=== PATIENT | female | born 1950 | race Caucasian/White ===

== ENCOUNTER → 2019-11-16 | Outpatient (CLI) | payer MEDICARE, OTHER, SELFPAY | PROVIDERS: Family Provider Family Medicine; PCP Family Medicine; Visit Provider Family Medicine | DX: Z12.31 Encounter for screening mammogram for malignant neoplasm of breast (principal) | CPT/HCPCS: 77067 ==

== ENCOUNTER → 2020-01-25 11:16 | Outpatient (BNVA) | payer MEDICARE, OTHER, SELFPAY | PROVIDERS: Family Provider Family Medicine; PCP Family Medicine; Visit Provider Internal Medicine Cardiovascular Disease | DX: R06.02 Shortness of breath (principal); I50.32 Chronic diastolic (congestive) heart failure; I50.33 Acute on chronic diastolic (congestive) heart failure; I35.0 Nonrheumatic aortic (valve) stenosis | CPT/HCPCS: 80048; 83880 ==

== ENCOUNTER 2020-03-06 13:48 | Outpatient (CLI) | payer MEDICARE, OTHER, SELFPAY ==
--- NOTE | 2020-03-06 13:55 | USCV_ITS ---
Anastacio Any Age: 69 Gender: F : 1950 Exam Date: 03/06/2020 14:18 Ordering Phys: Gadiel Mcneil MD ([email or web address]) Technologist: Elissa Collins Exam Location: [facility] [place] Indication: AV STENOSIS BP: / HR: 65 Rhythm: Sinus Technical Quality: Adequate MEASUREMENTS (Male / Female) Normal Values 2D ECHO LV Diastolic Diameter PLAX 3.5 cm 4.2 - 5.9 / 3.9 - 5.3 cm LV Systolic Diameter PLAX 1.7 cm IVS Diastolic Thickness 1.3 cm 0.6 - 1.0 / 0.6 - 0.9 cm IVS Systolic Thickness 1.9 cm LVPW Diastolic Thickness 1.2 cm 0.6 - 1.0 / 0.6 - 0.9 cm LVPW Systolic Thickness 1.1 cm LVOT Diameter 2.1 cm LV Ejection Fraction 2D Teich 83.3 % LV Ejection Fraction MOD 2C 87.1 % LV Ejection Fraction 2C AL 88.0 % LA Diameter 3.2 cm LA Width 3.1 cm LA Height 5.0 cm RA Width 2.7 cm RA Height 3.9 cm M-MODE LV Diastolic Diameter MM 4.8 cm 4.2 - 5.9 / 3.9 - 5.3 cm LV Systolic Diameter MM 3.3 cm LV Ejection Fraction MM Teich 59.7 % IVS Diastolic Thickness MM 0.8 cm 0.6 - 1.0 / 0.6 - 0.9 cm IVS Systolic Thickness MM 1.2 cm LVPW Diastolic Thickness MM 0.6 cm 0.6 - 1.0 / 0.6 - 0.9 cm LVPW Systolic Thickness MM 1.3 cm Aortic Annulus Diameter 2.8 cm LA Ao Ratio MM 1.2 DOPPLER AV Peak Velocity 201.0 cm/s LVOT Peak Velocity 183.0 cm/s AV Area Cont Eq vti 3.4 cm squared AV Area Cont Eq pk 3.1 cm squared MV E' Velocity 10.0 cm/s TR Peak Velocity 118.0 cm/s TR Peak Gradient 5.5 mmHg Right Atrial Pressure 3.0 mmHg Pulmonary Artery Systolic Pressu 8.6 mmHg PV Peak Velocity 123.0 cm/s RV Acceleration Time 0.1 s FINDINGS Left Ventricle Normal left ventricular size and systolic function, EF 86 %. Grade I/IV diastolic dysfunction (abnormal relaxation filling pattern), normal to mildly elevated filling pressures.mild left ventricular hypertrophy. Right Ventricle Normal right ventricular size and systolic function. Right Atrium The right atrium is normal in size. Left Atrium The left atrium is normal in size. Mitral Valve No gross abnormalities noted Aortic Valve Thickened aortic valve. Tricuspid Valve Mild tricuspid valve regurgitation. Pulmonic Valve Pulmonic valve not well visualized. Pericardium Normal pericardium without effusion. Aorta Normal aortic arch. CONCLUSIONS Normal left ventricular size and systolic function, EF 86 %. Grade I/IV diastolic dysfunction (abnormal relaxation filling pattern), normal to mildly elevated filling pressures.mild left ventricular hypertrophy. Features of aortic valve sclerosis Mild tricuspid valve regurgitation. There is no pericardial effusion. There are no intracardiac masses. There are no prior echocardiogram studies to compare. Dr Gadiel Mcneil MD FACC (Electronically Signed) Final Date: 06 March 2020 15:46 S
== END 2020-03-06 13:49 | disposition home or self-care (01) ==
LOC: RAD 13:51
PROVIDERS: Family Provider Family Medicine; PCP Family Medicine; Visit Provider Internal Medicine Cardiovascular Disease
DX: I35.0 Nonrheumatic aortic (valve) stenosis (principal); I07.1 Rheumatic tricuspid insufficiency
CPT/HCPCS: 93306

== ENCOUNTER → 2020-05-25 11:05 | Outpatient (BNVA) | payer MEDICARE, OTHER, SELFPAY | PROVIDERS: Family Provider Family Medicine; PCP Family Medicine; Visit Provider Internal Medicine Cardiovascular Disease | DX: R06.02 Shortness of breath (principal); I50.32 Chronic diastolic (congestive) heart failure; I35.0 Nonrheumatic aortic (valve) stenosis; I42.1 Obstructive hypertrophic cardiomyopathy; M79.89 Other specified soft tissue disorders; E78.2 Mixed hyperlipidemia; I13.0 Hypertensive heart and chronic kidney disease with heart failure and stage 1 through stage 4 chronic kidney disease, or unspecified chronic kidney disease; N18.2 Chronic kidney disease, stage 2 (mild); I50.40 Unspecified combined systolic (congestive) and diastolic (congestive) heart failure | CPT/HCPCS: 80048; 83880 ==

== ENCOUNTER → 2020-09-20 15:40 | Outpatient (BNVA) | payer MEDICARE, OTHER, SELFPAY | PROVIDERS: Family Provider Family Medicine; PCP Family Medicine; Visit Provider Internal Medicine Cardiovascular Disease | DX: R06.02 Shortness of breath (principal); E78.2 Mixed hyperlipidemia; I50.33 Acute on chronic diastolic (congestive) heart failure; I42.1 Obstructive hypertrophic cardiomyopathy; M79.89 Other specified soft tissue disorders | CPT/HCPCS: 80048; 83880 ==

== ENCOUNTER 2020-09-26 07:27 | Outpatient (CLI) | payer MEDICARE, OTHER, SELFPAY ==
--- NOTE | 2020-09-26 08:00 | USCV_ITS ---
Any Chaves Age: 69 Gender: F : 1950 Exam Date: 09/26/2020 07:41 Ordering Phys: Gadiel Mcneil MD ([email or web address]) Technologist: Belkys Parekh Exam Location: [facility] [place] Indication: Bilateral leg swelling HISTORY: Lower extremity swelling. PROCEDURES: Venous duplex imaging was performed in bilateral lower extremities. The following venous structures were evaluated: common femoral vein, profunda vein, proximal portion of the greater saphenous vein, superficial femoral vein, and the popliteal vein. In addition, the posterior tibial and peroneal trunk were evaluated. FINDINGS: Normal 2-D Doppler and augmentation and compressibility throughout the lower extremity venous structures. Additional imaging through the proximal calf veins also reveals no thrombus. Limited evaluation of the greater saphenous vein is patent with no thrombus.. CONCLUSIONS No evidence of right lower extremity DVT. No evidence of left lower extremity DVT. Kings Frazier MD (Electronically Signed) Final Date: 26 September 2020 11:49 S
== END 2020-09-26 07:28 | disposition home or self-care (01) ==
LOC: RAD 07:31
PROVIDERS: PCP Family Medicine; Visit Provider Internal Medicine Cardiovascular Disease
DX: M79.89 Other specified soft tissue disorders (principal)
CPT/HCPCS: 93970

== ENCOUNTER 2020-10-09 12:36 | Outpatient (CLI) | payer MEDICARE, OTHER, SELFPAY ==
--- NOTE | 2020-10-09 12:00 | CT_ITS ---
WS: [id number] CT ABDOMEN PELVIS TECHNIQUE: Contrast-enhanced CT of the abdomen and pelvis with coronal and sagittal reformatted image s. CLINICAL INFORMATION: EDEMA COMPARISON: None. DLP: 1097.[address] scans at [facility] use at least one of these dose optimization techniques: automat ed exposure control; mA and/or kV adjustment per patient size (includes targeted exams where dose is matched to clinical indication); or iterative reconstruction. FINDINGS: Mild diffuse fatty infiltration of the liver. Normal portal vein and splenic vein. Cholelithiasis. Mi ld intrahepatic biliary ductal dilatation. Adrenal glands are normal. No hydronephrosis. Splenic gran ulomas. Normal caliber abdominal aorta. Fat-containing left inguinal hernia. Subsegmental atelectasis in the right middle lobe, lingula, and right lower lobe. A few tiny low-attenuation lesions in the liver likely hepatic cysts. No evidence of small or large b owel obstruction. No free fluid in the abdomen or pelvis. CT/CT abdomen pelvis w con* [id number] IMPRESSION: 1. Cholelithiasis. No gallbladder wall thickening. This can be followed up wit h ultrasound. 2. Normal bilateral renal parenchymal enhancement. No hydronephrosis. 3. Normal caliber abdominal aorta. Aortic calcification. 4. Fat-containing left inguinal hernia. 5. Sigmoid diverticulosis. No evidence of acute diverticulitis. 6. No evidence of small or large bowel obstruction. 7. Mild diffuse fatty infiltration of the liver with a few tiny hepatic cysts.
[2020-10-09] MEDS: iohexol 300 mg/mL 50 mL Btl PO (13:18)
[2020-10-09] MEDS: iodixanol 320 mg/mL 100mL Btl IV (13:43)
== END 2020-10-09 12:37 | disposition home or self-care (01) ==
LOC: RADWPI 12:42
PROVIDERS: PCP Family Medicine; Visit Provider Family Medicine
DX: R60.9 Edema, unspecified (principal); K76.0 Fatty (change of) liver, not elsewhere classified; K76.89 Other specified diseases of liver; K57.30 Diverticulosis of large intestine without perforation or abscess without bleeding; K40.90 Unilateral inguinal hernia, without obstruction or gangrene, not specified as recurrent; K80.20 Calculus of gallbladder without cholecystitis without obstruction
CPT/HCPCS: 74177; Q9967

== ENCOUNTER 2020-11-08 15:31 | Inpatient (IN) | payer MEDICARE, OTHER, SELFPAY ==
[2020-11-08] VITALS (20 sets, daily range): BP systolic 110–128; BP diastolic 53–78; PULSE 68–103; RESP 16–38; TEMP 36.6–37.1; O2SAT 94–99; BMI 30.5
--- NOTE | 2020-11-08 15:53 | XRR_ITS ---
PROCEDURE INFORMATION: Exam: XR Chest, 1 View Exam date and time: 11/08/2020 6:02 PM Age: 69 years old Clinical indication: Shortness of breath; Additional info: Short of breath TECHNIQUE: Imaging protocol: XR of the chest Views: 1 view. COMPARISON: CR Chest 2 views* [id number] 10/01/2019 8:19 PM FINDINGS: Lungs: There is pulmonary infiltration in the lateral aspect of the left base which is consistent with a pneumonia. Bilateral interstitial chronic fibrosis is present. Focal fibrosis is present in the right apex. Pleural space: Unremarkable. No pleural effusion. No pneumothorax. Heart/Mediastinum: The heart is not enlarged. There is calcification of the aorta. Bones/joints: Unremarkable. XR/XR chest 1V portable [id number] IMPRESSION: Left lower lobe pneumonia.
--- NOTE | 2020-11-08 17:59 | ED_ITS ---
HPI - SOB/Dyspnea General: Chief Complaint: Shortness of Breath/Dyspnea Stated Complaint: SOB low oxygen Time Seen by Provider: 11/08/20 17:28 History of Present Illness: HPI Narrative: The patient is a 69-year-old female with past medical history COPD and diagnosed with Covid 2 weeks ago comes to the ER complaining of continued cough that is keeping her up at night. She had been given 2 rounds of steroids which did help her slightly though her symptoms co ntinue to linger. She did have an elevated temperature to 99 degrees a couple days ago but has not been febrile for some time. Her cough is at times productive and it keeps her up all night. She has tried Robitussin DM with no relief of her cough. She has some shortness of breath with exertion but at rest is not short of breath Pertinent past history: COPD Onset (ago): day(s) (14) Associated symptoms: Deny abdominal pain, chest pain, dizziness, extremity pain, orthopnea, palpitations or polyuria Review of Systems General: Reports: 10 or more systems reviewed and unremarkable except in HPI and below Const: Denies: fatigue Eyes: Denies: change in vision, blurry vision or eye redness ENMT: Denies: throat pain, swelling of lips/tongue, ear or mastoid pain or nasal congestion Card: Denies: chest pain, palpitations, irregular heart rhythm, edema, dyspnea on exertion or orthopnea Resp: Reports: dyspnea, productive cough and non-productive cough GI: Denies: abdominal pain, diarrhea or GI cramping : Denies: flank pain, difficulty voiding, urinary frequency or urinary urgency Musc: Denies: neck pain, back pain, extremity pain, joint pain, joint redness, limited range of motion or muscle weakness Skin/Breast: Denies: rash, pruritus, erythema, skin pain or skin tenderness Neuro: Denies: headache(s), numbness in extremities, weakness in extremities, sensory changes, difficulty walking, dizziness, confusion or Slurred speech present Psych: Denies: anxiety or depression Endo: Denies: polyuria All/Imm: Denies: urticaria, throat swelling or tongue swelling PFSH ED PFSH: Medical History Cardiomyopathy Chronic diastolic heart failure Chronic kidney disease COPD (chronic obstructive pulmonary disease) Hyperlipidemia Hypertension Hypertrophic obstructive cardiomyopathy Leg swelling Surgical History History of tonsillectomy Family History Other Cancer Diabetes Hypertension Social History Smoking and tobacco status: former smoker Alcohol intake: current Alcohol intake frequency: holidays/special occasions only Substance/Drug Use: never Household members: family Housing: House Physical Exam Const: COMMON NORMALS: no acute distress, average body habitus, patient oriented x3, no limitations, healthy appearing, alert and well nourished GENERAL APPEARANCE: cooperative, comfortable, well kempt and well developed ORIENTATION/CONSCIOUSNESS: Yes awake, Yes oriented to person, Yes oriented to place and Yes oriented to time HENMT: COMMON NORMALS: normocephalic, external ears normal and Normal external nose present HEAD & SCALP: normal to inspection and normocephalic NOSE: Normal external nose present EXTERNAL EAR: Yes external ears normal MOUTH: Normal oral and palatal mucosa present THROAT: posterior oropharynx normal Eye: COMMON NORMALS: Equal, round and reactive pupils present and EOMs intact bilaterally GENERAL EYE: appearance normal, both eyes and all related structures PUPIL: Yes Equal, round and reactive pupils present Neck/C-Spine: COMMON NORMALS: full ROM, no lymphadenopathy, no meningeal signs and no JVD GENERAL: Yes normal visual inspection Lymph: LYMPHATIC: no lymphadenopathy noted Chest: COMMONS NORMALS: normal inspection of the chest and normal palpation of entire chest wall Resp: EFFORT & INSPECTION: Yes able to speak in complete sentences, Yes tachyp neic and Yes labored OTHER: Reduced breath sounds with bilateral crackles at the bases. Cardio: COMMON NORMALS: no JVD, regular rate, regular rhythm, S1 normal heart sound present, S2 normal heart sound present and Peripheral pulses 2+ throughout RATE: regular rate RHYTHM: regular rhythm HEART SOUNDS: S1 normal heart sound present and S2 normal heart sound present PERIPHERAL PULSES: Peripheral pulses 2+ throughout GI: COMMON NORMALS: Normal to inspection, nondistended, normoactive bowel sounds present, Soft to palpation, non-tender and no masses INSPECTION: Yes normal to inspection PALPATION: Yes Soft to palpation : COMMON NORMALS: Yes no CVA tenderness BLADDER/KIDNEY EXAM: Yes no CVA tenderness Back/Pelvis: COMMON NORMALS: no CVA tenderness, thoracic and lumbar spine normal to inspection, no thoracic nor lumbar tenderness and thoraco-lumbar ROM normal Extremity: COMMON NORMALS: normal to inspection, full ROM, capillary refill normal and no joint enlargement NARRATIVE EXTREMITY EXAM: 2+ pitting edema to mid calves bilaterally GENERAL: Yes normal exam except as noted Neuro: COMMON NORMALS: patient oriented x3, CN's II-XII intact bilaterally, moves all extremities, no focal motor deficits, no sensory deficits noted and gait normal SENSORIUM/ORIENTATION: Yes alert, Yes oriented to person, Yes oriented to place and Yes oriented to time MENINGEAL SIGNS: Yes no meningeal signs Psych: COMMON NORMALS: mental status grossly normal, Normal thought process present, cooperative, normal affect and speech normal APPEARANCE: Yes well kempt ATTITUDE: Yes calm SPEECH: Yes normal speech THOUGHT PROCESS: Normal thought process present Skin: COMMON NORMALS: no rashes or lesions noted GENERAL SKIN EXAM: no rashes or lesions noted Course ED course: The patient came to the ER complaining of shortness of breath related to her Covid diagnosis for the past 2 weeks and persistent cough. She also has 2+ pitting edema in her lower extremities and is requiring oxygen. She says she stopped taking her Lasix some many days ago which is 60 mg she is supposed to take twice a day. Her symptoms have been worsening since. Discussed with who accepts for observation to cardiac stepdown unit. Vital Signs: Vital signs: Vital Signs Temperature 98.8 F 11/08/20 22:00 Pulse Rate 96 11/08/20 22:00 Respiratory Rate 18 11/08/20 22:00 Blood Pressure 117/69 11/08/20 22:00 Pulse Oximetry 97 11/08/20 22:00 MDM - SOB/Dyspnea Lab Data: Labs: Lab Results 11/08/20 11/08/20 11/08/20 Range/Units 17:50 17:50 17:50 WBC 14.7 H (4.0-10.0) 10^3/ uL RBC 3.38 L (4.1-5.3) 10^6/u L Hgb 10.4 L (11.5-15.3) g/dL Hct 34.1 L (37.0-47.0) % MCV 100.9 H (81-99) fL MCH 30.8 (28.0-34.0) pg MCHC 30.5 (30.0-36.0) g/dL RDW 13.6 (12.1-15.1) % Plt Count 290 (130-400) 10^3/c mm MPV 10.2 (7.4-10.4) fL Neut % (Auto) 67.2 % Lymph % (Auto) 21.2 % [place] % (Auto) 7.9 % Eos % (Auto) 2.6 % Baso % (Auto) 0.7 % Neut # (Auto) 9.89 H (1.8-7.7) 10^3/u L Lymph # (Auto) 3.1 (0.8-4.8) 10^3/u L [place] # (Auto) 1.2 H (0.2-0.9) 10^3/u L Eos # (Auto) 0.4 (0.0-0.8) 10^3/u L Baso # (Auto) 0.1 (0.0-0.1) 10^3/u L Nucleated RBC % (a uto) 0 % Nucleated RBCs # 0.0 /100WBC D-Dimer 0.67 H (0-0.59) ug/mIFE U Sodium 142 (136-145) mmol/L Potassium 5.0 (3.5-5.1) mmol/L Chloride 104 (98-107) mmol/L Carbon Dioxide 29 (22-29) mmol/L Anion Gap 14.0 (5-19) BUN 34 H (8-23) mg/dL Creatinine 1.5 H (0.5-0.9) mg/dL GFR Calculation 34.3 L (90-130) mL/min Glucose 103 (65-115) mg/dL Calculated Osmolal ity 302 H (285-295) mOsm/k g Calcium 9.3 (8.5-10.5) mg/dL Total Bilirubin 0.2 (0.15-1.2) mg/dL AST 19 (0-32) U/L ALT 27 (0-33) U/L Alkaline Phosphata se 82 (35-105) IU/L NT-Pro-B Natriuret Pep 2851 H (0-125) pg/mL Total Protein 6.8 (6.6-8.7) g/dL Albumin 3.6 (3.5-5.2) g/dL Globulin 3.2 (1.3-4.6) g/dL Discharge Plan Discharge Admit Provider: Luiz Vivas Coding Level of Care Code ED Human Factors Advisor Lead for Chg Fwd Exam Comprehensive
[2020-11-08 18:00] LABS: Basophils # 0.1 10^3/uL (0.0-0.1); Basophils % 0.7 %; Eosinophils # 0.4 10^3/uL (0.0-0.8); Eosinophils % 2.6 %; Hematocrit 34.1 % (37.0-47.0); Hemoglobin 10.4 g/dL (11.5-15.3); Lymphocytes # 3.1 10^3/uL (0.8-4.8); Lymphocytes % 21.2 %; Mean Corpuscular HGB Conc 30.5 g/dL (30.0-36.0); Mean Corpuscular Hemoglobin 30.8 pg (28.0-34.0); Mean Corpuscular Volume 100.9 fL (81-99); Mean Platelet Volume 10.2 fL (7.4-10.4); Monocytes # 1.2 10^3/uL (0.2-0.9); Monocytes % 7.9 %; Neutrophils # 9.89 10^3/uL (1.8-7.7); Neutrophils % 67.2 %; Nucleated Red Blood Cells % 0 %; Platelet Count 290 10^3/cmm (130-400); Red Blood Count 3.38 10^6/uL (4.1-5.3); Red Cell Distribution Width 13.6 % (12.1-15.1); White Blood Count 14.7 10^3/uL (4.0-10.0)
[2020-11-08 18:26] LABS: Alanine Aminotransferase 27 U/L (0-33); Albumin Level 3.6 g/dL (3.5-5.2); Alkaline Phosphatase 82 IU/L (35-105); Aspartate Amino Transferase 19 U/L (0-32); Blood Urea Nitrogen 34 mg/dL (8-23); Calcium 9.3 mg/dL (8.5-10.5); Carbon Dioxide 29 mmol/L (22-29); Chloride 104 mmol/L (98-107); Globulin 3.2 g/dL (1.3-4.6); Glomerular Filtration Rate 34.3 mL/min (90-130); Glucose 103 mg/dL (65-115); NT Pro B Type Natriuretic Pept 2851 pg/mL (0-125); Osmolality Calculated 302 mOsm/kg (285-295); Sodium 142 mmol/L (136-145); Total Bilirubin 0.2 mg/dL (0.15-1.2); Total Protein 6.8 g/dL (6.6-8.7)
[2020-11-08 18:48] LABS: D Dimer 0.67 ug/mIFEU (0-0.59)
--- NOTE | 2020-11-08 18:54 | PC.NURSE ---
Report from ANGEL LUIS Rodriguez
--- NOTE | 2020-11-08 20:14 | PC.NURSE ---
Provider at bedside
--- NOTE | 2020-11-08 20:35 | P.HP_ITS ---
Providers/Chief Complaint Primary Care Provider: Carlos Manuel Swift MD Chief Complaint: SOB low OXY History of Present Illness Any Chaves is a 69 year old female who has history of hypertrophic cardiomyopathy with high left ventricular outflow tract gradient, grade 1 diastolic dysfunction, preserved ejection fraction, was diagnosed with COVID-19 2 weeks ago presented today with chief complaint of shortness of breath. Patient has been noticing swelling of bilateral extremities for last few months she has seen Dr. Mcneil as well for similar complaints recently increased her Lasix dose to 60 mg. Patient presented to the hospital with worsening shortness of breath, she is denying fever, nausea, vomiting, chest pain, endorsing orthopnea, PND worsening leg swelling. She did not take 60 mg of Lasix twice a day however recommended by Dr. Mcneil in anticipation of worsening of her cardiac condition. She has been taking 20 mg of Lasix twice a day. She is denying syncopal events, palpitations, confusion. Diagnostic work-up in the ER revealed sepsis most likely source left lower lobe pneumonia, high D-dimer I will give her first dose of therapeutic Lovenox considering high creatinine not a candidate of CTA chest, I will start her on ceftriaxone and azithromycin will give first dose of Levaquin in the ER She has been given 40 mg IV Lasix for CHF exacerbation BNP 2800 currently requiring 2 L nasal cannula . Review of Systems Const: Reports: body aches and fatigue; Denies: fever(s) Eyes: Denies: change in vision ENMT: Denies: throat pain Card: Reports: edema, swelling of feet/ankles and dyspnea on exertion; Denies: chest pain, palpitations or pre-syncope Resp: Reports: dyspnea and non-productive cough GI: Denies: abdominal pain : Denies: flank pain Musc: Reports: muscle cramps Skin/Breast: Denies: rash Neuro: Denies: headache(s) Psych: Reports: anxiety Endo: Denies: polyuria Francisco/Lymph: Denies: easy bruising All/Imm: Denies: urticaria Medications/Allergies Home Medications Medication Instructions Recorded Confirmed Last Taken Type cholecalciferol (vitamin D3) 1,250 1,000 mcg PO DAILY@0800 cap 01/25/20 11/08/20 11/08/20 History mcg (50,000 unit) capsule fluticasone 500 mcg-salmeterol 50 1 inh INHALATION BID@0800,1800 01/25/20 11/08/20 11/08/20 History mcg/dose blistr powdr for inhalation loratadine 10 mg tablet 10 mg PO DAILY@0800 01/25/20 11/08/20 11/08/20 History omega-3 fatty acids 1,000 mg 1,000 mg PO DAILY@0800 01/25/20 11/08/20 11/08/20 History capsule omeprazole 40 mg capsule,delayed 40 mg PO DAILY@0800 01/25/20 11/08/20 11/08/20 History release prenat.vits,el,yah-bilz-cgtmd 1 tab PO DAILY@0800 01/25/20 11/08/20 11/08/20 History Lasix 60 mg PO BID@0800,1800 PRN 11/08/20 11/08/20 11/08/20 History SEE PHARMACY COMMENT Vitamin C 1 tab PO DAILY@0800 11/08/20 11/08/20 11/08/20 History albuterol sulfate [Ventolin HFA] 2 puff INHALATION Q6H PRN 11/08/20 11/08/20 11/08/20 History amlodipine 2.5 mg PO DAILY@0800 11/08/20 11/08/20 11/08/20 History aspirin [Aspir-81] 81 mg PO DAILY@0800 11/08/20 11/08/20 11/08/20 History dexamethasone See Rx Instructions .ROUTE .COMPLEX 11/08/20 11/08/20 11/08/20 History lisinopril 40 mg PO DAILY@0800 11/08/20 11/08/20 11/08/20 History metoprolol tartrate 75 mg PO BID@0800,1800 11/08/20 11/08/20 11/08/20 History potassium chloride 20 meq PO BID@0800,1800 11/08/20 11/08/20 11/08/20 History zinc 1 tab PO DAILY@0800 11/08/20 11/08/20 11/08/20 History Allergies Allergy/AdvReac Type Severity Reaction Status Date / Time propoxyphene [From Darvon-N] Allergy Unknown unknown Verified 01/25/20 10:17 PFSH Acute PFSH: Medical History (Updated 11/09/20 @ 00:01 by Luiz Vivas MD) Cardiomyopathy Chronic diastolic heart failure Chronic kidney disease COPD (chronic obstructive pulmonary disease) Hyperlipidemia Hypertension Hypertrophic obstructive cardiomyopathy Leg swelling Surgical History History of tonsillectomy Family History Other Cancer Diabetes Hypertension Social History Smoking and tobacco status: former smoker Alcohol intake: current Alcohol intake frequency: holidays/special occasions o nly Substance/Drug Use: never Household members: family Housing: House Vitals/I&O/Wt Last Vital Signs Temp 97.8 F 11/08/20 18:56 Pulse 98 11/08/20 20:12 Resp 21 H 11/08/20 20:12 BP 122/72 11/08/20 20:12 Pulse Ox 95 11/08/20 20:12 Weight last 48 hrs Weight 88.451 kg Physical Exam Narrative: EXAM NARRATIVE: Very pleasant elderly female who appears younger than stated age No acute respite distress or chest pain Currently saturating well on 2 L nasal cannula S1, S2 sinus rhythm, strong apical pulses, and of heart failure Bilateral lower extremity edema 3+, pedal edema positive Awake alert oriented x3 GCS 15 No neurological deficit Abdomen soft, obese obesity, nontender bowel sound present Bilateral breath sounds with slightly diminished breath sounds however no crackles noted Appropriate mood and affect No active signs of cellulitis of lower extremities Data : 11/08/20 17:50 11/08/20 17:50 A&P Assessment and plan (1) Community acquired pneumonia: Status: Acute (2) Acute exacerbation of CHF (congestive heart failure): Status: Acute (3) Hypertrophic obstructive cardiomyopathy: Status: Acute (4) Leg swelling: Status: Acute (5) Chronic kidney disease: Status: Acute Qualifiers: Chronic kidney disease stage: stage 2 (mild) Qualified Code(s): N18.2 - Chronic kidney disease, stage 2 (mild) (6) Sepsis: Status: Acute (7) Acute respiratory failure with hypoxia: Status: Acute Additional A&P Information Acute hypoxic respiratory failure with sepsis secondary to community-acquired pneumonia Left lower lobe pneumonia evident on chest x-ray, will request procalcitonin level Currently requiring 2 L nasal cannula I would start her on ceftriaxone and azithromycin, will request urine antigens Patient contracted Covid 19 about 2 weeks ago for which she took Decadron and stayed at home No fever, vomiting or active myalgias Acute CHF exacerbation History of hocum, preserved ejection fraction Not a candidate of fluid resuscitation due to sepsis, I would keep her on Bumex 1 mg for now I am being careful with diuresis because of her hypertrophic cardiomyopathy history to prevent reduction in preload At the time of my evaluation loud S1 but I did not appreciate a loud intensity murmur Kindly request cardiology consult in the morning to help us in appropriate diuresis, I do believe hypertrophic cardiomyopathy worsening is the cause of this heart failure Patient is stating that no one has ever talked about AICD placement regarding her cardiomyopathy, she is denying chest pain, palpitations, for now I would discontinue lisinopril and continue beta-oral Acute on chronic kidney disease This seems cardiorenal in nature as previously when she had heart failure her creatinine marian up around 1.5 I will hold her lisinopril Full code Cardiac diet DVT prophylaxis Heparin Attestations Medical Necessity Statement*: Anticipating stay in the hospital course more than 2 midnights currently need diuresis and management of sepsis secondary to community-acquired pneumonia, procalcitonin level is pending, high risk patient secondary to cardiomyopathy Time Spent in Patient Care: (>than 50% of time spent in counselling and/or direct pt care on unit) . 50mins Coding Level of Care Code Acute Psychiatry Teacher for Chg Fwd Diagnoses Community acquired pneumonia J18.9 Acute exacerbation of CHF (congestive heart failure) I50.9 Hypertrophic obstructive cardiomyopathy I42.1 Leg swelling M79.89 Chronic kidney disease N18.2 Chronic kidney disease stage: stage 2 (mild) Sepsis A41.9 Acute respiratory failure with hypoxia J96.01
[2020-11-08] MEDS: FUROsemide 10 mg/mL SDV 4mL 40 MG IVP (20:58)
[2020-11-08] MEDS: levoFLOXacin 750 mg Tablet PO (20:58)
--- NOTE | 2020-11-08 21:40 | PC.NURSE ---
Report to ANGEL LUIS Garrett
[2020-11-08] MEDS: enoxaparin 100 mg/mL Syringe 90 MG SUBCUT (22:29)
[2020-11-08] MEDS: cefTRIAXone 1,000 MG in sodium chloride 0.9% (plus) 50 ML 100 MG IV (22:30)
[2020-11-08 22:49] LABS: Thyroid Stimulating Hormone 2.89 uIU/mL (0.27-4.20)
[2020-11-09] VITALS (21 sets, daily range): BP systolic 97–118; BP diastolic 62–73; PULSE 75–107; RESP 18–35; TEMP 36.4–36.9; O2SAT 92–99
[2020-11-09 00:23] LABS: Procalcitonin 0.09 ng/mL (0-0.5)
--- NOTE | 2020-11-09 02:05 | PC.NURSE ---
Heparin held due to the patient having received lovenox 90mg 2 hours prior to this order being placed
[2020-11-09 04:48] LABS: Basophils # 0.1 10^3/uL (0.0-0.1); Basophils % 0.6 %; Eosinophils # 0.3 10^3/uL (0.0-0.8); Eosinophils % 2.5 %; Hematocrit 31.1 % (37.0-47.0); Hemoglobin 9.6 g/dL (11.5-15.3); Lymphocytes # 2.9 10^3/uL (0.8-4.8); Lymphocytes % 22.9 %; Mean Corpuscular HGB Conc 30.9 g/dL (30.0-36.0); Mean Corpuscular Hemoglobin 31.3 pg (28.0-34.0); Mean Corpuscular Volume 101.3 fL (81-99); Mean Platelet Volume 10.1 fL (7.4-10.4); Monocytes # 1.2 10^3/uL (0.2-0.9); Monocytes % 9.4 %; Neutrophils # 8.01 10^3/uL (1.8-7.7); Neutrophils % 64.1 %; Nucleated Red Blood Cells % 0 %; Platelet Count 270 10^3/cmm (130-400); Red Blood Count 3.07 10^6/uL (4.1-5.3); Red Cell Distribution Width 13.5 % (12.1-15.1); White Blood Count 12.5 10^3/uL (4.0-10.0)
[2020-11-09 05:07] LABS: Anion Gap 13.7 (5-19); Blood Urea Nitrogen 35 mg/dL (8-23); C Reactive Protein 44.5 mg/L (0.0-4.9); Calcium 9.3 mg/dL (8.5-10.5); Carbon Dioxide 30 mmol/L (22-29); Chloride 104 mmol/L (98-107); Glomerular Filtration Rate 34.3 mL/min (90-130); Glucose 99 mg/dL (65-115); Osmolality Calculated 304 mOsm/kg (285-295); Potassium 4.7 mmol/L (3.5-5.1); Sodium 143 mmol/L (136-145)
[2020-11-09 05:08] LABS: Lactate Dehydrogenase 188 U/L (135-214)
[2020-11-09 05:38] LABS: Ferritin 593 ng/mL (15-150)
[2020-11-09] MEDS: aspirin 81 mg EC Tablet PO (08:58)
[2020-11-09] MEDS: pantoprazole DR 40 mg Tablet PO (08:58)
[2020-11-09] MEDS: bumetanide 1 mg Tablet PO (08:58)
[2020-11-09] MEDS: azithromycin 250 mg Tablet 500 MG PO (08:59)
--- NOTE | 2020-11-09 09:00 | PC.NURSE ---
Pt refused to take the dose of her Metoprolol Pt stated she can't tolerate taking the higher dose of Metoprolol and her metoprolol has been decrease from 100 mg to 50 mg by his PCP. She stated, I just feel funny, lightheaded, dizzy. BP taken- 108/69. Informed Dr. Ventura with the pt's concern via phone. Received RBTO to give metoprolol 50 mg twice a day.
[2020-11-09] MEDS: albuterol 8 gm MDI 2 PUFF INHALATION ×3 (09:37→21:04)
[2020-11-09] MEDS: metoprolol tartrate 50 mg Tablet PO ×2 (11:41→18:44)
[2020-11-09] MEDS: heparin 5,000 unit/mL INJ 1 mL 5000 UNIT SUBCUT ×2 (12:35→20:59)
--- NOTE | 2020-11-09 13:30 | ECG_ITS ---
[facility] Test Date: 2020-11-09 Pat Name: Any Chaves Department: Room: 104 Gender: Female [employer]: : 1950 Requested By: John Rodriguez Order Number: [id number] Terese MD: Penny Pal M.D. Measurements Intervals [place] Rate: 77 P: 11 DC: 114 QRS: 65 QRSD: 74 T: 64 QT: 369 QTc: 418 Interpretive Statements SINUS RHYTHM WITH SHORT DC INTERVAL Compared to ECG 10/01/2019 20:12:30 Short DC interval now present Electronically Signed On 11-12-2020 10:07:01 COMPUTER EQUIPMENT REPAIRER by Penny Pal M.D. [email or web address]
--- NOTE | 2020-11-09 20:10 | PM.PN ---
Subjective Subjective: Interval history: She states she is feeling better. Was having headache earlier but now it is better. No nausea vomiting diarrhea. No muscle aches or chills. No chest pain. Vitals/I&O/Wt Last Vital Signs Temp 97.6 F 11/09/20 12:00 Pulse 91 11/09/20 19:34 Resp 25 H 11/09/20 19:34 BP 97/72 11/09/20 19:34 Pulse Ox 96 11/09/20 19:34 11/09/20 11/09/20 11/09/20 06:59 14:59 22:59 Intake Total 550 / 550 478 / 478 400 / 878 Output Total 0 / 300 350 / 350 Balance 550 / 250 478 / 478 50 / 528 Weight last 48 hrs Weight 88.451 kg Physical Exam Const: COMMON NORMALS: no acute distress and patient oriented x3 HENMT: COMMON NORMALS: oropharynx normal Neck/C-Spine: COMMON NORMALS: no JVD Resp: COMMON NORMALS: normal respiratory effort AUSCULTATION: diminished lung sounds on the left Cardio: COMMON NORMALS: no JVD, regular rhythm, S1 normal heart sound present, S2 normal heart sound present and No murmurs present (Cardio) RHYTHM: regular rhythm HEART SOUNDS: S1 normal heart sound present and S2 normal heart sound present GI: COMMON NORMALS: Normal to inspection, nondistended, normoactive bowel sounds present, Soft to palpation and non-tender PALPATION: Yes Soft to palpation Extremity: COMMON NORMALS: no pedal edema GENERAL: Yes edema (2+) Neuro: COMMON NORMALS: patient oriented x3 and moves all extremities Skin: COMMON NORMALS: no rashes or lesions noted GENERAL SKIN EXAM: no rashes or lesions noted Data : 11/09/20 04:11 11/09/20 04:11 Micro: Microbiology 11/09/20 07:00 Legionella Urinary Antigen - Final Urine,Voided Bacterial Antigens - Final 11/08/20 22:16 Blood Culture - Preliminary Blood SPECIMEN COLLECTED 11/08/20 22:13 Blood Culture - Preliminary Blood SPECIMEN COLLECTED A&P Assessment and plan (1) Community acquired pneumonia: Subjectively she is feeling better. She is currently doing well on 2 L nasal cannula oxygen. Reports at baseline she is on 4 L. Leukocytosis is improving. Subjectively she is feeling better. Continue treatment currently with Rocephin and azithromycin. If continues to do well perhaps may be able to return home soon. Status: Acute (2) Acute exacerbation of CHF (congestive heart failure): She reports some dyspnea on exertion. Mild orthopnea. Appears to have chronic lower extremity edema per review of cardiology note from prior visit. Continue Bumex currently. Monitor blood pressures. HOCM. Avoid hypovolemia. Follow-up with cardiology in office.Mild concentric LVH noted on echo with moderate hypertrophy of the septum. Grade 1 diastolic dysfunction. Dynamic LVOT obstruction cannot be excluded. Consider KELSEY as outpatient. No significant changes from prior echo. Continue metoprolol. Status: Acute (3) Hypertrophic obstructive cardiomyopathy: As above. Status: Acute (4) Leg swelling: Appears to be chronic. Careful diuresis. Status: Acute (5) Chronic kidney disease: Appears to be at her recent creatinine baseline. Lisinopril was held on presentation, continue to hold for now while diuresing. Recheck renal function. Status: Acute Qualifiers: Chronic kidney disease stage: stage 2 (mild) Qualified Code(s): N18.2 - Chronic kidney disease, stage 2 (mild) (6) Sepsis: Improving. Continue treatment of pneumonia. Status: Acute (7) Acute respiratory failure with hypoxia: Doing better. COVID-19 2 weeks ago. Status: Acute Additional A&P Information Abnormal D-dimer: Normal for age. Follow-up. Full code Cardiac diet DVT prophylaxis Heparin Attestations Medical Necessity Statement*: Continue admission for assessment and management of community-acquired pneumonia, CHF in the setting of hypertrophic cardiomyopathy, chronic kidney disease and a number of other comorbidities. Coding Level of Care Code Acute Tie Inspector for [facility] Jennifer Diagnoses Community acquired pneumonia J18.9 Acute exacerbation of CHF (congestive heart failure) I50.9 Hypertrophic obstructive cardiomyopathy I42.1 Leg swelling M79.89 Chronic kidney disease N18.2 Chronic kidney disease stage: stage 2 (mild) Sepsis A41.9 Acute respiratory failure with hypoxia J96.01
[2020-11-09] MEDS: cefTRIAXone 1,000 MG in sodium chloride 0.9% (plus) 50 ML 100 MG IV (20:59)
--- NOTE | 2020-11-09 21:56 | USCV_ITS ---
Any Chaves Age: 69 Gender: F : 1950 Exam Date: 11/09/2020 07:09 Ordering Phys: Luiz Vivas MD Technologist: Veronica Britton Exam Location: [facility] – [place] Indication: CHF BP: 112 / 77 HR: 95 Rhythm: Sinus Technical Quality: Very technically difficult study MEASUREMENTS (Male / Female) Normal Values 2D ECHO LV Diastolic Diameter PLAX 3.1 cm 4.2 - 5.9 / 3.9 - 5.3 cm LV Systolic Diameter PLAX 2.3 cm LV Chamber Size 3.1 cm IVS Diastolic Thickness 1.1 cm 0.6 - 1.0 / 0.6 - 0.9 cm IVS Systolic Thickness 1.8 cm LVPW Diastolic Thickness 1.9 cm 0.6 - 1.0 / 0.6 - 0.9 cm LVPW Systolic Thickness 1.9 cm RV Chamber Size 2.3 cm LVOT Diameter 2.0 cm LV Ejection Fraction 2D Teich 52.7 % LA Width 3.0 cm LA Height 4.1 cm RA Width 2.4 cm RA Height 3.2 cm DOPPLER AV Peak Velocity 638.0 cm/s LVOT Peak Velocity 148.3 cm/s AV Area Cont Eq vti 0.7 cm squared AV Area Cont Eq pk 0.8 cm squared MV Area PHT 7.9 cm squared Mitral E to A Ratio 0.5 MV E' Velocity 41.5 cm/s Mitral E to MV E' Ratio 9.2 Mitral E to LV E' Lateral Ratio 9.6 Mitral E to LV E' Septal Ratio 8.8 TR Peak Velocity 394.0 cm/s TR Peak Gradient 62.1 mmHg PV Peak Velocity 121.0 cm/s RV Acceleration Time 0.1 s RV Ejection Time 0.3 s RV AcT/ET 0.4 FINDINGS Left Ventricle Normal left ventricular size and systolic function with no regional wall motion abnormalities. LVEF is > 65%. Mild concentric left ventricular hypertrophy is noted with moderate hypertrophy of septum. Grade 1 diastolic dysfunction is present. Right Ventricle Not well-visualized. Right Atrium Not well-visualized. Left Atrium Not well-visualized. Mitral Valve Not well-visualized. No significant mitral regurgitation or stenosis is noted. Aortic Valve Not well-visualized. There are elevated Doppler velocities across the aortic valve however this is a limited quality echocardiogram with incomplete jet to assess accurate peak velocity. Dynamic LVOT obstruction cannot be ruled out. Tricuspid Valve Not well-visualized. No significant tricuspid regurgitation is noted. Insufficient TR jet to calculate RVSP. Pulmonic Valve Not well-visualized Pericardium Grossly normal Aorta Not well-visualized CONCLUSIONS This is a poor quality echocardiogram with limited visualization of cardiac structures. Grossly LV systolic function is normal with EF of more than 65%. Mild concentric left ventricular hypertrophy is noted with moderate hypertrophy of septum. Grade 1 diastolic dysfunction is present. Aortic valve is not well-visualized. There are elevated Doppler velocities across aortic valve however this is a limited quality echo with incomplete jet to assess accurate peak velocity. Dynamic LVOT obstruction cannot be ruled out Compared to prior echocardiogram from 03/06/2020, no significant changes are noted. For complete visualization and assessment of aortic valve and LVOT obstruction, can consider transesophageal echocardiogram as outpatient. Mark Lawton MD (Electronically Signed) Final Date: 09 November 2020 16:57 S
--- NOTE | 2020-11-09 21:56 | USCV_ITS ---
Any Chaves Age: 69 Gender: F : 1950 Exam Date: 11/09/2020 07:24 Ordering Phys: Luiz Vivas MD Technologist: Veronica Britton [place] [facility] [place]: DVT HISTORY: DVT. PROCEDURES: Venous duplex imaging was performed in bilateral lower extremities. The following venous structures were evaluated: common femoral vein, profunda vein, proximal portion of the greater saphenous vein, superficial femoral vein, and the popliteal vein. In addition, the posterior tibial and peroneal trunk were evaluated. Serial compression, augmentation maneuvers, and spectral Doppler flow evaluation were performed. FINDINGS: Normal 2-D Doppler and augmentation and compressibility throughout the lower extremity venous structures. Additional imaging through the proximal calf veins also reveals no thrombus. Limited evaluation of the greater saphenous vein is patent with no thrombus. CONCLUSIONS No DVT bilateral lower extremities. Dr. Marline Bryant DO (Electronically Signed) Final Date: 09 November 2020 08:39 S
[2020-11-10] VITALS (16 sets, daily range): BP systolic 103–131; BP diastolic 53–85; PULSE 78–97; RESP 18–29; TEMP 36.9; O2SAT 94–97
[2020-11-10] MEDS: heparin 5,000 unit/mL INJ 1 mL 5000 UNIT SUBCUT ×3 (03:35→20:20)
--- NOTE | 2020-11-10 06:04 | PC.NURSE ---
Patient has no complaints at this time. Will monitor.
[2020-11-10 06:12] LABS: Basophils # 0.1 10^3/uL (0.0-0.1); Basophils % 0.6 %; Eosinophils # 0.3 10^3/uL (0.0-0.8); Eosinophils % 3.2 %; Hematocrit 30.6 % (37.0-47.0); Hemoglobin 9.4 g/dL (11.5-15.3); Lymphocytes # 2.4 10^3/uL (0.8-4.8); Lymphocytes % 22.1 %; Mean Corpuscular HGB Conc 30.7 g/dL (30.0-36.0); Mean Platelet Volume 10.4 fL (7.4-10.4); Monocytes % 9.3 %; Neutrophils # 6.96 10^3/uL (1.8-7.7); Neutrophils % 64.5 %; Nucleated Red Blood Cells % 0 %; Platelet Count 286 10^3/cmm (130-400); Red Blood Count 3.03 10^6/uL (4.1-5.3); Red Cell Distribution Width 13.5 % (12.1-15.1); White Blood Count 10.8 10^3/uL (4.0-10.0)
[2020-11-10 06:34] LABS: D Dimer 0.44 ug/mIFEU (0-0.59)
[2020-11-10 06:43] LABS: Alanine Aminotransferase 21 U/L (0-33); Albumin Level 3.3 g/dL (3.5-5.2); Alkaline Phosphatase 72 IU/L (35-105); Anion Gap 12.2 (5-19); Aspartate Amino Transferase 18 U/L (0-32); Blood Urea Nitrogen 28 mg/dL (8-23); Calcium 9.2 mg/dL (8.5-10.5); Carbon Dioxide 30 mmol/L (22-29); Chloride 105 mmol/L (98-107); Globulin 2.9 g/dL (1.3-4.6); Glomerular Filtration Rate 40.5 mL/min (90-130); Glucose 122 mg/dL (65-115); Osmolality Calculated 303 mOsm/kg (285-295); Potassium 4.2 mmol/L (3.5-5.1); Sodium 143 mmol/L (136-145); Total Bilirubin 0.3 mg/dL (0.15-1.2); Total Protein 6.2 g/dL (6.6-8.7)
[2020-11-10] MEDS: aspirin 81 mg EC Tablet PO (08:53)
[2020-11-10] MEDS: bumetanide 1 mg Tablet PO (08:53)
[2020-11-10] MEDS: azithromycin 250 mg Tablet 500 MG PO (08:53)
[2020-11-10] MEDS: metoprolol tartrate 50 mg Tablet PO ×2 (08:54→18:30)
[2020-11-10] MEDS: pantoprazole DR 40 mg Tablet PO (08:54)
[2020-11-10] MEDS: acetaminophen 325 mg Tablet 650 MG PO (13:09)
[2020-11-10] MEDS: guaiFENesin 600 mg Tablet 1200 MG PO (14:59)
[2020-11-10] MEDS: albuterol 8 gm MDI 2 PUFF INHALATION ×2 (15:40→21:48)
--- NOTE | 2020-11-10 19:37 | P.PN_ITS ---
Subjective Subjective: Interval history: She gets quite dyspneic with exertion. Today wheezing is worse. Still coughing. Productive cough. Vitals/I&O/Wt Last Vital Signs Temp 98.5 F 11/10/20 12:00 Pulse 84 11/10/20 16:00 Resp 27 H 11/10/20 16:00 BP 103/53 11/10/20 16:00 Pulse Ox 96 11/10/20 16:00 11/10/20 11/10/20 11/10/20 06:59 14:59 22:59 Intake Total 300 / 1328 360 / 360 Output Total 1200 / 1200 Balance 300 / 978 -1200 / -1200 360 / -840 Physical Exam Const: COMMON NORMALS: no acute distress and patient oriented x3 HENMT: COMMON NORMALS: oropharynx normal Neck/C-Spine: COMMON NORMALS: no JVD Resp: COMMON NORMALS: normal respiratory effort AUSCULTATION: wheezes (Bilateral) and diminished lung sounds on the left Cardio: COMMON NORMALS: no JVD, regular rhythm, S1 normal heart sound present, S2 normal heart sound present and No murmurs present (Cardio) RHYTHM: regular rhythm HEART SOUNDS: S1 normal heart sound present and S2 normal heart sound present GI: COMMON NORMALS: Normal to inspection, nondistended, normoactive bowel sounds present, Soft to palpation and non-tender PALPATION: Yes Soft to palpation Extremity: COMMON NORMALS: no pedal edema GENERAL: Yes edema (2+) Neuro: COMMON NORMALS: patient oriented x3 and moves all extremities Skin: COMMON NORMALS: no rashes or lesions noted GENERAL SKIN EXAM: no rashes or lesions noted Data : 11/10/20 05:15 11/10/20 05:15 Micro: Microbiology 11/08/20 22:16 Blood Culture - Preliminary Blood NEGATIVE TO DATE 11/08/20 22:13 Blood Culture - Preliminary Blood NEGATIVE TO DATE A&P Assessment and plan (1) Community acquired pneumonia: She is quite limited respiratory reserve, gets dyspneic very easily with exertion. Appears to also have significant bronchial component to her respiratory illness with quite a bit of wheezing today. Continues to have productive cough. We will go ahead and resume her Advair, and also resume Decadron which she had finished about a week ago. Continue Rocephin, azithromycin for community-acquired pneumonia. Following recent COVID-19 illness. She does not yet feel like she will do well at home. At home lives with her . Status: Acute (2) Acute exacerbation of CHF (congestive heart failure): Continue Bumex. Monitor YAIR. She is in negative balance about 750 mL. Blood pressure is soft. Will not increase diuretic currently avoid hypovolemia in the setting of possible dynamic LVOT obstruction with HOCM. Follow-up with cardiology in office. Mild concentric LVH noted on echo with moderate hypertrophy of the septum. Grade 1 diastolic dysfunction. Dynamic LVOT obstruction cannot be excluded. Consider KELSEY as outpatient. No significant changes from prior echo. Continue metoprolol. Status: Acute (3) Hypertrophic obstructive cardiomyopathy: As above. Status: Acute (4) Leg swelling: Appears to be chronic. Status: Acute (5) Chronic kidney disease: Appears to be at her recent creatinine baseline. Lisinopril was held on presentation, continue to hold for now while diuresing. Recheck renal function. Status: Acute Qualifiers: Chronic kidney disease stage: stage 2 (mild) Qualified Code(s): N18.2 - Chronic kidney disease, stage 2 (mild) (6) Sepsis: Improving. Continue treatment of pneumonia. Status: Acute (7) Acute respiratory failure with hypoxia: As above. Status: Acute Additional A&P Information Abnormal D-dimer: Normal for age. Follow-up normal. Full code Cardiac diet DVT prophylaxis Heparin Attestations Medical Necessity Statement*: Continue admission for management of bacterial pneumonia superimposed after recent viral COVID-19 pneumonia, with significant bronchial component, limited respiratory reserve, CHF exacerbation, with underlying HOCM with possible dynamic LVOT obstruction. Coding Level of Care Code Acute Report Analyst for [facility] Diagnoses Community acquired pneumonia J18.9 Acute exacerbation of CHF (congestive heart failure) I50.9 Hypertrophic obstructive cardiomyopathy I42.1 Leg swelling M79.89 Chronic kidney disease N18.2 Chronic kidney disease stage: stage 2 (mild) Sepsis A41.9 Acute respiratory failure with hypoxia J96.01
[2020-11-10] MEDS: dexamethasone 4 mg Tablet 6 MG PO (20:20)
[2020-11-10] MEDS: cefTRIAXone 1,000 MG in sodium chloride 0.9% (plus) 50 ML 100 MG IV (22:22)
[2020-11-11] VITALS (8 sets, daily range): BP systolic 112–139; BP diastolic 66–86; PULSE 79–93; RESP 16–23; TEMP 36.8–37.1; O2SAT 88–96
--- NOTE | 2020-11-11 00:56 | PC.NURSE ---
PT IS RESTING IN BED. PT DENIES PAIN. PT GOT UP TO BSC AD RONY. WILL CONTINUE TO MONITOR.
[2020-11-11 04:27] LABS: Basophils # 0.1 10^3/uL (0.0-0.1); Basophils % 0.5 %; Eosinophils % 0.1 %; Hematocrit 29.6 % (37.0-47.0); Hemoglobin 9.1 g/dL (11.5-15.3); Lymphocytes # 1.1 10^3/uL (0.8-4.8); Lymphocytes % 9.4 %; Mean Corpuscular HGB Conc 30.7 g/dL (30.0-36.0); Mean Corpuscular Hemoglobin 30.6 pg (28.0-34.0); Mean Corpuscular Volume 99.7 fL (81-99); Mean Platelet Volume 10.2 fL (7.4-10.4); Monocytes # 0.2 10^3/uL (0.2-0.9); Monocytes % 1.3 %; Neutrophils # 10.41 10^3/uL (1.8-7.7); Neutrophils % 88.4 %; Nucleated Red Blood Cells % 0 %; Platelet Count 297 10^3/cmm (130-400); Red Blood Count 2.97 10^6/uL (4.1-5.3); Red Cell Distribution Width 13.3 % (12.1-15.1); White Blood Count 11.8 10^3/uL (4.0-10.0)
[2020-11-11 04:53] LABS: Alanine Aminotransferase 30 U/L (0-33); Albumin Level 3.3 g/dL (3.5-5.2); Alkaline Phosphatase 78 IU/L (35-105); Anion Gap 15.6 (5-19); Aspartate Amino Transferase 26 U/L (0-32); Blood Urea Nitrogen 27 mg/dL (8-23); Calcium 8.9 mg/dL (8.5-10.5); Carbon Dioxide 28 mmol/L (22-29); Chloride 104 mmol/L (98-107); Globulin 2.9 g/dL (1.3-4.6); Glomerular Filtration Rate 44.4 mL/min (90-130); Glucose 174 mg/dL (65-115); Osmolality Calculated 305 mOsm/kg (285-295); Potassium 4.6 mmol/L (3.5-5.1); Sodium 143 mmol/L (136-145); Total Bilirubin 0.2 mg/dL (0.15-1.2); Total Protein 6.2 g/dL (6.6-8.7)
[2020-11-11] MEDS: heparin 5,000 unit/mL INJ 1 mL 5000 UNIT SUBCUT (04:57)
[2020-11-11] MEDS: albuterol 8 gm MDI 2 PUFF INHALATION (08:25)
[2020-11-11] MEDS: aspirin 81 mg EC Tablet PO (08:52)
[2020-11-11] MEDS: bumetanide 1 mg Tablet PO (08:52)
[2020-11-11] MEDS: pantoprazole DR 40 mg Tablet PO (08:53)
[2020-11-11] MEDS: dexamethasone 4 mg Tablet 6 MG PO (08:53)
[2020-11-11] MEDS: azithromycin 250 mg Tablet 500 MG PO (08:53)
[2020-11-11] MEDS: guaiFENesin 600 mg Tablet 1200 MG PO (08:53)
[2020-11-11] MEDS: metoprolol tartrate 50 mg Tablet PO (08:59)
--- NOTE | 2020-11-11 09:40 | DCPLANNER ---
IMM completed with pt on 11/11/2020 @ 2182. Copy of rights given to pt.
--- NOTE | 2020-11-11 11:13 | P.DS_ITS ---
Discharge Providers Date of Admission: 11/08/20 20:29 Date of Discharge: November 11, 2020 Attending Provider at Admission: Luiz Vivas MD Attending Provider at Discharge: John Rodriguez Primary Care Provider: Carlos Manuel Swift MD Diagnoses at Discharge Discharge Diagnosis (1) Community acquired pneumonia: Status: Acute (2) Acute exacerbation of CHF (congestive heart failure): Status: Acute (3) Hypertrophic obstructive cardiomyopathy: Status: Acute (4) Leg swelling: Status: Acute (5) Chronic kidney disease: Status: Acute Qualifiers: Chronic kidney disease stage: stage 2 (mild) Qualified Code(s): N18.2 - Chronic kidney disease, stage 2 (mild) (6) Sepsis: Status: Acute (7) Acute respiratory failure with hypoxia: Status: Acute (8) Macrocytic anemia: Status: Acute Reason for Visit Reason for Visit: SOB low OXY Hospital Course Hospital Course Pleasant 69-year-old lady with history of HOCM, chronic diastolic heart failure, chronic kidney disease, COPD, HLD, HTN, recent COVID-19 pneumonia, leg swelling was admitted due to shortness of breath, hypoxia, was admitted for acute hypoxic respiratory failure with sepsis due to community-acquired pneumonia, with possible superimposed bacterial pneumonia in left lower lobe after recent COVID- 19 infection. She had recently completed Decadron course. Presentation was started on ceftriaxone and azithromycin. Also noted acute exacerbation of CHF on presentation, diuretic was transitioned to Bumex while in the hospital. Was cautiously diuresed due to HOCM to avoid hypovolemia, cardiogenic shock. On presentation also with noted some recent rise in creatinine. Her lisinopril was held while in the hospital. Potassium borderline high, was maintained on low potassium diet. Potassium supplements were discontinued. Her oxygenation has improved. Symptomatically she was gradually improving. She had quite a bit of wheezing on 11/10, with limited respiratory reserve with exertion. Was restarted on Decadron, and will complete a short taper. At home will complete antibiotic course with Levaquin. Today she is feeling much better. She can tell a significant difference from yesterday with improvement in her breathing. Wheezing is improved. She feels ready to return home. For now given her lower extremity has improved somewhat during his hospitalization, will continue with 60 mg Lasix but only once daily, the dose for which she expressed preference. Please follow-up on her volume status. Avoid hypovolemia with HOCM. She is asked to follow-up with cardiology in office for HOCM with concern for possible dynamic LVOT obstruction episodes. Outpatient KELSEY may be considered after she recovers from current episode of pneumonia to further evaluate this and consider whether referral for additional treatment may be warranted. She is continued on metoprolol. She has declined to take at 75 mg twice a day. Renal function, Please follow-up also her potassium levels. Creatinine as high as 1.5 in the hospital, today down to 1.2. Lisinopril dose for now is decreased. Mild elevation of D-dimer was noted in the hospital, but normal for her age at 0.67, subsequently normalized. Please follow-up with regards to incidentally noted macrocytic anemia. Physical Exam Const: COMMON NORMALS: no acute distress and patient oriented x3 HENMT: COMMON NORMALS: oropharynx normal Neck/C-Spine: COMMON NORMALS: no JVD Resp: COMMON NORMALS: normal respiratory effort AUSCULTATION: wheezes (wheezing with improvement) and diminished lung sounds (improving air entry) Cardio: COMMON NORMALS: no JVD, regular rhythm, S1 normal heart sound present, S2 normal heart sound present and No murmurs present (Cardio) RHYTHM: regular rhythm HEART SOUNDS: S1 normal heart sound present and S2 normal heart sound present GI: COMMON NORMALS: Normal to inspection, nondistended, normoactive bowel sounds present, Soft to palpation and non-tender PALPATION: Yes Soft to palpation Extremity: COMMON NORMALS: no joint enlargement and no pedal edema Neuro: COMMON NORMALS: patient oriented x3 and moves all extremities Skin: COMMON NORMALS: no rashes or lesions noted GENERAL SKIN EXAM: no rash es or lesions noted Discharge Data Data Completed and Pending: Completed Studies During Hospitalization Category Date Time Status XR chest 1V josé luis ble [id number] Urgent Exams 11/08/20 15:53 Completed CV echo complete* [id number] Routine Ultrasound 11/09/20 21:56 [place] [id number] Routin e Ultrasound 11/09/20 21:56 Completed Pending at discharge Category Date Time Status Blood Culture Sta t Lab 11/08/20 22:16 Results Complete Blood Co unt w/Auto AM LABS Lab 11/12/20 04:00 Ordered Comprehensive Met abolic Panel AM LA BS Lab 11/12/20 04:00 Ordered Sputum Culture an d Gram Stain [place] ne Lab 11/10/20 19:48 Uncollected Labs from last 24 hours 11/11/20 11/11/20 03:45 03:45 WBC 11.8 H RBC 2.97 L Hgb 9.1 L Hct 29.6 L MCV 99.7 H MCH 30.6 MCHC 30.7 RDW 13.3 Plt Count 297 MPV 10.2 Neut % (Auto) 88.4 Lymph % (Auto) 9.4 Pickett % (Auto) 1.3 Eos % (Auto) 0.1 Baso % (Auto) 0.5 Neut # (Auto) 10.41 H Lymph # (Auto) 1.1 Pickett # (Auto) 0.2 Eos # (Auto) 0.0 Baso # (Auto) 0.1 Nucleated RBC % (a uto) 0 Nucleated RBCs # 0.0 Sodium 143 Potassium 4.6 Chloride 104 Carbon Dioxide 28 Anion Gap 15.6 BUN 27 H Creatinine 1.2 H GFR Calculation 44.4 L Glucose 174 H Calculated Osmolal ity 305 H Calcium 8.9 Total Bilirubin 0.2 AST 26 ALT 30 Alkaline Phosphata se 78 Total Protein 6.2 L Albumin 3.3 L Globulin 2.9 Vitals: Last Vital Signs Temp 98.7 F 11/11/20 07:18 Pulse 93 11/11/20 08:26 Resp 20 H 11/11/20 08:26 BP 127/84 11/11/20 07:18 Pulse Ox 95 11/11/20 08:26 Discharge Plan Discharge Patient Disposition: Home Condition: Stable Prescriptions: New guaifenesin [Mucinex] 600 mg Tablet Extended Release 12hr 1,200 mg PO BID Qty: 28 RF: 0 levofloxacin 750 mg tablet 750 mg PO Q24H 4 Days Qty: 4 RF: 0 Continued omeprazole 40 mg capsule,delayed release(DR/EC) 40 mg PO DAILY@0800 RF: 0 loratadine [Claritin] 10 mg tablet 10 mg PO DAILY@0800 RF: 0 cholecalciferol (vitamin D3) 1,250 mcg (50,000 unit) capsule 1,000 mcg PO DAILY@0800 RF: 0 omega-3 fatty acids [Fish Oil Concentrate] 1,000 mg capsule 1,000 mg PO DAILY@0800 RF: 0 prenat.vits,el,vhf-wcnl-tfmjc Tablet 1 tab PO DAILY@0800 RF: 0 fluticasone propion-salmeterol [Advair Diskus] 500-50 mcg/dose blister with device 1 inh INHALATION BID@0800,1800 RF: 0 Aspir-81 81 mg Tablet,Delayed Release (Dr/Ec) 81 mg PO DAILY@0800 RF: 0 Ventolin HFA 90 mcg/actuation Hfa Aerosol Inhaler 2 puff INHALATION Q6H PRN (Reason: Wheezing) RF: 0 Vitamin C 1 tab PO DAILY@0800 RF: 0 zinc 1 tab PO DAILY@0800 RF: 0 metoprolol tartrate 50 mg tablet 50 mg PO BID@0800,1800 RF: 0 Changed dexamethasone 4 mg tablet See Rx Instructions .ROUTE .COMPLEX Qty: 5 RF: 0 Lasix 20 mg tablet 60 mg PO DAILY PRN (Reason: edema) Qty: 0 RF: 0 lisinopril 40 mg tablet 20 mg PO DAILY@0800 Qty: 0 RF: 0 Discontinued amlodipine 2.5 mg tablet 2.5 mg PO DAILY@0800 RF: 0 potassium chloride 10 mEq capsule, extended release 20 meq PO BID@0800,1800 RF: 0 Discharge Orders: Discharge Order (Routine); Ordered 11/11/20 Ordered By: John Rodriguez Referrals: Gadiel Mcneil MD [Physician] - 2 weeks (HOC) Carlos Manuel Swift MD [Primary Care Provider] - 4-7 days Discharge Diet: Cardiac Discharge Activity: Increase activity as tolerated and Oxygen as instructed Patient Instructions: Hypertrophic Cardiomyopathy (GEN), Chronic Kidney Disease (GEN), Using Oxygen at Home (GEN), Community-acquired Pneumonia (GEN) Activity Restrictions/Additional Instructions: Continue oxygen at home. Monitor saturation. Target saturation around 92%. If saturation following below 88%, despite increasing oxygen level, please seek medical attention. Similarly seek medical attention if you experience chest pain or pressure, if you experience persistent low blood pressures, fainting, or other concerning symptoms. Monitor blood pressure 3 times daily, write down values. If your blood pressure is low, less than 110 systolic (top number), please do not take lisinopril, please reduce the metoprolol dose in half. Also hold your diuretic at that time. If blood pressures persistently low, or very low (less than 90 systolic or 40 diastolic), please seek medical attention. Please follow-up with your accounting specialist with regards to hypertrophic cardiomyopathy. Please contact cardiology office with any questions regarding your diuretic, metoprolol, etc. Please follow-up with your primary care doctor also regarding chronic kidney disease. For now your lisinopril dose is decreased due to some recent rise in creatinine. Please avoid any NSAIDs like ibuprofen, Aleve, etc. for now hold off on any additional potassium supplementation. Have your primary care doctor and accounting specialist follow-up on your potassium levels, renal function. Discharge Attestations Time Spent in Discharge Care*: greater than 30 min Quality Metrics Clinical Quality Measures During this hospital stay, did patient experience: None Coding Level of Care Code Acute Operations Trainer for [facility] Diagnoses Community acquired pneumonia J18.9 Acute exacerbation of CHF (congestive heart failure) I50.9 Hypertrophic obstructive cardiomyopathy I42.1 Leg swelling M79.89 Chronic kidney disease N18.2 Chronic kidney disease stage: stage 2 (mild) Sepsis A41.9 Acute respiratory failure with hypoxia J96.01 Macrocytic anemia D53.9
--- NOTE | 2020-11-11 15:02 | PC.NURSE ---
Pt has a home o2 at home that is in demand. Pt stated that she usually goes up to 3- 4 L. RT is aware of the pt's oxygen use at home.
--- NOTE | 2020-11-11 16:00 | PC.NURSE ---
Discharge to home Instructed pt on her discharge appointments, new meds dosing, timing and duration, dose changes to other meds and stopped meds. Pt verbalizes understanding. Educated on chf stoplight and pneumonia stoplight education notes. Pt does not have any questions at this time.
--- NOTE | 2020-11-13 16:55 | PC.RESP ---
Pulmonary Rehab information sent to patient.
== END 2020-11-11 15:07 | disposition home or self-care (01) | DRG 871 ==
LOC: ER 17:28 → CSU 21:15
PROVIDERS: Nurse Practitioner Family; Admitting Provider Internal Medicine; Emergency Provider Family Medicine; PCP Family Medicine; Visit Provider Internal Medicine
DX: A41.9 Sepsis, unspecified organism (principal); J15.9 Unspecified bacterial pneumonia; I50.33 Acute on chronic diastolic (congestive) heart failure; J96.01 Acute respiratory failure with hypoxia; I13.0 Hypertensive heart and chronic kidney disease with heart failure and stage 1 through stage 4 chronic kidney disease, or unspecified chronic kidney disease; I42.1 Obstructive hypertrophic cardiomyopathy; J44.0 Chronic obstructive pulmonary disease with (acute) lower respiratory infection; N17.9 Acute kidney failure, unspecified; N18.2 Chronic kidney disease, stage 2 (mild); Z86.19 Personal history of other infectious and parasitic diseases; E78.5 Hyperlipidemia, unspecified; Z87.891 Personal history of nicotine dependence; D53.9 Nutritional anemia, unspecified; Z79.82 Long term (current) use of aspirin; Z79.51 Long term (current) use of inhaled steroids
CPT/HCPCS: 12345; 36415; 71045; 80048; 80053; 82728; 83615; 83880; 84145; 84443; 85025; 85378; 86140; 86403; 87040; 87449; 93005; 93306; 93970; 94640; 96372; 99283; J0696; J1644; J1650; J1940; J3535; J8540; Q0144

== ENCOUNTER → 2020-11-28 15:14 | Outpatient (BNVA) | payer MEDICARE, OTHER, SELFPAY | PROVIDERS: PCP Family Medicine; Visit Provider Internal Medicine Cardiovascular Disease | DX: I50.33 Acute on chronic diastolic (congestive) heart failure (principal); R06.02 Shortness of breath; I42.1 Obstructive hypertrophic cardiomyopathy; M79.89 Other specified soft tissue disorders; I11.0 Hypertensive heart disease with heart failure | CPT/HCPCS: 80048; 83880 ==

== ENCOUNTER → 2020-12-14 10:23 | Outpatient (BNVA) | payer MEDICARE, OTHER, SELFPAY | PROVIDERS: PCP Family Medicine; Visit Provider Internal Medicine Cardiovascular Disease | DX: I42.1 Obstructive hypertrophic cardiomyopathy (principal); I50.32 Chronic diastolic (congestive) heart failure; M79.89 Other specified soft tissue disorders | CPT/HCPCS: 80048; 83880 ==

== ENCOUNTER → 2021-01-08 10:31 | Outpatient (BNVA) | payer MEDICARE, OTHER, SELFPAY | PROVIDERS: PCP Family Medicine; Visit Provider Internal Medicine Cardiovascular Disease | DX: I42.1 Obstructive hypertrophic cardiomyopathy; I50.32 Chronic diastolic (congestive) heart failure; M79.89 Other specified soft tissue disorders; I11.0 Hypertensive heart disease with heart failure | CPT/HCPCS: 80048; 83880 ==

== ENCOUNTER → 2021-02-01 14:49 | Outpatient (BNVA) | payer MEDICARE, OTHER, SELFPAY | PROVIDERS: PCP Family Medicine; Visit Provider Internal Medicine Cardiovascular Disease | DX: I11.0 Hypertensive heart disease with heart failure (principal); I50.33 Acute on chronic diastolic (congestive) heart failure; R06.02 Shortness of breath; I42.1 Obstructive hypertrophic cardiomyopathy; M79.89 Other specified soft tissue disorders; Z79.01 Long term (current) use of anticoagulants; E78.2 Mixed hyperlipidemia; Z01.89 Encounter for other specified special examinations | CPT/HCPCS: 80048; 83880; 85025 ==

== ENCOUNTER → 2021-02-20 10:06 | Outpatient (BNVA) | payer MEDICARE, OTHER, SELFPAY | PROVIDERS: PCP Family Medicine; Visit Provider Internal Medicine Cardiovascular Disease | DX: I50.32 Chronic diastolic (congestive) heart failure (principal); M79.89 Other specified soft tissue disorders; R60.9 Edema, unspecified | CPT/HCPCS: 80048; 83880 ==

== ENCOUNTER → 2021-03-29 09:06 | Outpatient (BNVA) | payer MEDICARE, OTHER, SELFPAY | PROVIDERS: PCP Family Medicine; Visit Provider Internal Medicine Cardiovascular Disease | DX: R60.9 Edema, unspecified (principal); I42.1 Obstructive hypertrophic cardiomyopathy; E78.2 Mixed hyperlipidemia; I50.32 Chronic diastolic (congestive) heart failure; M79.89 Other specified soft tissue disorders | CPT/HCPCS: 80048; 83880 ==

== ENCOUNTER → 2021-05-08 14:48 | Outpatient (BNVA) | payer MEDICARE, OTHER, SELFPAY | PROVIDERS: PCP Family Medicine; Visit Provider Internal Medicine Cardiovascular Disease | DX: I11.0 Hypertensive heart disease with heart failure (principal); I50.33 Acute on chronic diastolic (congestive) heart failure; R06.02 Shortness of breath; I42.1 Obstructive hypertrophic cardiomyopathy; M79.89 Other specified soft tissue disorders; Z01.89 Encounter for other specified special examinations; Z79.01 Long term (current) use of anticoagulants; E78.2 Mixed hyperlipidemia | CPT/HCPCS: 80048; 83880 ==

== ENCOUNTER 2021-06-21 09:42 | Outpatient (CLI) | payer MEDICARE, OTHER, SELFPAY ==
--- NOTE | 2021-06-21 09:50 | ECG_ITS ---
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 The perfusion scan will be documented separately. DATA: Baseline heart rate was 87 beats per minute. Baseline blood pressure was 137/83 millimeters of mercury. Target heart rate was 149. Maximum heart rate achieved was 140. which was 93 % of the predicted target heart rate. Maximum blood pressure was 141/67 millimeters of mercury. The reason for ending the test was completion of the protocol. The patient did not experience any symptoms. ELECTROCARDIOGRAM: BASELINE: Sinus rhythm. Normal axis. Early repolarization abnormality otherwise, no ST-T changes suggestive of ischemia noted. No arrhythmia noted. Artifact noted EXERCISE: After Lexiscan injection, no ST-T changes suggestive of ischemic noted. No arrhythmia noted. Artifact noted CONCLUSION: Please note due to baseline abnormality of the EKG specificity and sensitivity of the EKG portion of LexiScan MIBI stress test will be low 1. EKG not suggestive of ischemia 2. Lexiscan injection unremarkable. 3. Perfusion scan will be documented separately. Electronically Signed On 06-21-2021 20:55:42 CDT by ANIRUDH BECKWITH [id number]
--- NOTE | 2021-06-21 09:51 | NMCV_ITS ---
NM elliot perf SPECT r/s* [id number] Any Chaves Age: 70 Gender: F : 1950 Exam Date: 06/21/2021 09:51 Ordering Phys: Gadiel Mcneil MD ([email or web address]) Technologist: DANAE Clark Exam Location: [facility] Indications: SHORTNESS OF BREATH STRESS TEST Please see separate stress test report in [facility] for full findings IMAGE PROTOCOL Rest/Stress 1 Lexiscan Day Radiopharmaceutical Dose (mCi) Administration Site Administered by Rest: Tc-99m 10.7 IV DANAE Encarnacion Sestamibi Stress:Tc-99m 32.4 IV DANAE Encarnacion Sestamibi Rest: 21-Jun-2021 60 Discovery 630 Stress: 21-Jun-2021 30 Discovery 630 0.4mg Lexiscan. Supine position only as patient was unable to lay prone. SPECT RESULTS Technical Quality: Excellent Raw Data Analysis: Normal Image Corrections: No attenuation or motion correction applied Summed Stress Score: 0 Summed Rest Score: 0 Summed Difference Score: 0 PERFUSION FINDINGS Fairly uniform myocardial tracer uptake with no significant perfusion abnormalities FUNCTIONAL RESULTS (calculated via Gated SPECT) Stress Image LV EF (%): 86 Stress EDV (mL):57 TID: 0.89 Stress ESV (mL):8 FUNCTIONAL FINDINGS: Segmental wall motion analysis revealing no gross wall motion normalities. IMPRESSIONS 1. Unremarkable myocardial perfusion imaging. 2. LV wall motion analysis revealing no gross wall motion normalities. 3. Estimated LV ejection fraction of 86%. 4. Normal LV volume. No significant coronary ischemia, based on the above findings Dr Gadiel Mcneil MD FACC (Electronically Signed) Final Date: 24 June 2021 18:56 S
[2021-06-21 10:15] VITALS: BMI 32.5
[2021-06-21] MEDS: regadenoson 0.4 Mg/5 ml Syringe IVP (11:43)
[2021-06-21 11:59] VITALS: BP 120/60; PULSE 82
--- NOTE | 2021-06-21 12:45 | USCV_ITS ---
Any Chaves Age: 70 Gender: F : 1950 Exam Date: 06/21/2021 10:35 Ordering Phys: Gadiel Mcneil MD ([email or web address]) Technologist: [place] [facility] [place]: htn Aortic Velocity @ SMA (cm/s) 89.2 RIGHT KIDNEY LEFT KIDNEY Velocity (cm/s) Velocity (cm/s) Sys/Smith Sys/Smith Resistive Index Resistive Index 91.8 / 21.0 0.77 Proximal Renal Artery 72.6 / 17.7 0.76 94.8 / 21.9 0.77 Mid Renal Artery 73.0 / 17.7 0.76 86.8 / 26.9 0.69 Distal Renal Artery 95.1 / 30.2 0.68 90.8 / 26.9 0.70 Hilar 78.2 / 22.1 0.72 93.8 / 23.9 0.74 Upper Pole 70.8 / 18.4 0.74 108.7 / 24.9 0.77 Mid Pole 77.4 / 17.7 0.77 88.8 / 25.9 0.71 Lower Pole 73.8 / 18.4 0.75 1.10 Renal Aortic Ratio 1.07 Accleration Index (cm/sec2) 1405.0 Hilar 1002.0 0 0 1495.0 Upper Pole 1818.0 0 0 3627.0 Mid Pole 1700.0 0 0 1336.0 Lower Pole 921.00 0 99.9 Kidney Length (mm) 106.9 FINDINGS No comparison. No evidence of abdominal aortic aneurysm. There is no evidence of hemodynamically significant right renal artery stenosis. There is no evidence of hemodynamically significant left renal artery stenosis. CONCLUSIONS There is no sonographic evidence of hemodynamically significant renal artery stenosis bilaterally. Dr. Marline Bryant DO (Electronically Signed) Final Date: 22 June 2021 08:08 S
== END 2021-06-21 09:43 | disposition home or self-care (01) ==
PROVIDERS: PCP Family Medicine; Visit Provider Internal Medicine Cardiovascular Disease
DX: R07.9 Chest pain, unspecified (principal); R06.02 Shortness of breath; I10 Essential (primary) hypertension
CPT/HCPCS: 78452; 93017; 93975; A9500; J2785

== ENCOUNTER → 2021-09-11 14:55 | Outpatient (BNVA) | payer MEDICARE, SELFPAY | PROVIDERS: PCP Family Medicine; Visit Provider Internal Medicine Cardiovascular Disease | DX: I11.0 Hypertensive heart disease with heart failure (principal); I50.33 Acute on chronic diastolic (congestive) heart failure; R06.02 Shortness of breath; I42.1 Obstructive hypertrophic cardiomyopathy; M79.89 Other specified soft tissue disorders; Z01.89 Encounter for other specified special examinations; Z79.01 Long term (current) use of anticoagulants; E78.2 Mixed hyperlipidemia | CPT/HCPCS: 80048; 83880 ==

== ENCOUNTER → 2022-05-01 13:49 | Outpatient (BNVA) | payer MEDICARE, SELFPAY | PROVIDERS: PCP Family Medicine; Visit Provider Internal Medicine Cardiovascular Disease | DX: I11.0 Hypertensive heart disease with heart failure (principal); I50.32 Chronic diastolic (congestive) heart failure; I42.1 Obstructive hypertrophic cardiomyopathy; E78.2 Mixed hyperlipidemia; M79.89 Other specified soft tissue disorders | CPT/HCPCS: 80048; 83880; 99214 ==

== ENCOUNTER 2022-05-08 10:45 | Outpatient (CLI) | payer MEDICARE, SELFPAY ==
[2022-05-08 11:25] LABS: Basophils # 0.1 10^3/uL (0.0-0.1); Basophils % 1.3 %; Eosinophils # 0.4 10^3/uL (0.0-0.8); Eosinophils % 3.7 %; Hematocrit 37.6 % (37.0-47.0); Hemoglobin 12.5 g/dL (11.5-15.3); Lymphocytes # 3.2 10^3/uL (0.8-4.8); Lymphocytes % 30.9 %; Mean Corpuscular HGB Conc 33.2 g/dL (30.0-36.0); Mean Corpuscular Hemoglobin 30.6 pg (28.0-34.0); Mean Corpuscular Volume 91.9 fl (81-99); Mean Platelet Volume 9.7 fL (7.4-10.4); Monocytes # 0.9 10^3/uL (0.2-0.9); Monocytes % 8.8 %; Neutrophils # 5.63 10^3/uL (1.8-7.7); Neutrophils % 55.1 %; Nucleated Red Blood Cells % 0 %; Platelet Count 345 10^3/cmm (130-400); Red Blood Count 4.09 10^6/uL (4.1-5.3); Red Cell Distribution Width 14.1 % (12.1-15.1); White Blood Count 10.2 10^3/uL (4.0-10.0)
[2022-05-08 12:07] LABS: Anion Gap 13.1 (5-19); Blood Urea Nitrogen 32 mg/dL (8-23); Calcium 10.1 mg/dL (8.5-10.5); Carbon Dioxide 39 mmol/L (22-29); Chloride 84 mmol/L (98-107); Glucose 121 mg/dL (65-115); NT Pro B Type Natriuretic Pept 1381 pg/mL (0-125); Osmolality Calculated 284 mOsm/kg (285-295); Potassium 3.1 mmol/L (3.5-5.1); Sodium 133 mmol/L (136-145)
[2022-05-08 12:43] LABS: Calcium 10.5 mg/dL (8.5-10.5)
[2022-05-08 12:50] LABS: Parathyroid Hormone 54.5 pg/mL (15-65)
[2022-05-08 15:20] LABS: Creatinine Urine, Random 36 mg/dL (28-217); Microalbum Creatinine Ratio Ur 28 mg/dL (0-20); Microalbumin Random Urine 1 ug/dL (0-20)
== END 2022-05-08 10:46 | disposition home or self-care (01) ==
LOC: LAB 10:50
PROVIDERS: PCP Family Medicine; Visit Provider Internal Medicine Cardiovascular Disease
DX: N18.32 Chronic kidney disease, stage 3b (principal); I10 Essential (primary) hypertension
CPT/HCPCS: 80048; 82044; 82310; 83880; 83970; 85025

== ENCOUNTER 2022-05-15 13:35 | Outpatient (CLI) | payer MEDICARE, SELFPAY ==
[2022-05-15 14:27] LABS: Anion Gap 15.1 (5-19); Blood Urea Nitrogen 36 mg/dL (8-23); Calcium 9.9 mg/dL (8.5-10.5); Carbon Dioxide 39 mmol/L (22-29); Chloride 87 mmol/L (98-107); Glucose 160 mg/dL (65-115); NT Pro B Type Natriuretic Pept 1317 pg/mL (0-125); Osmolality Calculated 298 mOsm/kg (285-295); Potassium 3.1 mmol/L (3.5-5.1); Sodium 138 mmol/L (136-145)
== END 2022-05-15 13:36 | disposition home or self-care (01) ==
LOC: LAB 13:40
PROVIDERS: PCP Family Medicine; Visit Provider Internal Medicine Cardiovascular Disease
DX: I50.32 Chronic diastolic (congestive) heart failure (principal); M79.89 Other specified soft tissue disorders; R60.9 Edema, unspecified; E78.2 Mixed hyperlipidemia; I42.1 Obstructive hypertrophic cardiomyopathy
CPT/HCPCS: 36415; 80048; 83880

== ENCOUNTER 2022-06-03 11:36 | Outpatient (CLI) | payer MEDICARE, SELFPAY ==
[2022-06-03 12:41] LABS: Anion Gap 15.6 (5-19); Blood Urea Nitrogen 40 mg/dL (8-23); Calcium 10.4 mg/dL (8.5-10.5); Carbon Dioxide 38 mmol/L (22-29); Chloride 90 mmol/L (98-107); Glucose 124 mg/dL (65-115); NT Pro B Type Natriuretic Pept 1525 pg/mL (0-125); Osmolality Calculated 301 mOsm/kg (285-295); Potassium 3.6 mmol/L (3.5-5.1); Sodium 140 mmol/L (136-145)
== END 2022-06-03 11:37 | disposition home or self-care (01) ==
LOC: LAB 11:43
PROVIDERS: PCP Family Medicine; Visit Provider Internal Medicine Cardiovascular Disease
DX: R60.9 Edema, unspecified (principal); I42.1 Obstructive hypertrophic cardiomyopathy; I50.32 Chronic diastolic (congestive) heart failure; M79.89 Other specified soft tissue disorders; I10 Essential (primary) hypertension
CPT/HCPCS: 36415; 80048; 83880

== ENCOUNTER 2022-08-04 12:44 | Emergency (ER) | payer MEDICARE, SELFPAY ==
[2022-08-04 12:50] VITALS: BP 138/73; PULSE 87; RESP 16; TEMP 37.1; O2SAT 95; BMI 31.3
--- NOTE | 2022-08-04 13:04 | XRR_ITS ---
PROCEDURE INFORMATION: Exam: XR Cervical Spine Exam date and time: 08/04/2022 1:26 PM Age: 71 years old Clinical indication: Neck pain TECHNIQUE: Imaging protocol: Radiologic exam of the cervical spine. Views: 2 or 3 views. COMPARISON: CR XR chest 1V portable [id number] 11/08/2020 6:07 PM FINDINGS: Bones/joints: Diffuse osteopenia. Listhesis C4 2 mm anterior to C5. Open-mouth view is not diagnostic secondary to osteopenia and positioning. The lateral view only demonstrates up to C5/6. No fracture with severe facet joint hypertrophic changes. Soft tissues: Unremarkable. XR/XR cervical spine 3V* [id number] IMPRESSION: Limited study. Consider MRI for better evaluation nontraumatic neck pain. Especially in a patient with poorly diagnostic plain films.
--- NOTE | 2022-08-04 13:17 | ED_ITS ---
HPI - Neck Pain/Injury General: Chief Complaint: Neck Pain/Injury Stated Complaint: Pain in back of head down into hips Time Seen by Provider: 08/04/22 12:54 History of Present Illness: 71-year-old female presents with left-sided cervical pain. She reports is been going on for couple days. Gets worse with any movement. She denies any injury. She also complains that her whole body feels like it is just kind of stiff. She denies any fever, chills, nausea or other systemic complaints. Associated symptoms: Denies headache(s) or nausea Review of Systems Const: Reports: body aches; Denies: fever(s) or chills Eyes: Denies: change in vision or blurry vision ENMT: Denies: throat pain or ear or mastoid pain Card: Denies: chest pain or palpitations Resp: Denies: dyspnea or productive cough GI: Denies: abdominal pain, nausea or vomiting : Denies: flank pain or difficulty voiding Musc: Reports: neck pain, joint stiffness and other (Please see HPI) Neuro: Denies: headache(s), numbness in extremities or weakness in extremities Psych: Denies: anxiety or depression PFSH ED PFSH: Medical History (Updated 08/04/22 @ 14:20 by Nino Dumont DO) Cardiomyopathy Chronic diastolic heart failure Chronic kidney disease COPD (chronic obstructive pulmonary disease) Hyperlipidemia Hypertension Hypertrophic obstructive cardiomyopathy Leg swelling Surgical History History of tonsillectomy Family History Mother CAD (coronary artery disease) Cancer Diabetes Father Chronic kidney disease (CKD) Other Hypertension Denies family history of Clotting disorder Dementia Suicide Anesthesia complication Bleeding disorder Lung disease Stroke Social History Smoking and tobacco status: former smoker Alcohol intake: current Alcohol intake frequency: holidays/special occasions only Household members: family Housing: House Physical Exam Const: COMMON NORMALS: no acute distress, patient oriented x3 and no limitations HENMT: COMMON NORMALS: normocephalic and atraumatic HEAD & SCALP: normocephalic and atraumatic Neck/C-Spine: COMMON NORMALS: full ROM CERVICAL SPINE: No Cervical spine tenderness, No step off deformity, Yes Paracervical muscle tenderness and Yes Trapezius muscle tenderness Resp: EFFORT & INSPECTION: Yes able to speak in complete sentences and No respiratory distress Cardio: COMMON NORMALS: regular rate and regular rhythm RATE: regular rate RHYTHM: regular rhythm Extremity: COMMON NORMALS: normal to inspection and capillary refill normal Neuro: COMMON NORMALS: patient oriented x3, no focal motor deficits and no sensory deficits noted Psych: COMMON NORMALS: mental status grossly normal, cooperative and speech normal SPEECH: Yes normal speech Course Vital Signs: Vital signs: Vital Signs Temperature 98.8 F 08/04/22 12:50 Pulse Rate 87 08/04/22 12:50 Respiratory Rate 16 08/04/22 12:50 Blood Pressure 138/73 08/04/22 12:50 Pulse Oximetry 95 08/04/22 12:50 Oxygen Delivery Me thod 08/04/22 12:50 Oxygen Flow Rate 3 08/04/22 12:50 MDM - Neck Pain/Injury Medical Decision Making Patient with no acute findings on x-ray. I will provide her with prednisone x3 days to help with just generalized stiffness and inflammation feeling. Recommended she use 4% topical lidocaine and Voltaren cream for her trapezius/cervical strain. Recommend she follow-up with her primary care provider towards the end of week Discharge Plan Discharge Patient Disposition: Home Clinical Impression: Strain of neck muscle, Strain of cervical portion of left trapezius muscle Condition: Stable Prescriptions: New prednisone 20 mg tablet 40 mg PO DAILY 3 Days Qty: 6 0RF No Action bumetanide 2 mg tablet 2 mg PO BID Rx Instructions: 2 tabs qam and 1 tab qpm omeprazole 40 mg capsule,delayed release(DR/EC) 40 mg PO DAILY@0800 loratadine [Claritin] 10 mg tablet 10 mg PO DAILY@0800 cholecalciferol (vitamin D3) 1,250 mcg (50,000 unit) capsule 1,000 mcg PO DAILY@0800 omega-3 fatty acids [Fish Oil Concentrate] 1,000 mg capsule 1,000 mg PO DAILY@0800 prenat.vits,el,glc-jegy-wotuo Tablet 1 tab PO DAILY@0800 fluticasone propion-salmeterol [Advair Diskus] 500-50 mcg/dose blister with device 1 inh INHALATION BID@0800,1800 coenzyme Q10 [Co Q-10] 200 mg capsule 200 mg PO DAILY nifedipine 30 mg tablet extended release 30 mg PO DAILY Qty: 90 3RF Rx Instructions: unable to tolerate 60mg dose metolazone 5 mg tablet 5 mg PO .4x/wk Qty: 90 1RF Rx Instructions: Take 1 tab by mouth 4 times/wk spironolactone 25 mg tablet 25 mg PO DAILY Qty: 90 3RF potassium chloride 10 mEq tablet extended release 30 meq PO BID Qty: 180 3RF Rx Instructions: Dose Increased metoprolol tartrate 75 mg tablet 75 mg PO BID Qty: 180 3RF aspirin 81 mg Tablet,Delayed Release (Dr/Ec) 81 mg PO DAILY@0800 Ventolin HFA 90 mcg/actuation Hfa Aerosol Inhaler 2 puff INHALATION Q6H PRN (Reason: Wheezing) Vitamin C 1 tab PO DAILY@0800 zinc 1 tab PO DAILY@0800 Discharge Orders: Discharge ED (Routine); Ordered 08/04/22 Ordered By: Nino Dumont Referrals: Carlos Manuel Swift MD [Primary Care Provider] - Discharge Diet: Usual diet Discharge Activity: Increase activity as tolerated Patient Instructions: Opioid Safety, Pain Management, Cervical Strain Activity Restrictions/Additional Instructions: 4% topical lidocaine with menthol cream or gel. Use as directed on package as needed for pain Voltaren/diclofenac cream, use as directed on package Follow-up with your primary care provider near the end of the week Coding Level of Care Code ED License Distributor for Florencia Fwd Exam Comprehensive
== END 2022-08-04 14:54 | disposition home or self-care (01) ==
PROVIDERS: Emergency Provider Student in an Organized Health Care Education/Training Program; PCP Family Medicine
DX: S16.1XXA Strain of muscle, fascia and tendon at neck level, initial encounter (principal); X58.XXXA Exposure to other specified factors, initial encounter; Z79.82 Long term (current) use of aspirin; I11.0 Hypertensive heart disease with heart failure; I50.9 Heart failure, unspecified; E78.5 Hyperlipidemia, unspecified; Z87.891 Personal history of nicotine dependence
CPT/HCPCS: 72040; 99283

== ENCOUNTER → 2022-10-28 15:37 | Outpatient (BNVA) | payer MEDICARE, SELFPAY | PROVIDERS: PCP Family Medicine; Visit Provider Internal Medicine Cardiovascular Disease | DX: I42.1 Obstructive hypertrophic cardiomyopathy (principal); M79.89 Other specified soft tissue disorders; E78.2 Mixed hyperlipidemia; I49.9 Cardiac arrhythmia, unspecified; I49.1 Atrial premature depolarization; R94.31 Abnormal electrocardiogram [ECG] [EKG]; I13.0 Hypertensive heart and chronic kidney disease with heart failure and stage 1 through stage 4 chronic kidney disease, or unspecified chronic kidney disease; N18.9 Chronic kidney disease, unspecified; I50.32 Chronic diastolic (congestive) heart failure; Z87.891 Personal history of nicotine dependence | CPT/HCPCS: 93005; 99214 ==

== ENCOUNTER 2023-01-15 07:48 | Outpatient (CLI) | payer MEDICARE, SELFPAY ==
--- NOTE | 2023-01-15 08:01 | XR_ITS ---
WS: [id number] XR lumbar spine f/e only [id number] REASON FOR EXAM: VERTEBROGENIC LOW BACK PAIN FINDINGS: Normal lumbar lordosis. Mild concave compression deformities L1-L5. Moderate narrowing of the L4-L5 disc space. Significant narrowing of the L5-S1 disc space. There is 5 to 6 mm of anterolisthesis of L4 in relation to L5. This listhesis is slightly accentuated in flexion and slightly attenuated with extension. Moderate degenerative changes in the facet joints L3-S1. XR/XR lumbar spine f/e only [id number] IMPRESSION: Degenerative spondylosis the lumbar spine as above.
--- NOTE | 2023-01-15 08:01 | MR_ITS ---
WS: [id number] MRI LUMBAR SPINE NONCONTRAST TECHNIQUE: Sagittal T1, T2 and STIR imaging. Axial T1 and T2 imaging. CLINICAL INFORMATION: VERTEBROGENIC LOW BACK PAIN COMPARISON: None. FINDINGS: Mild lumbar curve. No acute compression. Grade 1 anterolisthesis L4 on L5. L1-L2: Mild annular bulging. Mild facet arthropathy. Mild LEFT foraminal narrowing. Spinal canal and RIGHT foramen are patent. L2-L3: Mild annular bulging with mild central canal stenosis. Impingement on the traversing RIGHT L3 nerve root. Mild LEFT foraminal narrowing. Moderate facet arthropathy. L3-L4: Disc osteophyte complex with endplate ridging. Moderate central canal stenosis. Mild LEFT fora eleazar narrowing. Moderate facet arthropathy with ligamentum flavum hypertrophy. L4-L5: Grade 1 anterolisthesis L4 on L5. Moderate central canal stenosis with impingement on the [place] ersing L5 nerve roots bilaterally. Moderate facet arthropathy. Foramen are patent. L5-S1: Mild annular bulging with osteophytic ridging. Slight impingement traversing S1 nerve roots bi laterally. Foramen are patent. Moderate facet arthropathy. Adrenal glands are normal. MR/MR lumbar spine wo con* [id number] IMPRESSION: 1. Mild lumbar curve. No acute compression. Slight anterolisthesis L4 on L5. 2. Moderate central canal stenosis L3-L4 and L4-L5 worse L4-L5 with impingemen t on the traversing L5 nerve roots bilaterally. 3. Mild central canal stenosis L2-L3 with impingement RIGHT subarticular reces s and traversing RIGHT L3 nerve root. 4. Mild LEFT L3-L4 foraminal narrowing. 5. Moderate facet arthropathy L3-L5.
== END 2023-01-15 07:49 | disposition home or self-care (01) ==
LOC: RAD 07:49
PROVIDERS: PCP Family Medicine; Visit Provider Physician Assistant
DX: M48.062 Spinal stenosis, lumbar region with neurogenic claudication (principal); M47.26 Other spondylosis with radiculopathy, lumbar region
CPT/HCPCS: 72120; 72148

== ENCOUNTER 2023-03-18 08:04 | Outpatient (CLI) | payer MEDICARE, SELFPAY ==
--- NOTE | 2023-03-18 08:16 | NM_ITS ---
WS: [id number] EXAMINATION: NM parathyroid [id number] ORDER DATE: 03/18/2023 8:16 AM COMPARISON: None HISTORY: HYPERPARATHYROIDISM TECHNIQUE: Parathyroid scintigraphy with 19.8 mCi of technetium 99m sestamibi administered. AP and o blique views obtained with and without chin and suprasternal notch markers. Initial and 2 hour delayed imagi ng acquired. FINDINGS: Normal salivary gland uptake on the initial images. Normal homogeneous thyroid uptake on the initial imaging. Normal bilateral thyroid washout. No suspicious areas of retained activity to indicate parat hyroid adenoma on the delayed images. NM/NM parathyroid [id number] IMPRESSION: No evidence of parathyroid adenoma.
== END 2023-03-18 08:05 | disposition home or self-care (01) ==
LOC: RAD 08:05
PROVIDERS: PCP Family Medicine; Visit Provider Nurse Practitioner Family
DX: E21.3 Hyperparathyroidism, unspecified (principal); N18.32 Chronic kidney disease, stage 3b
CPT/HCPCS: 78070; A9500

== ENCOUNTER → 2023-05-05 14:35 | Outpatient (BNVA) | payer MEDICARE, SELFPAY | PROVIDERS: PCP Family Medicine; Visit Provider Specialist | DX: I42.1 Obstructive hypertrophic cardiomyopathy (principal); I13.0 Hypertensive heart and chronic kidney disease with heart failure and stage 1 through stage 4 chronic kidney disease, or unspecified chronic kidney disease; N18.9 Chronic kidney disease, unspecified; I50.32 Chronic diastolic (congestive) heart failure; Z87.891 Personal history of nicotine dependence | CPT/HCPCS: 99214 ==

== ENCOUNTER → 2023-08-26 10:40 | Outpatient (BNVA) | payer MEDICARE, OTHER, SELFPAY | PROVIDERS: PCP Family Medicine; Visit Provider Internal Medicine Rheumatology | DX: Z79.899 Other long term (current) drug therapy (principal); Z11.59 Encounter for screening for other viral diseases; Z11.1 Encounter for screening for respiratory tuberculosis; M06.041 Rheumatoid arthritis without rheumatoid factor, right hand; M06.042 Rheumatoid arthritis without rheumatoid factor, left hand; Z71.85 Encounter for immunization safety counseling; N18.30 Chronic kidney disease, stage 3 unspecified; I50.32 Chronic diastolic (congestive) heart failure | CPT/HCPCS: 36415; 80076; 82565; 85025; 86480; 86704; 86803; 87340; 99205 ==

== ENCOUNTER 2023-09-17 10:57 | Inpatient (IN) | payer MEDICARE, OTHER, SELFPAY ==
[2023-09-17] VITALS (59 sets, daily range): BP systolic 81–132; BP diastolic 56–82; PULSE 82–100; RESP 15–39; TEMP 36.8–37.1; O2SAT 83–99; BMI 29.0
--- NOTE | 2023-09-17 11:10 | ED_ITS ---
Documented by User: MITCHELL Griffin 09/17/23 13:14 HPI - Extremity Problem General: Chief complaint: Extremity Injury, Lower Stated complaint: left foot pain Time Seen by Provider: 09/17/23 10:59 Source: patient and family () Mode of arrival: wheelchair Limitations: no limitations History of Present Illness: Patient is a 72-year-old female who presents to ED today along with her for evaluation of left foot pain. Patient and states she chronically has swelling to her bilateral lower extremities secondary to CHF. She also has a history of rheumatoid arthritis and experiences joint pains related to this. Has been states she chronically has trouble walking and uses a walker and he has to strategically place chairs throughout the house so patient can hold onto things as her legs often will become weak while walking. states over the past 2 to 3 days she has not been able to walk secondary to pain in the left foot and ankle. Patient reports receiving a COVID-vaccine approximately 2 weeks ago and is concerned for a blood clot. Patient takes prednisone and methotrexate for her rheumatoid arthritis. She reportedly has a history of CKD and elevated uric acid levels. She denies ever having a gout flare. Of note states patient's blood pressure was low this morning. She overall has not been feeling ill. She has a history of COPD and is chronically on 3 L of oxygen. PMH signifiant for CHF, hypertrophic obstructive cardiomyopathy, hyperlipidemia, hypertension, CKD, COPD requiring 3L O2 continously, rheumatoid arthritis. MD Complaint: extremity pain Onset (ago): day(s) Pain Consistency: constant (when walking/ambulating) Location: left and lower extremity Radiation: none Relieving factors: immobilization Exacerbating factors: weight bearing and walking Associated symptoms: Reports no associated symptoms; Deny chest pain, fever(s) or rash Review of Systems Const: Denies: fever(s), chills, body aches, fatigue or malaise Card: Reports: edema (chronic) and swelling of feet/ankles (chronic); Denies: chest pain, palpitations, irregular heart rhythm, lightheadedness, syncope or pre-syncope Resp: Reports: dyspnea (chronic-on 3L O2); Denies: wheezing, stridor, pain on inspiration, hemoptysis or chest congestion GI: Denies: abdominal pain, nausea, vomiting or diarrhea : Denies: flank pain, dysuria or hematuria Musc: Reports: extremity pain (L foot); Denies: neck pain, back pain, limited range of motion or muscle cramps Skin/Breast: Denies: rash Neuro: Reports: difficulty walking (chronically ); Denies: headache(s), numbness in extremities or sensory changes [facility] ED PFSH: Medical History Cardiomyopathy Chronic diastolic heart failure Chronic kidney disease CKD (chronic kidney disease) stage 3, GFR 30-59 ml/min COPD (chronic obstructive pulmonary disease) High risk medication use Hyperlipidemia Hypertension Hypertrophic obstructive cardiomyopathy Immunization counseling Leg swelling Seronegative rheumatoid arthritis of both hands Surgical History History of tonsillectomy Family History Mother CAD (coronary artery disease) Cancer Diabetes Father Chronic kidney disease (CKD) Other Hypertension Denies family history of Clotting disorder Dementia Suicide Anesthesia complication Bleeding disorder Lung disease Stroke Social History Smoking and tobacco/nicotine status: former use of tobacco/nicotine Alcohol intake: current Alcohol intake frequency: holidays/special occasions only Substance/Drug Use: never Household members: family Housing: House Physical Exam Const: COMMON NORMALS: no acute distress, patient oriented x3, no limitations, alert and well nourished GENERAL APPEARANCE: cooperative ORIENTATION/CONSCIOUSNESS: Yes awake, Yes oriented to person, Yes oriented to place and Yes oriented to time HENMT: COMMON NORMALS: normocephalic and atraumatic HEAD & SCALP: normal to inspection, normocephalic and atraumatic Neck/C-Spine: COMMON NORMALS: no JVD and No carotid bruits Chest: COMMONS NORMALS: normal inspection of the chest Resp: COMMON NORMALS: normal respiratory effort and clear to auscultation bilaterally AUSCULTATION: clear to auscultation bilaterally OTHER: satting normally on her 3L Cardio: COMMON NORMALS: no JVD, regular rate and regular rhythm RATE: regular rate RHYTHM: regular rhythm Extremity: COMMON NORMALS: full ROM, capillary refill normal and no calf tenderness GENERAL: Yes normal exam except as noted, Yes edema (pt/ states this is normal) and Yes weight-bearing difficulty (due to L ankle/foot pain) OTHER: bilateral pitting edema that patient/ states is normal for patient; she has no calf pain/negative Paulette's; she can lift both legs against resistance; DP/PT pulses felt bilaterally with normal cap refill and sensation; she does appear to have some very milld erythema affecting her medial left ankle with some overlying warmth; she can flex/extend ankle without much pain and states she has no pain while at rest-only when attempting to stand/ambulate; there is no bony deformity; she does complain of diffuse tenderness with palpation of L foot/ankle although she complains equally when I palpate the R foot/ankle as well Neuro: COMMON NORMALS: patient oriented x3 SENSORIUM/ORIENTATION: Yes alert, Yes oriented to person, Yes oriented to place and Yes oriented to time Course Consultations: Consultation #1: Dr. Vivas-recommends a total of 1500ml fluids be given, 60mg methylprednisolone for possible RA flare, and recommends admission to ICU Vital Signs: Vital signs: Vital Signs Temperature 98.3 F 09/17/23 10:58 Pulse Rate 85 09/17/23 10:58 Respiratory Rate 18 09/17/23 10:58 Blood Pressure 81/56 09/17/23 10:58 Pulse Oximetry 95 09/17/23 10:58 Oxygen Delivery Me thod Nasal Cannula 09/17/23 10:58 Oxygen Flow Rate 3 09/17/23 10:58 MDM - Extremity (Nontraumatic) Medical Decision Making Patient's exam findings to her left foot/ankle are not overly impressive. Certainly no concern for septic arthritis. DDx includes gout, RA flare, cellulitis. Patient arrived hypotensive with a white count of 25,000+. She has a CRP of over 440. Lactate of 5.0. 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 Elevations to her BUN/Cr-mildly worse than baseline. CXR was added although she has no respiratory complaints. This does show a left lower lobe infiltrate. Urine is pending. Shafer is being placed as she states she cannot walk. US of the extremity obtained and negative for DVT. I spoke to Dr. Sky who is in agreement for the need for hospitalization. She has not been given full septic bolus as she has a history of CHF and already has chronic pitting edema-discussed with hospitalist and we will give a total of 1500ml at this time. She has been started on IV vanc/rocephin for antibiotic coverage. Lab Data 09/17/23 11:37 09/17/23 11:37 Radiology Impressions Ankle X-Ray 09/17/23 11:25 IMPRESSION: No acute bony abnormality. Chest X-Ray 09/17/23 11:51 IMPRESSION: Left basilar infiltrate. Laboratory Results WBC 25.67 10^3/uL (3.29-11.43) H 09/17/23 11:37 RBC 3.28 10^6/uL (3.85-5.65) L 09/17/23 11:37 Hgb 10.40 g/dL (11.27-16.99) L 09/17/23 11:37 Hct 33.2 % (36-47) L 09/17/23 11:37 MCV 101.2 fl (85-98) H 09/17/23 11:37 MCH 31.7 pg (27-33) 09/17/23 11:37 MCHC 31.3 g/dL (30-55) 09/17/23 11:37 RDW 15.0 % (12.1-15.1) 09/17/23 11:37 Plt Count 561 10^3/cmm (157-399) H 09/17/23 11:37 MPV 9.3 fL (7.4-10.4) 09/17/23 11:37 Neut % (Auto) 88.4 % 09/17/23 11:37 Lymph % (Auto) 5.8 % 09/17/23 11:37 [place] % (Auto) 4.2 % 09/17/23 11:37 Eos % (Auto) 0.1 % 09/17/23 11:37 Baso % (Auto) 0.6 % 09/17/23 11:37 Neut # (Auto) 22.67 10^3/uL (1.8-7.7) H 09/17/23 11:37 Lymph # (Auto) 1.5 10^3/uL (0.8-4.8) 09/17/23 11:37 [place] # (Auto) 1.1 10^3/uL (0.2-0.9) H 09/17/23 11:37 Eos # (Auto) 0.0 10^3/uL (0.0-0.8) 09/17/23 11:37 Baso # (Auto) 0.2 10^3/uL (0.0-0.1) H 09/17/23 11:37 Nucleated RBC % (auto) 0 % 09/17/23 11:37 Nucleated RBCs # 0.0 /100WBC 09/17/23 11:37 ESR 72 mm/hr (0-15) H 09/17/23 11:37 Sodium 136 mmol/L (136-145) 09/17/23 11:37 Potassium 3.5 mmol/L (3.5-5.1) 09/17/23 11:37 Chloride 84 mmol/L (98-107) L 09/17/23 11:37 Carbon Dioxide 32 mmol/L (22-29) H 09/17/23 11:37 Anion Gap 23.5 (5-19) H 09/17/23 11:37 BUN 34 mg/dL (8-23) H 09/17/23 11:37 Creatinine 1.9 mg/dL (0.5-0.9) H 09/17/23 11:37 GFR Calculation Not Reportable 09/17/23 11:37 Glucose 290 mg/dL (65-115) H 09/17/23 11:37 Calculated Osmolality 300 mOsm/kg (285-295) H 09/17/23 11:37 Lactic Acid 5.0 mmol/L (0.5-2.2) H* 09/17/23 11:37 Calcium 10.4 mg/dL (8.5-10.5) 09/17/23 11:37 Total Bilirubin 0.5 mg/dL (0.15-1.2) 09/17/23 11:37 AST 18 U/L (0-32) 09/17/23 11:37 ALT 12 U/L (0-33) 09/17/23 11:37 Alkaline Phosphatase 89 U/L (35-105) 09/17/23 11:37 C-Reactive Protein 444.6 mg/L (0.0-4.9) H 09/17/23 11:37 NT-Pro-B Natriuret Pep 31084 pg/mL (0-125) H 09/17/23 11:37 Total Protein 7.4 g/dL (6.6-8.7) 09/17/23 11:37 Albumin 3.8 g/dL (3.5-5.2) 09/17/23 11:37 Globulin 3.6 g/dL (1.3-4.6) 09/17/23 11:37 Discharge Plan Discharge Patient Disposition: Admitted As Inpatient Admit Provider: Luiz Vivas Clinical Impression: Rheumatoid arthritis flare, Left lower lobe pneumonia, Acute kidney injury Condition: Stable Coding Level of Care Code ED Equipment Hire Manager for Chg Fwd Documented by User: Juan Sky MD 09/17/23 13:07 HPI - Extremity Problem General: Chief complaint: Extremity Injury, Lower Stated complaint: left foot pain Time Seen by Provider: 09/17/23 10:59 PFSH ED PFSH: Medical History Cardiomyopathy Chronic diastolic heart failure Chronic kidney disease CKD (chronic kidney disease) stage 3, GFR 30-59 ml/min COPD (chronic obstructive pulmonary disease) High risk medication use Hyperlipidemia Hypertension Hypertrophic obstructive cardiomyopathy Immunization counseling Leg swelling Seronegative rheumatoid arthritis of both hands Surgical History History of tonsillectomy Family History Mother CAD (coronary artery disease) Cancer Diabetes Father Chronic kidney disease (CKD) Other Hypertension Denies family history of Clotting disorder Dementia Suicide Anesthesia complication Bleeding disorder Lung disease Stroke Social History Smoking and tobacco/nicotine status: former use of tobacco/nicotine Alcohol intake: current Alcohol intake frequency: holidays/special occasions only Substance/Drug Use: never Household members: family Housing: House Course ED course: Discussed physical exam and plan of care with the midlevel provider I do agree with the need for admission she has contacted the hospitalist physician for admission of the patient. I did see the patient and discussed the plan of care with the patient in room 12 and her family at the patient's request. Vital Signs: Vital signs: Vital Signs Temperature 98.3 F 09/17/23 10:58 Pulse Rate 85 09/17/23 10:58 Respiratory Rate 18 09/17/23 10:58 Blood Pressure 81/56 09/17/23 10:58 Pulse Oximetry 95 09/17/23 10:58 Oxygen Delivery Me thod Nasal Cannula 09/17/23 10:58 Oxygen Flow Rate 3 09/17/23 10:58 MDM - Extremity (Nontraumatic) Lab Data 09/17/23 11:37 09/17/23 11:37 Radiology Impressions Ankle X-Ray 09/17/23 11:25 IMPRESSION: No acute bony abnormality. Chest X-Ray 09/17/23 11:51 IMPRESSION: Left basilar infiltrate. Laboratory Results WBC 25.67 10^3/uL (3.29-11.43) H 09/17/23 11:37 RBC 3.28 10^6/uL (3.85-5.65) L 09/17/23 11:37 Hgb 10.40 g/dL (11.27-16.99) L 09/17/23 11:37 Hct 33.2 % (36-47) L 09/17/23 11:37 MCV 101.2 fl (85-98) H 09/17/23 11:37 MCH 31.7 pg (27-33) 09/17/23 11:37 MCHC 31.3 g/dL (30-55) 09/17/23 11:37 RDW 15.0 % (12.1-15.1) 09/17/23 11:37 Plt Count 561 10^3/cmm (157-399) H 09/17/23 11:37 MPV 9.3 fL (7.4-10.4) 09/17/23 11:37 Neut % (Auto) 88.4 % 09/17/23 11:37 Lymph % (Auto) 5.8 % 09/17/23 11:37 [place] % (Auto) 4.2 % 09/17/23 11:37 Eos % (Auto) 0.1 % 09/17/23 11:37 Baso % (Auto) 0.6 % 09/17/23 11:37 Neut # (Auto) 22.67 10^3/uL (1.8-7.7) H 09/17/23 11:37 Lymph # (Auto) 1.5 10^3/uL (0.8-4.8) 09/17/23 11:37 [place] # (Auto) 1.1 10^3/uL (0.2-0.9) H 09/17/23 11:37 Eos # (Auto) 0.0 10^3/uL (0.0-0.8) 09/17/23 11:37 Baso # (Auto) 0.2 10^3/uL (0.0-0.1) H 09/17/23 11:37 Nucleated RBC % (auto) 0 % 09/17/23 11:37 Nucleated RBCs # 0.0 /100WBC 09/17/23 11:37 ESR 72 mm/hr (0-15) H 09/17/23 11:37 Sodium 136 mmol/L (136-145) 09/17/23 11:37 Potassium 3.5 mmol/L (3.5-5.1) 09/17/23 11:37 Chloride 84 mmol/L (98-107) L 09/17/23 11:37 Carbon Dioxide 32 mmol/L (22-29) H 09/17/23 11:37 Anion Gap 23.5 (5-19) H 09/17/23 11:37 BUN 34 mg/dL (8-23) H 09/17/23 11:37 Creatinine 1.9 mg/dL (0.5-0.9) H 09/17/23 11:37 GFR Calculation Not Reportable 09/17/23 11:37 Glucose 290 mg/dL (65-115) H 09/17/23 11:37 Calculated Osmolality 300 mOsm/kg (285-295) H 09/17/23 11:37 Lactic Acid 5.0 mmol/L (0.5-2.2) H* 09/17/23 11:37 Calcium 10.4 mg/dL (8.5-10.5) 09/17/23 11:37 Total Bilirubin 0.5 mg/dL (0.15-1.2) 09/17/23 11:37 AST 18 U/L (0-32) 09/17/23 11:37 ALT 12 U/L (0-33) 09/17/23 11:37 Alkaline Phosphatase 89 U/L (35-105) 09/17/23 11:37 C-Reactive Protein 444.6 mg/L (0.0-4.9) H 09/17/23 11:37 NT-Pro-B Natriuret Pep 51263 pg/mL (0-125) H 09/17/23 11:37 Total Protein 7.4 g/dL (6.6-8.7) 09/17/23 11:37 Albumin 3.8 g/dL (3.5-5.2) 09/17/23 11:37 Globulin 3.6 g/dL (1.3-4.6) 09/17/23 11:37 All radiology interpretation(s) finalized by discharge Discharge Plan Discharge Patient Disposition: Admitted As Inpatient Admit Provider: Luiz Vivas Clinical Impression: Rheumatoid arthritis flare, Left lower lobe pneumonia, Acute kidney injury Condition: Stable Coding Level of Care Code ED Equipment Hire Manager for Florencia Rice
--- NOTE | 2023-09-17 11:25 | XRR_ITS ---
PROCEDURE INFORMATION: Exam: XR Left Ankle Exam date and time: 09/17/2023 11:39 AM Age: 72 years old Clinical indication: Pain; Ankle; Left; Additional info: Pain no trauma TECHNIQUE: Imaging protocol: Radiologic exam of the left ankle. Views: 3 or more views. COMPARISON: No relevant prior studies available. FINDINGS: Bones/joints: Normal. Soft tissues: Soft tissue swelling. XR/XR ankle LT min 3V* [id number] IMPRESSION: No acute bony abnormality.
--- NOTE | 2023-09-17 11:25 | USCV_ITS ---
Any Chaves Age: 72 Gender: F : 1950 Exam Date: 09/17/2023 12:01 Ordering Phys: Missy Bustamante Technologist: Raimundo Cosby Exam Location: [facility] – [place]_ Indication: lt leg pain and swelling PROCEDURES: Venous duplex imaging was performed in only the left lower extremity. The following venous structures were evaluated: common femoral vein, profunda vein, proximal portion of the greater saphenous vein, superficial femoral vein, and the popliteal vein. In addition, the posterior tibial and peroneal trunk were evaluated. FINDINGS: Normal 2-D Doppler and augmentation and compressibility throughout the lower extremity venous structures. Additional imaging through the proximal calf veins also reveals no thrombus. Limited evaluation of the greater saphenous vein is patent with no thrombus. CONCLUSIONS No evidence of left lower extremity DVT. Kings Frazier MD (Electronically Signed) Final Date: 17 September 2023 12:38 S
[2023-09-17 11:48] LABS: Basophils # 0.2 10^3/uL (0.0-0.1); Basophils % 0.6 %; Eosinophils % 0.1 %; Hematocrit 33.2 % (36-47); Lymphocytes # 1.5 10^3/uL (0.8-4.8); Lymphocytes % 5.8 %; Mean Corpuscular HGB Conc 31.3 g/dL (30-55); Mean Corpuscular Hemoglobin 31.7 pg (27-33); Mean Corpuscular Volume 101.2 fl (85-98); Mean Platelet Volume 9.3 fL (7.4-10.4); Monocytes # 1.1 10^3/uL (0.2-0.9); Monocytes % 4.2 %; Neutrophils # 22.67 10^3/uL (1.8-7.7); Neutrophils % 88.4 %; Nucleated Red Blood Cells % 0 %; Platelet Count 561 10^3/cmm (157-399); Red Blood Count 3.28 10^6/uL (3.85-5.65); White Blood Count 25.67 10^3/uL (3.29-11.43)
--- NOTE | 2023-09-17 11:51 | XRR_ITS ---
PROCEDURE INFORMATION: Exam: XR Chest Exam date and time: 09/17/2023 11:55 AM Age: 72 years old Clinical indication: Other: Low blood pressure; Additional info: Low BP; Leukocytosis TECHNIQUE: Imaging protocol: Radiologic exam of the chest. Views: 1 view. COMPARISON: CR XR chest 1V portable [id number] 11/08/2020 6:07 PM FINDINGS: Lungs: See Diaphragm finding. Pleural spaces: Unremarkable. No pleural effusion. No pneumothorax. Heart/Mediastinum: Unremarkable. No cardiomegaly. Diaphragm: Elevation left hemidiaphragm as previously. Small area of infiltrate in the left base. Bones/joints: Unremarkable. XR/XR chest 1V portable [id number] IMPRESSION: Left basilar infiltrate.
[2023-09-17 12:10] LABS: Alanine Aminotransferase 12 U/L (0-33); Albumin Level 3.8 g/dL (3.5-5.2); Alkaline Phosphatase 89 U/L (35-105); Anion Gap 23.5 (5-19); Aspartate Amino Transferase 18 U/L (0-32); Blood Urea Nitrogen 34 mg/dL (8-23); Calcium 10.4 mg/dL (8.5-10.5); Carbon Dioxide 32 mmol/L (22-29); Chloride 84 mmol/L (98-107); Globulin 3.6 g/dL (1.3-4.6); Glucose 290 mg/dL (65-115); Osmolality Calculated 300 mOsm/kg (285-295); Potassium 3.5 mmol/L (3.5-5.1); Sodium 136 mmol/L (136-145); Total Bilirubin 0.5 mg/dL (0.15-1.2); Total Protein 7.4 g/dL (6.6-8.7)
[2023-09-17 12:23] LABS: C Reactive Protein 444.6 mg/L (0.0-4.9)
[2023-09-17 12:31] LABS: Erythrocyte Sedimentation Rate 72 mm/hr (0-15)
[2023-09-17 12:46] LABS: NT Pro B Type Natriuretic Pept 13836 pg/mL (0-125)
--- NOTE | 2023-09-17 13:03 | PM.HP ---
Providers/Chief Complaint Primary Care Provider: Carlos Manuel Swift MD Chief Complaint: left foot pain History of Present Illness Any Chaves is a 72 year old female history of pulmonary arthritis, chronic steroid use, follows up with Dr. Reyes, presented today with worsening of bilateral ankle pain, fever 100.3, patient uses 2 L of oxygen at baseline. Patient is stating that she has not been able to put weight on her feet because of worsening pain, she has noted some redness on left ankle as well. In the ER she was diagnosed with sepsis related to pneumonia and cellulitis, she was given judicious septic bolus because of her high BNP and clinical signs of fluid overload. She was hypotensive responded very well to IV fluids. She was given high-dose IV steroids. Patient is stating that every time she tries to taper her steroids she feels worse she is stating that with prednisone 10 mg she thinks she would do better No recent chest pain, diarrhea however endorsing nausea Review of Systems Eyes: Denies: change in vision ENMT: Denies: throat pain Card: Denies: chest pain Resp: Reports: dyspnea GI: Denies: abdominal pain : Denies: flank pain Musc: Reports: extremity pain and joint swelling Skin/Breast: Reports: rash Medications/Allergies Home Medications Medication Instructions Recorded Confirmed Last Taken Type cholecalciferol (vitamin D3) 1,250 1,000 mcg PO DAILY@0800 01/25/20 09/17/23 09/17/23 History mcg (50,000 unit) capsule fluticasone 500 mcg-salmeterol 50 1 inh inhalation BID@0800,1800 01/25/20 09/17/23 09/17/23 History mcg/dose blistr powdr for inhalation (Advair Diskus) omeprazole 40 mg capsule,delayed 40 mg PO DAILY@0800 01/25/20 09/17/23 09/17/23 History release albuterol sulfate 90 mcg/actuation 2 puff inhalation Q6H PRN Wheezing 11/08/20 09/17/23 11/08/20 History aerosol inhaler (Ventolin HFA) coenzyme Q10 200 mg capsule (Co 200 mg PO DAILY 05/08/21 09/17/23 09/17/23 History Q-10) bumetanide 2 mg tablet See Rx Instructions .Route .COMPLEX 10/09/17/23 09/17/23 History nifedipine 30 mg tablet,extended 30 mg PO DAILY #90 tabs 11/07/21 09/17/23 09/17/23 Rx release metolazone 5 mg tablet See Rx Instructions .Route 03/28/23 09/17/23 Unknown Rx .COMPLEX #90 tabs spironolactone 25 mg tablet 25 mg PO DAILY #90 tabs 06/06/23 09/17/23 09/17/23 Rx leflunomide 10 mg tablet 10 mg PO DAILY #30 tabs 08/26/23 09/17/23 09/17/23 Rx prednisone 2.5 mg tablet 5 mg PO DAILY 08/26/23 09/17/23 09/17/23 History tramadol 50 mg tablet 50 mg PO Q8H PRN Pain 08/26/23 09/17/23 Unknown History chlorzoxazone 500 mg tablet 50 mg PO TID PRN Muscle Spasm 09/17/23 09/17/23 Unknown History diphenhydramine HCl 25 mg capsule 25 mg PO BEDTIME PRN Allergic 09/17/23 09/17/23 09/16/23 History (Benadryl) Symptoms folic acid 1 mg tablet 1 mg PO DAILY 09/17/23 09/17/23 09/17/23 History hydrocortisone 2.5 % topical cream 1 applic topical DAILY PRN Rash 09/17/23 09/17/23 Unknown History metoprolol tartrate 75 mg tablet 75 mg PO BID 09/17/23 09/17/23 09/17/23 History omega-3s 300 lu-hie-rgc-other 1 cap PO QAM 09/17/23 09/17/23 09/17/23 History mdooh5k-mqyn oil 1,000 mg capsule ([place]-3 Fish Oil) potassium chloride 10 mEq 40 meq PO DAILY 09/17/23 09/17/23 09/17/23 History tablet,extended release vit no.95-ferrous 1 tab PO DAILY 09/17/23 09/17/23 09/17/23 History fumarate 28 mg-folic acid 800 mcg tablet () Allergies Allergy/AdvReac Type Severity Reaction Status Date / Time propoxyphene [From Darvon-N] Allergy Unknown unknown Verified 09/17/23 11:10 PFSH Acute PFSH: Medical History Cardiomyopathy Chronic diastolic heart failure Chronic kidney disease CKD (chronic kidney disease) stage 3, GFR 30-59 ml/min COPD (chronic obstructive pulmonary disease) High risk medication use Hyperlipidemia Hypertension Hypertrophic obstructive cardiomyopathy Immunization counseling Leg swelling Seronegative rheumatoid arthritis of both hands Surgical History History of tonsillectomy Family History Mother CAD (coronary artery disease) Cancer Diabetes Father Chronic kidney disease (CKD) Other Hypertension Denies family history of Clotting disorder Dementia Suicide Anesthesia complication Bleeding disorder Lung disease Stroke Social History Smoking and tobacco/nicotine status: former use of tobacco/nicotine Alcohol intake: current Alcohol intake frequency: holidays/special occasions only Substance/Drug Use: never Household members: family Housing: House Vitals/I&O/Wt Last Vital Signs Temp 98.3 F 09/17/23 10:58 Pulse 85 09/17/23 10:58 Resp 18 09/17/23 10:58 BP 81/56 09/17/23 10:58 Pulse Ox 95 09/17/23 10:58 O2 Del Method Nasal Cannula 09/17/23 10:58 O2 Flow Rate 3 09/17/23 10:58 Weight last 48 hrs Weight 83.915 kg Physical Exam Narrative: Left ankle cellulitis Tender to touch GCS 15 Nonfocal neuro exam Currently 1 L Tachycardia Clinically mild signs of fluid overload present Lower extremity edema Family at the bedside A.m., HUMAIRA S1, S2 Abdomen distended Morbid obesity Data 09/17/23 11:37 09/17/23 11:37 Micro: Microbiology 09/17/23 12:35 Blood Culture - Preliminary Blood SPECIMEN COLLECTED 09/17/23 12:30 Blood Culture - Preliminary Blood SPECIMEN COLLECTED A&P Assessment and plan (1) Rheumatoid arthritis flare: (2) Left lower lobe pneumonia: Qualifiers: Pneumonia type: due to unspecified organism Qualified Code(s): J18.9 - Pneumonia, unspecified organism (3) High risk medication use: (4) CKD (chronic kidney disease) stage 3, GFR 30-59 ml/min: (5) Seronegative rheumatoid arthritis of both hands: (6) Edema, peripheral: (7) Macrocytic anemia: (8) Hypertrophic obstructive cardiomyopathy: (9) Sepsis: (10) Cellulitis: (11) Community acquired pneumonia: Plan Sepsis related to pneumonia Nonpurulent cellulitis left ankle Criteria met with tachypnea tachycardia low-grade fever, leukocytosis high lactic acid Endorgan damage with worsening of creatinine Patient will be given judicious fluids because of her history of CHF, BNP is very high, low extremity edema Lactic acid improved with IV fluid hydration Antibiotics given, cultures requested Left lower lobe infiltrate currently on broad-spectrum antibiotics Chronic hypoxia uses 3 to 4 L at baseline currently on 1 L Steroid-dependent, currently on high-dose steroids Monitor for adrenal insufficiency Left ankle pain nonpurulent cellulitis Currently on antibiotics No signs of DVT Acute on chronic kidney disease likely related to low blood pressure and sepsis Hocm: Continue metoprolol repeat echo today Patient is debilitated due to her inflammatory rheumatoid arthritis Full code Uses a walker at home and a wheelchair Attestations Medical Necessity Statement*: More than 2 midnights anticipated Diagnoses Rheumatoid arthritis flare M06.9 Left lower lobe pneumonia J18.9 Pneumonia type: due to unspecified organism High risk medication use Z79.899 CKD (chronic kidney disease) stage 3, GFR 30-59 ml/min N18.30 Seronegative rheumatoid arthritis of both hands M06.041; M06.042 Edema, peripheral R60.9 Macrocytic anemia D53.9 Hypertrophic obstructive cardiomyopathy I42.1 Sepsis A41.9 Cellulitis L03.90 Community acquired pneumonia J18.9
[2023-09-17] MEDS: sodium chloride 0.9% 1,000 ML 999 ML IV (13:14)
[2023-09-17] MEDS: methylPREDNISolone sod succ 60 MG in water for injection-sterile 0.96 ML 11.52 MG IVP ×2 (13:15→19:34)
[2023-09-17] MEDS: cefTRIAXone 1,000 MG in sodium chloride 0.9% (plus) 50 ML 100 MG IV (13:16)
[2023-09-17 13:18] LABS: Add Urine Culture? No; Add Urine Microscopic? YES; Bacteria Urine TRACE /hpf; Bilirubin Urine Neg (Negative); Blood Urine Trace (Negative); Glucose Urine UA Norm (Normal); Ketones Urine Negative (Negative); Leukocyte Esterase Urine Negative (Negative); Nitrate Urine Negative (Negative); Protein Urine Trace (Negative); RBC Urine 0-4 /hpf (0-2); Squamous Epithelial Cell Urine 0-4 /hpf (0-5); Urine Appearance Clear (CLEAR); Urine Color Yellow (Yellow); Urobilinogen Urine Norm (Negative); pH Urine 6 (5-7)
[2023-09-17 13:42] LABS: Reflex Lactate Order REFLEX LACTIC ORDERD
--- NOTE | 2023-09-17 14:53 | USCV_ITS ---
Any Chaves Age: 72 Gender: F : 1950 Exam Date: 09/17/2023 15:27 Ordering Phys: Luiz Vivas MD Technologist: CT Exam [place] [facility] [place]: BP: / HR: 89 Rhythm: Sinus Technical Quality: Poor secondary to COPD MEASUREMENTS (Male / Female) Normal Values 2D ECHO LVOT Diameter 2.1 cm LV Ejection Fraction MOD 2C 71.7 % LV Ejection Fraction 2C AL 70.6 % LA Diameter 4.0 cm Aorta at Sinotubular Diameter 2.2 cm IVC Diameter 1.5 cm M-MODE Aortic Annulus Diameter 3.1 cm LA Ao Ratio MM 1.4 DOPPLER AV Peak Velocity 531.0 cm/s LVOT Peak Velocity 256.0 cm/s AV Area Cont Eq vti 2.0 cm squared AV Area Cont Eq pk 1.6 cm squared MV Area PHT 2.1 cm squared Mitral E to A Ratio 0.6 MV E' Velocity 46.5 cm/s Mitral E to MV E' Ratio 13.0 Mitral E to LV E' Lateral Ratio 13.4 Mitral E to LV E' Septal Ratio 12.7 TR Peak Velocity 155.0 cm/s TR Peak Gradient 9.6 mmHg Right Atrial Pressure 3.0 mmHg Pulmonary Artery Systolic Pressu 12.6 mmHg PV Peak Velocity 147.0 cm/s FINDINGS Left Ventricle Left ventricle is normal in size. LV systolic function is normal with EF of 55 to 60%. No regional wall motion abnormalities are seen. Grade 1 diastolic dysfunction. Right Ventricle Normal in size and function Right Atrium Normal in size Left Atrium Normal in size Mitral Valve Grossly normal. Mild mitral regurgitation. Aortic Valve Not well-visualized. Dynamic LVOT maximal velocity of 5.2 m/s. Peak gradient was on 113 mmHg with a mean gradient of 51 mmHg. Tricuspid Valve Mild tricuspid regurgitation. Insufficient TR jet to calculate RVSP. Pulmonic Valve Not well-visualized Pericardium Normal Aorta Normal in size IVC Appears to be normal CONCLUSIONS LV systolic function is normal with EF 55 to 60%. Grade 1 diastolic dysfunction. Mild mitral regurgitation. Aortic valve is not well-visualized. Dynamic LVOT maximum velocity of 5.2 mm/s. Peak gardient was 113 mmHg with a mean gradient of 51 mmHg. Compared with prior echocardiogram from 05/2021, no significant changes are seen. Mark Lawton MD (Electronically Signed) Final Date: 17 September 2023 18:11 S
[2023-09-17] MEDS: acetaminophen 500 mg Tablet PO (15:16)
[2023-09-17] MEDS: piperacillin-tazobactam 3.375 GM in sodium chloride 0.9% (plus) 50 ML IV ×2 (15:16→22:06)
[2023-09-17 15:20] LABS: Lactic Acid level (Lactate) 1.9 mmol/L (0.5-2.2)
[2023-09-17] MEDS: heparin 5,000 unit/mL INJ 1 mL 5000 UNIT SUBCUT (17:11)
--- NOTE | 2023-09-17 17:52 | PC.NURSE ---
REceived patient from ER staff at 1420. Patient is alert and oriented to person, place, time, and situation. HR: 93, SPO2: 94% on 3LNC, RR: 18, BP: 130/60.
--- NOTE | 2023-09-17 18:01 | PC.NURSE ---
Shift Summary: uneventful shift. Pt arrived shortly after 2PM. VItals have remained within normal limits since arrival. On 3LNC which is home baseline. Received antibiotics as ordered.
[2023-09-17] MEDS: diphenhydrAMINE 25 mg Capsule PO (19:30)
[2023-09-17] MEDS: metoprolol tartrate 50 mg Tablet PO (19:30)
--- NOTE | 2023-09-17 19:59 | PC.NURSE ---
Refusing SCDs: Bilateral lower legs/feet extremely sensitive to the touch w/ edema. L. leg is red and warm to the touch.
[2023-09-18] VITALS (29 sets, daily range): BP systolic 116–141; BP diastolic 59–93; PULSE 70–104; RESP 17–38; TEMP 36.8–37.3; O2SAT 91–98
[2023-09-18] MEDS: methylPREDNISolone sod succ 60 MG in water for injection-sterile 0.96 ML 11.52 MG IVP ×2 (03:43→12:20)
[2023-09-18] MEDS: heparin 5,000 unit/mL INJ 1 mL 5000 UNIT SUBCUT ×2 (03:45→15:54)
[2023-09-18 05:20] LABS: Basophils % 0.2 %; Hematocrit 29.3 % (36-47); Lymphocytes # 1.7 10^3/uL (0.8-4.8); Lymphocytes % 10.4 %; Mean Corpuscular HGB Conc 31.4 g/dL (30-55); Mean Corpuscular Hemoglobin 31.9 pg (27-33); Mean Corpuscular Volume 101.7 fl (85-98); Mean Platelet Volume 9.5 fL (7.4-10.4); Monocytes # 0.6 10^3/uL (0.2-0.9); Monocytes % 3.6 %; Neutrophils # 13.93 10^3/uL (1.8-7.7); Neutrophils % 84.9 %; Nucleated Red Blood Cells % 0 %; Platelet Count 461 10^3/cmm (157-399); Red Blood Count 2.88 10^6/uL (3.85-5.65); Red Cell Distribution Width 14.9 % (12.1-15.1)
[2023-09-18 05:38] LABS: Alanine Aminotransferase 12 U/L (0-33); Albumin Level 3.3 g/dL (3.5-5.2); Alkaline Phosphatase 76 U/L (35-105); Anion Gap 14.4 (5-19); Aspartate Amino Transferase 22 U/L (0-32); Blood Urea Nitrogen 39 mg/dL (8-23); Calcium 9.7 mg/dL (8.5-10.5); Carbon Dioxide 37 mmol/L (22-29); Chloride 92 mmol/L (98-107); Globulin 3.4 g/dL (1.3-4.6); Glucose 188 mg/dL (65-115); Magnesium 1.7 mg/dL (1.7-2.3); Osmolality Calculated 304 mOsm/kg (285-295); Phosphorus 3.6 mg/dL (2.5-4.5); Potassium 3.4 mmol/L (3.5-5.1); Sodium 140 mmol/L (136-145); Total Bilirubin 0.2 mg/dL (0.15-1.2); Total Protein 6.7 g/dL (6.6-8.7)
[2023-09-18 05:40] LABS: Creatinine Clr Calc Pharmacy 37.1894
[2023-09-18 05:57] LABS: C Reactive Protein 422.1 mg/L (0.0-4.9)
--- NOTE | 2023-09-18 06:00 | XRR_ITS ---
PROCEDURE INFORMATION: Exam: XR Chest Exam date and time: 09/18/2023 6:40 AM Age: 72 years old Clinical indication: Other: Chf; Additional info: Chf pna TECHNIQUE: Imaging protocol: Radiologic exam of the chest. Views: 1 view. COMPARISON: CR (CHEST, ) 09/17/2023 11:55 AM FINDINGS: Lungs: Mild ill-defined opacity in the left lung base. Minimal coarse reticular opacity in the right lung base. Pleural spaces: The left lateral costophrenic sulcus is blunted. No pneumothorax. Heart/Mediastinum: The cardiac silhouette is within normal limits of size given AP technique. Bones/joints: Bones are unremarkable. XR/XR chest 1V portable [id number] IMPRESSION: 1. No change since yesterday. 2. Blunted left lateral costophrenic sulcus and opacity in the left lung base suggest a combination of pleural effusion or scarring and atelectasis or consolidation in the left lower lung.
[2023-09-18] MEDS: piperacillin-tazobactam 3.375 GM in sodium chloride 0.9% (plus) 50 ML IV ×3 (06:22→22:43)
--- NOTE | 2023-09-18 06:35 | PC.NURSE ---
Requesting breathing tx: Notified Dr. Rivero @2417 of pt reporting mild shortness of breath, requesting and breathing treatment. SpO2 92% on 2L NC. New order for RT assess and treat. RT called and notified.
[2023-09-18] MEDS: ipratropium-albuterol 3 mL Neb INHALATION ×3 (09:11→19:38)
[2023-09-18] MEDS: vancomycin 1,000 MG in sodium chloride 0.9% 250 ML 250 MG IV (09:24)
[2023-09-18] MEDS: folic acid 1 mg Tablet PO (10:13)
[2023-09-18] MEDS: metoprolol tartrate 50 mg Tablet 75 MG PO ×2 (10:13→20:54)
[2023-09-18] MEDS: sennosides-docusate Tablet 1 TAB PO (10:13)
--- NOTE | 2023-09-18 10:45 | P.PN_ITS ---
Subjective Subjective: Significant movement of pain and redness Can be transferred out of ICU Blood pressure stable Restart metoprolol Plan to discharge her tomorrow after PT Vitals/I&O/Wt Last Vital Signs Temp 99.1 F 09/18/23 07:00 Pulse 103 H 09/18/23 08:00 Resp 18 09/18/23 08:00 BP 116/61 09/18/23 07:30 Pulse Ox 91 09/18/23 08:00 O2 Del Method Nasal Cannula 09/18/23 08:00 O2 Flow Rate 2 09/18/23 08:00 09/17/23 09/18/23 09/18/23 22:59 06:59 14:59 Intake Total 570.96 / 1621.92 50.96 / 1672.88 Output Total 200 / 200 800 / 1000 Balance 370.96 / 1421.92 -749.04 / 672.88 Weight last 48 hrs Weight 83.915 kg Physical Exam Narrative: Pleasant and cooperative Cellulitis of left ankle improving Tenderness improved as well GCS 15 Awake and alert Currently 1 L Pleasant no active signs of worsening of heart failure S1, S2 Urinary Catheter Management: Shafer: Cath Placed During This Visit: yes Reason for Continuing Indwelling Catheter: Accurate Measurement of Urinary Output in Critically Ill Patients Urinary Catheter Date of Insertion: 09/17/23 Urinary Catheter Time of Insertion: 12:50 Data 09/18/23 04:54 09/18/23 04:54 Micro: Microbiology 09/17/23 12:35 Blood Culture - Preliminary Blood SPECIMEN COLLECTED 09/17/23 12:30 Blood Culture - Preliminary Blood SPECIMEN COLLECTED A&P Assessment and plan (1) Cellulitis: (2) Sepsis: (3) Rheumatoid arthritis flare: (4) Left lower lobe pneumonia: Qualifiers: Pneumonia type: due to unspecified organism Qualified Code(s): J18.9 - Pneumonia, unspecified organism (5) Acute kidney injury: (6) CKD (chronic kidney disease) stage 3, GFR 30-59 ml/min: (7) High risk medication use: (8) Seronegative rheumatoid arthritis of both hands: (9) Edema, peripheral: (10) Chronic diastolic heart failure: (11) Hypertrophic obstructive cardiomyopathy: Plan Sepsis related to pneumonia Significant improvement noted with steroids No fever I am anticipating high white count with steroids Cellulitis of left ankle improving Continue antibiotics Left lower lobe infiltrate currently patient is at baseline oxygen requirement No active wheezing or crackles No signs of adrenal insufficiency Continue steroids Left ankle pain is improved Acute on chronic kidney disease creatinine stable No signs of worsening of underlying heart failure Echo reviewed After PT patient might be able to go home by tomorrow She will need a steroid taper Attestations Medical Necessity Statement*: Discharge tomorrow Transfer out of ICU to [facility] Diagnoses Cellulitis L03.90 Sepsis A41.9 Rheumatoid arthritis flare M06.9 Left lower lobe pneumonia J18.9 Pneumonia type: due to unspecified organism Acute kidney injury N17.9 CKD (chronic kidney disease) stage 3, GFR 30-59 ml/min N18.30 High risk medication use Z79.899 Seronegative rheumatoid arthritis of both hands M06.041; M06.042 Edema, peripheral R60.9 Chronic diastolic heart failure I50.32 Hypertrophic obstructive cardiomyopathy I42.1
--- NOTE | 2023-09-18 17:15 | PC.NURSE ---
Repor faxed and called to [facility]. Report given to ANGEL LUIS Pineda
--- NOTE | 2023-09-18 17:55 | PC.NURSE ---
Pt transferred to [place], room 276-1 via W/C. All belongings with patient. This nurse settled her into her new room and oriented her to room.
[2023-09-18] MEDS: predniSONE 20 mg Tablet 40 MG PO (20:53)
[2023-09-18] MEDS: potassium chloride ER 20 mEq Tablet 40 MEQ PO (20:53)
[2023-09-18] MEDS: bumetanide 1 mg Tablet 2 MG PO (20:53)
[2023-09-18] MEDS: diphenhydrAMINE 25 mg Capsule PO (20:58)
[2023-09-18] MEDS: acetaminophen 500 mg Tablet PO (20:58)
[2023-09-19] VITALS (17 sets, daily range): BP systolic 128–155; BP diastolic 75–93; PULSE 68–95; RESP 16–18; TEMP 36.7–37; O2SAT 94–99
[2023-09-19] MEDS: ipratropium-albuterol 3 mL Neb INHALATION ×3 (02:26→19:32)
[2023-09-19] MEDS: heparin 5,000 unit/mL INJ 1 mL 5000 UNIT SUBCUT ×2 (04:50→17:11)
[2023-09-19 05:13] LABS: Basophils % 0.1 %; Lymphocytes # 1.6 10^3/uL (0.8-4.8); Lymphocytes % 9.6 %; Mean Corpuscular Hemoglobin 31.4 pg (27-33); Mean Corpuscular Volume 101.4 fl (85-98); Mean Platelet Volume 9.5 fL (7.4-10.4); Monocytes # 0.7 10^3/uL (0.2-0.9); Monocytes % 4.2 %; Neutrophils # 13.85 10^3/uL (1.8-7.7); Neutrophils % 84.8 %; Nucleated Red Blood Cells % 0 %; Platelet Count 505 10^3/cmm (157-399); Red Blood Count 2.96 10^6/uL (3.85-5.65); White Blood Count 16.32 10^3/uL (3.29-11.43)
[2023-09-19 05:39] LABS: Alanine Aminotransferase 19 U/L (0-33); Albumin Level 3.4 g/dL (3.5-5.2); Alkaline Phosphatase 88 U/L (35-105); Anion Gap 16.5 (5-19); Aspartate Amino Transferase 32 U/L (0-32); Blood Urea Nitrogen 45 mg/dL (8-23); Calcium 10.1 mg/dL (8.5-10.5); Carbon Dioxide 38 mmol/L (22-29); Chloride 95 mmol/L (98-107); Globulin 3.3 g/dL (1.3-4.6); Glucose 184 mg/dL (65-115); Osmolality Calculated 318 mOsm/kg (285-295); Potassium 3.5 mmol/L (3.5-5.1); Sodium 146 mmol/L (136-145); Total Bilirubin 0.2 mg/dL (0.15-1.2); Total Protein 6.7 g/dL (6.6-8.7)
[2023-09-19] MEDS: piperacillin-tazobactam 3.375 GM in sodium chloride 0.9% (plus) 50 ML IV ×3 (06:30→23:07)
[2023-09-19] MEDS: folic acid 1 mg Tablet PO (09:40)
[2023-09-19] MEDS: predniSONE 20 mg Tablet 40 MG PO (09:41)
[2023-09-19] MEDS: sennosides-docusate Tablet 1 TAB PO (09:41)
[2023-09-19] MEDS: potassium chloride ER 10 mEq Tablet 40 MEQ PO (09:41)
[2023-09-19] MEDS: bumetanide 1 mg Tablet 2 MG PO (09:42)
[2023-09-19] MEDS: metoprolol tartrate 50 mg Tablet 75 MG PO ×2 (09:44→20:17)
[2023-09-19] MEDS: vancomycin 1,000 MG in sodium chloride 0.9% 250 ML 250 MG IV (09:45)
--- NOTE | 2023-09-19 10:10 | PM.PN ---
Subjective Subjective: Leukocytosis is anticipated Afebrile Leg swelling and redness has improved significantly Patient is still stating that she is afraid that it will get worse when she is home she would like to see 1 more day on steroids she is already on prednisone p.o. regimen Vitals/I&O/Wt Last Vital Signs Temp 98.0 F 09/19/23 07:48 Pulse 95 09/19/23 08:30 Resp 16 09/19/23 08:30 BP 155/93 09/19/23 07:48 Pulse Ox 96 09/19/23 08:30 O2 Del Method Nasal Cannula 09/19/23 08:30 O2 Flow Rate 2 09/19/23 08:30 09/18/23 09/19/23 09/19/23 22:59 06:59 14:59 Intake Total 50 / 1000.96 50 / 1050.96 360 / 360 Output Total 725 / 725 2750 / 3475 Balance -675 / 275.96 -2700 / -2424.04 360 / 360 Weight last 48 hrs Weight 83.915 kg Physical Exam Narrative: Signs of fluid load improving significantly Cellulitis signs improved left ankle GCS 15 Nonfocal neuro exam Pleasant and cooperative S1, S2 Nonfocal neuro exam Currently on 2 L nasal cannula Urinary Catheter Management: Shafer: Cath Placed During This Visit: yes Reason for Continuing Indwelling Catheter: Accurate Measurement of Urinary Output in Critically Ill Patients Urinary Catheter Date of Insertion: 09/17/23 Urinary Catheter Time of Insertion: 12:50 Data 09/19/23 04:43 09/19/23 04:43 Micro: Microbiology 09/17/23 12:35 Blood Culture - Preliminary Blood NEGATIVE TO DATE 09/17/23 12:30 Blood Culture - Preliminary Blood NEGATIVE TO DATE A&P Assessment and plan (1) Cellulitis: (2) Sepsis: (3) Rheumatoid arthritis flare: (4) Left lower lobe pneumonia: Qualifiers: Pneumonia type: due to unspecified organism Qualified Code(s): J18.9 - Pneumonia, unspecified organism (5) Acute kidney injury: (6) CKD (chronic kidney disease) stage 3, GFR 30-59 ml/min: (7) High risk medication use: (8) Seronegative rheumatoid arthritis of both hands: (9) Edema, peripheral: (10) Macrocytic anemia: Plan Sepsis: Resolved Cellulitis of left ankle: Improved significantly Hyponatremia hold diuretics today Acute on chronic kidney disease: Creatinine improved Full code Plan to discharge her tomorrow Steroid taper will be recommended at the time of discharge Tachycardia: Improved with metoprolol Leukocytosis is anticipated with high-dose steroids We will switch IV antibiotics to p.o. regimen at the time of discharge tomorrow continue IV antibiotics for today Attestations Medical Necessity Statement*: Continue medical management Diagnoses Cellulitis L03.90 Sepsis A41.9 Rheumatoid arthritis flare M06.9 Left lower lobe pneumonia J18.9 Pneumonia type: due to unspecified organism Acute kidney injury N17.9 CKD (chronic kidney disease) stage 3, GFR 30-59 ml/min N18.30 High risk medication use Z79.899 Seronegative rheumatoid arthritis of both hands M06.041; M06.042 Edema, peripheral R60.9 Macrocytic anemia D53.9
[2023-09-19] MEDS: morphine IR 15 mg Tablet PO (10:17)
[2023-09-19] MEDS: acetaminophen 500 mg Tablet PO ×2 (10:27→20:17)
[2023-09-19] MEDS: albuterol 2.5 mg/3 mL Neb INHALATION (13:03)
[2023-09-19] MEDS: diphenhydrAMINE 25 mg Capsule PO (20:17)
[2023-09-20] VITALS (7 sets, daily range): BP systolic 135–153; BP diastolic 81–82; PULSE 73–90; RESP 16–18; TEMP 36.7–36.9; O2SAT 95–99
[2023-09-20] MEDS: ipratropium-albuterol 3 mL Neb INHALATION (02:52)
[2023-09-20] MEDS: heparin 5,000 unit/mL INJ 1 mL 5000 UNIT SUBCUT (03:38)
[2023-09-20 05:30] LABS: Basophils % 0.1 %; Eosinophils # 0.1 10^3/uL (0.0-0.8); Eosinophils % 0.8 %; Hematocrit 29.9 % (36-47); Lymphocytes # 3.6 10^3/uL (0.8-4.8); Lymphocytes % 21.1 %; Mean Corpuscular HGB Conc 31.1 g/dL (30-55); Mean Corpuscular Hemoglobin 31.5 pg (27-33); Mean Corpuscular Volume 101.4 fl (85-98); Mean Platelet Volume 9.4 fL (7.4-10.4); Monocytes # 1.2 10^3/uL (0.2-0.9); Monocytes % 7.1 %; Neutrophils # 12.01 10^3/uL (1.8-7.7); Neutrophils % 69.9 %; Nucleated Red Blood Cells % 0 %; Platelet Count 526 10^3/cmm (157-399); Red Blood Count 2.95 10^6/uL (3.85-5.65); White Blood Count 17.17 10^3/uL (3.29-11.43)
[2023-09-20] MEDS: piperacillin-tazobactam 3.375 GM in sodium chloride 0.9% (plus) 50 ML IV (06:01)
[2023-09-20 06:09] LABS: Anion Gap 14.3 (5-19); Blood Urea Nitrogen 39 mg/dL (8-23); Calcium 9.6 mg/dL (8.5-10.5); Carbon Dioxide 38 mmol/L (22-29); Chloride 95 mmol/L (98-107); Glucose 95 mg/dL (65-115); Osmolality Calculated 307 mOsm/kg (285-295); Potassium 3.3 mmol/L (3.5-5.1); Sodium 144 mmol/L (136-145)
[2023-09-20] MEDS: albuterol 2.5 mg/3 mL Neb INHALATION (07:56)
[2023-09-20] MEDS: predniSONE 20 mg Tablet 40 MG PO (08:27)
[2023-09-20] MEDS: NIFEdipine ER (24 hr) 30 mg Tablet PO (08:28)
[2023-09-20] MEDS: sennosides-docusate Tablet 1 TAB PO (08:28)
[2023-09-20] MEDS: folic acid 1 mg Tablet PO (08:28)
[2023-09-20] MEDS: metoprolol tartrate 50 mg Tablet 75 MG PO (08:28)
[2023-09-20] MEDS: vancomycin 1,000 MG in sodium chloride 0.9% 250 ML 250 MG IV (08:29)
--- NOTE | 2023-09-20 11:35 | PM.DCS ---
Discharge Providers Date of Admission: 09/17/23 13:10 Date of Discharge: September 20, 2023 Attending Provider at Admission: Luiz Vivas MD Attending Provider at Discharge: Luiz Vivas MD Primary Care Provider: Carlos Manuel Swift MD Diagnoses at Discharge Discharge Diagnosis (1) Cellulitis: Status: Acute (2) Sepsis: Status: Acute (3) Rheumatoid arthritis flare: Status: Acute (4) Left lower lobe pneumonia: Status: Acute Qualifiers: Pneumonia type: due to unspecified organism Qualified Code(s): J18.9 - Pneumonia, unspecified organism (5) Acute kidney injury: Status: Acute (6) CKD (chronic kidney disease) stage 3, GFR 30-59 ml/min: Status: Acute (7) High risk medication use: Status: Acute (8) Seronegative rheumatoid arthritis of both hands: Status: Acute (9) Edema, peripheral: Status: Acute (10) Macrocytic anemia: Status: Acute Reason for Visit Reason for Visit: left foot pain Hospital Course Hospital Course 72 female who was admitted for management evaluation of rheumatoid arthritis flare and sepsis related to left ankle cellulitis and pneumonia, she was put on high-dose steroids which significantly improved her symptoms, she was given septic bolus judiciously, her white count remain high because of high-dose steroids she was given methylprednisolone 60 mg IV every 8 hours which were transitioned to prednisone 40 mg within 48 hours, she remained afebrile, cultures remain negative, no signs of DVT, she carries history of hypertrophic cardiomyopathy, echo did not show any worsening, her blood pressure was initially soft which improved with IV fluid hydration, antihypertensive regimen was held at the time of discharge which was added gradually when she remained hypertensive She was discharged home with steroid taper with close follow-up with survey analyst, she will get 7 more days of antibiotics She will resume her antihypertensive regimen Please note at baseline she uses 3 to 4 L of oxygen at nighttime currently doing well at 2 L Physical Exam Narrative: Awake and alert GCS 15 Left ankle cellulitis improving Currently doing well on 2 L Abdomen soft however distended Pleasant and cooperative Patient is back to her baseline weight with distended abdomen and wrinkled shrunken skin of her legs S1, S2 sinus rhythm Urinary Catheter Management: Shafer: Cath Placed During This Visit: yes Reason for Continuing Indwelling Catheter: Other Urinary Catheter Date of Insertion: 09/17/23 Urinary Catheter Time of Insertion: 12:50 Discharge Data Studies Completed and Pending Completed Studies During Hospitalization Category Date Time Status XR ankle LT min 3V* [id number] Stat Exams 09/17/23 11:25 Completed XR chest 1V portable [id number] Routine Exams 09/18/23 06:00 Completed XR chest 1V portable [id number] Urgent Exams 09/17/23 11:51 Completed CV. echo complete* [id number] Routine Ultrasound 09/17/23 14:53 Completed US venous duplex lower extremity LT [CV venous duplex Ultrasound 09/17/23 11:25 [place] [id number]] Stat Pending at discharge Category Date Time Status Blood Culture Stat Lab 09/17/23 12:35 Results Vancomycin Trough Timed Lab 09/21/23 08:00 Ordered Radiology Impressions Ankle X-Ray 09/17/23 11:25 IMPRESSION: No acute bony abnormality. Chest X-Ray 09/18/23 06:00 IMPRESSION: 1. No change since yesterday. 2. Blunted left lateral costophrenic sulcus and opacity in the left lung base suggest a combination of pleural effusion or scarring and atelectasis or consolidation in the left lower lung. Laboratory Results WBC 17.17 10^3/uL (3.29-11.43) H 09/20/23 04:47 RBC 2.95 10^6/uL (3.85-5.65) L 09/20/23 04:47 Hgb 9.30 g/dL (11.27-16.99) L 09/20/23 04:47 Hct 29.9 % (36-47) L 09/20/23 04:47 MCV 101.4 fl (85-98) H 09/20/23 04:47 MCH 31.5 pg (27-33) 09/20/23 04:47 MCHC 31.1 g/dL (30-55) 09/20/23 04:47 RDW 15.0 % (12.1-15.1) 09/20/23 04:47 Plt Count 526 10^3/cmm (157-399) H 09/20/23 04:47 MPV 9.4 fL (7.4-10.4) 09/20/23 04:47 Neut % (Auto) 69.9 % 09/20/23 04:47 Lymph % (Auto) 21.1 % 09/20/23 04:47 [place] % (Auto) 7.1 % 09/20/23 04:47 Eos % (Auto) 0.8 % 09/20/23 04:47 Baso % (Auto) 0.1 % 09/20/23 04:47 Neut # (Auto) 12.01 10^3/uL (1.8-7.7) H 09/20/23 04:47 Lymph # (Auto) 3.6 10^3/uL (0.8-4.8) 09/20/23 04:47 [place] # (Auto) 1.2 10^3/uL (0.2-0.9) H 09/20/23 04:47 Eos # (Auto) 0.1 10^3/uL (0.0-0.8) 09/20/23 04:47 Baso # (Auto) 0.0 10^3/uL (0.0-0.1) 09/20/23 04:47 Nucleated RBC % (auto) 0 % 09/20/23 04:47 Nucleated RBCs # 0.0 /100WBC 09/20/23 04:47 ESR 72 mm/hr (0-15) H 09/17/23 11:37 Sodium 144 mmol/L (136-145) 09/20/23 04:47 Potassium 3.3 mmol/L (3.5-5.1) L 09/20/23 04:47 Chloride 95 mmol/L (98-107) L 09/20/23 04:47 Carbon Dioxide 38 mmol/L (22-29) H 09/20/23 04:47 Anion Gap 14.3 (5-19) 09/20/23 04:47 BUN 39 mg/dL (8-23) H 09/20/23 04:47 Creatinine 1.2 mg/dL (0.5-0.9) H 09/20/23 04:47 GFR Calculation Not Reportable 09/20/23 04:47 Glucose 95 mg/dL (65-115) 09/20/23 04:47 Calculated Osmolality 307 mOsm/kg (285-295) H 09/20/23 04:47 Lactic Acid 5.0 mmol/L (0.5-2.2) H* 09/17/23 11:37 Lactic Acid (Sepsis) 1.9 mmol/L (0.5-2.2) 09/17/23 14:49 Calcium 9.6 mg/dL (8.5-10.5) 09/20/23 04:47 Phosphorus 3.6 mg/dL (2.5-4.5) 09/18/23 04:54 Magnesium 1.7 mg/dL (1.7-2.3) 09/18/23 04:54 Total Bilirubin 0.2 mg/dL (0.15-1.2) 09/19/23 04:43 AST 32 U/L (0-32) 09/19/23 04:43 ALT 19 U/L (0-33) 09/19/23 04:43 Alkaline Phosphatase 88 U/L (35-105) 09/19/23 04:43 C-Reactive Protein 422.1 mg/L (0.0-4.9) H 09/18/23 04:54 NT-Pro-B Natriuret Pep 32969 pg/mL (0-125) H 09/17/23 11:37 Total Protein 6.7 g/dL (6.6-8.7) 09/19/23 04:43 Albumin 3.4 g/dL (3.5-5.2) L 09/19/23 04:43 Globulin 3.3 g/dL (1.3-4.6) 09/19/23 04:43 Procalcitonin 0.50 ng/mL (0-0.5) 09/17/23 11:37 Urine Color Yellow (Yellow) 09/17/23 12:56 Urine Appearance Clear (CLEAR) 09/17/23 12:56 Urine pH 6 (5-7) 09/17/23 12:56 Ur Specific [place] 1.010 (1.005-1.030) 09/17/23 12:56 Urine Protein Trace (Negative) 09/17/23 12:56 Urine Glucose (UA) Norm (Normal) 09/17/23 12:56 Urine Ketones Negative (Negative) 09/17/23 12:56 Urine Blood Trace (Negative) H 09/17/23 12:56 Urine Nitrate Negative (Negative) 09/17/23 12:56 Urine Bilirubin Neg (Negative) 09/17/23 12:56 Urine Urobilinogen Norm mg/dL (Negative) 09/17/23 12:56 Ur Leukocyte Esterase Negative (Negative) 09/17/23 12:56 Urine RBC 0-4 /hpf (0-2) H 09/17/23 12:56 Urine WBC 5-10 /hpf (0-5) H 09/17/23 12:56 Ur Squamous Epith Cells 0-4 /hpf (0-5) H 09/17/23 12:56 Amorphous Sediment Not Reportable 09/17/23 12:56 Urine Bacteria Trace /hpf (NONE) 09/17/23 12:56 Vitals Last Vital Signs Temp 98.0 F 09/20/23 07:08 Pulse 90 09/20/23 07:57 Resp 16 09/20/23 07:57 BP 153/82 09/20/23 07:08 Pulse Ox 95 09/20/23 07:57 O2 Del Method Nasal Cannula 09/20/23 07:57 O2 Flow Rate 2 09/20/23 08:00 Discharge Plan Discharge Patient Disposition: Home Condition: Stable Prescriptions: New tramadol 50 mg tablet 25 mg PO Q4H PRN (Reason: pain) Qty: 10 0RF prednisone 10 mg tablet 10 mg PO DIRECTED Qty: 35 0RF Rx Instructions: 40 mg for 3 days, 30 mg for 3 days, 20 mg for 3 days time 10mg 3 days then every other day for 3 days and then once daily amoxicillin-pot clavulanate 875-125 mg tablet 1 tab PO BID Qty: 14 0RF doxycycline hyclate 100 mg tablet 100 mg PO BID 7 Days Qty: 14 0RF omeprazole 20 mg tablet,delayed release (DR/EC) 20 mg PO DAILY 84 Days Qty: 30 0RF Continued bumetanide 2 mg tablet See Rx Instructions .ROUTE .COMPLEX Rx Instructions: 2 tabs qam and 1 tab qpm omeprazole 40 mg capsule,delayed release(DR/EC) 40 mg PO DAILY@0800 cholecalciferol (vitamin D3) 1,250 mcg (50,000 unit) capsule 1,000 mcg PO DAILY@0800 fluticasone propion-salmeterol [Advair Diskus] 500-50 mcg/dose blister with device 1 inh INHALATION BID@0800,1800 coenzyme Q10 [Co Q-10] 200 mg capsule 200 mg PO DAILY tramadol 50 mg tablet 50 mg PO Q8H PRN (Reason: Pain) prednisone 2.5 mg tablet 5 mg PO DAILY leflunomide 10 mg tablet 10 mg PO DAILY Qty: 30 3RF nifedipine 30 mg tablet extended release 30 mg PO DAILY Qty: 90 3RF metolazone 5 mg tablet See Rx Instructions .ROUTE .COMPLEX Qty: 90 2RF Dose Instruction: TAKE 1 TABLET BY MOUTH FOUR TIMES WEEKLY Rx Instructions: TAKE 1 TABLET BY MOUTH FOUR TIMES WEEKLY spironolactone 25 mg tablet 25 mg PO DAILY Qty: 90 3RF albuterol sulfate [Ventolin HFA] 90 mcg/actuation Hfa Aerosol Inhaler 2 puff INHALATION Q6H PRN (Reason: Wheezing) chlorzoxazone 500 mg tablet 50 mg PO TID PRN (Reason: Muscle Spasm) Benadryl 25 mg Capsule 25 mg PO BEDTIME PRN (Reason: Allergic Symptoms) folic acid 1 mg tablet 1 mg PO DAILY hydrocortisone 2.5 % cream 1 applic TOPICAL DAILY PRN (Reason: Rash) 28 mg iron- 800 mcg Tablet 1 tab PO DAILY [place]-3 Fish Oil 300-1,000 mg Capsule 1 cap PO QAM potassium chloride 10 mEq tablet extended release 40 meq PO DAILY metoprolol tartrate 75 mg tablet 75 mg PO BID Discharge Orders: Discharge Order (Routine); Ordered 09/20/23 Ordered By: Luiz Vivas Referrals: Gabby RICHARD [Other] Fortino Villar MD [Physician] - 1-3 days Carlos Manuel Swift MD [Primary Care Provider] - (Please call Friday to make an appointment with Dr. Swift.) Patient Instructions: Opioid Safety Discharge Attestations Time Spent in Discharge Care*: greater than 30 min Quality Metrics Clinical Quality Measures [ No reported AMI, CVA or VTE this stay] Coding Level of Care Code Acute Code for Chg Fwd Diagnoses Cellulitis L03.90 Sepsis A41.9 Rheumatoid arthritis flare M06.9 Left lower lobe pneumonia J18.9 Pneumonia type: due to unspecified organism Acute kidney injury N17.9 CKD (chronic kidney disease) stage 3, GFR 30-59 ml/min N18.30 High risk medication use Z79.899 Seronegative rheumatoid arthritis of both hands M06.041; M06.042 Edema, peripheral R60.9 Macrocytic anemia D53.9
== END 2023-09-20 13:56 | disposition home health service (06) | DRG 871 ==
LOC: ER 11:31 → ICU 13:10 → MEDSURG 09-18 17:41
PROVIDERS: Admitting Provider Internal Medicine; Emergency Provider Physician Assistant; PCP Family Medicine; Visit Provider Internal Medicine
DX: A41.9 Sepsis, unspecified organism (principal); J18.9 Pneumonia, unspecified organism; I13.0 Hypertensive heart and chronic kidney disease with heart failure and stage 1 through stage 4 chronic kidney disease, or unspecified chronic kidney disease; I50.32 Chronic diastolic (congestive) heart failure; I42.1 Obstructive hypertrophic cardiomyopathy; E87.1 Hypo-osmolality and hyponatremia; N17.9 Acute kidney failure, unspecified; L03.116 Cellulitis of left lower limb; M06.042 Rheumatoid arthritis without rheumatoid factor, left hand; M06.041 Rheumatoid arthritis without rheumatoid factor, right hand; M06.9 Rheumatoid arthritis, unspecified; J44.9 Chronic obstructive pulmonary disease, unspecified; Z99.81 Dependence on supplemental oxygen; N18.30 Chronic kidney disease, stage 3 unspecified; Z87.891 Personal history of nicotine dependence; Z79.52 Long term (current) use of systemic steroids; D53.9 Nutritional anemia, unspecified; R09.02 Hypoxemia
CPT/HCPCS: 36415; 51702; 71045; 73610; 80048; 80053; 81001; 83605; 83735; 83880; 84100; 84145; 85025; 85651; 86140; 87040; 93306; 93971; 94640; 94664; 96365; 96366; 96367; 96372; 96375; 97110; 97116; 97161; 97530; 99285; J0696; J1644; J2543; J2930; J3370; J7030; J7050; J7512; J7613

== ENCOUNTER 2023-10-14 13:41 | Outpatient (CLI) | payer MEDICARE, OTHER, SELFPAY ==
[2023-10-14 14:05] LABS: Basophils # 0.1 10^3/uL (0.0-0.1); Basophils % 1.2 %; Eosinophils # 0.3 10^3/uL (0.0-0.8); Eosinophils % 3.2 %; Hematocrit 36.9 % (36-47); Lymphocytes # 2.5 10^3/uL (0.8-4.8); Lymphocytes % 27.4 %; Mean Corpuscular HGB Conc 30.6 g/dL (30-55); Mean Corpuscular Hemoglobin 31.1 pg (27-33); Mean Corpuscular Volume 101.7 fl (85-98); Mean Platelet Volume 9.3 fL (7.4-10.4); Monocytes # 0.7 10^3/uL (0.2-0.9); Monocytes % 7.9 %; Neutrophils # 5.36 10^3/uL (1.8-7.7); Neutrophils % 59.7 %; Nucleated Red Blood Cells % 0 %; Platelet Count 362 10^3/cmm (157-399); Red Blood Count 3.63 10^6/uL (3.85-5.65); Red Cell Distribution Width 15.1 % (12.1-15.1); White Blood Count 8.98 10^3/uL (3.29-11.43)
[2023-10-14 14:23] LABS: Alanine Aminotransferase 14 U/L (0-33); Albumin Level 3.8 g/dL (3.5-5.2); Alkaline Phosphatase 109 U/L (35-105); Aspartate Amino Transferase 16 U/L (0-32); C Reactive Protein 78.8 mg/L (0.0-4.9); Total Bilirubin 0.3 mg/dL (0.15-1.2); Total Protein 6.8 g/dL (6.6-8.7)
== END 2023-10-14 13:42 | disposition home or self-care (01) ==
LOC: LAB 13:42
PROVIDERS: PCP Family Medicine; Visit Provider Internal Medicine Rheumatology
DX: M19.90 Unspecified osteoarthritis, unspecified site (principal); Z79.899 Other long term (current) drug therapy
CPT/HCPCS: 36415; 80076; 82565; 85025; 86140

== ENCOUNTER 2023-11-03 09:20 | Inpatient (IN) | payer MEDICARE, OTHER, SELFPAY ==
[2023-11-03] VITALS (9 sets, daily range): BP systolic 106–139; BP diastolic 59–86; PULSE 90–167; RESP 16–27; TEMP 36.7–37.2; O2SAT 92–98; BMI 27.2; BMI 29.2
--- NOTE | 2023-11-03 09:28 | ECG_ITS ---
[facility] Test Date: 2023-11-03 Pat Name: Any Chaves Department: Room: Gender: Female Manipulative Therapy Specialist: : 1950 Requested By: Missy Bustamante Order Number: [id number] Terese MD: Gadiel Mcneil M.D. Measurements Intervals [place] Rate: 160 P: 0 PA: 0 QRS: 47 QRSD: 140 T: 62 QT: 261 QTc: 426 Interpretive Statements ATRIAL FIBRILLATION WITH RAPID VENTRICULAR RESPONSE INTRAVENTRICULAR CONDUCTION DELAY [130+ ms QRS DURATION] MODERATE VOLTAGE CRITERIA FOR LVH, CONSIDER NORMAL VARIANT [MEETS CRITERIA IN ONE OF: R(aVL), S(V1), R(V5), R(V5/V6)+S(V1)] CRITICAL TEST RESULT Compared to ECG 11/09/2020 15:36:37 Intraventricular conduction delay now present Sinus rhythm no longer present Short PA interval no longer present Electronically Signed On 11-03-2023 17:39:57 [employer] by Gadiel Mcneil M.D. [id number] f
--- NOTE | 2023-11-03 09:35 | XR_ITS ---
WS: [id number] Portable AP semiupright chest, 11/03/2023 Clinical Data: weakness Comparison: Portable chest, 09/18/2023 Findings: The bibasilar opacities have cleared slightly. There is elevation of the left diaphragm. No nodules, masses or effusions are seen. The heart is normal. The pulmonary vascularity is not increas ed. No pneumonia or pneumothorax is seen. The aortic arch and descending thoracic aorta show calcific ation and tortuosity. There are monitor leads on the chest wall. Impression: 1. Slight clearing of bibasilar opacities. 2. Atherosclerosis.
--- NOTE | 2023-11-03 09:36 | ED_ITS ---
Documented by User: MITCHELL Griffin 11/03/23 11:04 HPI - Weakness 2 General: Chief complaint: ER Hold Stated complaint: weakness Time Seen by Provider: 11/03/23 09:22 Source: patient and EMS Mode of arrival: EMS Limitations: no limitations History of Present Illness: Patient is a 72-year-old female with a history of COPD chronically on 3L O2, hypertrophic cardiomyopathy, HTN, chronic peripheral edema, diastolic heart failure, hyperlipidemia, and rheumatoid arthritis here via EMS for complaints of weakness. According to family and EMS report patient has not been out of bed in 4 days as she states she cannot walk secondary to weakness. She has not had any recent falls. Patient states she has no physical complaints upon arrival however she moans and screams at staff anytime we touch any portion of her extremities stating that they hurt. She was noted to be extremely tachycardic upon arrival with a heart rate in the 150s to 170s. She states she has no complaint of chest pain or palpitations. No history of abnormal heart arrhythmias. Patient states she is chronically short of breath due to her COPD. She has not had to increase her oxygen at home. She does report subjective fevers. No sick contacts. She denies any recent vomiting or diarrhea. MD Complaint: generalized weakness Onset (ago): day(s) Duration: constant Location: generalized Migration: none Relieving factors: none Exacerbating factors: none Associated symptoms: Reports fever(s) (subjective); Denies chest pain, chills, confusion, dysuria, headache(s), nausea, syncope or vomiting Review of Systems 2 Const: Reports: fever(s) (subjective), fatigue and malaise; Denies: chills or body aches Eyes: Denies: change in vision, blurry vision, photophobia, floaters or seeing flashes ENMT: Denies: throat pain, odynophagia, ear or mastoid pain, nasal discharge, nasal congestion or sinus pain Card: Reports: edema (chronic) and swelling of feet/ankles (chronic); Denies: chest pain, palpitations, irregular heart rhythm, lightheadedness, syncope or pre-syncope Resp: Reports: dyspnea (chronic; on 3L continuous O2); Denies: productive cough, non-productive cough, wheezing, hemoptysis or chest congestion GI: Denies: abdominal pain, nausea, vomiting or diarrhea : Denies: flank pain or dysuria Musc: Reports: other (reports diffuse joint pains; states she has RA) Skin/Breast: Denies: rash Neuro: Reports: weakness in extremities and difficulty walking; Denies: headache(s), numbness in extremities, sensory changes, lack of coordination, dizziness, confusion, behavioral changes, Slurred speech present, difficulty communicating thoughts or seizure-like activity PFSH ED 2 PFSH: Medical History (Updated 11/03/23 @ 15:18 by Bobo Schultz DO) Acute kidney injury Rheumatoid arthritis flare Cellulitis Sepsis Left lower lobe pneumonia CKD (chronic kidney disease) stage 3, GFR 30-59 ml/min Immunization counseling High risk medication use Seronegative rheumatoid arthritis of both hands Edema, peripheral Macrocytic anemia Chronic kidney disease Leg swelling Hypertrophic obstructive cardiomyopathy COPD (chronic obstructive pulmonary disease) Cardiomyopathy Chronic diastolic heart failure Hypertension Hyperlipidemia Surgical History History of tonsillectomy Family History Mother CAD (coronary artery disease) Cancer Diabetes Father Chronic kidney disease (CKD) Other Hypertension Denies family history of Clotting disorder Dementia Suicide Anesthesia complication Bleeding disorder Lung disease Stroke Social History Smoking and tobacco/nicotine status: former use of tobacco/nicotine Alcohol intake: current Alcohol intake frequency: holidays/special occasions only Substance/Drug Use: never Household members: family Housing: House Physical Exam 2 Const: COMMON NORMALS: no acute distress, average body habitus, patient oriented x3, no limitations, alert and well nourished GENERAL APPEARANCE: o ther (seems disgruntled) ORIENTATION/CONSCIOUSNESS: Yes awake, Yes oriented to person, Yes oriented to place and Yes oriented to time HENMT: COMMON NORMALS: normocephalic and atraumatic HEAD & SCALP: normal to inspection, normocephalic and atraumatic FACE & SINUS: normal facial exam Eye: GENERAL EYE: appearance normal, both eyes and all related structures and normal light reflex DIRECT OPHTHALMOSCOPY: Yes normal light reflex Neck/C-Spine: COMMON NORMALS: full ROM, no lymphadenopathy, supple and no meningeal signs Chest: COMMONS NORMALS: normal inspection of the chest Resp: COMMON NORMALS: normal respiratory effort and clear to auscultation bilaterally AUSCULTATION: clear to auscultation bilaterally OTHER: on her normal 3L O2 Cardio: RATE: tachycardic RHYTHM: abnormal rhythm irregularly irregular GI: COMMON NORMALS: Normal to inspection, nondistended, normoactive bowel sounds present, Soft to palpation, non-tender, No hepatosplenomegaly present and no masses PALPATION: Yes Soft to palpation and Yes No hepatosplenomegaly present : COMMON NORMALS: Yes no CVA tenderness BLADDER/KIDNEY EXAM: Yes no CVA tenderness Back/Pelvis: COMMON NORMALS: no CVA tenderness and thoracic and lumbar spine normal to inspection Extremity: COMMON NORMALS: normal to inspection, full ROM, capillary refill normal, no joint enlargement and no calf tenderness GENERAL: Yes edema Neuro: MIRELLA COMA SCALE: document GCS findings [place] coma scale eye opening: Spontaneous [place] coma scale verbal response: Orientated [place] coma scale motor response: Obey commands M[place] coma scale total score: 15 COMMON NORMALS: patient oriented x3, CN's II-XII intact bilaterally, moves all extremities, no focal motor deficits and no sensory deficits noted S ENSORIUM/ORIENTATION: Yes alert, Yes oriented to person, Yes oriented to place and Yes oriented to time MENINGEAL SIGNS: Yes no meningeal signs GAIT: Yes Unable to assess gait Skin: COMMON NORMALS: no rashes or lesions noted NARRATIVE SKIN EXAM: few scattered bruises GENERAL SKIN EXAM: no rashes or lesions noted Course 2 Vital Signs: Vital signs: Vital Signs Temperature 99.0 F 11/03/23 09:24 Pulse Rate 96 11/03/23 12:59 Respiratory Rate 22 H 11/03/23 12:59 Blood Pressure 133/86 11/03/23 12:59 Pulse Oximetry 97 11/03/23 12:59 Oxygen Delivery Me thod Nasal Cannula 11/03/23 12:59 Oxygen Flow Rate 3 11/03/23 12:59 MDM - Weakness Medical Decision Making Care transferred to Dr. Schultz given acuity of patient and need for admission. ES Lab Data 11/03/23 09:46 11/03/23 09:46 Radiology Impressions Chest CTA 11/03/23 10:51 IMPRESSION: 1. No pulmonary embolism or acute pulmonary pathology. 2. Marked pulmonary emphysema. 3. 4.4 cm ascending thoracic aortic aneurysm. COMMENTS: In the absence of a history or active diagnosis of lung cancer, it is recommended that this patient with emphysema be evaluated for enrollment in a low dose CT lung cancer screening program. Laboratory Results WBC 33.91 10^3/uL (3.29-11.43) H* 11/03/23 09:46 RBC 3.00 10^6/uL (3.85-5.65) L 11/03/23 09:46 Hgb 9.10 g/dL (11.27-16.99) L 11/03/23 09:46 Hct 28.1 % (36-47) L 11/03/23 09:46 MCV 93.7 fl (85-98) 11/03/23 09:46 MCH 30.3 pg (27-33) 11/03/23 09:46 MCHC 32.4 g/dL (30-55) 11/03/23 09:46 RDW 14.7 % (12.1-15.1) 11/03/23 09:46 Plt Count 598 10^3/cmm (157-399) H 11/03/23 09:46 MPV 9.3 fL (7.4-10.4) 11/03/23 09:46 Neut % (Auto) 90.6 % 11/03/23 09:46 Lymph % (Auto) 2.9 % 11/03/23 09:46 Starr % (Auto) 4.2 % 11/03/23 09:46 Eos % (Auto) 0.0 % 11/03/23 09:46 Baso % (Auto) 0.4 % 11/03/23 09:46 Neut # (Auto) 30.74 10^3/uL (1.8-7.7) H 11/03/23 09:46 Lymph # (Auto) 1.0 10^3/uL (0.8-4.8) 11/03/23 09:46 Starr # (Auto) 1.4 10^3/uL (0.2-0.9) H 11/03/23 09:46 Eos # (Auto) 0.0 10^3/uL (0.0-0.8) 11/03/23 09:46 Baso # (Auto) 0.1 10^3/uL (0.0-0.1) 11/03/23 09:46 Nucleated RBC % (auto) 0 % 11/03/23 09:46 Nucleated RBCs # 0.0 /100WBC 11/03/23 09:46 Sodium 133 mmol/L (136-145) L 11/03/23 09:46 Potassium 4.2 mmol/L (3.5-5.1) 11/03/23 09:46 Chloride 85 mmol/L (98-107) L 11/03/23 09:46 Carbon Dioxide 31 mmol/L (22-29) H 11/03/23 09:46 Anion Gap 21.2 (5-19) H 11/03/23 09:46 BUN 42 mg/dL (8-23) H 11/03/23 09:46 Creatinine 2.2 mg/dL (0.5-0.9) H 11/03/23 09:46 GFR Calculation Not Reportable 11/03/23 09:46 Glucose 206 mg/dL (65-115) H 11/03/23 09:46 Calculated Osmolality 292 mOsm/kg (285-295) 11/03/23 09:46 Lactic Acid 3.2 mmol/L (0.5-2.2) H 11/03/23 09:46 Lactic Acid (Sepsis) 1.5 mmol/L (0.5-2.2) 11/03/23 12:03 Uric Acid 14.9 mg/dL (2.4-5.7) H 11/03/23 09:46 Calcium 9.7 mg/dL (8.5-10.5) 11/03/23 09:46 Total Bilirubin 0.5 mg/dL (0.15-1.2) 11/03/23 09:46 AST 25 U/L (0-32) 11/03/23 09:46 ALT 15 U/L (0-33) 11/03/23 09:46 Alkaline Phosphatase 108 U/L (35-105) H 11/03/23 09:46 Creatine Kinase 292 U/L (26-192) H 11/03/23 09:46 CK-MB (CK-2) 3.9 ng/mL (0-5.34) 11/03/23 09:46 CK-MB (CK-2) Rel Index % (0.0-10.4) 11/03/23 09:46 Troponin T Baseline 188 ng/L (0-10) H* 11/03/23 09:46 Troponin T 120 Minute 169.9 ng/L (0-10) H 11/03/23 12:03 Delta Troponin T -18.1 ABS# (0-10) L 11/03/23 12:03 NT-Pro-B Natriuret Pep 26249 pg/mL (0-125) H 11/03/23 09:46 Total Protein 5.9 g/dL (6.6-8.7) L 11/03/23 09:46 Albumin 3.1 g/dL (3.5-5.2) L 11/03/23 09:46 Globulin 2.8 g/dL (1.3-4.6) 11/03/23 09:46 Procalcitonin 2.32 ng/mL (0-0.5) H 11/03/23 09:46 TSH 1.50 uIU/mL (0.27-4.20) 11/03/23 09:46 Urine Color Yellow (Yellow) 11/03/23 10:15 Urine Appearance Clear (CLEAR) 11/03/23 10:15 Urine pH 6 (5-7) 11/03/23 10:15 Ur Specific [place] 1.010 (1.005-1.030) 11/03/23 10:15 Urine Protein 1+ (Negative) H 11/03/23 10:15 Urine Glucose (UA) Norm (Normal) 11/03/23 10:15 Urine Ketones Negative (Negative) 11/03/23 10:15 Urine Blood Neg (Negative) 11/03/23 10:15 Urine Nitrate Negative (Negative) 11/03/23 10:15 Urine Bilirubin Neg (Negative) 11/03/23 10:15 Urine Urobilinogen Norm mg/dL (Negative) 11/03/23 10:15 Ur Leukocyte Esterase Negative (Negative) 11/03/23 10:15 Urine RBC 0-4 /hpf (0-2) H 11/03/23 10:15 Urine WBC 0-4 /hpf (0-5) H 11/03/23 10:15 Ur Squamous Epith Cells 0-4 /hpf (0-5) H 11/03/23 10:15 Amorphous Sediment Not Reportable 11/03/23 10:15 Urine Bacteria 1+ /hpf (NONE) H 11/03/23 10:15 All radiology interpretation(s) finalized by discharge Discharge Plan Discharge Patient Disposition: Admitted As Inpatient Admit Provider: Jeff Garner Clinical Impression: Atrial fibrillation with RVR, Rheumatoid arthritis flare, Leukocytosis Condition: Stable Coding Level of Care Code ED Doctor Of Veterinary Medicine for Chg Fwd Documented by User: Bobo Schultz DO 11/03/23 15:18 HPI - Weakness 2 General: Chief complaint: ER Hold Stated complaint: weakness Time Seen by Provider: 11/03/23 09:22 PFS ED 2 PFSH: Medical History (Updated 11/03/23 @ 15:18 by Bobo Schultz DO) Acute kidney injury Rheumatoid arthritis flare Cellulitis Sepsis Left lower lobe pneumonia CKD (chronic kidney disease) stage 3, GFR 30-59 ml/min Immunization counseling High risk medication use Seronegative rheumatoid arthritis of both hands Edema, peripheral Macrocytic anemia Chronic kidney disease Leg swelling Hypertrophic obstructive cardiomyopathy COPD (chronic obstructive pulmonary disease) Cardiomyopathy Chronic diastolic heart failure Hypertension Hyperlipidemia Surgical History History of tonsillectomy Family History Mother CAD (coronary artery disease) Cancer Diabetes Father Chronic kidney disease (CKD) Other Hypertension Denies family history of Clotting disorder Dementia Suicide Anesthesia complication Bleeding disorder Lung disease Stroke Social History Smoking and tobacco/nicotine status: former use of tobacco/nicotine Alcohol intake: current Alcohol intake frequency: holidays/special occasions only Substance/Drug Use: never Household members: family Housing: House Physical Exam 2 Const: GENERAL APPEARANCE: cooperative ORIENTATION/CONSCIOUSNESS: Yes awake, Yes oriented to person, Yes oriented to place and Yes oriented to time HENMT: COMMON NORMALS: normocephalic, atraumatic and hearing grossly normal bilaterally HEAD & SCALP: normocephalic and atraumatic Resp: COMMON NORMALS: normal respiratory effort, No retractions and No use of accessory muscles AUSCULTATION: diminished lung sounds Cardio: COMMON NORMALS: No murmurs present (Cardio) RATE: tachycardic R HYTHM: abnormal rhythm irregularly irregular GI: COMMON NORMALS: Soft to palpation and No hepatosplenomegaly present A USCULTATION: Yes normoactive bowel sounds PALPATION: Yes Soft to palpation, No Tenderness to palpation present (GI), No Guarding due to palpation present (GI) and Yes No hepatosplenomegaly present Extremity: OTHER: Bilateral upper and lower joint effusions in the small joints in the hands and feet and ankles. Neuro: SENSORIUM/ORIENTATION: Yes oriented to person, Yes oriented to place and Yes oriented to time Skin: COMMON NORMALS: no rashes or lesions noted GENERAL SKIN EXAM: no rashes or lesions noted Course 2 Vital Signs: Vital signs: Vital Signs Temperature 99.0 F 11/03/23 09:24 Pulse Rate 96 11/03/23 12:59 Respiratory Rate 22 H 11/03/23 12:59 Blood Pressure 133/86 11/03/23 12:59 Pulse Oximetry 97 11/03/23 12:59 Oxygen Delivery Me thod Nasal Cannula 11/03/23 12:59 Oxygen Flow Rate 3 11/03/23 12:59 MDM - Weakness Medical Decision Making Care transferred to Dr. Schultz given acuity of patient and need for admission. ES Labs and imaging reviewed patient seen and evaluated. Patient has new onset atrial fibrillation seems to have a systemic worsening rheumatoid arthritis attack. Her white count is significantly elevated she denies being on the steroids lately. Her rate is well-controlled on diltiazem. Cultures done initial antibiotic started discussed with hospitalist orders written Medical Records I reviewed the patient's medical records. Lab Data I reviewed the patient's lab results. 11/03/23 09:46 11/03/23 09:46 Radiology Impressions Chest CTA 11/03/23 10:51 IMPRESSION: 1. No pulmonary embolism or acute pulmonary pathology. 2. Marked pulmonary emphysema. 3. 4.4 cm ascending thoracic aortic aneurysm. COMMENTS: In the absence of a history or active diagnosis of lung cancer, it is recommended that this patient with emphysema be evaluated for enrollment in a low dose CT lung cancer screening program. Laboratory Results WBC 33.91 10^3/uL (3.29-11.43) H* 11/03/23 09:46 RBC 3.00 10^6/uL (3.85-5.65) L 11/03/23 09:46 Hgb 9.10 g/dL (11.27-16.99) L 11/03/23 09:46 Hct 28.1 % (36-47) L 11/03/23 09:46 MCV 93.7 fl (85-98) 11/03/23 09:46 MCH 30.3 pg (27-33) 11/03/23 09:46 MCHC 32.4 g/dL (30-55) 11/03/23 09:46 RDW 14.7 % (12.1-15.1) 11/03/23 09:46 Plt Count 598 10^3/cmm (157-399) H 11/03/23 09:46 MPV 9.3 fL (7.4-10.4) 11/03/23 09:46 Neut % (Auto) 90.6 % 11/03/23 09:46 Lymph % (Auto) 2.9 % 11/03/23 09:46 Starr % (Auto) 4.2 % 11/03/23 09:46 Eos % (Auto) 0.0 % 11/03/23 09:46 Baso % (Auto) 0.4 % 11/03/23 09:46 Neut # (Auto) 30.74 10^3/uL (1.8-7.7) H 11/03/23 09:46 Lymph # (Auto) 1.0 10^3/uL (0.8-4.8) 11/03/23 09:46 Starr # (Auto) 1.4 10^3/uL (0.2-0.9) H 11/03/23 09:46 Eos # (Auto) 0.0 10^3/uL (0.0-0.8) 11/03/23 09:46 Baso # (Auto) 0.1 10^3/uL (0.0-0.1) 11/03/23 09:46 Nucleated RBC % (auto) 0 % 11/03/23 09:46 Nucleated RBCs # 0.0 /100WBC 11/03/23 09:46 Sodium 133 mmol/L (136-145) L 11/03/23 09:46 Potassium 4.2 mmol/L (3.5-5.1) 11/03/23 09:46 Chloride 85 mmol/L (98-107) L 11/03/23 09:46 Carbon Dioxide 31 mmol/L (22-29) H 11/03/23 09:46 Anion Gap 21.2 (5-19) H 11/03/23 09:46 BUN 42 mg/dL (8-23) H 11/03/23 09:46 Creatinine 2.2 mg/dL (0.5-0.9) H 11/03/23 09:46 GFR Calculation Not Reportable 11/03/23 09:46 Glucose 206 mg/dL (65-115) H 11/03/23 09:46 Calculated Osmolality 292 mOsm/kg (285-295) 11/03/23 09:46 Lactic Acid 3.2 mmol/L (0.5-2.2) H 11/03/23 09:46 Lactic Acid (Sepsis) 1.5 mmol/L (0.5-2.2) 11/03/23 12:03 Uric Acid 14.9 mg/dL (2.4-5.7) H 11/03/23 09:46 Calcium 9.7 mg/dL (8.5-10.5) 11/03/23 09:46 Total Bilirubin 0.5 mg/dL (0.15-1.2) 11/03/23 09:46 AST 25 U/L (0-32) 11/03/23 09:46 ALT 15 U/L (0-33) 11/03/23 09:46 Alkaline Phosphatase 108 U/L (35-105) H 11/03/23 09:46 Creatine Kinase 292 U/L (26-192) H 11/03/23 09:46 CK-MB (CK-2) 3.9 ng/mL (0-5.34) 11/03/23 09:46 CK-MB (CK-2) Rel Index % (0.0-10.4) 11/03/23 09:46 Troponin T Baseline 188 ng/L (0-10) H* 11/03/23 09:46 Troponin T 120 Minute 169.9 ng/L (0-10) H 11/03/23 12:03 Delta Troponin T -18.1 ABS# (0-10) L 11/03/23 12:03 NT-Pro-B Natriuret Pep 36637 pg/mL (0-125) H 11/03/23 09:46 Total Protein 5.9 g/dL (6.6-8.7) L 11/03/23 09:46 Albumin 3.1 g/dL (3.5-5.2) L 11/03/23 09:46 Globulin 2.8 g/dL (1.3-4.6) 11/03/23 09:46 Procalcitonin 2.32 ng/mL (0-0.5) H 11/03/23 09:46 TSH 1.50 uIU/mL (0.27-4.20) 11/03/23 09:46 Urine Color Yellow (Yellow) 11/03/23 10:15 Urine Appearance Clear (CLEAR) 11/03/23 10:15 Urine pH 6 (5-7) 11/03/23 10:15 Ur Specific [place] 1.010 (1.005-1.030) 11/03/23 10:15 Urine Protein 1+ (Negative) H 11/03/23 10:15 Urine Glucose (UA) Norm (Normal) 11/03/23 10:15 Urine Ketones Negative (Negative) 11/03/23 10:15 Urine Blood Neg (Negative) 11/03/23 10:15 Urine Nitrate Negative (Negative) 11/03/23 10:15 Urine Bilirubin Neg (Negative) 11/03/23 10:15 Urine Urobilinogen Norm mg/dL (Negative) 11/03/23 10:15 Ur Leukocyte Esterase Negative (Negative) 11/03/23 10:15 Urine RBC 0-4 /hpf (0-2) H 11/03/23 10:15 Urine WBC 0-4 /hpf (0-5) H 11/03/23 10:15 Ur Squamous Epith Cells 0-4 /hpf (0-5) H 11/03/23 10:15 Amorphous Sediment Not Reportable 11/03/23 10:15 Urine Bacteria 1+ /hpf (NONE) H 11/03/23 10:15 Discharge Plan Discharge Patient Disposition: Admitted As Inpatient Admit Provider: Jeff Garner Clinical Impression: Atrial fibrillation with RVR, Rheumatoid arthritis flare, Leukocytosis Condition: Stable Coding Level of Care Code ED Doctor Of Veterinary Medicine for Chg Fwd
[2023-11-03] MEDS: dilTIAZem 5 mg/mL SDV 5 mL 10 MG IVP (09:39)
[2023-11-03] MEDS: dilTIAZem 100 MG in sodium chloride 0.9% (add-van) 100 ML IV (09:53)
[2023-11-03 09:56] LABS: Basophils # 0.1 10^3/uL (0.0-0.1); Basophils % 0.4 %; Hematocrit 28.1 % (36-47); Lymphocytes % 2.9 %; Mean Corpuscular HGB Conc 32.4 g/dL (30-55); Mean Corpuscular Hemoglobin 30.3 pg (27-33); Mean Corpuscular Volume 93.7 fl (85-98); Mean Platelet Volume 9.3 fL (7.4-10.4); Monocytes # 1.4 10^3/uL (0.2-0.9); Monocytes % 4.2 %; Neutrophils # 30.74 10^3/uL (1.8-7.7); Neutrophils % 90.6 %; Nucleated Red Blood Cells % 0 %; Platelet Count 598 10^3/cmm (157-399); Red Cell Distribution Width 14.7 % (12.1-15.1)
[2023-11-03 10:27] LABS: White Blood Count 33.91 10^3/uL (3.29-11.43)
[2023-11-03 10:43] LABS: Lactic Sepsis W/Reflex 3.2 mmol/L (0.5-2.2)
[2023-11-03 10:51] LABS: Troponin(5th) Baseline 188 ng/L (0-10)
--- NOTE | 2023-11-03 10:51 | CTR_ITS ---
PROCEDURE INFORMATION: Exam: CTA Chest With Contrast Exam date and time: 11/03/2023 12:29 PM Age: 72 years old Clinical indication: Hyperventilation; Additional info: Hypoxia, tachycardia TECHNIQUE: Imaging protocol: Computed tomographic angiography of the chest with contrast. Exam focused on the arteries. 3D rendering (Not supervised by radiologist): MIP and/or 3D reconstructed images were created by the technologist. Radiation optimization: All CT scans at this facility use at least one of these dose optimization techniques: automated exposure control; mA and/or kV adjustment per patient size (includes targeted exams where dose is matched to clinical indication); or iterative reconstruction. Contrast material: OMNI 350; Contrast volume: 90 ml; Contrast route: INTRAVENOUS (IV); REPORTING DATA: Count of CT and Cardiac NM exams in prior 12 months: This patient has received 0 known CTs and 0 known cardiac nuclear medicine studies in the 12 months prior to the current study. COMPARISON: CR XR chest 1V portable [id number] 11/03/2023 9:40 AM RADIATION DOSE METRICS: Total DLP (mGy-cm): 212.69 FINDINGS: Pulmonary arteries: No pulmonary emboli evident. Aorta: 4.4 cm ascending thoracic aortic aneurysm. Thyroid: No significant thyroid pathology. Lungs: Severe pulmonary emphysema. Irregular opacity at the basilar surface of the lingula on series 4, image 38 measuring up to 2 cm has central fat attenuation and is most consistent with area of scarring. Other areas of mild scar versus atelectasis also seen in the lung bases. Pleural spaces: No pleural effusion. Heart: Unremarkable. No cardiomegaly. No pericardial effusion. Lymph nodes: No lymphadenopathy. Liver: Fatty change of the liver. Adrenal glands: Low-attenuation adrenal thickening in a pattern most consistent with adenomatous changes. Bones/joints: Kyphosis of midthoracic spine multilevel mild compression deformities of vertebral bodies and marked degenerative change. Soft tissues: Unremarkable. CT/CT angio chest PE protcl [id number] IMPRESSION: 1. No pulmonary embolism or acute pulmonary pathology. 2. Marked pulmonary emphysema. 3. 4.4 cm ascending thoracic aortic aneurysm. COMMENTS: In the absence of a history or active diagnosis of lung cancer, it is recommended that this patient with emphysema be evaluated for enrollment in a low dose CT lung cancer screening program.
[2023-11-03 10:52] LABS: NT Pro B Type Natriuretic Pept 21411 pg/mL (0-125); Procalcitonin 2.32 ng/mL (0-0.5)
[2023-11-03 11:03] LABS: Alanine Aminotransferase 15 U/L (0-33); Albumin Level 3.1 g/dL (3.5-5.2); Alkaline Phosphatase 108 U/L (35-105); Anion Gap 21.2 (5-19); Aspartate Amino Transferase 25 U/L (0-32); Blood Urea Nitrogen 42 mg/dL (8-23); Calcium 9.7 mg/dL (8.5-10.5); Carbon Dioxide 31 mmol/L (22-29); Chloride 85 mmol/L (98-107); Creatine Phosphokinase 292 U/L (26-192); Globulin 2.8 g/dL (1.3-4.6); Glucose 206 mg/dL (65-115); Osmolality Calculated 292 mOsm/kg (285-295); Potassium 4.2 mmol/L (3.5-5.1); Sodium 133 mmol/L (136-145); Total Bilirubin 0.5 mg/dL (0.15-1.2); Total Protein 5.9 g/dL (6.6-8.7)
[2023-11-03] MEDS: levofloxacin-dextrose 5 % 750 MG/150 ML PREMIX 100 MG IV (11:21)
[2023-11-03] MEDS: sodium chloride 0.9% 1,000 ML 999 ML IV (11:21)
[2023-11-03 11:38] LABS: Reflex Lactate Order REFLEX LACTIC ORDERD
--- NOTE | 2023-11-03 11:45 | ECG_ITS ---
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 Measurements Intervals [place] Rate: 96 P: 48 MN: 124 QRS: 48 QRSD: 89 T: 56 QT: 350 QTc: 442 Interpretive Statements SINUS RHYTHM MINIMAL VOLTAGE CRITERIA FOR LVH, CONSIDER NORMAL VARIANT [MEETS CRITERIA IN ONE OF: R(aVL), S(V1), R(V5), R(V5/V6)+S(V1)] Compared to ECG 11/03/2023 09:28:23 Atrial fibrillation no longer present Intraventricular conduction delay no longer present Electronically Signed On 11-03-2023 17:49:11 [employer]ACLE PROGRAMMER by Gadiel Mcneil M.D. [email or web address]
[2023-11-03 11:56] LABS: Add Urine Microscopic? YES; Bilirubin Urine Neg (Negative); Blood Urine Neg (Negative); Glucose Urine UA Norm (Normal); Ketones Urine Negative (Negative); Leukocyte Esterase Urine Negative (Negative); Nitrate Urine Negative (Negative); Protein Urine 1+ (Negative); Urine Appearance Clear (CLEAR); Urine Color Yellow (Yellow); Urobilinogen Urine Norm (Negative); pH Urine 6 (5-7)
[2023-11-03 11:57] LABS: Bacteria Urine 1+ /hpf; RBC Urine 0-4 /hpf (0-2); Squamous Epithelial Cell Urine 0-4 /hpf (0-5); WBC Urine 0-4 /hpf (0-5)
[2023-11-03 12:00] LABS: CKMB 3.9 ng/mL (0-5.34)
[2023-11-03 12:27] LABS: Lactic Acid level (Lactate) 1.5 mmol/L (0.5-2.2)
[2023-11-03 12:33] LABS: Troponin 5 2HR 169.9 ng/L (0-10); Troponin 5 2HR Delta -18.1 ABS# (0-10)
[2023-11-03] MEDS: iohexol 350 mg/mL 500 mL Btl (per mL) IV (12:47)
--- NOTE | 2023-11-03 12:58 | PC.NURSE ---
L forearm IV infiltrated in CT. removed by this nurse and dressed with coban
--- NOTE | 2023-11-03 13:02 | PC.NURSE ---
per ED physician to keep patients diltiazem drip at 12.5mg/hr to maintain heart rate </=100.
--- NOTE | 2023-11-03 13:16 | P.HP_ITS ---
Documented by User: Nataliiascottie Bah, [facility] STD 11/03/23 14:31 Providers/Chief Complaint 2 Admitting Physician: Jeff Garner MD Primary Care Provider: Carlos Manuel Swift MD Chief Complaint: weakness History of Present Illness Any Chaves is a 72 year old female who has a past medical history of hypertension, CKD, COPD, hyperlipidemia, cellulitis, and rheumatoid arthritis presents to the ED today with complaints of weakness and severe pain all over with movement and touch. Mrs. Chaves states that she has been getting more weak over the past few months but these last four days have been the most painful- to the extant of her unable to get out of bed. She states to alleviate the pain she has been taking Tylenol and tramadol and this has helped her some but the pain is better if she just doesn't move at all . Mrs. Chaves's and daughter is at bedside and are assisting with answering questions. states that she had a fever of 101.2 yesterday. Patient mentioned she has not had any appetite the last few days and when she attempts to eat it makes her gag. Along with Mrs. Chaves arrival to the ED her heart rate was noted to be in the 100s and irregular. EKG demonstrated Afib with RVR. Patient denies chest pain, palpitations, and shortness of breath despite needed 3L NC. While speaking with Mrs. Chaves her HR was in the 90s on 12.5 IV drip Cardizem. She was While in the the ED patient was given a liter of NS bolus, Diltiazem IV drip, 750mg IV Levaquin, CBC, BMP, troponin, TSH, UA, chest x-ray, EKG, COVID PCR, and a chest CTA. Patient to be admitted to the CSU floor for continued treatment and monitoring. Review of Systems 2 Const: Reports: fever(s), change in appetite, fatigue and malaise; Denies: chills or body aches ENMT: Denies: throat pain, mouth pain or ear or mastoid pain Medications/Allergies Home Medications Medication Instructions Recorded Confirmed Last Taken Type cholecalciferol (vitamin D3) 1,250 1,000 mcg PO DAILY@0800 01/25/20 11/03/23 11/03/23 History mcg (50,000 unit) capsule fluticasone 500 mcg-salmeterol 50 1 inh inhalation BID@0800,1800 01/25/20 11/03/23 11/03/23 History mcg/dose blistr powdr for inhalation (Advair Diskus) albuterol sulfate 90 mcg/actuation 2 puff inhalation Q6H PRN Wheezing 11/08/20 11/03/23 11/08/20 History aerosol inhaler (Ventolin HFA) coenzyme Q10 200 mg capsule (Co 200 mg PO DAILY 05/08/21 11/03/23 11/03/23 History Q-10) bumetanide 2 mg tablet See Rx Instructions .Route .COMPLEX 09/11/21 11/03/23 11/03/23 History nifedipine 30 mg tablet,extended 30 mg PO DAILY #90 tabs 11/07/21 11/03/23 11/03/23 Rx release metolazone 5 mg tablet See Rx Instructions .Route 03/28/23 11/03/23 11/03/23 Rx .COMPLEX #90 tabs spironolactone 25 mg tablet 25 mg PO DAILY #90 tabs 06/06/23 11/03/23 11/03/23 Rx leflunomide 10 mg tablet 10 mg PO DAILY #30 tabs 08/26/23 11/03/23 11/03/23 Rx tramadol 50 mg tablet 50 mg PO Q8H PRN Pain 08/26/23 11/03/23 Unknown History chlorzoxazone 500 mg tablet 50 mg PO TID PRN Muscle Spasm 09/17/23 11/03/23 11/03/23 History diphenhydramine HCl 25 mg capsule 25 mg PO BEDTIME PRN Allergic 09/17/23 11/03/23 09/16/23 History (Benadryl) Symptoms folic acid 1 mg tablet 1 mg PO DAILY 09/17/23 11/03/23 11/03/23 History hydrocortisone 2.5 % topical cream 1 applic topical DAILY PRN Rash 09/17/23 11/03/23 Unknown History omega-3s 300 xo-omy-qyx-other 1 cap PO QAM 09/17/23 11/03/23 11/03/23 History vgpyi0y-zrlx oil 1,000 mg capsule ([place]-3 Fish Oil) potassium chloride 10 mEq 40 meq PO DAILY 09/17/23 11/03/23 11/03/23 History tablet,extended release vit no.95-ferrous 1 tab PO DAILY 09/17/23 11/03/23 11/03/23 History fumarate 28 mg-folic acid 800 mcg tablet () omeprazole 20 mg tablet,delayed 20 mg PO DAILY 12 weeks #30 tabs 09/20/23 11/03/23 11/03/23 Rx release metoprolol tartrate 50 mg tablet 50 mg PO BID 11/03/23 11/03/23 11/03/23 History Allergies Allergy/AdvReac Type Severity Reaction Status Date / Time propoxyphene [From Darvon-N] Allergy Unknown unknown Verified 11/03/23 09:30 Additional Medication Information Chest X-ray results: IMPRESSION: 1. Slight clearing of bibasilar opacities. 2. Atherosclerosis. Chest CTA results: IMPRESSION: 1. No pulmonary embolism or acute pulmonary pathology. 2. Marked pulmonary emphysema. 3. 4.4 cm ascending thoracic aortic aneurysm. LABs: WBC 33.91, Neut- 30.74 BUN- 42, [employer]- 2.2 Lactic acid- 3.2 Uric acid- 14.9 Baseline troponin: 188, 120min Troponin 169.9 BNP: 52601 Procalcitonin: 2.32 TSH:1.50 COVID PCR- pending PFSH Acute 2 PFSH: Medical History (Updated 11/03/23 @ 14:04 by Jeff Garner MD) Acute kidney injury Rheumatoid arthritis flare Cellulitis Sepsis Left lower lobe pneumonia CKD (chronic kidney disease) stage 3, GFR 30-59 ml/min Immunization counseling High risk medication use Seronegative rheumatoid arthritis of both hands Edema, peripheral Macrocytic anemia Chronic kidney disease Leg swelling Hypertrophic obstructive cardiomyopathy COPD (chronic obstructive pulmonary disease) Cardiomyopathy Chronic diastolic heart failure Hypertension Hyperlipidemia Surgical History History of tonsillectomy Family History Mother CAD (coronary artery disease) Cancer Diabetes Father Chronic kidney disease (CKD) Other Hypertension Denies family history of Clotting disorder Dementia Suicide Anesthesia complication Bleeding disorder Lung disease Stroke Social History Smoking and tobacco/nicotine status: former use of tobacco/nicotine Alcohol intake: current Alcohol intake frequency: holidays/special occasions only Substance/Drug Use: never Household members: family Housing: House Vitals/I&O/Wt Last Vital Signs Temp 99.0 F 11/03/23 09:24 Pulse 96 11/03/23 12:59 Resp 22 H 11/03/23 12:59 BP 133/86 11/03/23 12:59 Pulse Ox 97 11/03/23 12:59 O2 Del Method Nasal Cannula 11/03/23 12:59 O2 Flow Rate 3 11/03/23 12:59 11/02/23 11/03/23 11/03/23 22:59 06:59 14:59 Intake Total 14.583 / 14.583 Balance 14.583 / 14.583 Weight last 48 hrs Weight 174 lb Physical Exam 2 Urinary Catheter Management: Shafer: Cath Placed During This Visit: yes Urinary Catheter Date of Insertion: 11/03/23 Urinary Catheter Time of Insertion: 10:19 Data 11/03/23 09:46 11/03/23 09:46 Micro: Microbiology 11/03/23 10:05 Blood Culture - Preliminary Blood SPECIMEN COLLECTED 11/03/23 09:46 Blood Culture - Preliminary Blood SPECIMEN COLLECTED A&P Assessment and plan (1) Atrial fibrillation with RVR: (2) Rheumatoid arthritis flare: (3) Hypoxia: (4) Leukocytosis: (5) Elevated brain natriuretic peptide (BNP) level: (6) Acute kidney injury: Coding Level of Care Code 05761 Diagnoses Atrial fibrillation with RVR I48.91 Rheumatoid arthritis flare M06.9 Hypoxia R09.02 Leukocytosis D72.829 Elevated brain natriuretic peptide (BNP) level R79.89 Acute kidney injury N17.9 Time Spent (min) 53 Documented by User: Jeff Garner MD 11/03/23 14:32 Providers/Chief Complaint 2 Chief Complaint: weakness History of Present Illness Any Chaves is a 72 year old female who has a past medical history of hypertension, CKD, COPD, hyperlipidemia, cellulitis, and rheumatoid arthritis presents to the ED today with complaints of weakness and severe pain all over with movement and touch. Mrs. Chaves states that she has been getting more weak over the past few months but these last four days have been the most painful- to the extent of her unable to get out of bed. She states to alleviate the pain she has been taking Tylenol and tramadol and this has helped her some but the pain is better if she just doesn't move at all . Mrs. Chaves's and daughter is at bedside and are assisting with answering questions. states that she had a fever of 101.2 yesterday. Patient mentioned she has not had any appetite the last few days and when she attempts to eat it makes her gag. Along with Mrs. Chaves arrival to the ED her heart rate was noted to be in the 100s and irregular. EKG demonstrated Afib with RVR. Patient denies chest pain, palpitations, and shortness of breath despite needed 3L NC. While speaking with Mrs. Chaves her HR was in the 90s on 12.5 IV drip Cardizem. There is no prior history of atrial fibrillation While in the the ED patient was given a liter of NS bolus, Diltiazem IV drip, 750mg IV Levaquin, CBC, BMP, troponin, TSH, UA, chest x-ray, EKG, COVID PCR, and a chest CTA. Patient to be admitted to the CSU floor for continued treatment and monitoring. Review of Systems 2 Card: Denies: chest pain Resp: Denies: dyspnea GI: Reports: nausea; Denies: abdominal pain or vomiting Medications/Allergies Home Medications Medication Instructions Recorded Confirmed Last Taken Type cholecalciferol (vitamin D3) 1,250 1,000 mcg PO DAILY@0800 01/25/20 11/03/23 11/03/23 History mcg (50,000 unit) capsule fluticasone 500 mcg-salmeterol 50 1 inh inhalation BID@0800,1800 01/25/20 11/03/23 11/03/23 History mcg/dose blistr powdr for inhalation (Advair Diskus) albuterol sulfate 90 mcg/actuation 2 puff inhalation Q6H PRN Wheezing 11/08/20 11/03/23 11/08/20 History aerosol inhaler (Ventolin HFA) coenzyme Q10 200 mg capsule (Co 200 mg PO DAILY 05/08/21 11/03/23 11/03/23 History Q-10) bumetanide 2 mg tablet See Rx Instructions .Route .COMPLEX 09/11/21 11/03/23 11/03/23 History nifedipine 30 mg tablet,extended 30 mg PO DAILY #90 tabs 11/07/21 11/03/23 11/03/23 Rx release metolazone 5 mg tablet See Rx Instructions .Route 03/28/23 11/03/23 11/03/23 Rx .COMPLEX #90 tabs spironolactone 25 mg tablet 25 mg PO DAILY #90 tabs 06/06/23 11/03/23 11/03/23 Rx leflunomide 10 mg tablet 10 mg PO DAILY #30 tabs 08/26/23 11/03/23 11/03/23 Rx tramadol 50 mg tablet 50 mg PO Q8H PRN Pain 08/26/23 11/03/23 Unknown History chlorzoxazone 500 mg tablet 50 mg PO TID PRN Muscle Spasm 09/17/23 11/03/23 11/03/23 History diphenhydramine HCl 25 mg capsule 25 mg PO BEDTIME PRN Allergic 09/17/23 11/03/23 09/16/23 History (Benadryl) Symptoms folic acid 1 mg tablet 1 mg PO DAILY 09/17/23 11/03/23 11/03/23 History hydrocortisone 2.5 % topical cream 1 applic topical DAILY PRN Rash 09/17/23 11/03/23 Unknown History omega-3s 300 wa-pxl-nvh-other 1 cap PO QAM 09/17/23 11/03/23 11/03/23 History mefuw9v-pgmf oil 1,000 mg capsule ([place]-3 Fish Oil) potassium chloride 10 mEq 40 meq PO DAILY 09/17/23 11/03/23 11/03/23 History tablet,extended release vit no.95-ferrous 1 tab PO DAILY 09/17/23 11/03/23 11/03/23 History fumarate 28 mg-folic acid 800 mcg tablet () omeprazole 20 mg tablet,delayed 20 mg PO DAILY 12 weeks #30 tabs 09/20/23 11/03/23 11/03/23 Rx release metoprolol tartrate 50 mg tablet 50 mg PO BID 11/03/23 11/03/23 11/03/23 History Allergies Allergy/AdvReac Type Severity Reaction Status Date / Time propoxyphene [From Darvon-N] Allergy Unknown unknown Verified 11/03/23 09:30 PFSH Acute 2 PFSH: Medical History (Updated 11/03/23 @ 14:04 by Jeff Garner MD) Acute kidney injury Rheumatoid arthritis flare Cellulitis Sepsis Left lower lobe pneumonia CKD (chronic kidney disease) stage 3, GFR 30-59 ml/min Immunization counseling High risk medication use Seronegative rheumatoid arthritis of both hands Edema, peripheral Macrocytic anemia Chronic kidney disease Leg swelling Hypertrophic obstructive cardiomyopathy COPD (chronic obstructive pulmonary disease) Cardiomyopathy Chronic diastolic heart failure Hypertension Hyperlipidemia Surgical History History of tonsillectomy Family History Mother CAD (coronary artery disease) Cancer Diabetes Father Chronic kidney disease (CKD) Other Hypertension Denies family history of Clotting disorder Dementia Suicide Anesthesia complication Bleeding disorder Lung disease Stroke Social History Smoking and tobacco/nicotine status: former use of tobacco/nicotine Alcohol intake: current Alcohol intake frequency: holidays/special occasions only Substance/Drug Use: never Household members: family Housing: House Physical Exam 2 Narrative: General exam is a white female, complaining of pain, in no distress HEENT: Atraumatic normocephalic. Oropharynx clear Neck is supple no lymphadenopathy thyromegaly Cardiovascular. Regular, tachycardic around 105, no murmur Lungs clear but with diminished breath sounds bilaterally Abdomen is soft positive bowel sounds Extremities no cyanosis or clubbing. MCP joints both hands with some erythema and edema. Right ankle swollen more than the left, with some erythema laterally. Skin see findings above Neuro no obvious focal deficits Urinary Catheter Management: Shafer: Cath Placed During This Visit: yes Data 11/03/23 09:46 11/03/23 09:46 Other Labs: Chest x-ray by my read demonstrates some bibasilar atelectasis, cardiomegaly CTA reviewed no pulmonary embolism, COPD is noted EKG by my read initial demonstrated A-fib with RVR, nonspecific ST-T wave changes. Repeat EKG demonstrates sinus rhythm LFTs normal with exception of alk phos slightly high, CK2 92, troponin 188 and repeat 169 BNP 21 411 Procalcitonin 2.3 Urinalysis 0-4 reds 0-4 whites Coronavirus and pending A&P Assessment and plan (1) Atrial fibrillation with RVR: Patient with new onset of atrial fibrillation with rapid ventricular rate Received Cardizem in the emergency department and this converted to sinus rhythm Wean off Cardizem drip Continue patient's home metoprolol Add diltiazem 30 mg every 6 hours and if tolerated change to 120 mg daily Anticoagulation with Lovenox 1 mg/kg secondary to kidney function not being normal, with a GFR potentially less than 30 Likely changed to oral anticoagulation tomorrow after discussing risks and benefits of anticoagulation with the family and patient. (2) Rheumatoid arthritis flare: Patient appears to have rheumatoid arthritis with a flare but could also have gout considering the amount of diuretics she is on. Uric acid level checked and elevated Initiate Solu-Medrol 60 mg IV every 24 hours As improvement occurs consider changing to prednisone Follow-up with your primary care provider, on a minimum of 20 mg of prednisone ultimately at discharge (3) Hypoxia: Patient hypoxic on arrival This is likely secondary to atrial fibrillation with rapid ventricular rate secondary to pulmonary congestion a No evidence of pulmonary embolism was found cutely Wean oxygen as tolerated (4) Leukocytosis: Marked leukocytosis, possibly secondary to demargination from severe stress from atrial fibrillation or rheumatoid flare She does usually have some leukocytosis, but not to this degree With history of low-grade temperatures, markedly elevated white blood cell count will give Rocephin empirically Blood cultures were drawn No evidence of pneumonia, or UTI If persists consider imaging abdomen (5) Elevated brain natriuretic peptide (BNP) level: BNP markedly elevated This may be secondary to atrial fibrillation with rapid ventricular rate Her swelling is better according to family, will not diurese Avoid extra fluids Recheck CBC, CMP in the morning (6) Acute kidney injury: Reduce diuretics, hold afternoon dose. Recheck CBC and CMP tomorrow Avoid renal toxic medication Consider imaging, such as renal ultrasound if this does not improve Plan COPD, marked emphysema noted on CT scan History of hypertension Anemia, chronic likely related to rheumatologic disease Chronic kidney disease Lovenox will suffice for DVT prophylaxis Full code Attestations 2 Medical Necessity Statement*: Will need greater than 2 midnight stay for evaluation and treatment of arthritic flare with possible infection Diagnoses Atrial fibrillation with RVR I48.91 Rheumatoid arthritis flare M06.9 Hypoxia R09.02 Leukocytosis D72.829 Elevated brain natriuretic peptide (BNP) level R79.89 Acute kidney injury N17.9 Time Spent (min) 53
[2023-11-03 13:39] LABS: Uric Acid 14.9 mg/dL (2.4-5.7)
[2023-11-03] MEDS: methylPREDNISolone sod succ 125 mg/2 mL INJ 60 MG IVP (14:40)
[2023-11-03] MEDS: cefTRIAXone 1,000 MG in sodium chloride 0.9% (plus) 50 ML 100 MG IV (14:42)
[2023-11-03] MEDS: enoxaparin 80 mg/0.8 mL Syringe SUBCUT (14:44)
[2023-11-03] MEDS: dilTIAZem 30 mg Tablet PO ×2 (15:00→20:40)
--- NOTE | 2023-11-03 15:46 | ECG_ITS ---
[facility] Test Date: 2023-11-03 Pat Name: Any Chaves Department: Room: EDIP Gender: Female [employer]ating [employer] Operator: : [id number] Requested By: Missy Bustamante Order Number: [id number] Terese MD: Gadiel Mcneil M.D. Measurements Intervals [place] Rate: 94 P: 45 LA: 112 QRS: 55 QRSD: 90 T: 63 QT: 380 QTc: 476 Interpretive Statements Possible sinus RHYTHM WITH SHORT LA INTERVAL WITH OCCASIONAL SUPRAVENTRICULAR PREMATURE MINIMAL ST DEPRESSION [0.025+ mV ST DEPRESSION] Compared to ECG 11/03/2023 11:45:58 Short LA interval now present ST (T wave) deviation now present Heavy baseline artifact; need to repeat Electronically Signed On 11-03-2023 17:50:49 [employer] by Gadiel Mcneil M.D. [email or web address]
[2023-11-03 16:25] LABS: Troponin 5 6HR 146.2 ng/L (0-10)
[2023-11-03] MEDS: acetaminophen 325 mg Tablet 650 MG PO (20:38)
[2023-11-03] MEDS: zolpidem 5 mg Tablet PO (20:39)
[2023-11-03] MEDS: TRAMadol 50 mg Tablet PO (20:40)
[2023-11-03] MEDS: metoprolol tartrate 50 mg Tablet PO (20:41)
[2023-11-03] MEDS: bumetanide 1 mg Tablet 2 MG PO (20:41)
[2023-11-03] MEDS: ipratropium-albuterol 3 mL Neb INHALATION (22:17)
[2023-11-03] MEDS: budesonide 0.5 mg/2 mL Neb INHALATION (22:18)
[2023-11-04] VITALS (15 sets, daily range): BP systolic 114–140; BP diastolic 63–98; PULSE 85–110; RESP 16–27; TEMP 36.4–36.7; O2SAT 93–98
[2023-11-04] MEDS: ipratropium-albuterol 3 mL Neb INHALATION ×4 (04:03→19:54)
[2023-11-04 04:44] LABS: Basophils # 0.1 10^3/uL (0.0-0.1); Basophils % 0.3 %; Hematocrit 26.6 % (36-47); Lymphocytes % 3.6 %; Mean Corpuscular Hemoglobin 30.2 pg (27-33); Mean Corpuscular Volume 94.7 fl (85-98); Mean Platelet Volume 9.7 fL (7.4-10.4); Monocytes # 0.9 10^3/uL (0.2-0.9); Monocytes % 3.1 %; Neutrophils # 25.84 10^3/uL (1.8-7.7); Neutrophils % 91.4 %; Nucleated Red Blood Cells % 0 %; Platelet Count 627 10^3/cmm (157-399); Red Blood Count 2.81 10^6/uL (3.85-5.65); Red Cell Distribution Width 14.7 % (12.1-15.1)
[2023-11-04 05:07] LABS: Alanine Aminotransferase 19 U/L (0-33); Albumin Level 2.9 g/dL (3.5-5.2); Alkaline Phosphatase 106 U/L (35-105); Anion Gap 19.3 (5-19); Aspartate Amino Transferase 34 U/L (0-32); Blood Urea Nitrogen 47 mg/dL (8-23); Calcium 9.8 mg/dL (8.5-10.5); Carbon Dioxide 32 mmol/L (22-29); Chloride 88 mmol/L (98-107); Glucose 205 mg/dL (65-115); Magnesium 1.7 mg/dL (1.7-2.3); Osmolality Calculated 300 mOsm/kg (285-295); Potassium 3.3 mmol/L (3.5-5.1); Sodium 136 mmol/L (136-145); Total Bilirubin 0.2 mg/dL (0.15-1.2); Total Protein 6.9 g/dL (6.6-8.7)
[2023-11-04] MEDS: bumetanide 1 mg Tablet 4 MG PO (05:47)
[2023-11-04] MEDS: budesonide 0.5 mg/2 mL Neb INHALATION ×2 (07:47→19:54)
[2023-11-04] MEDS: dilTIAZem 30 mg Tablet PO (08:25)
[2023-11-04] MEDS: pantoprazole DR 40 mg Tablet PO (08:26)
[2023-11-04] MEDS: metoprolol tartrate 50 mg Tablet PO ×2 (08:26→21:16)
[2023-11-04] MEDS: folic acid 1 mg Tablet PO (08:39)
[2023-11-04] MEDS: potassium chloride ER 20 mEq Tablet 40 MEQ PO (08:39)
--- NOTE | 2023-11-04 08:51 | P.PN_ITS ---
Documented by User: LENA Allen STDANALISA 11/04/23 09:53 Subjective 2 Subjective: Patient resting in bed this morning on 3 L nasal cannula. Patient stated she wears oxygen at home. Patient states that her pain is better today although she has not been out of bed yet. Mrs. Chaves also feels that her breathing is easier today, swelling and bilateral lower extremities noted to have decreased. Patient verbalizes that she will ambulate and sit up in a chair today. Medications: Reviewed: Yes Vitals/I&O/Wt Last Vital Signs Temp 97.9 F 11/04/23 07:42 Pulse 105 H 11/04/23 07:48 Resp 20 H 11/04/23 07:48 BP 139/98 11/04/23 07:42 Pulse Ox 96 11/04/23 07:48 O2 Del Method Nasal Cannula 11/04/23 07:48 O2 Flow Rate 3 11/04/23 07:48 11/03/23 11/04/23 11/04/23 22:59 06:59 14:59 Intake Total 100.250 / 264.833 Balance 100.250 / 264.833 Weight last 48 hrs Weight 184 lb Weight 187 lb Weight 174 lb Physical Exam 2 Narrative: General exam is a white female, answering questions appropriately. HEENT: Atraumatic normocephalic. Oropharynx clear Neck is supple no lymphadenopathy thyromegaly Cardiovascular. Regular rhythm, tachycardic. No murmur Lungs lung sounds clear to auscultation, crackles noted in left lower lobe. On 3 L nasal cannula. Abdomen is soft positive bowel sounds. Nontender. Extremities no cyanosis or clubbing. MCP joints both hands with some erythema and edema. Right ankle swollen more than the left, with some erythema laterally. Swelling has improved. Skin see findings above Neuro no obvious focal deficits, alert and oriented x 3. Urinary Catheter Management: Shafer: Cath Placed During This Visit: yes Reason for Continuing Indwelling Catheter: Accurate Measurement of Urinary Output in Critically Ill Patients Urinary Catheter Date of Insertion: 11/03/23 Urinary Catheter Time of Insertion: : Data 11/04/23 03:31 11/04/23 03:31 Micro: Microbiology 11/03/23 10:05 Blood Culture - Preliminary Blood SPECIMEN COLLECTED 11/03/23 09:46 Blood Culture - Preliminary Blood SPECIMEN COLLECTED A&P Assessment and plan (1) Atrial fibrillation with RVR: Patient with new onset of atrial fibrillation with rapid ventricular rate Received Cardizem IV drip in the emergency department and this converted to sinus rhythm. Patient noted to have converted back into in Afib this am 11/04. Continue patient's home metoprolol Continue diltiazem 30 mg PO Q6HR, if tolerated change to 120 mg daily Anticoagulation with Lovenox 1 mg/kg secondary to kidney function not being normal, with a GFR potentially less than 30 Likely changed to oral anticoagulation tomorrow after discussing risks and benefits of anticoagulation with the family and patient. (2) Rheumatoid arthritis flare: Patient appears to have rheumatoid arthritis with a flare, but could also have gout considering the amount of diuretics she is on. Continue Solu-Medrol 60 mg IV every 24 hours As improvement occurs consider changing to prednisone Follow-up with your primary care provider, on a minimum of 20 mg of prednisone ultimately at discharge (3) Hypoxia: Patient hypoxic on arrival This is likely secondary to atrial fibrillation with rapid ventricular rate secondary to pulmonary congestion a Wean oxygen as tolerated (4) Leukocytosis: Marked leukocytosis, possibly secondary to demargination from severe stress from atrial fibrillation or rheumatoid flare She does usually have some leukocytosis, but not to this degree With history of low-grade temperatures, markedly elevated white blood cell count will give Rocephin empirically Blood cultures were drawn, pending. No evidence of pneumonia, or UTI If persists consider imaging abdomen (5) Elevated brain natriuretic peptide (BNP) level: BNP markedly elevated on admission. This may be secondary to atrial fibrillation with rapid ventricular rate Her swelling is better this morning, will not diurese Avoid extra fluids Recheck CBC, CMP in the morning (6) Acute kidney injury: Discontinue lasix Recheck CBC and CMP tomorrow Potassium low this am at 3.3, replace with 40meq po. Avoid renal toxic medication Consider imaging, such as renal ultrasound if this does not improve Plan COPD, marked emphysema noted on CT scan History of hypertension Anemia, chronic likely related to rheumatologic disease Chronic kidney disease Lovenox will suffice for DVT prophylaxis Full code Coding Level of Care Code 69180 Diagnoses Atrial fibrillation with RVR I48.91 Rheumatoid arthritis flare M06.9 Hypoxia R09.02 Leukocytosis D72.829 Elevated brain natriuretic peptide (BNP) level R79.89 Acute kidney injury N17.9 Time Spent (min) 26 Documented by User: Jeff Garner MD 11/04/23 11:04 Physical Exam 2 Narrative: General exam is a white female, answering questions appropriately. HEENT: Atraumatic normocephalic. Oropharynx clear Neck is supple no lymphadenopathy thyromegaly Cardiovascular. Regular rhythm, tachycardic. No murmur Lungs lung sounds clear to auscultation, crackles noted in left lower lobe. On 3 L nasal cannula. Abdomen is soft positive bowel sounds. Nontender. Extremities no cyanosis or clubbing. MCP joints both hands with some erythema and edema. Right ankle swollen more than the left, with some erythema laterally. Swelling has improved. Urinary Catheter Management: Shafer: Cath Placed During This Visit: yes Data 11/04/23 03:31 11/04/23 03:31 A&P Assessment and plan (1) Atrial fibrillation with RVR: Patient with new onset of atrial fibrillation with rapid ventricular rate Received Cardizem IV drip in the emergency department and this converted to sinus rhythm. Patient noted to have converted back into in Afib this am 11/04. Continue patient's home metoprolol Change diltiazem to 120 mg a day. Heart rate this morning is 85 after the appropriate dose of diltiazem 30 mg. Anticoagulation with Lovenox 1 mg/kg secondary to kidney function not being normal, with a GFR potentially less than 30 Likely changed to oral anticoagulation tomorrow after discussing risks and benefits of anticoagulation with the family and patient. (2) Rheumatoid arthritis flare: Patient appears to have rheumatoid arthritis with a flare, but could also have gout considering the amount of diuretics she is on. Continue Solu-Medrol 60 mg IV every 24 hours As improvement occurs consider changing to prednisone Follow-up with your primary care provider, on a minimum of 20 mg of prednisone ultimately at discharge Uric acid was significantly elevated, therefore adding the possibility of gout to her arthritic flare. For now reducing diuretics and treatment with steroids as appropriate. (3) Hypoxia: Patient hypoxic on arrival This is likely secondary to atrial fibrillation with rapid ventricular rate secondary to pulmonary congestion a Wean oxygen as tolerated CT chest demonstrated no pulmonary embolism. A 4.4 cm ascending thoracic aneurysm was noted which can be followed as an outpatient. (4) Leukocytosis: (5) Elevated brain natriuretic peptide (BNP) level: BNP markedly elevated on admission. This may be secondary to atrial fibrillation with rapid ventricular rate She appears compensated currently. Bumex home dose was given this morning. Hold further diuretics until reevaluation tomorrow Recheck CBC, CMP in the morning (6) Acute kidney injury: Renal function slightly better today Recheck CBC and CMP tomorrow Potassium low this am at 3.3, replace with 40meq po. Avoid renal toxic medication Consider imaging, such as renal ultrasound if this does not improve Diuretics on hold for rest of today until evaluation of patient and creatinine tomorrow Attestations 2 Medical Necessity Statement*: Needs continued hospitalization, for treatment of arthritic flare with IV steroids and empiric antibiotics for possible infection pending improvement Diagnoses Atrial fibrillation with RVR I48.91 Rheumatoid arthritis flare M06.9 Hypoxia R09.02 Leukocytosis D72.829 Elevated brain natriuretic peptide (BNP) level R79.89 Acute kidney injury N17.9 Time Spent (min) 26
--- NOTE | 2023-11-04 09:01 | PC.CHAP ---
Pastoral Care Encounter/Spiritual Assessment Type of Contact [] Declined fire protection designer visit [] Patient/Family/Request visit [] Outpatient visit [] Follow-up visit [] Physician referral [] Code/Alert [x] Routine visit [] Staff referral [] Actively dying [] Patient sleeping [x] Family support [] [] Out of room [] Palliative care [] [] Receiving care in room [] Pre-surgical visit [] Trauma [] Long length of stay [] ICU visit [] Other: Relational/Emotional Strength [x] Patient feels connected with others/family/visitors/staff [] Distress [] Loneliness/isolation [] Abandonment Spirituality of Patient [x] Person of Julieth [] Attends Jewish of their Julieth [x] Believes in Prayer [] Reads Bible or Baptism materials [] There are Spiritual issues to be addressed Patient Navigator Interventions [x] Prayer [x] Active listening [] Non-anxious presence [x] Spiritual/emotional support [] Crisis/trauma care [] Spiritual counseling [] Bereavement support [] Provided bereavement packet [] Provided Bible/devotional materials [] Provided toy/stuffed animal, coloring book to patient or family member [] Provided Communion [] Anointing/[place] [] Salvation [x] Completed spiritual assessment [] Other: Impact on Illness or Injury [] Angry [] Fearful [] Anxious [] Often cries [] Exhaustion [] Unable to work [] Unable to attend zoroastrian [] Unable to walk/stand [] Unable to read [] Unable to drive [] Unable to eat/drink [] Unable to sleep [] Unable to be with family [] Patient intubated [] Other: Summary Time spent with patient 5 min
[2023-11-04 14:29] LABS: Adenovirus Not Detected (NOT DETECT); Chlamydia Pneumoniae Not Detected (NOT DETECT); Coronavirus 229E,HKU1,NL63,OC4 Not Detected (NOT DETECT); Human Metapneumovirus Not Detected (NOT DETECT); Human Rhinovirus/Enterovirus Not Detected (NOT DETECT); Influenza A Not Detected (NOT DETECT); Influenza A H1 Not Detected (NOT DETECT); Influenza A H1-2009 Not Detected (NOT DETECT); Influenza A H3 Not Detected (NOT DETECT); Influenza B Not Detected (NOT DETECT); Mycoplasma Pneumoniae Not Detected (NOT DETECT); Parainfluenza Virus Type 1 Not Detected (NOT DETECT); Parainfluenza Virus Type 2 Not Detected (NOT DETECT); Parainfluenza Virus Type 3 Not Detected (NOT DETECT); Parainfluenza Virus Type 4 Not Detected (NOT DETECT); Respiratory Syncytial Virus A Not Detected (NOT DETECT); Respiratory Syncytial Virus B Not Detected (NOT DETECT); SARS-COV-2 Not Detected (NOT DETECT)
[2023-11-04] MEDS: enoxaparin 80 mg/0.8 mL Syringe SUBCUT (14:37)
[2023-11-04] MEDS: methylPREDNISolone sod succ 125 mg/2 mL INJ 60 MG IVP (14:37)
[2023-11-04] MEDS: cefTRIAXone 1,000 MG in sodium chloride 0.9% (plus) 50 ML 100 MG IV (14:38)
[2023-11-04] MEDS: acetaminophen 325 mg Tablet 650 MG PO (21:14)
[2023-11-04] MEDS: TRAMadol 50 mg Tablet PO (21:16)
[2023-11-04] MEDS: zolpidem 5 mg Tablet PO (21:16)
[2023-11-05] VITALS (158 sets, daily range): BP systolic 118–143; BP diastolic 73–98; PULSE 73–95; RESP 13–31; TEMP 36.4–36.5; O2SAT 92–100; BMI 28.8
[2023-11-05] MEDS: ipratropium-albuterol 3 mL Neb INHALATION ×4 (02:23→19:38)
[2023-11-05 05:12] LABS: Basophils % 0.1 %; Hematocrit 25.9 % (36-47); Lymphocytes % 4.7 %; Mean Corpuscular Hemoglobin 30.3 pg (27-33); Mean Corpuscular Volume 94.5 fl (85-98); Mean Platelet Volume 9.2 fL (7.4-10.4); Monocytes # 0.6 10^3/uL (0.2-0.9); Monocytes % 2.7 %; Neutrophils # 18.48 10^3/uL (1.8-7.7); Neutrophils % 89.8 %; Nucleated Red Blood Cells % 0 %; Platelet Count 699 10^3/cmm (157-399); Red Blood Count 2.74 10^6/uL (3.85-5.65); White Blood Count 20.57 10^3/uL (3.29-11.43)
[2023-11-05 05:32] LABS: Anion Gap 14.8 (5-19); Blood Urea Nitrogen 55 mg/dL (8-23); Calcium 9.8 mg/dL (8.5-10.5); Carbon Dioxide 35 mmol/L (22-29); Chloride 91 mmol/L (98-107); Glucose 209 mg/dL (65-115); Magnesium 1.9 mg/dL (1.7-2.3); Osmolality Calculated 305 mOsm/kg (285-295); Potassium 3.8 mmol/L (3.5-5.1); Sodium 137 mmol/L (136-145)
--- NOTE | 2023-11-05 07:16 | US_ITS ---
WS: [id number] ULTRASOUND RENAL TECHNIQUE: Ultrasound examination of both kidneys. CLINICAL INFORMATION: renal failure COMPARISON: None. FINDINGS: Technically difficult study due to pain and lack of mobility RIGHT: Right kidney is normal in size and appearance. Echogenicity: Normal. Cortical thickness: 1.0 cm; Normal. Hydronephrosis: None. Perinephric fluid: None. Right kidney measures: 10.0 cm x 4.5 cm x 4.3 cm. LEFT: Left kidney is normal in size and appearance. Echogenicity: Normal. Cortical thickness: 1.1 cm; Normal. Hydronephrosis: None. Perinephric fluid: None. Left kidney measures: 10.3 cm x 6.0 cm x 5.7 cm. Bladder is decompressed with Shafer catheter. IMPRESSION: Technically difficult study. 1. Kidneys are normal in appearance. No hydronephrosis. 2. Bladder is decompressed with Shafer catheter. 3. No other suspicious findings.
[2023-11-05 08:09] LABS: Estmated Average Glucose 134; Hemoglobin A1C 6.3 % (4.0-6.0)
[2023-11-05] MEDS: pantoprazole DR 40 mg Tablet PO (08:36)
[2023-11-05] MEDS: folic acid 1 mg Tablet PO (08:36)
[2023-11-05] MEDS: metoprolol tartrate 50 mg Tablet PO ×2 (08:36→21:00)
[2023-11-05] MEDS: sodium chloride 0.9% 250 ML IV (08:37)
[2023-11-05] MEDS: budesonide 0.5 mg/2 mL Neb INHALATION ×2 (08:46→19:38)
--- NOTE | 2023-11-05 11:07 | P.PN_ITS ---
Documented by User: lynn Austin 11/05/23 11:38 Subjective 2 Subjective: Patient was evaluated this morning while lying in bed on 3L/NC. Overall, patient states that she feels better and slept excellent last night. Daughter and son at bedside and plan of care was discussed with patient and family. Although patient's labs continue to improve, it was discussed with family and patient that current kidney function has not normalized. She denies any other complaints at this time. Medications: Reviewed: Yes Vitals/I&O/Wt Last Vital Signs Temp 97.7 F 11/05/23 07:49 Pulse 90 11/05/23 08:55 Resp 18 11/05/23 08:00 BP 118/73 11/05/23 07:45 Pulse Ox 98 11/05/23 08:00 O2 Del Method Nasal Cannula 11/05/23 08:00 O2 Flow Rate 3 11/05/23 08:00 11/04/23 11/05/23 11/05/23 22:59 06:59 14:59 Intake Total 290 / 770 Output Total 1200 / 1200 Balance -910 / -430 Weight last 48 hrs Weight 83.461 kg Weight 83.461 kg Weight 84.822 kg Physical Exam 2 Narrative: General exam is a white female, answering questions appropriately. HEENT: Atraumatic normocephalic. Oropharynx clear Neck is supple no lymphadenopathy thyromegaly Cardiovascular. Regular rhythm, tachycardic. No murmur Respiratory: Lung sounds clear to auscultation. 3L/NC Abdomen is soft positive bowel sounds. Nontender. Extremities no cyanosis or clubbing. MCP joints both hands with some erythema and edema. Right ankle swollen more than the left, with some erythema laterally. Swelling has improved. Urinary Catheter Management: Shafer: Cath Placed During This Visit: yes Reason for Continuing Indwelling Catheter: Accurate Measurement of Urinary Output in Critically Ill Patients Urinary Catheter Date of Insertion: 11/03/23 Urinary Catheter Time of Insertion: 10:19 Data 11/05/23 04:40 11/05/23 04:40 Other Labs: During BC 20.57, hemoglobin 8.3, hematocrit 25.9, platelet count 699, BUN 55, creatinine 2.4, glucose 209 Hemoglobin A1c 6.3, Micro: Microbiology 11/03/23 10:05 Blood Culture - Preliminary Blood NEGATIVE TO DATE 11/03/23 09:46 Blood Culture - Preliminary Blood NEGATIVE TO DATE A&P Assessment and plan (1) Atrial fibrillation with RVR: Patient continues to remain in sinus rhythm. Some A-fib events on telemetry. 76 sinus rhythm on telemetry. Cardizem 120 p.o. daily Continue home metoprolol. (2) Rheumatoid arthritis flare: Redness and swelling has significantly went down and improving on assessment today. Patient reports symptoms are better as well and able to minimally move fingertips somewhat more than yesterday. Uric acid was noted to be significantly elevated, this could be potentially gout versus arthritic flare. Will continue to hold/reduce diuretics with steroids as appropriate. Will continue Solu-Medrol 60 mg every 24. Transition to p.o. prednisone once stable. (3) Hypoxia: Patient continues to have hypoxia. 3L/NC at this time. Oxygen protocol maintain SpO2 greater than 90%. Likely due to atrial fibrillation with RVR secondary to pulmonary congestion. No PE on CTA. (4) Leukocytosis: Improving though slowly trending down potentially due to steroid usage. Will continue Rocephin empirically pending blood cultures. No evidence of UTI or pneumonia per urinalysis or chest x-ray. No fevers overnight CBC in a.m. (5) Elevated brain natriuretic peptide (BNP) level: Bumex continued. Will continue to hold further diuretics at this time. CBC, CMP in AM. Trace edema to lower extremities. (6) Acute kidney injury: There was a concern for renal function at this time. Patient's BUN and creatinine are slightly elevated today and this was discussed with patient and family. This could be potentially due to multiple diuretics which are on hold at this time except for Bumex. 250ml NS bolus x 1 now CBC and CMP in AM. Avoid renal toxic medications. (7) COPD (chronic obstructive pulmonary disease): As per #[address] Marked emphysema noted on CT scan. Budesonide twice daily DuoNebs every 6 hours. Plan Plan as stated above. We will continue to trend renal function and continue to hold diuretics at this time. Administered to 50 mill NS bolus in hopes to improve kidney function. Patient's overall subjective assessment is improving as she states that she is sleeping better and feels her swelling in her hands and feet are improving. CODE STATUS: Full code DVT prophylaxis: Lovenox Coding Level of Care Code 25495 Diagnoses Atrial fibrillation with RVR I48.91 Rheumatoid arthritis flare M06.9 Hypoxia R09.02 Leukocytosis D72.829 Elevated brain natriuretic peptide (BNP) level R79.89 Acute kidney injury N17.9 COPD (chronic obstructive pulmonary disease) J44.9 Time Spent (min) 33 Documented by User: Jeff Garner MD 11/05/23 12:36 Physical Exam 2 Urinary Catheter Management: Shafer: Cath Placed During This Visit: yes Data 11/05/23 04:40 11/05/23 04:40 A&P Assessment and plan (1) Atrial fibrillation with RVR: Patient continues to remain in sinus rhythm. Some A-fib events on telemetry. 76 sinus rhythm on telemetry. Cardizem 120 p.o. daily Continue home metoprolol. Change anticoagulation to Eliquis (2) Rheumatoid arthritis flare: (3) Hypoxia: Patient continues to have hypoxia. 3L/NC at this time. Oxygen protocol maintain SpO2 greater than 90%. No pulmonary embolism on CTA (4) Leukocytosis: (5) Elevated brain natriuretic peptide (BNP) level: Diuretics discontinued CBC, CMP in AM. Trace edema to lower extremities. (6) Acute kidney injury: There was a concern for renal function at this time. Patient's BUN and creatinine are slightly elevated today and this was discussed with patient and family. This could be potentially due to multiple diuretics which are on hold at this time except for Bumex. 250ml NS bolus x 1 now CBC and CMP in AM. Avoid renal toxic medications. Renal ultrasound (7) COPD (chronic obstructive pulmonary disease): Attestations 2 Medical Necessity Statement*: Needs continued hospitalization for arthritic flare, and acute kidney injury needing close monitoring Diagnoses Atrial fibrillation with RVR I48.91 Rheumatoid arthritis flare M06.9 Hypoxia R09.02 Leukocytosis D72.829 Elevated brain natriuretic peptide (BNP) level R79.89 Acute kidney injury N17.9 COPD (chronic obstructive pulmonary disease) J44.9 Time Spent (min) 33
[2023-11-05] MEDS: acetaminophen 325 mg Tablet 650 MG PO ×2 (12:10→21:00)
[2023-11-05] MEDS: dilTIAZem ER (24HR) 120 mg Capsule PO (12:10)
[2023-11-05] MEDS: docusate sodium 100 mg Capsule PO ×2 (12:11→18:11)
[2023-11-05] MEDS: cefTRIAXone 1,000 MG in sodium chloride 0.9% (plus) 50 ML 100 MG IV (14:36)
[2023-11-05] MEDS: methylPREDNISolone sod succ 125 mg/2 mL INJ 60 MG IVP (14:36)
--- NOTE | 2023-11-05 14:40 | PC.RESP ---
Per patient, wears 3lpm @ home .
[2023-11-05] MEDS: zolpidem 5 mg Tablet PO (21:00)
[2023-11-05] MEDS: apixaban 5 mg Tablet PO (21:00)
[2023-11-05] MEDS: TRAMadol 50 mg Tablet PO (21:00)
[2023-11-06] VITALS (12 sets, daily range): BP systolic 152–186; BP diastolic 67–93; PULSE 77–100; RESP 16–28; TEMP 36.5–37.1; O2SAT 96–99
[2023-11-06] MEDS: ipratropium-albuterol 3 mL Neb INHALATION ×4 (02:57→19:40)
[2023-11-06 05:06] LABS: Basophils # 0.1 10^3/uL (0.0-0.1); Basophils % 0.3 %; Hematocrit 27.8 % (36-47); Lymphocytes # 0.9 10^3/uL (0.8-4.8); Lymphocytes % 4.9 %; Mean Corpuscular Hemoglobin 30.2 pg (27-33); Mean Corpuscular Volume 94.2 fl (85-98); Mean Platelet Volume 8.9 fL (7.4-10.4); Monocytes # 0.7 10^3/uL (0.2-0.9); Monocytes % 3.8 %; Neutrophils # 16.33 10^3/uL (1.8-7.7); Neutrophils % 87.5 %; Nucleated Red Blood Cells % 0 %; Platelet Count 740 10^3/cmm (157-399); Red Blood Count 2.95 10^6/uL (3.85-5.65); Red Cell Distribution Width 14.8 % (12.1-15.1); White Blood Count 18.67 10^3/uL (3.29-11.43)
[2023-11-06 05:32] LABS: Anion Gap 14.6 (5-19); Blood Urea Nitrogen 69 mg/dL (8-23); Calcium 9.3 mg/dL (8.5-10.5); Carbon Dioxide 34 mmol/L (22-29); Chloride 94 mmol/L (98-107); Glucose 205 mg/dL (65-115); Osmolality Calculated 314 mOsm/kg (285-295); Potassium 3.6 mmol/L (3.5-5.1); Sodium 139 mmol/L (136-145)
[2023-11-06] MEDS: sodium chloride 0.9% 1,000 ML 50 ML IV (07:41)
[2023-11-06] MEDS: budesonide 0.5 mg/2 mL Neb INHALATION ×2 (08:40→19:40)
--- NOTE | 2023-11-06 08:49 | P.PN_ITS ---
Documented by User: lynn Austin 11/06/23 09:00 Subjective 2 Subjective: Patient was evaluated this morning while lying in bed on 3L/NC. Patient reports that she continues to improve and feels that her hands and feet are less red and swollen. She is able to move upper and lower extremities better than yesterday. States that she would like to go to a rehab when stable for discharge. Family at bedside and discussed plan of care. She denies any other complaints at this time. Medications: Reviewed: Yes Vitals/I&O/Wt Last Vital Signs Temp 97.7 F 11/06/23 07:18 Pulse 88 11/06/23 08:00 Resp 18 11/06/23 08:00 BP 155/87 11/06/23 07:18 Pulse Ox 97 11/06/23 08:00 O2 Del Method Nasal Cannula 11/06/23 08:00 O2 Flow Rate 3 11/06/23 08:00 11/05/23 11/06/23 11/06/23 22:59 06:59 14:59 Intake Total 480 / 730 Output Total 650 / 650 Balance -650 / -400 480 / 80 Weight last 48 hrs Weight 83.461 kg Weight 83.461 kg Physical Exam 2 Narrative: General exam is a white female, answering questions appropriately. HEENT: Atraumatic normocephalic. Oropharynx clear Neck is supple no lymphadenopathy thyromegaly Cardiovascular. Regular rhythm, tachycardic. No murmur Respiratory: Lung sounds clear to auscultation. 3L/NC Abdomen is soft positive bowel sounds. Nontender. Extremities no cyanosis or clubbing. MCP joints both hands with some erythema and edema. Right ankle swollen more than the left, with some erythema laterally. Swelling has improved. Urinary Catheter Management: Shafer: Cath Placed During This Visit: yes Reason for Continuing Indwelling Catheter: Accurate Measurement of Urinary Output in Critically Ill Patients Urinary Catheter Date of Insertion: 11/03/23 Urinary Catheter Time of Insertion: 10:19 Data 11/06/23 04:46 11/06/23 04:46 Other Labs: Blood cell 18.67, hemoglobin 8.9, and hematocrit 27.8, platelet count 740, BUN 69, creatinine 2.4, Renal ultrasound: Radiologist's impression: 1. Kidneys are normal in appearance. No hydronephrosis. 2. Bladder is decompressed with Shafer catheter. 3. No other suspicious findings. A&P Assessment and plan (1) Atrial fibrillation with RVR: Patient continues to remain in sinus rhythm. Cardizem 120 p.o. daily Continue home metoprolol. Eliquis for anticoagulation (2) Rheumatoid arthritis flare: Redness and swelling to hands and feet continues to improve daily and patient is able to maneuver both extremities better each day. Patient will be transitioned from IV Solu-Medrol to p.o. prednisone today. (3) Hypoxia: 3L/NC at this time. Oxygen protocol maintain SpO2 greater than 90%. No pulmonary embolism on CTA (4) Leukocytosis: Improving though slowly trending down potentially due to steroid usage. Continue Rocephin empirically. Blood cultures negative today. Pending final result No evidence of UTI or pneumonia per urinalysis or chest x-ray. No fevers overnight CBC in a.m. (5) Elevated brain natriuretic peptide (BNP) level: CBC, CMP in AM. Trace edema to lower extremities. (6) Acute kidney injury: Patient's BUN and creatinine remains the same at this time as yesterday. Renal ultrasound unremarkable. Avoid renal toxic medications. Anticipate for BUN and creatinine to potentially lower tomorrow. We will administer NS at 50 mL/h for fluid hydration. CBC and CMP in AM. (7) COPD (chronic obstructive pulmonary disease): As per #3 Budesonide twice daily DuoNebs every 6 hours. Plan Plan as stated above. We will continue to trend renal function and continue to hold diuretics at this time. We will start NS at 50 mL/h for fluid hydration in hopes to improve kidney function. director of cloud services consult for SNF/rehab placement. CODE STATUS: Full code DVT prophylaxis: Eliquis Coding Level of Care Code 12582 Diagnoses Atrial fibrillation with RVR I48.91 Rheumatoid arthritis flare M06.9 Hypoxia R09.02 Leukocytosis D72.829 Elevated brain natriuretic peptide (BNP) level R79.89 Acute kidney injury N17.9 COPD (chronic obstructive pulmonary disease) J44.9 Documented by User: Jeff Garner MD 11/06/23 09:28 Physical Exam 2 Narrative: General exam is a white female, answering questions appropriately. Not much oral fluid intake yesterday HEENT: Atraumatic normocephalic. Oropharynx clear Neck is supple no lymphadenopathy thyromegaly Cardiovascular. Regular rhythm, tachycardic. No murmur Respiratory: Lung sounds clear to auscultation. 3L/NC Abdomen is soft positive bowel sounds. Nontender. Extremities no cyanosis or clubbing. MCP joints both hands with some erythema and edema. Right ankle swollen more than the left, with some erythema laterally. Swelling has improved. Urinary Catheter Management: Shafer: Cath Placed During This Visit: yes Data 11/06/23 04:46 11/06/23 04:46 A&P Assessment and plan (1) Atrial fibrillation with RVR: (2) Rheumatoid arthritis flare: Redness and swelling to hands and feet continues to improve daily and patient is able to maneuver both extremities better each day. Patient will be transitioned from IV Solu-Medrol to p.o. prednisone today. Initiate 40 mg a day (3) Hypoxia: (4) Leukocytosis: (5) Elevated brain natriuretic peptide (BNP) level: (6) Acute kidney injury: Patient's BUN and creatinine remains the same at this time as yesterday. Renal ultrasound unremarkable. Avoid renal toxic medications. Anticipate for BUN and creatinine to potentially lower tomorrow. We will administer NS at 50 mL/h for fluid hydration. CBC and CMP in AM. Possible discharge to skilled care tomorrow if renal function improving (7) COPD (chronic obstructive pulmonary disease): Attestations 2 Medical Necessity Statement*: Needs continued hospitalization for close follow-up of acute kidney injury, not yet improved Diagnoses Atrial fibrillation with RVR I48.91 Rheumatoid arthritis flare M06.9 Hypoxia R09.02 Leukocytosis D72.829 Elevated brain natriuretic peptide (BNP) level R79.89 Acute kidney injury N17.9 COPD (chronic obstructive pulmonary disease) J44.9
[2023-11-06] MEDS: docusate sodium 100 mg Capsule PO ×2 (08:57→17:49)
[2023-11-06] MEDS: metoprolol tartrate 50 mg Tablet PO ×2 (08:57→20:28)
[2023-11-06] MEDS: folic acid 1 mg Tablet PO (08:57)
[2023-11-06] MEDS: dilTIAZem ER (24HR) 120 mg Capsule PO (08:57)
[2023-11-06] MEDS: apixaban 5 mg Tablet PO ×2 (08:57→20:28)
[2023-11-06] MEDS: pantoprazole DR 40 mg Tablet PO (08:58)
[2023-11-06] MEDS: acetaminophen 325 mg Tablet 650 MG PO ×2 (09:06→20:28)
[2023-11-06] MEDS: cefTRIAXone 1,000 MG in sodium chloride 0.9% (plus) 50 ML 100 MG IV (12:59)
[2023-11-06] MEDS: predniSONE 20 mg Tablet 40 MG PO (12:59)
[2023-11-06] MEDS: TRAMadol 50 mg Tablet PO (20:28)
[2023-11-06] MEDS: zolpidem 5 mg Tablet PO (20:28)
[2023-11-07] VITALS (16 sets, daily range): BP systolic 139–173; BP diastolic 65–93; PULSE 81–105; RESP 14–26; TEMP 36.7–37.3; O2SAT 95–100
[2023-11-07 01:51] LABS: SARS Covid-2 Antigen negative (Negative)
[2023-11-07] MEDS: ipratropium-albuterol 3 mL Neb INHALATION ×3 (03:09→14:33)
[2023-11-07 04:00] LABS: Basophils # 0.1 10^3/uL (0.0-0.1); Basophils % 0.2 %; Hematocrit 27.4 % (36-47); Lymphocytes # 1.4 10^3/uL (0.8-4.8); Lymphocytes % 6.2 %; Mean Corpuscular HGB Conc 32.1 g/dL (30-55); Mean Corpuscular Hemoglobin 30.2 pg (27-33); Mean Corpuscular Volume 94.2 fl (85-98); Mean Platelet Volume 8.8 fL (7.4-10.4); Monocytes % 4.4 %; Neutrophils # 18.52 10^3/uL (1.8-7.7); Neutrophils % 85.1 %; Nucleated Red Blood Cells % 0 %; Platelet Count 740 10^3/cmm (157-399); Red Blood Count 2.91 10^6/uL (3.85-5.65); Red Cell Distribution Width 14.9 % (12.1-15.1); White Blood Count 21.78 10^3/uL (3.29-11.43)
[2023-11-07 04:22] LABS: Anion Gap 14.6 (5-19); Blood Urea Nitrogen 68 mg/dL (8-23); Calcium 9.5 mg/dL (8.5-10.5); Carbon Dioxide 36 mmol/L (22-29); Chloride 95 mmol/L (98-107); Glucose 196 mg/dL (65-115); Osmolality Calculated 319 mOsm/kg (285-295); Potassium 3.6 mmol/L (3.5-5.1); Sodium 142 mmol/L (136-145)
[2023-11-07] MEDS: colchicine 0.6 mg Tablet PO (09:12)
[2023-11-07] MEDS: metoprolol tartrate 50 mg Tablet PO ×2 (09:12→20:17)
[2023-11-07] MEDS: folic acid 1 mg Tablet PO (09:12)
[2023-11-07] MEDS: predniSONE 20 mg Tablet 60 MG PO (09:12)
[2023-11-07] MEDS: dilTIAZem ER (24HR) 180 mg Capsule PO (09:12)
[2023-11-07] MEDS: pantoprazole DR 40 mg Tablet PO (09:12)
[2023-11-07] MEDS: apixaban 5 mg Tablet PO ×2 (09:12→20:17)
[2023-11-07] MEDS: docusate sodium 100 mg Capsule PO ×2 (09:12→17:47)
--- NOTE | 2023-11-07 09:16 | PC.SOCIAL ---
IMM Update Pg. 2 of IMM updated and reviewed with patient who verbalized understanding. Copy provided.
[2023-11-07] MEDS: budesonide 0.5 mg/2 mL Neb INHALATION (10:05)
[2023-11-07] MEDS: oxyCODONE 5 mg IR Tab/Cap PO (10:55)
--- NOTE | 2023-11-07 13:30 | P.PN_ITS ---
Subjective 2 Subjective: Any reports her hands and feet was good today. Her left ankle is more painful 2. She is more fatigued. She is breathing slightly harder according to family, although the patient does not seem to noted. Vitals/I&O/Wt Last Vital Signs Temp 99.2 F 11/07/23 12:00 Pulse 96 11/07/23 12:00 Resp 26 H 11/07/23 12:00 BP 173/93 11/07/23 12:00 Pulse Ox 95 11/07/23 12:00 O2 Del Method Nasal Cannula 11/07/23 12:00 O2 Flow Rate 3 11/07/23 10:05 11/06/23 11/07/23 11/07/23 22:59 06:59 14:59 Intake Total 550 / 1030 760 / 1790 240 / 240 Output Total 1600 / 3800 Balance 550 / -1170 -840 / -2010 240 / 240 Weight last 48 hrs Weight 84.414 kg Weight 83.461 kg Physical Exam 2 Narrative: General exam conversant and pleasant Neck is supple no lymphadenopathy thyromegaly Cardiovascular. Regular rhythm, tachycardic. No murmur Respiratory: Lung sounds clear to auscultation. 3L/NC Abdomen is soft positive bowel sounds. Nontender. Extremities no cyanosis or clubbing. MCP joints both hands with some erythema and edema. Right ankle swollen more than the left, with some erythema laterally. Swelling improved from admission but not improved from yesterday Urinary Catheter Management: Shafer: Cath Placed During This Visit: yes Reason for Continuing Indwelling Catheter: Acute Urinary Retention or Obstruction Urinary Catheter Date of Insertion: 11/03/23 Urinary Catheter Time of Insertion: 10:19 Data 11/07/23 03:39 11/07/23 03:39 A&P Assessment and plan (1) Atrial fibrillation with RVR: Patient continues to remain in sinus rhythm. Cardizem 120 p.o. daily currently being given. Increase to 180 mg a day to help with blood pressure Continue home metoprolol. Eliquis for anticoagulation (2) Rheumatoid arthritis flare: Redness and swelling to hands and feet continues to improve daily and patient is able to maneuver both extremities better each day. No better than yesterday. Increase prednisone to 60 mg p.o. daily As uric acid level was high, concern of superimposed gout was contemplated. Diuretics held. Steroids as above. Secondary to failure to improve Biaxin colchicine today. Continue daily for now. (3) Hypoxia: 3L/NC at this time. Oxygen protocol maintain SpO2 greater than 90%. No pulmonary embolism on CTA (4) Leukocytosis: Improving though slowly trending down potentially due to steroid usage. Continue Rocephin empirically. Blood cultures negative today. No evidence of UTI or pneumonia per urinalysis or chest x-ray. No fevers overnight CBC in a.m. (5) Elevated brain natriuretic peptide (BNP) level: CBC, CMP in AM. Trace edema to lower extremities. Hold any further fluids (6) Acute kidney injury: Patient's creatinine improved Renal ultrasound unremarkable. Avoid renal toxic medications. Discontinue fluids to try to prevent fluid overload CBC and CMP in AM. Possible discharge to skilled care tomorrow if renal function improving, patient's pain and swelling improving (7) COPD (chronic obstructive pulmonary disease): As per #3 Budesonide twice daily DuoNebs every 6 hours. Plan Plan as stated above. We will continue to trend renal function and continue to hold diuretics at this time. management services technician consult for SNF/rehab placement. CODE STATUS: Full code DVT prophylaxis: Arnaldo Bonner 2 Medical Necessity Statement*: Needs continued hospitalization for close monitoring of acute kidney injury, slightly improved today. Diagnoses Atrial fibrillation with RVR I48.91 Rheumatoid arthritis flare M06.9 Hypoxia R09.02 Leukocytosis D72.829 Elevated brain natriuretic peptide (BNP) level R79.89 Acute kidney injury N17.9 COPD (chronic obstructive pulmonary disease) J44.9 Time Spent (min) 25
[2023-11-07] MEDS: cefTRIAXone 1,000 MG in sodium chloride 0.9% (plus) 50 ML 100 MG IV (14:27)
[2023-11-07] MEDS: acetaminophen 325 mg Tablet 650 MG PO ×2 (15:01→20:17)
[2023-11-07] MEDS: zolpidem 5 mg Tablet PO (20:17)
[2023-11-07] MEDS: TRAMadol 50 mg Tablet PO (20:17)
[2023-11-08] VITALS (16 sets, daily range): BP systolic 134–142; BP diastolic 66–90; PULSE 82–101; RESP 16–29; TEMP 36.3–37.2; O2SAT 93–98
[2023-11-08] MEDS: ipratropium-albuterol 3 mL Neb INHALATION ×4 (02:37→20:29)
[2023-11-08 03:57] LABS: Basophils # 0.1 10^3/uL (0.0-0.1); Basophils % 0.2 %; Eosinophils # 0.1 10^3/uL (0.0-0.8); Eosinophils % 0.3 %; Hematocrit 27.9 % (36-47); Lymphocytes # 2.2 10^3/uL (0.8-4.8); Lymphocytes % 8.2 %; Mean Corpuscular HGB Conc 31.5 g/dL (30-55); Mean Corpuscular Hemoglobin 29.5 pg (27-33); Mean Corpuscular Volume 93.6 fl (85-98); Mean Platelet Volume 8.9 fL (7.4-10.4); Monocytes % 3.8 %; Neutrophils % 83.4 %; Nucleated Red Blood Cells % 0 %; Platelet Count 717 10^3/cmm (157-399); Red Blood Count 2.98 10^6/uL (3.85-5.65); White Blood Count 27.12 10^3/uL (3.29-11.43)
[2023-11-08 04:18] LABS: Alanine Aminotransferase 27 U/L (0-33); Albumin Level 2.7 g/dL (3.5-5.2); Alkaline Phosphatase 100 U/L (35-105); Anion Gap 12.2 (5-19); Aspartate Amino Transferase 22 U/L (0-32); Blood Urea Nitrogen 59 mg/dL (8-23); Calcium 9.2 mg/dL (8.5-10.5); Carbon Dioxide 36 mmol/L (22-29); Chloride 94 mmol/L (98-107); Globulin 3.5 g/dL (1.3-4.6); Glucose 171 mg/dL (65-115); Osmolality Calculated 309 mOsm/kg (285-295); Potassium 3.2 mmol/L (3.5-5.1); Sodium 139 mmol/L (136-145); Total Bilirubin 0.2 mg/dL (0.15-1.2); Total Protein 6.2 g/dL (6.6-8.7)
[2023-11-08 04:21] LABS: Uric Acid 8.2 mg/dL (2.4-5.7)
[2023-11-08] MEDS: budesonide 0.5 mg/2 mL Neb INHALATION ×2 (07:41→20:29)
[2023-11-08] MEDS: pantoprazole DR 40 mg Tablet PO (08:18)
[2023-11-08] MEDS: metoprolol tartrate 50 mg Tablet PO ×2 (08:18→20:45)
[2023-11-08] MEDS: colchicine 0.6 mg Tablet PO (08:18)
[2023-11-08] MEDS: dilTIAZem ER (24HR) 180 mg Capsule PO (08:18)
[2023-11-08] MEDS: predniSONE 20 mg Tablet 60 MG PO (08:18)
[2023-11-08] MEDS: docusate sodium 100 mg Capsule PO ×2 (08:18→17:57)
[2023-11-08] MEDS: apixaban 5 mg Tablet PO ×2 (08:18→20:45)
[2023-11-08] MEDS: folic acid 1 mg Tablet PO (08:18)
--- NOTE | 2023-11-08 11:38 | P.PN_ITS ---
Subjective 2 Subjective: Not feeling the best. Aching joints of the hands. Swelling in the legs has come down. Denies new symptoms. No fever/chills, no nausea vomiting or diarrhea, no chest pain or abdominal pain. No new rashes. Vitals/I&O/Wt Last Vital Signs Temp 98.1 F 11/08/23 07:30 Pulse 98 11/08/23 07:54 Resp 16 11/08/23 07:42 BP 135/69 11/08/23 07:30 Pulse Ox 98 11/08/23 07:42 O2 Del Method Nasal Cannula 11/08/23 07:42 O2 Flow Rate 3 11/08/23 07:42 11/07/23 11/08/23 11/08/23 22:59 06:59 14:59 Intake Total 50 / 1055 400 / 1455 120 / 120 Output Total 900 / 900 1650 / 2550 Balance -850 / 155 -1250 / -1095 120 / 120 Weight last 48 hrs Weight 87.906 kg Weight 84.414 kg Physical Exam 2 Narrative: Visited by family Const: COMMON NORMALS: patient oriented x3 and alert GENERAL APPEARANCE: c ooperative ORIENTATION/CONSCIOUSNESS: Yes awake HENMT: COMMON NORMALS: oropharynx normal Neck/C-Spine: COMMON NORMALS: no JVD Resp: COMMON NORMALS: normal respiratory effort and clear to auscultation bilaterally AUSCULTATION: clear to auscultation bilaterally Cardio: COMMON NORMALS: no JVD, regular rhythm, S1 normal heart sound present, S2 normal heart sound present and No murmurs present (Cardio) RHYTHM: regular rhythm HEART SOUNDS: S1 normal heart sound present and S2 normal heart sound present GI: COMMON NORMALS: Normal to inspection, nondistended, normoactive bowel sounds present, Soft to palpation and non-tender PALPATION: Yes Soft to palpation Extremity: COMMON NORMALS: no joint enlargement GENERAL: Yes edema (Giurgius) OTHER: Swelling, warmth, mild erythema MTP joints Neuro: COMMON NORMALS: patient oriented x3 and moves all extremities S ENSORIUM/ORIENTATION: Yes alert Skin: COMMON NORMALS: no rashes or lesions noted GENERAL SKIN EXAM: no rashes or lesions noted OTHER: Bruising Urinary Catheter Management: Shafer: Cath Placed During This Visit: yes Reason for Continuing Indwelling Catheter: Acute Urinary Retention or Obstruction Urinary Catheter Date of Insertion: 11/03/23 Urinary Catheter Time of Insertion: 10:19 Data 11/08/23 03:17 11/08/23 03:17 Micro: Microbiology 11/03/23 10:05 Blood Culture - Final Blood NO GROWTH AFTER 5 DAYS 11/03/23 09:46 Blood Culture - Final Blood NO GROWTH AFTER 5 DAYS A&P Assessment and plan (1) Rheumatoid arthritis flare: Progressive rheumatoid arthritis with severe flare, persistent symptoms. Continue steroid. Additionally with elevated uric acid, suspected component of gout. Possibly responsible for her leukocytosis. Continue colchicine. Follow- up with rheumatology. Redness and swelling to hands and feet continues to improve daily and patient is able to maneuver both extremities better each day. No better than yesterday. Increase prednisone to 60 mg p.o. daily As uric acid level was high, concern of superimposed gout was contemplated. Diuretics held. Steroids as above. Secondary to failure to improve Biaxin colchicine today. Continue daily for now. (2) Leukocytosis: Unclear cause of leukocytosis, worsened today up to 27. No diarrhea to suggest C. difficile. Reviewed vitals, CBC, CMP, urinalysis, CTA. Kidney ultrasound. She denies any new rashes. No GI symptoms. No URI symptoms. Discussed leukocytosis may be secondary to gout. Continue colchicine, steroid. She is not feeling comfortable discharging today, still feeling unwell, and with worsening leukocytosis, postpone discharge for now, will reassess condition counts in the morning. Reviewed clinical case manager notes. Conferred with coordinator who checked with [facility] she is okay to come over tomorrow if no further issues. Continue Rocephin empirically. Reviewed blood culture. Follow-up CBC requested. (3) Atrial fibrillation with RVR: Continue metoprolol, Cardizem. At risk of hypotension with combination. Monitor blood pressures. Eliquis for anticoagulation (4) Hypoxia: 3L/NC at this time. Severe emphysema. Does have some cough. Already on steroid. Antibiotic empirically. Possible COPD exacerbation. Discussed with her and family, oxygen saturation is too high, mild oxygen flow to 0.5 L, saturating 93%. At risk of CO2 retention. Oxygen protocol maintain SpO2 greater than 90%. No pulmonary embolism on CTA (5) Elevated brain natriuretic peptide (BNP) level: Severe emphysema. Swelling in lower extremities has improved. (6) Acute kidney injury: Reviewed BUN, reviewed creatinine. Gradual improvement, creatinine down to 1.8. Patient's creatinine improved Renal ultrasound unremarkable. Avoid renal toxic medications. Discontinue fluids to try to prevent fluid overload CBC and CMP in AM. Possible discharge to skilled care tomorrow if renal function improving, patient's pain and swelling improving (7) COPD (chronic obstructive pulmonary disease): With suspect exacerbation with productive cough, continues on prednisone, ceftriaxone. Budesonide twice daily DuoNebs every 6 hours. Plan CODE STATUS: Full code DVT prophylaxis: Arnaldo Bonner 2 Medical Necessity Statement*: Additional reassessment in the hospital due to worsening leukocytosis, malaise in a lady with progressive rheumatoid arthritis, severe flare with superimposed gout. and High MDM includes number and complexity of problems actively addressed during encounter and described risk of complication, morbidity or mortality of management as documented Diagnoses Rheumatoid arthritis flare M06.9 Leukocytosis D72.829 Atrial fibrillation with RVR I48.91 Hypoxia R09.02 Elevated brain natriuretic peptide (BNP) level R79.89 Acute kidney injury N17.9 COPD (chronic obstructive pulmonary disease) J44.9
[2023-11-08] MEDS: potassium chloride ER 20 mEq Tablet PO (11:58)
[2023-11-08] MEDS: cefTRIAXone 1,000 MG in sodium chloride 0.9% (plus) 50 ML 100 MG IV (14:07)
[2023-11-08] MEDS: TRAMadol 50 mg Tablet PO (20:46)
[2023-11-08] MEDS: zolpidem 5 mg Tablet PO (20:46)
[2023-11-09] VITALS (71 sets, daily range): BP systolic 139–170; BP diastolic 77–88; PULSE 80–104; RESP 16–31; TEMP 36.7–36.9; O2SAT 88–98
[2023-11-09] MEDS: ipratropium-albuterol 3 mL Neb INHALATION ×4 (01:18→20:21)
[2023-11-09 02:49] LABS: Basophils # 0.1 10^3/uL (0.0-0.1); Basophils % 0.3 %; Eosinophils # 0.1 10^3/uL (0.0-0.8); Eosinophils % 0.2 %; Hematocrit 27.9 % (36-47); Lymphocytes # 2.6 10^3/uL (0.8-4.8); Lymphocytes % 9.3 %; Mean Corpuscular HGB Conc 31.9 g/dL (30-55); Mean Corpuscular Hemoglobin 29.8 pg (27-33); Mean Corpuscular Volume 93.3 fl (85-98); Monocytes # 1.1 10^3/uL (0.2-0.9); Monocytes % 3.7 %; Neutrophils # 22.79 10^3/uL (1.8-7.7); Neutrophils % 80.7 %; Nucleated Red Blood Cells % 0 %; Platelet Count 655 10^3/cmm (157-399); Red Blood Count 2.99 10^6/uL (3.85-5.65); White Blood Count 28.25 10^3/uL (3.29-11.43)
[2023-11-09 03:00] LABS: Slide Review Slide Review Perform
[2023-11-09 03:09] LABS: Anion Gap 14.3 (5-19); Blood Urea Nitrogen 49 mg/dL (8-23); Calcium 9.2 mg/dL (8.5-10.5); Carbon Dioxide 35 mmol/L (22-29); Chloride 96 mmol/L (98-107); Glucose 181 mg/dL (65-115); Osmolality Calculated 312 mOsm/kg (285-295); Potassium 3.3 mmol/L (3.5-5.1); Sodium 142 mmol/L (136-145)
[2023-11-09] MEDS: budesonide 0.5 mg/2 mL Neb INHALATION ×2 (08:15→20:21)
[2023-11-09 09:30] LABS: LAB Peripheral Smear Sent for Review
[2023-11-09 09:39] LABS: Procalcitonin 0.44 ng/mL (0-0.5)
[2023-11-09] MEDS: dilTIAZem ER (24HR) 180 mg Capsule PO (10:04)
[2023-11-09] MEDS: apixaban 5 mg Tablet PO ×2 (10:04→20:46)
[2023-11-09] MEDS: folic acid 1 mg Tablet PO (10:05)
[2023-11-09] MEDS: colchicine 0.6 mg Tablet PO (10:05)
[2023-11-09] MEDS: potassium chloride ER 20 mEq Tablet 40 MEQ PO (10:05)
[2023-11-09] MEDS: predniSONE 20 mg Tablet 60 MG PO (10:05)
[2023-11-09] MEDS: pantoprazole DR 40 mg Tablet PO (10:06)
[2023-11-09] MEDS: metoprolol tartrate 50 mg Tablet PO ×2 (10:06→20:46)
[2023-11-09] MEDS: cefTRIAXone 1,000 MG in sodium chloride 0.9% (plus) 50 ML 100 MG IV (14:57)
--- NOTE | 2023-11-09 15:53 | P.PN_ITS ---
Subjective 2 Subjective: She worked with physical therapy. Otherwise does not feel much better today. Some malaise. Joints are still hurting. No other new symptoms. Vitals/I&O/Wt Last Vital Signs Temp 98.1 F 11/09/23 04:00 Pulse 99 11/09/23 13:48 Resp 16 11/09/23 13:48 BP 139/78 11/09/23 13:00 Pulse Ox 95 11/09/23 13:48 O2 Del Method Nasal Cannula 11/09/23 13:48 O2 Flow Rate 1 11/09/23 13:48 11/09/23 11/09/23 11/09/23 06:59 14:59 22:59 Intake Total 400 / 930 720 / 720 Output Total 950 / 4750 2200 / 2200 Balance -550 / -3820 -1480 / -1480 Weight last 48 hrs Weight 84.55 kg Weight 87.906 kg Physical Exam 2 Narrative: Accompanied by family Const: COMMON NORMALS: patient oriented x3 and alert GENERAL APPEARANCE: c ooperative ORIENTATION/CONSCIOUSNESS: Yes awake HENMT: COMMON NORMALS: oropharynx normal Neck/C-Spine: COMMON NORMALS: no JVD Resp: COMMON NORMALS: normal respiratory effort and clear to auscultation bilaterally AUSCULTATION: clear to auscultation bilaterally Cardio: COMMON NORMALS: no JVD, regular rhythm, S1 normal heart sound present, S2 normal heart sound present and No murmurs present (Cardio) RHYTHM: regular rhythm HEART SOUNDS: S1 normal heart sound present and S2 normal heart sound present GI: COMMON NORMALS: Normal to inspection, nondistended, normoactive bowel sounds present, Soft to palpation and non-tender PALPATION: Yes Soft to palpation Extremity: COMMON NORMALS: no joint enlargement GENERAL: Yes edema (Giurgius) OTHER: Swelling, warmth, mildly better erythema MTP joints Neuro: COMMON NORMALS: patient oriented x3 and moves all extremities S ENSORIUM/ORIENTATION: Yes alert Skin: COMMON NORMALS: no rashes or lesions noted GENERAL SKIN EXAM: no rashes or lesions noted OTHER: Bruising Urinary Catheter Management: Shafer: Cath Placed During This Visit: yes Reason for Continuing Indwelling Catheter: Accurate Measurement of Urinary Output in Critically Ill Patients Urinary Catheter Date of Insertion: 11/03/23 Urinary Catheter Time of Insertion: 10:19 Data 11/09/23 02:09 11/09/23 02:09 Micro: Microbiology 11/03/23 10:05 Blood Culture - Final Blood NO GROWTH AFTER 5 DAYS A&P Assessment and plan (1) Leukocytosis: Reviewed WBC, hemoglobin, platelets. Leukocytosis with worsening up to 28.25. Mild anemia stable, hemoglobin 8.9. Platelets mildly elevated 655. Suspect these may be elevated as markers of inflammation due to rheumatoid arthritis and gout flare, however, it is predominately neutrophilic, while she is immunocompromise, and having some malaise. She is afebrile. Otherwise with mild tachycardia in the 90s. Blood culture reviewed, remaining negative. Discussed with her and family has been having some loose stools, requesting stool sample for C. difficile. Will also check procalcitonin. Additionally requesting peripheral smear. She will need to follow-up for resolution of leukocytosis given chronic leukocytosis, although really not this high. Will additionally request antigen for histoplasma. Family noticed that she has been somewhat sluggish on her responses usually she is more alert. No focal abnormalities otherwise. Unclear cause of leukocytosis, worsened today up to 27. No diarrhea to suggest C. difficile. Reviewed vitals, CBC, CMP, urinalysis, CTA. Kidney ultrasound. She denies any new rashes. No GI symptoms. No URI symptoms. Additionally suspected COPD exacerbation without pneumonia, continue Rocephin. Follow-up CBC requested. (2) Rheumatoid arthritis flare: Progressive rheumatoid arthritis with severe flare, persistent symptoms. Continue steroid. Additionally with elevated uric acid, suspected component of gout. Possibly responsible for her leukocytosis. Continue colchicine. Follow- up with rheumatology. Redness and swelling to hands and feet continues to improve daily and patient is able to maneuver both extremities better each day. No better than yesterday. Increase prednisone to 60 mg p.o. daily As uric acid level was high, concern of superimposed gout was contemplated. Diuretics held. Steroids as above. Secondary to failure to improve Biaxin colchicine today. Continue daily for now. Reviewed rheumatology note. Follow-up with rheumatology. (3) Atrial fibrillation with RVR: Continue metoprolol, Cardizem. At risk of hypotension with combination. Monitor blood pressures. Eliquis for anticoagulation (4) Hypoxia: 3L/NC at this time. Severe emphysema. Does have some cough. Already on steroid. Antibiotic empirically. Possible COPD exacerbation. Discussed with her and family, oxygen saturation is too high, mild oxygen flow to 0.5 L, saturating 93%. At risk of CO2 retention. Oxygen protocol maintain SpO2 greater than 90%. No pulmonary embolism on CTA (5) Elevated brain natriuretic peptide (BNP) level: Severe emphysema. Swelling in lower extremities has improved. (6) Acute kidney injury: Reviewed BUN, reviewed creatinine. KIRSTEN continues to improve. Creatinine noted down to 1.4. Renal ultrasound unremarkable. Avoid renal toxic medications. Discontinue fluids to try to prevent fluid overload CBC and CMP in AM. Possible discharge to skilled care tomorrow if renal function improving, patient's pain and swelling improving (7) COPD (chronic obstructive pulmonary disease): With suspect exacerbation with productive cough, continues on prednisone, ceftriaxone. Budesonide twice daily DuoNebs every 6 hours. (8) Thoracic ascending aortic aneurysm: 4.4 cm ascending thoracic aortic aneurysm incidentally noted on CTA. Follow-up after discharge. (9) Hypertension: Continue metoprolol. Still hypertensive, on diltiazem 180 mg, increased to 240 mg daily. Continue to optimize hypertension. Qualifiers: Hypertension type: essential hypertension Qualified Code(s): I10 - Essential (primary) hypertension Plan Hypokalemia: Reviewed potassium, 3.3. Replace. Check magnesium. CODE STATUS: Full code DVT prophylaxis: Arnaldo Bonner 2 Medical Necessity Statement*: Additional reassessment in the hospital due to worsening leukocytosis, malaise in a lady with progressive rheumatoid arthritis, severe flare with superimposed gout. Diagnoses Leukocytosis D72.829 Rheumatoid arthritis flare M06.9 Atrial fibrillation with RVR I48.91 Hypoxia R09.02 Elevated brain natriuretic peptide (BNP) level R79.89 Acute kidney injury N17.9 COPD (chronic obstructive pulmonary disease) J44.9 Thoracic ascending aortic aneurysm I71.21 Essential hypertension I10 Hypertension type: essential hypertension
[2023-11-09] MEDS: TRAMadol 50 mg Tablet PO (20:44)
[2023-11-09] MEDS: zolpidem 5 mg Tablet PO (20:46)
[2023-11-09] MEDS: acetaminophen 325 mg Tablet 650 MG PO (20:46)
[2023-11-10] VITALS (34 sets, daily range): BP systolic 130–155; BP diastolic 69–78; PULSE 69–93; RESP 15–29; TEMP 36.6–36.7; O2SAT 96–99
[2023-11-10] MEDS: ipratropium-albuterol 3 mL Neb INHALATION ×4 (02:27→20:03)
[2023-11-10 02:46] LABS: Basophils # 0.1 10^3/uL (0.0-0.1); Basophils % 0.3 %; Eosinophils % 0.1 %; Hematocrit 28.6 % (36-47); Lymphocytes # 1.5 10^3/uL (0.8-4.8); Lymphocytes % 7.2 %; Mean Corpuscular HGB Conc 30.8 g/dL (30-55); Mean Corpuscular Hemoglobin 29.7 pg (27-33); Mean Corpuscular Volume 96.6 fl (85-98); Monocytes % 4.8 %; Neutrophils # 17.23 10^3/uL (1.8-7.7); Nucleated Red Blood Cells % 0 %; Platelet Count 682 10^3/cmm (157-399); Red Blood Count 2.96 10^6/uL (3.85-5.65); Red Cell Distribution Width 15.2 % (12.1-15.1); White Blood Count 21.51 10^3/uL (3.29-11.43)
[2023-11-10 03:07] LABS: Magnesium 1.8 mg/dL (1.7-2.3)
[2023-11-10 03:11] LABS: Anion Gap 10.6 (5-19); Blood Urea Nitrogen 45 mg/dL (8-23); Calcium 9.2 mg/dL (8.5-10.5); Carbon Dioxide 34 mmol/L (22-29); Chloride 99 mmol/L (98-107); Glucose 237 mg/dL (65-115); Osmolality Calculated 309 mOsm/kg (285-295); Potassium 3.6 mmol/L (3.5-5.1); Sodium 140 mmol/L (136-145)
[2023-11-10] MEDS: predniSONE 20 mg Tablet 60 MG PO (08:44)
[2023-11-10] MEDS: docusate sodium 100 mg Capsule PO (08:45)
[2023-11-10] MEDS: colchicine 0.6 mg Tablet PO (08:45)
[2023-11-10] MEDS: apixaban 5 mg Tablet PO ×2 (08:45→20:21)
[2023-11-10] MEDS: metoprolol tartrate 50 mg Tablet PO ×2 (08:45→20:22)
[2023-11-10] MEDS: folic acid 1 mg Tablet PO (08:45)
[2023-11-10] MEDS: pantoprazole DR 40 mg Tablet PO (08:45)
[2023-11-10] MEDS: dilTIAZem ER (24HR) 120 mg Capsule 240 MG PO (08:45)
[2023-11-10] MEDS: budesonide 0.5 mg/2 mL Neb INHALATION ×2 (08:56→20:03)
--- NOTE | 2023-11-10 10:31 | PC.NURSE ---
Verified and talk to [facility] licensed nursing assistant Sara stated, their pharmacy in [place] is close today and won't be able to dispense it for this pt. they can accept the pt as early as tomorrow morning if we want to. notified dr woodard.
[2023-11-10 10:43] LABS: Erythrocyte Sedimentation Rate 84 mm/hr (0-15)
[2023-11-10 10:47] LABS: C Reactive Protein 134.4 mg/L (0.0-4.9); Chol HDL Ratio 3.31 mg/dL (0.0-4.40); Cholesterol 139 mg/dL (0-200); HDL Cholesterol 42 mg/dL (60-100); Iron 39 ug/dL (37-145); LDL Cholesterol Calculated 75 mg/dL (50-129); Percent Saturation 29.5 % (20-50); Total Iron Binding Capacity 132 mcg/dl; Triglycerides 112 mg/dL (0-150); Unsaturated Iron Binding 93 ug/dL (112-347); VLDL Cholestrol Calculation 22 mg/dL (0-30)
[2023-11-10 11:03] LABS: Vitamin B12 1040 pg/mL (232-1245)
--- NOTE | 2023-11-10 14:25 | P.PN_ITS ---
Subjective 2 Subjective: Hospital course, labs appreciated. Seen with multiple family members at bedside. Patient laying comfortably in bed. States joint swellings and pain has reduced but still able unable to mobilize by herself. As per family members has not been able to mobilize for last 3 to 4 months and has been gradually getting worse for few years. Patient has remained hemodynamically stable and afebrile. Blood work appreciated. Vitals/I&O/Wt Last Vital Signs Temp 98.0 F 11/10/23 09:13 Pulse 79 11/10/23 14:17 Resp 22 H 11/10/23 14:17 BP 130/70 11/10/23 14:17 Pulse Ox 97 11/10/23 14:17 O2 Del Method Nasal Cannula 11/10/23 14:17 O2 Flow Rate 2 11/10/23 08:56 11/09/23 11/10/23 11/10/23 22:59 06:59 14:59 Intake Total 410 / 1130 500 / 1630 840 / 840 Output Total 1000 / 3200 900 / 4100 Balance -590 / -2070 -400 / -2470 840 / 840 Weight last 48 hrs Weight 84.822 kg Weight 84.55 kg Physical Exam 2 Narrative: General: No acute distress, AO x3, nasal cannula HEENT: PERRLA, pupils bilaterally equal and reactive Chest: Bilateral bronchial breath sounds all over lung dolan with occasional rhonchi, equal good air entry bilaterally CVS: S1-S2 irregularly irregular, no murmurs, no tachycardia, no gallops, no rubs Abdomen: Soft, nontender, no organomegaly, bowel sounds present Neuro: No focal deficits, no facial deformity, AO x3, power 5/5 in all limbs Extremity: OTHER: Swelling, warmth, mildly better erythema MTP joints Urinary Catheter Management: Shafer: Cath Placed During This Visit: yes Reason for Continuing Indwelling Catheter: Accurate Measurement of Urinary Output in Critically Ill Patients Urinary Catheter Date of Insertion: 11/03/23 Urinary Catheter Time of Insertion: 10:19 Data 11/10/23 01:57 11/10/23 01:57 A&P Assessment and plan (1) Leukocytosis: Persistent leukocytosis around 20,000. Patient has remained afebrile. Patient was on immunosuppressant therapy as an outpatient with leflunomide for rheumatoid arthritis and has been on high-dose steroids since admission. Blood cultures so far negative. Appreciate negative procalcitonin on 11/09. No concerns for pneumonia or UTI for now. Histoplasma workup sent already. Added. D glucan and Aspergillus. C. difficile PCR pending. Patient has not had a bowel movement. Patient has received ceftriaxone since 11/03. Day 8 today. Will hold off on any further antibiotics and monitor. Leukocytosis most likely inflammatory versus reactionary from rheumatoid flareup and high-dose steroids. Check ESR, CRP. (2) Rheumatoid arthritis flare: Progressive rheumatoid arthritis with severe flare, persistent symptoms. Continue steroid. Additionally with elevated uric acid, suspected component of gout. Possibly responsible for her leukocytosis. Continue colchicine. Follow- up with rheumatology. Redness and swelling to hands and feet continues to improve daily and patient is able to maneuver both extremities better each day. ESR and CRP as above. Continue with prednisone 60 mg oral daily. Will discharge on slow taper with advised to follow-up with rheumatology as an outpatient. Gout flareup unlikely given multiple joint involvement. But cannot be ruled out. Uric acid on admission of elevated. Continue with colchicine for now. (3) Atrial fibrillation with RVR: Rate controlled. Continue metoprolol, Cardizem. At risk of hypotension with combination. Monitor blood pressures. Eliquis for anticoagulation (4) Hypoxia: Chronic. Continues to remain on 3 L. Baseline. Saturation more than 95%. No PE on CT on admission. Continue with Pulmicort twice daily, DuoNebs every 6 hour. (5) Acute kidney injury: Baseline creatinine around 1.5-1.8. Stable at 1.4 for now. Medical reconciliation done for nephrotoxic drugs. Monitor BMP daily. (6) COPD (chronic obstructive pulmonary disease): No exacerbation for now. Continue with prednisone and inhalation treatment as above. Oxygen supplementation keeping saturation over 90%. (7) Thoracic ascending aortic aneurysm: 4.4 cm ascending thoracic aortic aneurysm incidentally noted on CTA. Follow-up after discharge. (8) Elevated brain natriuretic peptide (BNP) level: Severe emphysema. Swelling in lower extremities has improved. (9) Hypertension: Goal blood pressure less than 140/90 mmHg. Continue with current dose of metoprolol, Cardizem. Will uptitrate further as for goal blood pressures. Qualifiers: Hypertension type: essential hypertension Qualified Code(s): I10 - Essential (primary) hypertension Plan Hypokalemia: Repleted yesterday. Resolved. CODE STATUS: Full code DVT prophylaxis: Eliquis Protonix for PUD prophylaxis. Discharge plan: Given severe physical deconditioning in setting of chronic severe rheumatoid arthritis patient would benefit from SNF placement. Patient is agreeable. Patient has been accepted at [facility]. Attestations 2 Medical Necessity Statement*: Requires further hospitalization for management of severe physical deconditioning in setting of rheumatoid flareup, KIRSTEN, persistent leukocytosis while infection is ruled out in setting of immunosuppressive therapy Diagnoses Leukocytosis D72.829 Rheumatoid arthritis flare M06.9 Atrial fibrillation with RVR I48.91 Hypoxia R09.02 Acute kidney injury N17.9 COPD (chronic obstructive pulmonary disease) J44.9 Thoracic ascending aortic aneurysm I71.21 Elevated brain natriuretic peptide (BNP) level R79.89 Essential hypertension I10 Hypertension type: essential hypertension
[2023-11-10] MEDS: cefTRIAXone 1,000 MG in sodium chloride 0.9% (plus) 50 ML 100 MG IV (14:33)
[2023-11-10] MEDS: zolpidem 5 mg Tablet PO (20:21)
[2023-11-10] MEDS: acetaminophen 325 mg Tablet 650 MG PO (20:21)
[2023-11-10] MEDS: TRAMadol 50 mg Tablet PO (20:21)
[2023-11-11] VITALS (21 sets, daily range): BP systolic 134–153; BP diastolic 66–83; PULSE 69–87; RESP 15–29; TEMP 36.4–36.7; O2SAT 95–98
[2023-11-11] MEDS: ipratropium-albuterol 3 mL Neb INHALATION ×2 (02:43→07:33)
[2023-11-11 04:36] LABS: Basophils # 0.1 10^3/uL (0.0-0.1); Basophils % 0.3 %; Eosinophils # 0.1 10^3/uL (0.0-0.8); Eosinophils % 0.6 %; Hematocrit 28.7 % (36-47); Lymphocytes # 2.5 10^3/uL (0.8-4.8); Lymphocytes % 11.5 %; Mean Corpuscular HGB Conc 31.4 g/dL (30-55); Mean Corpuscular Hemoglobin 29.9 pg (27-33); Mean Corpuscular Volume 95.3 fl (85-98); Mean Platelet Volume 8.9 fL (7.4-10.4); Monocytes % 4.5 %; Neutrophils # 16.34 10^3/uL (1.8-7.7); Neutrophils % 76.4 %; Nucleated Red Blood Cells % 0 %; Platelet Count 810 10^3/cmm (157-399); Red Blood Count 3.01 10^6/uL (3.85-5.65); Red Cell Distribution Width 15.1 % (12.1-15.1); White Blood Count 21.41 10^3/uL (3.29-11.43)
[2023-11-11 05:02] LABS: Slide Review Slide Review Perform
[2023-11-11 05:07] LABS: Alanine Aminotransferase 24 U/L (0-33); Albumin Level 2.8 g/dL (3.5-5.2); Alkaline Phosphatase 92 U/L (35-105); Anion Gap 10.6 (5-19); Aspartate Amino Transferase 15 U/L (0-32); Blood Urea Nitrogen 33 mg/dL (8-23); Calcium 9.1 mg/dL (8.5-10.5); Carbon Dioxide 37 mmol/L (22-29); Chloride 98 mmol/L (98-107); Globulin 2.9 g/dL (1.3-4.6); Glucose 148 mg/dL (65-115); Osmolality Calculated 304 mOsm/kg (285-295); Potassium 3.6 mmol/L (3.5-5.1); Sodium 142 mmol/L (136-145); Total Bilirubin 0.2 mg/dL (0.15-1.2); Total Protein 5.7 g/dL (6.6-8.7)
[2023-11-11] MEDS: budesonide 0.5 mg/2 mL Neb INHALATION (07:33)
[2023-11-11] MEDS: predniSONE 20 mg Tablet 60 MG PO (09:04)
[2023-11-11] MEDS: apixaban 5 mg Tablet PO (09:04)
[2023-11-11] MEDS: docusate sodium 100 mg Capsule PO (09:05)
[2023-11-11] MEDS: colchicine 0.6 mg Tablet PO (09:05)
[2023-11-11] MEDS: pantoprazole DR 40 mg Tablet PO (09:05)
[2023-11-11] MEDS: dilTIAZem ER (24HR) 120 mg Capsule 240 MG PO (09:05)
[2023-11-11] MEDS: folic acid 1 mg Tablet PO (09:05)
[2023-11-11] MEDS: metoprolol tartrate 50 mg Tablet PO (09:05)
--- NOTE | 2023-11-11 11:43 | PM.DCS ---
Discharge Providers Date of Admission: 11/03/23 13:22 Date of Discharge: November 11, 2023 Attending Provider at Admission: Jeff Garner MD Attending Provider at Discharge: Fredis Corbin MD Primary Care Provider: Carlos Manuel Swift MD Diagnoses at Discharge Discharge Diagnosis (1) Leukocytosis: Status: Acute (2) Rheumatoid arthritis flare: Status: Acute (3) Atrial fibrillation with RVR: Status: Acute (4) Hypoxia: Status: Acute (5) Acute kidney injury: Status: Acute (6) COPD (chronic obstructive pulmonary disease): Status: Acute (7) Thoracic ascending aortic aneurysm: Status: Acute (8) Elevated brain natriuretic peptide (BNP) level: Status: Acute (9) Hypertension: Status: Acute Qualifiers: Hypertension type: essential hypertension Qualified Code(s): I10 - Essential (primary) hypertension Reason for Visit Reason for Visit: weakness Brief History: Any Chaves is a 72 year old female who has a past medical history of hypertension, CKD, COPD, hyperlipidemia, cellulitis, and rheumatoid arthritis presents to the ED today with complaints of weakness and severe pain all over with movement and touch. Mrs. Chaves states that she has been getting more weak over the past few months but these last four days have been the most painful- to the extent of her unable to get out of bed. She states to alleviate the pain she has been taking Tylenol and tramadol and this has helped her some but the pain is better if she just doesn't move at all . Mrs. Chaves's and daughter is at bedside and are assisting with answering questions. states that she had a fever of 101.2 yesterday. Patient mentioned she has not had any appetite the last few days and when she attempts to eat it makes her gag. Along with Mrs. Chaves arrival to the ED her heart rate was noted to be in the 100s and irregular. EKG demonstrated Afib with RVR. Patient denies chest pain, palpitations, and shortness of breath despite needed 3L NC. While speaking with Mrs. Chaves her HR was in the 90s on 12.5 IV drip Cardizem. There is no prior history of atrial fibrillation. Hospital Course Hospital Course Patient was admitted to the hospital further evaluation and management of atrial fibrillation, possible indolent infection and rheumatoid flare. She was started on Cardizem drip. Cardizem drip was later transitioned to oral Cardizem. Her heart rate has remained stable on oral Cardizem and metoprolol. On presentation there is also concern for sepsis with possible indolent infection given leukocytosis, immunocompromise status while being on leflunomide. She was started on broad-spectrum antibiotics and blood cultures were taken. Blood cultures remain negative. Patient's leukocytosis has somewhat resolved but have remained persistent around 20,000 without any spikes of fever or hemodynamic instability. Patient has finished a course of antibiotics. Peripheral smear has been sent out. Patient was found to be severely physically deconditioned most likely in setting of rheumatoid flare. Leflunomide was withheld so she was started on oral steroids after which her flare resolved. She was also found to have hyperuricemia on admission for which colchicine was added. Care was discussed in detail with patient's outpatient gear hobber set up operator who agreed with continuing oral prednisone and holding off on leflunomide. Patient would see the outpatient gear hobber set up operator within next 1 week. On admission patient also had hypoxia with concerns for mild pulmonary congestion in setting of A-fib. She was treated with broad-spectrum antibiotics and diuretics. Patient also had KIRSTEN on admission which was managed with fluid balance management. Renal functions have been back to baseline for last 48 to 72 hours. Given severe physical deconditioning and debilitation from rheumatoid arthritis safe discharge plan were discussed today with patient and her son family at bedside. They were agreeable for transfer to SNF for further rehabitation. She has been discharged on adjusted medications. She is not to take leflunomide for now. She will take prednisone taper as described. She is to follow-up with gear hobber set up operator within next 1 week. Her dose of Bumex has been changed to 2 mg daily. She is to have repeat BMP in 1 week. She is to maintain fluid restriction up to 1500 cc. She is to take oral Cardizem and metoprolol. Nifedipine and spironolactone have been withheld. Physical Exam Narrative: General: No acute distress, AO x3, nasal cannula HEENT: PERRLA, pupils bilaterally equal and reactive Chest: Bilateral bronchial breath sounds all over lung dolan with occasional rhonchi, equal good air entry bilaterally CVS: S1-S2 irregularly irregular, no murmurs, no tachycardia, no gallops, no rubs Abdomen: Soft, nontender, no organomegaly, bowel sounds present Neuro: No focal deficits, no facial deformity, AO x3, power 5/5 in all limbs Extremity: OTHER: Swelling, warmth, mildly better erythema MTP joints Urinary Catheter Management: Shafer: Cath Placed During This Visit: yes Reason for Continuing Indwelling Catheter: Other Urinary Catheter Date of Insertion: 11/03/23 Urinary Catheter Time of Insertion: 10:19 Discharge Data Studies Completed and Pending Completed Studies During Hospitalization Category Date Time Status CTA chest [CT angio chest PE protcl [id number]] Stat Cat Scan 11/03/23 10:51 Completed XR chest 1V portable [id number] Urgent Exams 11/03/23 09:35 Completed US renal BI* [id number] Routine Ultrasound 11/05/23 07:16 Completed Pending at discharge Category Date Time Status 1-3 Beta D Glucan [Fungitell Glucan Assay (Blood)] Lab 11/10/23 01:57 Received Routine Aspergillus AG,EIA,Serum Routine Lab 11/10/23 01:57 Received Clostridium Difficile PCR Routine Lab 11/09/23 09:12 Uncollected Complete Blood Count w/Auto AM LABS Lab 11/12/23 04:00 Ordered Histoplasma Galactomannan Ag Routine Lab 11/09/23 15:50 Ordered Histoplasma Quantitative AG Routine Lab 11/09/23 15:50 Ordered Radiology Impressions Chest CTA 11/03/23 10:51 IMPRESSION: 1. No pulmonary embolism or acute pulmonary pathology. 2. Marked pulmonary emphysema. 3. 4.4 cm ascending thoracic aortic aneurysm. COMMENTS: In the absence of a history or active diagnosis of lung cancer, it is recommended that this patient with emphysema be evaluated for enrollment in a low dose CT lung cancer screening program. Laboratory Results WBC 21.41 10^3/uL (3.29-11.43) H 11/11/23 04:14 RBC 3.01 10^6/uL (3.85-5.65) L 11/11/23 04:14 Hgb 9.00 g/dL (11.27-16.99) L 11/11/23 04:14 Hct 28.7 % (36-47) L 11/11/23 04:14 MCV 95.3 fl (85-98) 11/11/23 04:14 MCH 29.9 pg (27-33) 11/11/23 04:14 MCHC 31.4 g/dL (30-55) 11/11/23 04:14 RDW 15.1 % (12.1-15.1) 11/11/23 04:14 Plt Count 810 10^3/cmm (157-399) H 11/11/23 04:14 MPV 8.9 fL (7.4-10.4) 11/11/23 04:14 Neut % (Auto) 76.4 % 11/11/23 04:14 Lymph % (Auto) 11.5 % 11/11/23 04:14 [place] % (Auto) 4.5 % 11/11/23 04:14 Eos % (Auto) 0.6 % 11/11/23 04:14 Baso % (Auto) 0.3 % 11/11/23 04:14 Neut # (Auto) 16.34 10^3/uL (1.8-7.7) H 11/11/23 04:14 Lymph # (Auto) 2.5 10^3/uL (0.8-4.8) 11/11/23 04:14 [place] # (Auto) 1.0 10^3/uL (0.2-0.9) H 11/11/23 04:14 Eos # (Auto) 0.1 10^3/uL (0.0-0.8) 11/11/23 04:14 Baso # (Auto) 0.1 10^3/uL (0.0-0.1) 11/11/23 04:14 Nucleated RBC % (auto) 0 % 11/11/23 04:14 Nucleated RBCs # 0.0 /100WBC 11/11/23 04:14 Peripher Smr Path Cons Sent for review 11/09/23 02:09 ESR 84 mm/hr (0-15) H 11/10/23 01:57 Sodium 142 mmol/L (136-145) 11/11/23 04:14 Potassium 3.6 mmol/L (3.5-5.1) 11/11/23 04:14 Chloride 98 mmol/L (98-107) 11/11/23 04:14 Carbon Dioxide 37 mmol/L (22-29) H 11/11/23 04:14 Anion Gap 10.6 (5-19) 11/11/23 04:14 BUN 33 mg/dL (8-23) H 11/11/23 04:14 Creatinine 1.0 mg/dL (0.5-0.9) H 11/11/23 04:14 GFR Calculation Not Reportable 11/11/23 04:14 Glucose 148 mg/dL (65-115) H 11/11/23 04:14 Estimat Average Glucose 134 11/05/23 04:40 Hemoglobin A1c 6.3 % (4.0-6.0) H 11/05/23 04:40 Calculated Osmolality 304 mOsm/kg (285-295) H 11/11/23 04:14 Lactic Acid 3.2 mmol/L (0.5-2.2) H 11/03/23 09:46 Lactic Acid (Sepsis) 1.5 mmol/L (0.5-2.2) 11/03/23 12:03 Uric Acid 8.2 mg/dL (2.4-5.7) H 11/08/23 03:17 Calcium 9.1 mg/dL (8.5-10.5) 11/11/23 04:14 Magnesium 1.8 mg/dL (1.7-2.3) 11/10/23 01:57 Iron 39 ug/dL (37-145) 11/10/23 01:57 TIBC 132 mcg/dl 11/10/23 01:57 % Saturation 29.5 % (20-50) 11/10/23 01:57 Unsat Iron Binding 93 ug/dL (112-347) L 11/10/23 01:57 Total Bilirubin 0.2 mg/dL (0.15-1.2) 11/11/23 04:14 AST 15 U/L (0-32) 11/11/23 04:14 ALT 24 U/L (0-33) 11/11/23 04:14 Alkaline Phosphatase 92 U/L (35-105) 11/11/23 04:14 Creatine Kinase 292 U/L (26-192) H 11/03/23 09:46 CK-MB (CK-2) 3.9 ng/mL (0-5.34) 11/03/23 09:46 CK-MB (CK-2) Rel Index % (0.0-10.4) 11/03/23 09:46 Troponin T Baseline 188 ng/L (0-10) H* 11/03/23 09:46 Troponin T 120 Minute 169.9 ng/L (0-10) H 11/03/23 12:03 Delta Troponin T -18.1 ABS# (0-10) L 11/03/23 12:03 Troponin T Hi Sens 6Hr 146.2 ng/L (0-10) H 11/03/23 15:44 Troponin T Hi Sens 6Hr Delta -41.8 ng/L (0-12) L 11/03/23 15:44 C-Reactive Protein 134.4 mg/L (0.0-4.9) H 11/10/23 01:57 NT-Pro-B Natriuret Pep 42406 pg/mL (0-125) H 11/03/23 09:46 Total Protein 5.7 g/dL (6.6-8.7) L 11/11/23 04:14 Albumin 2.8 g/dL (3.5-5.2) L 11/11/23 04:14 Globulin 2.9 g/dL (1.3-4.6) 11/11/23 04:14 Triglycerides 112 mg/dL (0-150) 11/10/23 01:57 Cholesterol 139 mg/dL (0-200) 11/10/23 01:57 LDL Cholesterol, Calc 75 mg/dL (50-129) 11/10/23 01:57 Total VLDL Cholesterol 22 mg/dL (0-30) 11/10/23 01:57 HDL Cholesterol 42 mg/dL (60-100) L 11/10/23 01:57 Cholesterol/HDL Ratio 3.31 mg/dL (0.0-4.40) 11/10/23 01:57 Vitamin B12 1040 pg/mL (232-1245) 11/10/23 01:57 Procalcitonin 0.44 ng/mL (0-0.5) 11/09/23 02:09 TSH 1.50 uIU/mL (0.27-4.20) 11/03/23 09:46 Urine Color Yellow (Yellow) 11/03/23 10:15 Urine Appearance Clear (CLEAR) 11/03/23 10:15 Urine pH 6 (5-7) 11/03/23 10:15 Ur Specific West 1.010 (1.005-1.030) 11/03/23 10:15 Urine Protein 1+ (Negative) H 11/03/23 10:15 Urine Glucose (UA) Norm (Normal) 11/03/23 10:15 Urine Ketones Negative (Negative) 11/03/23 10:15 Urine Blood Neg (Negative) 11/03/23 10:15 Urine Nitrate Negative (Negative) 11/03/23 10:15 Urine Bilirubin Neg (Negative) 11/03/23 10:15 Urine Urobilinogen Norm mg/dL (Negative) 11/03/23 10:15 Ur Leukocyte Esterase Negative (Negative) 11/03/23 10:15 Urine RBC 0-4 /hpf (0-2) H 11/03/23 10:15 Urine WBC 0-4 /hpf (0-5) H 11/03/23 10:15 Ur Squamous Epith Cells 0-4 /hpf (0-5) H 11/03/23 10:15 Amorphous Sediment Not Reportable 11/03/23 10:15 Urine Bacteria 1+ /hpf (NONE) H 11/03/23 10:15 Coronavirus 229E (PCR) Not detected (NOT DETECT) 11/03/23 09:55 SARS-CoV-2 (PCR) Not detected (NOT DETECT) 11/03/23 09:55 SARS-CoV-2 Ag (Rapid) negative (Negative) 11/07/23 01:27 Vitals Last Vital Signs Temp 98.0 F 11/11/23 09:46 Pulse 87 11/11/23 09:46 Resp 18 11/11/23 09:46 BP 134/83 11/11/23 09:46 Pulse Ox 95 11/11/23 09:46 O2 Del Method Nasal Cannula 11/11/23 09:46 O2 Flow Rate 2 11/11/23 07:33 Discharge Plan Discharge Patient Disposition: Xfer SNF Condition: Stable Prescriptions: New docusate sodium 100 mg Capsule 100 mg PO BID Qty: 10 0RF colchicine 0.6 mg Tablet 0.6 mg PO DAILY Qty: 30 0RF prednisone 20 mg Tablet See Rx Instructions .ROUTE .COMPLEX Qty: 90 0RF Rx Instructions: Continue 60 mg daily, decrease 10 mg every 5 days till dose decreased to 10 mg daily diltiazem HCl 120 mg Capsule,Extended Release 24hr 240 mg PO DAILY 30 Days Qty: 60 0RF Continued cholecalciferol (vitamin D3) 1,250 mcg (50,000 unit) capsule 1,000 mcg PO DAILY@0800 fluticasone propion-salmeterol [Advair Diskus] 500-50 mcg/dose blister with device 1 inh INHALATION BID@0800,1800 coenzyme Q10 [Co Q-10] 200 mg capsule 200 mg PO DAILY tramadol 50 mg tablet 50 mg PO Q8H PRN (Reason: Pain) albuterol sulfate [Ventolin HFA] 90 mcg/actuation Hfa Aerosol Inhaler 2 puff INHALATION Q6H PRN (Reason: Wheezing) diphenhydramine HCl [Benadryl] 25 mg Capsule 25 mg PO BEDTIME PRN (Reason: Allergic Symptoms) folic acid 1 mg tablet 1 mg PO DAILY hydrocortisone 2.5 % cream 1 applic TOPICAL DAILY PRN (Reason: Rash) PNV cmb#95-ferrous fumarate-FA [] 28 mg iron- 800 mcg Tablet 1 tab PO DAILY Home-3 Fish Oil 300-1,000 mg Capsule 1 cap PO QAM omeprazole 20 mg tablet,delayed release (DR/EC) 20 mg PO DAILY 84 Days Qty: 30 0RF metoprolol tartrate 50 mg tablet 50 mg PO BID Changed bumetanide 2 mg tablet 2 mg PO DAILY 30 Days Qty: 30 0RF Rx Instructions: 2 mg orally; Held leflunomide 10 mg tablet 10 mg PO DAILY Qty: 30 3RF Hold Instructions: Resume on 11/22/23. Discontinued nifedipine 30 mg tablet extended release 30 mg PO DAILY Qty: 90 3RF metolazone 5 mg tablet See Rx Instructions .ROUTE .COMPLEX Qty: 90 2RF Dose Instruction: TAKE 1 TABLET BY MOUTH FOUR TIMES WEEKLY Rx Instructions: TAKE 1 TABLET BY MOUTH FOUR TIMES WEEKLY ON [id number] spironolactone 25 mg tablet 25 mg PO DAILY Qty: 90 3RF chlorzoxazone 500 mg tablet 50 mg PO TID PRN (Reason: Muscle Spasm) potassium chloride 10 mEq tablet extended release 40 meq PO DAILY Discharge Orders: Discharge Order (Routine); Ordered 11/11/23 Ordered By: Fredis Corbin Referrals: [facility] [Outside] Fortino Villar MD [Physician] - 4-7 days (We have notified your physician's clinic of the need for a follow-up appointment to be scheduled. If you have not heard from them within the next 2 business days, please call them directly. ) Carlos Manuel Swift MD [Primary Care Provider] - 4-7 days Discharge Diet: Cardiac Discharge Activity: Resume usual activity and Increase activity as tolerated Patient Instructions: Diltiazem (By mouth) (Cardizem, Cardizem CD, Cardizem LA, Cardizem SR), Prednisone (By mouth) (predniSONE Intensol, Prednicot, Deltasone, Dong), Colchicine (By mouth) (Colcrys, Mitigare, Lodoco), Heart Failure (DC), A-fib (Atrial Fibrillation) (DC), Acute Kidney Injury (DC), CHF Stoplight, COPD Stoplight, Opioid Safety Activity Restrictions/Additional Instructions: Please follow-up with rheumatology at the earliest. Do not take leflunomide till seen by rheumatology. Continue taking prednisone as directed. Continue taking 60 mg daily for next 5 days, after that decrease 10 mg every 5 days till you are down to 10 mg daily. Continue taking 10 mg prednisone daily till you are seen by rheumatology. Repeat BMP in 1 week. Multiple other medication changes have been done. Discharge Attestations Time Spent in Discharge Care*: greater than 30 min Specific Discharge Activities: educating patient, educating and/or supporting family/caregiver, discussing with pcp/other providers, discussing with ed case manager/social workers/dc planners, documenting/other paperwork and evaluating patient/reviewing data Quality Metrics Clinical Quality Measures [ No reported AMI, CVA or VTE this stay] Coding Level of Care Code 97333 Total time (in minutes) for Discharge: 60 Diagnoses Leukocytosis D72.829 Rheumatoid arthritis flare M06.9 Atrial fibrillation with RVR I48.91 Hypoxia R09.02 Acute kidney injury N17.9 COPD (chronic obstructive pulmonary disease) J44.9 Thoracic ascending aortic aneurysm I71.21 Elevated brain natriuretic peptide (BNP) level R79.89 Essential hypertension I10 Hypertension type: essential hypertension
--- NOTE | 2023-11-11 14:27 | PC.NURSE ---
Report called to [facility] and given to ANGEL LUIS Miller.
[2023-11-11] MEDS: oxyCODONE 5 mg IR Tab/Cap PO (15:16)
--- NOTE | 2023-11-11 16:07 | PC.NURSE ---
Discharge Note Patient discharged to [[facility]] via [gurney] accompanied by [spouse and EMS personnel]. Discharge instructions reviewed with patient and/or sales representative uniforms. Mobile pharmacy medications and/or prescriptions provided. Belongings/home medications returned.
[2023-11-13 22:30] LABS: Aspergillus AG,EIA,Serum NOT DETECTED; Aspergillus Galactomannan Inde <0.50
[2023-11-14 22:35] LABS: Fungitell 1-3-B Glucan Assay <31 pg/mL; Interpretation NEGATIVE
== END 2023-11-11 16:38 | disposition skilled nursing facility (03) | DRG 683 ==
LOC: ER 10:48 → ER IP 13:23 → CSU 16:22
PROVIDERS: Internal Medicine; Physician Assistant; Admitting Provider Internal Medicine; Emergency Provider Family Medicine; PCP Family Medicine; Visit Provider Student in an Organized Health Care Education/Training Program
DX: N17.9 Acute kidney failure, unspecified (principal); I13.0 Hypertensive heart and chronic kidney disease with heart failure and stage 1 through stage 4 chronic kidney disease, or unspecified chronic kidney disease; I50.32 Chronic diastolic (congestive) heart failure; I48.91 Unspecified atrial fibrillation; N18.9 Chronic kidney disease, unspecified; J43.9 Emphysema, unspecified; E78.5 Hyperlipidemia, unspecified; M06.09 Rheumatoid arthritis without rheumatoid factor, multiple sites; D63.1 Anemia in chronic kidney disease; R09.02 Hypoxemia; M10.9 Gout, unspecified; I71.20 Thoracic aortic aneurysm, without rupture, unspecified; Z11.52 Encounter for screening for COVID-19; Z87.01 Personal history of pneumonia (recurrent); Z87.891 Personal history of nicotine dependence
CPT/HCPCS: 36415; 51702; 71045; 71275; 76770; 80048; 80053; 80061; 80503; 81001; 82550; 82553; 82607; 83036; 83540; 83550; 83605; 83735; 83880; 84145; 84443; 84484; 84550; 85025; 85651; 86140; 87040; 87305; 87426; 87449; 87635; 93005; 94640; 96365; 96372; 96375; 96376; 97110; 97161; 97530; 99285; J0696; J1650; J1956; J2930; J3490; J7030; J7050; J7512; J7626; Q9967

== ENCOUNTER 2023-11-24 05:39 | Inpatient (IN) | payer MEDICARE, OTHER, SELFPAY ==
[2023-11-24] VITALS (48 sets, daily range): BP systolic 90–171; BP diastolic 61–93; PULSE 57–138; RESP 16–33; TEMP 36.7–37.8; O2SAT 90–100; BMI 29.7; BMI 29.8
--- NOTE | 2023-11-24 05:49 | XRR_ITS ---
PROCEDURE INFORMATION: Exam: XR Chest Exam date and time: 11/24/2023 5:54 AM Age: 72 years old Clinical indication: Shortness of breath; Patient HX: EMS arrival for resp distress. On bipap. History of copd and chf. ; Additional info: SOB TECHNIQUE: Imaging protocol: Radiologic exam of the chest. Views: 1 view. COMPARISON: 1. CT angio chest PE protcl [id number] 11/03/2023 12:29 PM 2. CR XR chest 1V portable [id number] 11/03/2023 9:40 AM 3. CR XR chest 1V portable [id number] 09/18/2023 6:40 AM FINDINGS: Lungs: Mild medial right basilar opacification. Pleural spaces: Small right pleural effusion. No pneumothorax. Heart/Mediastinum: Unremarkable. No cardiomegaly. Vasculature: Aortic arch atherosclerotic calcification. Bones/joints: Mild dextroconvex spinal curvature and degenerative changes. XR/XR chest 1V portable [id number] IMPRESSION: 1. Mild right basilar opacification may represent atelectasis, aspiration or pneumonia. 2. Small right pleural effusion.
--- NOTE | 2023-11-24 05:50 | ECG_ITS ---
[facility] Test Date: 2023-11-24 Pat Name: Any Chaves Department: Room: Gender: Female Subway Conductor: : 1950 Requested By: Efrain Alejandra Order Number: [id number] Terese MD: Mark Lawton M.D. Measurements Intervals [place] Rate: 145 P: 72 DE: 117 QRS: 58 QRSD: 79 T: 13 QT: 267 QTc: 415 Interpretive Statements POSSIBLE SINUS TACHYCARDIA WITH SHORT DE INTERVAL MODERATE VOLTAGE CRITERIA FOR LVH, CONSIDER NORMAL VARIANT [MEETS CRITERIA IN ONE OF: R(aVL), S(V1), R(V5), R(V5/V6)+S(V1)] NONSPECIFIC ST & T-WAVE ABNORMALITY Compared to ECG 11/03/2023 15:46:12 T-wave abnormality now present ST (T wave) deviation no longer present Electronically Signed On 11-24-2023 10:50:32 TOE LINING CLOSER by Mark Lawton M.D. [id number]
[2023-11-24] MEDS: FUROsemide 10 mg/mL SDV 10mL 80 MG IVP ×2 (05:57→17:29)
[2023-11-24] MEDS: dilTIAZem 5 mg/mL SDV 5 mL 20 MG IVP (05:58)
[2023-11-24 06:01] LABS: ABG PCO2 53.2 mmHg (35-45); Arterial Blood Gas Hematocrit 32.2 % (37-47); Base Excess ABG 15.8 mmol/L (-2.0-2.0); Blood Gas Allen Test Pos; Blood Gas Sample Site Radial, left; Blood Gas Sample Type Arterial; Carboxyhemoglobin 0.1 %THgb (0.4-20.1); HCO3 ABG 41.1 mmol/L (22-26); HGB O2 Sat 94.6 % (95-100); Methemoglobin 0.7 % (0.4-1.5); Oxygen Device BIPAP; PO2 ABG 86.8 mmHg (80.0-100.0); PO2 FiO2 Ratio Arterial Blood 0; Total Hemoglobin 10.5 g/dL (12-16)
[2023-11-24 06:02] LABS: Basophils # 0.1 10^3/uL (0.0-0.1); Basophils % 0.3 %; Eosinophils # 0.3 10^3/uL (0.0-0.8); Eosinophils % 1.4 %; Lymphocytes # 3.7 10^3/uL (0.8-4.8); Lymphocytes % 17.1 %; Mean Corpuscular HGB Conc 30.9 g/dL (30-55); Mean Corpuscular Hemoglobin 29.7 pg (27-33); Mean Corpuscular Volume 95.9 fl (85-98); Monocytes # 0.4 10^3/uL (0.2-0.9); Neutrophils % 78.6 %; Nucleated Red Blood Cells % 0 %; Platelet Count 287 10^3/cmm (157-399); Red Blood Count 3.44 10^6/uL (3.85-5.65); Red Cell Distribution Width 16.5 % (12.1-15.1); White Blood Count 21.88 10^3/uL (3.29-11.43)
--- NOTE | 2023-11-24 06:07 | ED_ITS ---
HPI - SOB/Dyspnea 2 General: Chief Complaint: Shortness of Breath/Dyspnea Stated Complaint: RESP. DISTRESS Time Seen by Provider: 11/24/23 05:49 History of Present Illness: HPI Narrative: 72-year-old female long-term patient presenting with respiratory distress. She is found by long-term staff to be very short of breath. She has a temperature of 100 this morning. She has a cough. No sputum production. Heart rate was found by EMS to be above 160. She was given adenosine, 6 then 12 mg with some transient improvement in her heart rate. Her heart rate is back up to 140 now, and is irregular. Associated symptoms: Reports fever(s); Deny chest pain or vomiting Review of Systems 2 Const: Reports: fever(s) Card: Denies: chest pain Resp: Reports: dyspnea and productive cough GI: Denies: vomiting PFSH ED 2 PFSH: Medical History (Updated 11/24/23 @ 22:21 by Efrain Wall DO) Hypertrophic obstructive cardiomyopathy CKD (chronic kidney disease) stage 3, GFR 30-59 ml/min Seronegative rheumatoid arthritis of both hands Acute kidney injury Rheumatoid arthritis flare Cellulitis Sepsis Left lower lobe pneumonia Immunization counseling High risk medication use Edema, peripheral Macrocytic anemia Chronic kidney disease Leg swelling COPD (chronic obstructive pulmonary disease) Cardiomyopathy Chronic diastolic heart failure Hypertension Hyperlipidemia Surgical History History of tonsillectomy Family History Mother CAD (coronary artery disease) Cancer Diabetes Father Chronic kidney disease (CKD) Other Hypertension Denies family history of Clotting disorder Dementia Suicide Anesthesia complication Bleeding disorder Lung disease Stroke Social History Smoking and tobacco/nicotine status: former use of tobacco/nicotine Alcohol intake: current Alcohol intake frequency: holidays/special occasions only Substance/Drug Use: never Household members: family Housing: House Physical Exam 2 Const: GENERAL APPEARANCE: cooperative, in distress, ill appearing and frail appearing HENMT: COMMON NORMALS: normocephalic, atraumatic and Normal external nose present HEAD & SCALP: normocephalic and atraumatic FACE & SINUS: normal facial exam and face symmetric NOSE: Normal external nose present Eye: COMMON NORMALS: Equal, round and reactive pupils present and EOMs intact bilaterally PUPIL: Yes Equal, round and reactive pupils present Neck/C-Spine: GENERAL: Yes trachea midline Chest: CHEST: Yes Symmetrical chest wall rise Resp: EFFORT & INSPECTION: Yes tachypneic and Yes labored AUSCULTATION: r ales Cardio: COMMON NORMALS: regular rate RATE: regular rate and tachycardic RHYTHM: abnormal rhythm irregularly irregular GI: COMMON NORMALS: Normal to inspection, nondistended, normoactive bowel sounds present Extremity: COMMON NORMALS: no pedal edema Neuro: MIRELLA COMA SCALE: document GCS findings Mirella coma scale eye opening: Spontaneous Mirella coma scale verbal response: Confused Bradley coma scale motor response: Obey commands Mirella coma scale total score: 14 S ENSORY EXAM: Yes extremities (intact) Psych: COMMON NORMALS: speech normal SPEECH: Yes normal speech Skin: COMMON NORMALS: no rashes or lesions noted GENERAL SKIN EXAM: no rashes or lesions noted Course 2 Vital Signs: Vital signs: Vital Signs Temperature 98.9 F 11/24/23 20:00 Pulse Rate 57 L 11/24/23 20:00 Respiratory Rate 16 11/24/23 20:00 Blood Pressure 118/61 11/24/23 20:00 Pulse Oximetry 97 11/24/23 20:00 Oxygen Delivery Me thod BiPAP 11/24/23 20:00 Oxygen Flow Rate 10 11/24/23 05:44 Fraction of Inspir ed Oxygen 35 11/24/23 20:00 MDM - SOB/Dyspnea Medical Decision Making 72-year-old long-term patient here in respiratory distress. She is significantly tachycardic, has a fever. She is also swollen, and sounds fluid overloaded. 1 L bolus was ordered as opposed to a full sepsis bolus because of this. Temperature is 100.1. Heart rate was 140s. Currently down to 119 after diltiazem. Fluid is infusing. White blood cell count is 22. Hemoglobin is 10. pO2 is 87 on 10 L. She is placed on BiPAP. Other laboratories pending. Blood cultures have been drawn. Antibiotics are begun. She'll require admission for hypoxic resp failure. As bnp is 15,000 and she has pleural effusions, she is given lasix despite the fever. Lab Data 11/24/23 05:52 11/24/23 05:52 Labs/Radiology: Radiology Impressions Chest X-Ray 11/24/23 05:49 IMPRESSION: 1. Mild right basilar opacification may represent atelectasis, aspiration or pneumonia. 2. Small right pleural effusion. Laboratory Results WBC 21.88 10^3/uL (3.29-11.43) H 11/24/23 05:52 RBC 3.44 10^6/uL (3.85-5.65) L 11/24/23 05:52 Hgb 10.20 g/dL (11.27-16.99) L 11/24/23 05:52 Hct 33.0 % (36-47) L 11/24/23 05:52 MCV 95.9 fl (85-98) 11/24/23 05:52 MCH 29.7 pg (27-33) 11/24/23 05:52 MCHC 30.9 g/dL (30-55) 11/24/23 05:52 RDW 16.5 % (12.1-15.1) H 11/24/23 05:52 Plt Count 287 10^3/cmm (157-399) 11/24/23 05:52 MPV 11.0 fL (7.4-10.4) H 11/24/23 05:52 Neut % (Auto) 78.6 % 11/24/23 05:52 Lymph % (Auto) 17.1 % 11/24/23 05:52 Villalba % (Auto) 2.0 % 11/24/23 05:52 Eos % (Auto) 1.4 % 11/24/23 05:52 Baso % (Auto) 0.3 % 11/24/23 05:52 Neut # (Auto) 17.20 10^3/uL (1.8-7.7) H 11/24/23 05:52 Lymph # (Auto) 3.7 10^3/uL (0.8-4.8) 11/24/23 05:52 Villalba # (Auto) 0.4 10^3/uL (0.2-0.9) 11/24/23 05:52 Eos # (Auto) 0.3 10^3/uL (0.0-0.8) 11/24/23 05:52 Baso # (Auto) 0.1 10^3/uL (0.0-0.1) 11/24/23 05:52 Nucleated RBC % (auto) 0 % 11/24/23 05:52 Nucleated RBCs # 0.0 /100WBC 11/24/23 05:52 Specimen Type Arterial 11/24/23 05:55 Sample Site Radial, left 11/24/23 05:55 ABG pH 7.50 (7.35-7.45) H 11/24/23 05:55 ABG pCO2 53.2 mmHg (35-45) H 11/24/23 05:55 ABG pO2 86.8 mmHg (80.0-100.0) 11/24/23 05:55 ABG PO2/FiO2 Ratio 0 11/24/23 05:55 ABG HCO3 41.1 mmol/L (22-26) H 11/24/23 05:55 ABG Base Excess 15.8 mmol/L (-2.0-2.0) H 11/24/23 05:55 Perry Test Pos 11/24/23 05:55 Hematocrit 32.2 % (37-47) L 11/24/23 05:55 Hgb O2 Saturation 94.6 % (95-100) L 11/24/23 05:55 Carboxyhemoglobin 0.1 %THgb (0.4-20.1) L 11/24/23 05:55 Methemoglobin 0.7 % (0.4-1.5) 11/24/23 05:55 Total Hemoglobin 10.5 g/dL (12-16) L 11/24/23 05:55 O2 Delivery Device Bipap 11/24/23 05:55 FiO2 60.0 % 11/24/23 05:55 Nub Card Tender ID [email or web address] 11/24/23 05:55 Sodium 140 mmol/L (136-145) 11/24/23 05:52 Potassium 3.5 mmol/L (3.5-5.1) 11/24/23 05:52 Chloride 90 mmol/L (98-107) L 11/24/23 05:52 Carbon Dioxide 38 mmol/L (22-29) H 11/24/23 05:52 Anion Gap 15.5 (5-19) 11/24/23 05:52 BUN 24 mg/dL (8-23) H 11/24/23 05:52 Creatinine 1.1 mg/dL (0.5-0.9) H 11/24/23 05:52 GFR Calculation Not Reportable 11/24/23 05:52 Glucose 225 mg/dL (65-115) H 11/24/23 05:52 Calculated Osmolality 301 mOsm/kg (285-295) H 11/24/23 05:52 Lactic Acid 2.4 mmol/L (0.5-2.2) H 11/24/23 06:05 Lactic Acid (Sepsis) 1.5 mmol/L (0.5-2.2) 11/24/23 09:08 Calcium 9.3 mg/dL (8.5-10.5) 11/24/23 05:52 Total Bilirubin 0.5 mg/dL (0.15-1.2) 11/24/23 05:52 AST 16 U/L (0-32) 11/24/23 05:52 ALT 33 U/L (0-33) 11/24/23 05:52 Alkaline Phosphatase 111 U/L (35-105) H 11/24/23 05:52 Troponin T Baseline 114 ng/L (0-10) H* 11/24/23 05:52 Troponin T 120 Minute 174.6 ng/L (0-10) H 11/24/23 07:48 Delta Troponin T 60.6 ABS# (0-10) H* 11/24/23 07:48 NT-Pro-B Natriuret Pep 97969 pg/mL (0-125) H 11/24/23 05:52 Total Protein 6.0 g/dL (6.6-8.7) L 11/24/23 05:52 Albumin 3.3 g/dL (3.5-5.2) L 11/24/23 05:52 Globulin 2.7 g/dL (1.3-4.6) 11/24/23 05:52 Adenovirus (PCR) Not detected (NOT DETECT) 11/24/23 06:10 C. pneumoniae DNA (PCR) Not detected (NOT DETECT) 11/24/23 06:10 Coronavirus 229E (PCR) Not detected (NOT DETECT) 11/24/23 06:10 Human Metapneumovir PCR Not detected (NOT DETECT) 11/24/23 06:10 Influenza A (H1) PCR Not detected (NOT DETECT) 11/24/23 06:10 Influ A (H1/09) PCR Not detected (NOT DETECT) 11/24/23 06:10 Influenza A (H3) PCR Not detected (NOT DETECT) 11/24/23 06:10 Influenza Type A (PCR) Not detected (NOT DETECT) 11/24/23 06:10 Influenza Type B (PCR) Not detected (NOT DETECT) 11/24/23 06:10 M. pneumoniae (PCR) Not detected (NOT DETECT) 11/24/23 06:10 Parainfluenza 1 (PCR) Not detected (NOT DETECT) 11/24/23 06:10 Parainfluenza 2 (PCR) Not detected (NOT DETECT) 11/24/23 06:10 Parainfluenza 3 (PCR) Detected (NOT DETECT) A 11/24/23 06:10 Parainfluenza 4 (PCR) Not detected (NOT DETECT) 11/24/23 06:10 RSV Type A (PCR) Not detected (NOT DETECT) 11/24/23 06:10 RSV Type B (PCR) Not detected (NOT DETECT) 11/24/23 06:10 Entero/Rhino (PCR) Not detected (NOT DETECT) 11/24/23 06:10 SARS-CoV-2 (PCR) Not detected (NOT DETECT) 11/24/23 06:10 XR interpretation done by ED provider, pending radiology final review Critical Care Time 2 Critical Care Time: Critical Care Time: Yes Total Critical Care Time: 35 Attestation: This case had a high probability of a clinically significant, sudden, or life threatening deterioration of this patient's condition which required my full and direct attention, intervention and personal management. Time excludes any procedures performed. 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
[2023-11-24] MEDS: ipratropium-albuterol 3 mL Neb INHALATION (06:09)
[2023-11-24] MEDS: dilTIAZem 100 MG in sodium chloride 0.9% (add-van) 100 ML IV (06:17)
[2023-11-24 06:19] LABS: Troponin(5th) Baseline 114 ng/L (0-10)
[2023-11-24 06:27] LABS: Alanine Aminotransferase 33 U/L (0-33); Albumin Level 3.3 g/dL (3.5-5.2); Alkaline Phosphatase 111 U/L (35-105); Anion Gap 15.5 (5-19); Aspartate Amino Transferase 16 U/L (0-32); Blood Urea Nitrogen 24 mg/dL (8-23); Calcium 9.3 mg/dL (8.5-10.5); Carbon Dioxide 38 mmol/L (22-29); Chloride 90 mmol/L (98-107); Globulin 2.7 g/dL (1.3-4.6); Glucose 225 mg/dL (65-115); NT Pro B Type Natriuretic Pept 15427 pg/mL (0-125); Osmolality Calculated 301 mOsm/kg (285-295); Potassium 3.5 mmol/L (3.5-5.1); Sodium 140 mmol/L (136-145); Total Bilirubin 0.5 mg/dL (0.15-1.2)
[2023-11-24] MEDS: sodium chloride 0.9% 1,000 ML 999 ML IV (06:34)
[2023-11-24] MEDS: piperacillin-tazobactam 4.5 GM in sodium chloride 0.9% (plus) 50 ML IV (06:34)
[2023-11-24 06:35] LABS: Lactic Sepsis W/Reflex 2.4 mmol/L (0.5-2.2)
[2023-11-24] MEDS: vancomycin 1,250 MG/250 ML PIGGYBACK 250 MG IV (07:01)
--- NOTE | 2023-11-24 07:52 | ECG_ITS ---
[facility] Test Date: 2023-11-24 Pat Name: Any Chaves Department: Room: Gender: Female Sole Tier: : 1950 Requested By: Efrain Alejandra Order Number: [id number] Terese MD: Mark Lawton M.D. Measurements Intervals [place] Rate: 104 P: 0 [place]: 0 QRS: 46 QRSD: 75 T: 52 QT: 334 QTc: 441 Interpretive Statements ATRIAL FIBRILLATION WITH RAPID VENTRICULAR RESPONSE MINIMAL VOLTAGE CRITERIA FOR LVH, CONSIDER NORMAL VARIANT [MEETS CRITERIA IN ONE OF: R(aVL), S(V1), R(V5), R(V5/V6)+S(V1)] MODERATE ST DEPRESSION [0.05+ mV ST DEPRESSION] Compared to ECG 11/24/2023 05:50:09 ST (T wave) deviation now present T-wave abnormality no longer present Electronically Signed On 11-24-2023 10:52:03 THREADING MACHINE OPERATOR by Mark Lawton M.D. [email or web address]
[2023-11-24 08:03] LABS: Adenovirus Not Detected (NOT DETECT); Chlamydia Pneumoniae Not Detected (NOT DETECT); Coronavirus 229E,HKU1,NL63,OC4 Not Detected (NOT DETECT); Human Metapneumovirus Not Detected (NOT DETECT); Human Rhinovirus/Enterovirus Not Detected (NOT DETECT); Influenza A Not Detected (NOT DETECT); Influenza A H1 Not Detected (NOT DETECT); Influenza A H1-2009 Not Detected (NOT DETECT); Influenza A H3 Not Detected (NOT DETECT); Influenza B Not Detected (NOT DETECT); Mycoplasma Pneumoniae Not Detected (NOT DETECT); Parainfluenza Virus Type 1 Not Detected (NOT DETECT); Parainfluenza Virus Type 2 Not Detected (NOT DETECT); Parainfluenza Virus Type 3 Detected (NOT DETECT); Parainfluenza Virus Type 4 Not Detected (NOT DETECT); Respiratory Syncytial Virus A Not Detected (NOT DETECT); Respiratory Syncytial Virus B Not Detected (NOT DETECT); SARS-COV-2 Not Detected (NOT DETECT)
[2023-11-24 08:05] LABS: Reflex Lactate Order REFLEX LACTIC ORDERD
[2023-11-24 08:41] LABS: Troponin 5 2HR 174.6 ng/L (0-10); Troponin 5 2HR Delta 60.6 ABS# (0-10)
[2023-11-24 09:39] LABS: Lactic Acid level (Lactate) 1.5 mmol/L (0.5-2.2)
--- NOTE | 2023-11-24 10:19 | P.HP_ITS ---
Documented by User: Tristin Patel Traorelynn 11/24/23 11:46 Providers/Chief Complaint 2 Admitting Physician: Jeff Garner MD Primary Care Provider: Carlos Manuel Swift MD Chief Complaint: RESP. DISTRESS History of Present Illness Patient is a 72-year-old female with a past medical history of hypertension, CKD, COPD, hyperlipidemia, cellulitis, CHF, and rheumatoid arthritis who presents the emergency room with a chief complaint of increased shortness of breath, tachycardia, weakness, and increased swelling. Patient currently resides at a SNF, [facility]. Recent hospitalization with a discharge date of 11/11/2023. Family reports that they started to notice an increase swelling in lower extremity on patient approximately 3 days ago and increasingly worsening since. Family and patient states she has been working well with PT/OT without complications or a noticable increase work of breathing during therapy treatment. Patient reports yesterday morning, that she felt somewhat short of breath while sitting in the chair, more than normal and increasingly worsened throughout the day. Reports that she asked nursing staff at SNF for a breathing treatment that afternoon and reported that it helped some but still in slight respiratory distress. States she felt like water was in her lungs and she was unable to lye flat. Vital signs were obtained by nursing staff and noted heart rate of >140s. EMS was notdified and transferred patient to ER for further evaluation. EMS noted HR to be 160 and administered 6 of adenosine, which failed to decrease HR. 12mg Adenosine was administered and slightly decreased HR. Patient presented to the ED in Afib with RVR with a rate of 140. Denies any Recent medication changes and has remained on current medication regimen. While in the ER, Laboratory studies and radiology imaging were performed and discussed below. Patient received 20 mg Cardizem IV push x 1, 80 mg Lasix IV, DuoNeb, vancomycin, Zosyn, 1 L NS, continuous Cardizem drip. Patient will be admitted to the hospital for further medical management of acute CHF exacerbation, elevated troponin, leukocytosis, A-fib with RVR, and parainfluenza. Review of Systems 2 Narrative: Comprehensive 10 point ROS is negative except as noted in the HPI above. Medications/Allergies Home Medications Medication Instructions Recorded Confirmed Last Taken Type cholecalciferol (vitamin D3) 1,250 1,000 mcg PO DAILY@0800 01/25/20 11/24/2323 History mcg (50,000 unit) capsule fluticasone 500 mcg-salmeterol 50 1 inh inhalation BID@0800,1800 01/25/20 11/24/23 11/03/23 History mcg/dose blistr powdr for inhalation (Advair Diskus) albuterol sulfate 90 mcg/actuation 2 puff inhalation Q6H PRN Wheezing 11/08/20 11/24/23 11/08/20 History aerosol inhaler (Ventolin HFA) coenzyme Q10 200 mg capsule (Co 200 mg PO DAILY 05/08/21 11/24/23 11/03/23 History Q-10) leflunomide 10 mg tablet 10 mg PO DAILY #30 tabs 08/26/23 11/24/23 11/03/23 Rx tramadol 50 mg tablet 50 mg PO Q8H PRN Pain 08/26/23 11/24/23 Unknown History diphenhydramine HCl 25 mg capsule 25 mg PO BEDTIME PRN Allergic 09/17/23 11/24/23 09/16/23 History (Benadryl) Symptoms folic acid 1 mg tablet 1 mg PO DAILY 09/17/23 11/24/23 11/03/23 History hydrocortisone 2.5 % topical cream 1 applic topical DAILY PRN Rash 09/17/23 11/24/23 Unknown History omega-3s 300 bc-qvj-hfd-other 1 cap PO QAM 09/17/23 11/24/23 11/03/23 History [id number] oil 1,000 mg capsule (Buxton-3 Fish Oil) omeprazole 20 mg tablet,delayed 20 mg PO DAILY 12 weeks #30 tabs 09/20/23 11/24/23 11/03/23 Rx release metoprolol tartrate 50 mg tablet 50 mg PO BID 11/03/23 11/24/23 11/03/23 History colchicine 0.6 mg tablet 0.6 mg PO DAILY #30 tabs 11/11/23 11/24/23 Unknown Rx diltiazem HCl 120 mg 240 mg (2 x 120 mg) PO DAILY 30 11/11/23 11/24/23 Unknown Rx capsule,extended release 24 hr days #60 caps docusate sodium 100 mg capsule 100 mg PO BID #10 caps 11/11/23 11/24/23 Unknown Rx acetaminophen 325 mg tablet 650 mg PO QID PRN Pain 11/24/23 11/24/23 Unknown History albuterol sulfate 2.5 mg/3 mL 2.5 mg inhalation Q4H PRN 11/24/23 11/24/23 Unknown History (0.083 %) solution for nebulization Shortness Of Breath Or Wheezing apixaban 5 mg tablet (Eliquis) 5 mg PO BID 11/24/23 11/24/23 Unknown History bisacodyl 10 mg rectal suppository 10 mg WV DAILY PRN Constipation 11/24/23 11/24/23 Unknown History (Dulcolax (bisacodyl)) bumetanide 2 mg tablet 2 mg PO BID 11/24/23 11/24/23 Unknown History magnesium hydroxide 400 mg/5 mL 30 ml PO DAILY PRN Constipation 11/24/23 11/24/23 Unknown History oral suspension (Milk of Magnesia) ondansetron HCl 4 mg tablet 4 mg PO Q6H PRN Nausea And Vomiting 11/24/23 11/24/23 Unknown History prednisone 20 mg tablet 40 mg PO DAILY 11/24/23 11/24/23 Unknown History vit no.95-ferrous 1 tab PO DAILY 11/24/23 11/24/23 Unknown History fumarate 28 mg-folic acid 800 mcg tablet sodium phosphates 19 gram-7 118 ml WV DAILY PRN Constipation 11/24/23 11/24/23 Unknown History gram/118 mL enema (Fleet Enema) Allergies Allergy/AdvReac Type Severity Reaction Status Date / Time propoxyphene [From Darvon-N] Allergy Unknown unknown Verified 11/03/23 09:30 PFSH Acute 2 PFSH: Medical History CKD (chronic kidney disease) stage 3, GFR 30-59 ml/min Seronegative rheumatoid arthritis of both hands Acute kidney injury Rheumatoid arthritis flare Cellulitis Sepsis Left lower lobe pneumonia Immunization counseling High risk medication use Edema, peripheral Macrocytic anemia Chronic kidney disease Leg swelling Hypertrophic obstructive cardiomyopathy COPD (chronic obstructive pulmonary disease) Cardiomyopathy Chronic diastolic heart failure Hypertension Hyperlipidemia Surgical History History of tonsillectomy Family History Mother CAD (coronary artery disease) Cancer Diabetes Father Chronic kidney disease (CKD) Other Hypertension Denies family history of Clotting disorder Dementia Suicide Anesthesia complication Bleeding disorder Lung disease Stroke Social History Smoking and tobacco/nicotine status: former use of tobacco/nicotine Alcohol intake: current Alcohol intake frequency: holidays/special occasions only Substance/Drug Use: never Household members: family Housing: House Vitals/I&O/Wt Last Vital Signs Temp 100.1 F H 11/24/23 05:44 Pulse 91 11/24/23 09:48 Resp 33 H 11/24/23 08:30 BP 130/78 11/24/23 09:38 Pulse Ox 96 11/24/23 09:48 O2 Del Method BiPAP 11/24/23 07:02 O2 Flow Rate 10 11/24/23 05:44 FiO2 50 11/24/23 09:48 11/23/23 11/24/23 11/24/23 22:59 06:59 14:59 Intake Total 50 / 50 1250 / 1250 Balance 50 / 50 1250 / 1250 Weight last 48 hrs Weight 86.183 kg Physical Exam 2 Narrative: General: Alert, Tachypneic, able to answer questions appropriately, on BiPAP currently exam, pleasant Neck: supple no lymphadenopathy thyromegaly Cardiovascular: Irregularly irregular, A-fib, pulses 1+ radial dorsalis pedis. 3+ pitting edema to lower extremity. 2+ pitting edema upper extremity. 2/4 murmur Respiratory: Prolonged expiratory phase, BiPAP, expiratory crackles, slight inspiratory wheeze, tachypnea Abdomen: Soft, round, active bowel sounds throughout : Shafer catheter in place. Extremities: Erythema to upper extremity with some cyanosis throughout. MCP joints both hands with some erythema and edema, significantly improved from last hospitalization. Urinary Catheter Management: Shafer: Cath Placed During This Visit: yes Reason for Continuing Indwelling Catheter: Acute Urinary Retention or Obstruction Urinary Catheter Date of Insertion: 11/03/23 Urinary Catheter Time of Insertion: 10:19 Data 11/24/23 05:52 11/24/23 05:52 Other Labs: WBC 21.8, hemoglobin 10.2, hematocrit 33, BUN 24, creatinine 1.1, glucose 225, lactic acid 2.4, alk phos 111, baseline troponin 114, 2-hour delta troponin 174.6,, BNP 15,427, Parainfluenza type III positive CXR: My impression: Small bilateral pleural effusions. Possible right pneumonia/atelectasis. Radiologist's impression: IMPRESSION: 1. Mild right basilar opacification may represent atelectasis, aspiration or pneumonia. 2. Small right pleural effusion. EKG 1: My Interpretation: A-fib with RVR, rate 145, no ST changes, EKG computer-generated impression: SINUS TACHYCARDIA WITH SHORT WV INTERVAL, POSSIBLE ATRIAL FLUTTER MODERATE VOLTAGE CRITERIA FOR LVH, CONSIDER NORMAL VARIANT EKG 2: My Interpretation: Atrial fibrillation with rapid ventricular response EKG computer-generated impression: Atrial fibrillation with rapid ventricular response ABG Interpretation 1: 11/24/23 05:55 ABG pH 7.50 H ABG pCO2 53.2 H ABG pO2 86.8 ABG HCO3 41.1 H ABG Base Excess 15.8 H A&P Assessment and plan (1) Acute exacerbation of CHF (congestive heart failure): Per family and patient, swelling started to increase 3 days ago. Patient noted to have a BNP level of 15,427. Increased work of breathing and shortness of breath as well as bilateral upper and lower extremity edema. Patient is requiring BiPAP at this time while in the emergency room. This may be secondary to A-fib with RVR Noted bilateral pleural effusions on chest x-ray. Continue BiPAP as tolerated. Patient received Lasix while in the emergency room With patient having CKD stage III and previous admission revealed worsening kidney function when given high doses of diuresis, we will continue Lasix twice daily while being precautionary. Avoid extra fluids. CBC and CMP in the a.m. (2) Atrial fibrillation with RVR: Patient here with new onset of atrial fibrillation with RVR. Did receive adenosine while in the field but failed lowering HR. Patient received Cardizem while in the emergency room as well as Cardizem drip. Wean off Cardizem drip Continue patient's home beta-oral Telemetry Continue Eliquis for anticoagulation. (3) Leukocytosis: This could be multifactorial possibly due to Afib with RVR, possible aspiration pneumonia/atelectasis, or parainfluenza. There is a trend of some leukocytosis chronically for the patient, but not to this extent. Slight fever noted at 100.1 while emergency room. Increased white blood cell count Blood cultures obtained Lactic 2.4 Slight IV hydration were given in the emergency room. Will hold off further IV hydration due to fluid overload. Meropenem IV antibiotic empirically. Will obtain urinalysis. (4) Elevated troponin: Multifactorial most likely due to A-fib with RVR versus CHF exacerbation versus inflammatory process. Noted to be markedly high as well as an increase in 2-hour Trop. Will trend 6- hour. (5) Hypertension: Stable at this time Continue home medications. Qualifiers: Hypertension type: essential hypertension Qualified Code(s): I10 - Essential (primary) hypertension (6) CKD (chronic kidney disease) stage 3, GFR 30-59 ml/min: Stable at this time Continue diuresis due to #1. CMP in AM. (7) Parainfluenza: Patient noted to be positive for parainfluenza 3. Treat medically and/or symptomatically at this time. (8) Seronegative rheumatoid arthritis of both hands: Since last hospitalization when patient was discharged on 11/11/2023, RA to bilateral hands have significantly improved. Currently in hand brace to left hand. Right hand able to move digits freely. Left hand worse than right. Continue colchicine. Plan Plan as stated above. Patient will receive IV diuresis as well as BiPAP treatment for CHF exacerbation. We will trend labs in the morning. Chest x-ray did reveal some sort of possible inflammatory process and right basilar area. We will place on meropenem for possible aspiration pneumonia. We will obtain a urinalysis. Will trend troponin levels on patient as this is most likely due to inflammatory process versus A-fib with RVR. Wean off Cardizem drip as needed. CBC CMP in AM. CODE STATUS: Full code DVT prophylaxis: Eliquis Coding Level of Care Code 96051 Diagnoses Acute exacerbation of CHF (congestive heart failure) I50.9 Atrial fibrillation with RVR I48.91 Leukocytosis D72.829 Elevated troponin R79.89 Essential hypertension I10 Hypertension type: essential hypertension CKD (chronic kidney disease) stage 3, GFR 30-59 ml/min N18.30 Parainfluenza B34.8 Seronegative rheumatoid arthritis of both hands M06.041; M06.042 Time Spent (min) 65 Documented by User: Jeff Garner MD 11/24/23 12:01 Providers/Chief Complaint 2 Chief Complaint: RESP. DISTRESS History of Present Illness Patient is a 72-year-old female with a past medical history of hypertension, CKD, COPD, hyperlipidemia, cellulitis, CHF, and rheumatoid arthritis who presents the emergency room with a chief complaint of increased shortness of breath, tachycardia, weakness, and increased swelling. Patient currently resides at a SNF, [facility]. Recent hospitalization with a discharge date of 11/11/2023. Family reports that they started to notice an increase swelling in lower extremity on patient approximately 3 days ago and increasingly worsening since. Family and patient states she has been working well with PT/OT without complications or a noticable increase work of breathing during therapy treatment. Patient reports yesterday morning, that she felt somewhat short of breath while sitting in the chair, more than normal and increasingly worsened throughout the day. Reports that she asked nursing staff at SNF for a breathing treatment that afternoon and reported that it helped some but still in slight respiratory distress. States she felt like water was in her lungs and she was unable to lye flat. Vital signs were obtained by nursing staff and noted heart rate of >140s. EMS was notdified and transferred patient to ER for further evaluation. EMS noted HR to be 160 and administered 6 of adenosine, which failed to decrease HR. 12mg Adenosine was administered and slightly decreased HR. Patient presented to the ED in Afib with RVR with a rate of 140. Denies any Recent medication changes and has remained on current medication regimen. While in the ER, Laboratory studies and radiology imaging were performed and discussed below. Patient received 20 mg Cardizem IV push x 1, 80 mg Lasix IV, DuoNeb, vancomycin, Zosyn, 1 L NS, continuous Cardizem drip. Patient will be admitted to the hospital for further medical management of acute CHF exacerbation, elevated troponin, leukocytosis, A-fib with RVR, and parainfluenza. Denies any current chest discomfort. Elevation in troponin was noted. Review of Systems 2 Card: Reports: swelling of feet/ankles; Denies: chest pain Resp: Reports: dyspnea GI: Denies: abdominal pain, nausea, vomiting, hematochezia or melena Medications/Allergies Home Medications Medication Instructions Recorded Confirmed Last Taken Type cholecalciferol (vitamin D3) 1,250 1,000 mcg PO DAILY@0800 01/25/20 11/24/23 11/03/23 History mcg (50,000 unit) capsule fluticasone 500 mcg-salmeterol 50 1 inh inhalation BID@0800,1800 01/25/20 11/24/23 11/03/23 History mcg/dose blistr powdr for inhalation (Advair Diskus) albuterol sulfate 90 mcg/actuation 2 puff inhalation Q6H PRN Wheezing 11/08/20 11/24/23 11/08/20 History aerosol inhaler (Ventolin HFA) coenzyme Q10 200 mg capsule (Co 200 mg PO DAILY 05/08/21 11/24/23 11/03/23 History Q-10) leflunomide 10 mg tablet 10 mg PO DAILY #30 tabs 08/26/23 11/24/23 11/03/23 Rx tramadol 50 mg tablet 50 mg PO Q8H PRN Pain 08/26/23 11/24/23 Unknown History diphenhydramine HCl 25 mg capsule 25 mg PO BEDTIME PRN Allergic 09/17/23 11/24/23 09/16/23 History (Benadryl) Symptoms folic acid 1 mg tablet 1 mg PO DAILY 09/17/23 11/24/23 11/03/23 History hydrocortisone 2.5 % topical cream 1 applic topical DAILY PRN Rash 09/17/23 11/24/23 Unknown History omega-3s 300 qy-iau-byy-other 1 cap PO QAM 09/17/23 11/24/23 11/03/23 History [id number] oil 1,000 mg capsule (Buxton-3 Fish Oil) omeprazole 20 mg tablet,delayed 20 mg PO DAILY 12 weeks #30 tabs 09/20/23 11/24/23 11/03/23 Rx release metoprolol tartrate 50 mg tablet 50 mg PO BID 11/03/23 11/24/23 11/03/23 History colchicine 0.6 mg tablet 0.6 mg PO DAILY #30 tabs 11/11/23 11/24/23 Unknown Rx diltiazem HCl 120 mg 240 mg (2 x 120 mg) PO DAILY 30 11/11/23 11/24/23 Unknown Rx capsule,extended release 24 hr days #60 caps docusate sodium 100 mg capsule 100 mg PO BID #10 caps 11/11/23 11/24/23 Unknown Rx acetaminophen 325 mg tablet 650 mg PO QID PRN Pain 11/24/23 11/24/23 Unknown History albuterol sulfate 2.5 mg/3 mL 2.5 mg inhalation Q4H PRN 11/24/23 11/24/23 Unknown History (0.083 %) solution for nebulization Shortness Of Breath Or Wheezing apixaban 5 mg tablet (Eliquis) 5 mg PO BID 11/24/23 11/24/23 Unknown History bisacodyl 10 mg rectal suppository 10 mg WV DAILY PRN Constipation 11/24/23 11/24/23 Unknown History (Dulcolax (bisacodyl)) bumetanide 2 mg tablet 2 mg PO BID 11/24/23 11/24/23 Unknown History magnesium hydroxide 400 mg/5 mL 30 ml PO DAILY PRN Constipation 11/24/23 11/24/23 Unknown History oral suspension (Milk of Magnesia) ondansetron HCl 4 mg tablet 4 mg PO Q6H PRN Nausea And Vomiting 11/24/23 11/24/23 Unknown History prednisone 20 mg tablet 40 mg PO DAILY 11/24/23 11/24/23 Unknown History vit no.95-ferrous 1 tab PO DAILY 11/24/23 11/24/23 Unknown History fumarate 28 mg-folic acid 800 mcg tablet sodium phosphates 19 gram-7 118 ml WV DAILY PRN Constipation 11/24/23 11/24/23 Unknown History gram/118 mL enema (Fleet Enema) Allergies Allergy/AdvReac Type Severity Reaction Status Date / Time propoxyphene [From Darvon-N] Allergy Unknown unknown Verified 11/03/23 09:30 PFSH Acute 2 PFSH: Medical History CKD (chronic kidney disease) stage 3, GFR 30-59 ml/min Seronegative rheumatoid arthritis of both hands Acute kidney injury Rheumatoid arthritis flare Cellulitis Sepsis Left lower lobe pneumonia Immunization counseling High risk medication use Edema, peripheral Macrocytic anemia Chronic kidney disease Leg swelling Hypertrophic obstructive cardiomyopathy COPD (chronic obstructive pulmonary disease) Cardiomyopathy Chronic diastolic heart failure Hypertension Hyperlipidemia Surgical History History of tonsillectomy Family History Mother CAD (coronary artery disease) Cancer Diabetes Father Chronic kidney disease (CKD) Other Hypertension Denies family history of Clotting disorder Dementia Suicide Anesthesia complication Bleeding disorder Lung disease Stroke Social History Smoking and tobacco/nicotine status: former use of tobacco/nicotine Alcohol intake: current Alcohol intake frequency: holidays/special occasions only Substance/Drug Use: never Household members: family Housing: House Physical Exam 2 Urinary Catheter Management: Shafer: Cath Placed During This Visit: yes Data 11/24/23 05:52 11/24/23 05:52 EKG 1: My Interpretation: A-fib with RVR, rate 145, no ST changes, per my read A&P Assessment and plan (1) Acute exacerbation of CHF (congestive heart failure): Per family and patient, swelling started to increase 3 days ago. Patient noted to have a BNP level of 15,427. Increased work of breathing and shortness of breath as well as bilateral upper and lower extremity edema. Patient is requiring BiPAP at this time while in the emergency room. This may be secondary to A-fib with RVR Noted bilateral pleural effusions on chest x-ray. Continue BiPAP as tolerated. Patient received Lasix while in the emergency room With patient having CKD stage III and previous admission revealed worsening kidney function when given high doses of diuresis, we will continue Lasix twice daily while being precautionary. Avoid extra fluids. CBC and CMP in the a.m. Associated with acute hypoxic respiratory failure for which she is requiring BiPAP. (2) Atrial fibrillation with RVR: (3) Leukocytosis: This could be multifactorial possibly due to Afib with RVR, possible aspiration pneumonia/atelectasis, or parainfluenza. There is a trend of some leukocytosis chronically for the patient, but not to this extent. Slight fever noted at 100.1 while emergency room. Increased white blood cell count Blood cultures obtained Lactic 2.4 Slight IV hydration were given in the emergency room. Will hold off further IV hydration due to fluid overload. Zosyn IV antibiotic empirically. Will obtain urinalysis. (4) Elevated troponin: (5) Hypertension: Qualifiers: Hypertension type: essential hypertension Qualified Code(s): I10 - Essential (primary) hypertension (6) CKD (chronic kidney disease) stage 3, GFR 30-59 ml/min: (7) Parainfluenza: (8) Seronegative rheumatoid arthritis of both hands: Since last hospitalization when patient was discharged on 11/11/2023, RA to bilateral hands have significantly improved. Currently in hand brace to left hand. Right hand able to move digits freely. Left hand worse than right. Continue colchicine. Continue prednisone, 40 mg a day, wean as tolerated but will not go below less than 20 mg. Plan was to taper her to 30mg tomorrow. Plan Plan as stated above. Patient will receive IV diuresis as well as BiPAP treatment for CHF exacerbation. We will trend labs in the morning. Chest x-ray did reveal some sort of possible inflammatory process and right basilar area. We will place on Zosyn for possible aspiration pneumonia. We will obtain a urinalysis. Will trend troponin levels on patient as this is most likely due to inflammatory process versus A-fib with RVR. Wean off Cardizem drip as needed. CBC CMP in AM. CODE STATUS: Full code DVT prophylaxis: Arnaldo Thomasations 2 Medical Necessity Statement*: Will need greater than 2 midnight stay for evaluation and treatment of acute diastolic heart failure Diagnoses Acute exacerbation of CHF (congestive heart failure) I50.9 Atrial fibrillation with RVR I48.91 Leukocytosis D72.829 Elevated troponin R79.89 Essential hypertension I10 Hypertension type: essential hypertension CKD (chronic kidney disease) stage 3, GFR 30-59 ml/min N18.30 Parainfluenza B34.8 Seronegative rheumatoid arthritis of both hands M06.041; M06.042 Time Spent (min) 65
--- NOTE | 2023-11-24 11:55 | PC.NURSE ---
Pt arrived from ED. BiPap at FIO2 35%. Cardizem infusing at 5mg/hr.
--- NOTE | 2023-11-24 13:14 | P.CONIM_ITS ---
Providers/Reason For Consult 2 Consulting Physician/Specialty*: MARINA Mcneil MD/cardiology Reason for Consult*: Patient with atrial fibrillation rapid ventricular rate Requesting Physician: Dr. Garner Attending Physician: Jeff Garner MD Primary Care Provider: Carlos Manuel Swift MD History of Present Illness History of Present Illness Any Chaves is a 72 year old female with a history of hypertrophic obstructive cardiomyopathy, diastolic heart failure, COPD, hypertension, dyslipidemia, is admitted to hospital with complaints of acute worsening of the shortness of breath. She was found to be in atrial fibrillation with rapid ventricular rate. She is on IV Cardizem. The rate is still remaining under control. Cardiology consult is requested for further cardiac evaluation recommendations. This patient had multiple admissions to the hospital in the recent past with various complaints. In September she was admitted to the hospital with features of ankle cellulitis, pneumonia and rheumatoid arthritis flareup. She also had some features of acute kidney injury. She was discharged home in fairly stable condition. She was admitted to the hospital in October with generalized bodyaches and weakness. She was found to have features of rheumatoid arthritis flareup and new onset of atrial fibrillation. She was treated with AV clark blocking agents and was placed on oral anticoagulation. [facility] She had difficulty in opening her hands because of the pain. With the physical therapy she is able to open the right hand but still having some difficulty in opening the left hand. This time she is admitted [facility] hospital [facility] the [facility] with complaints of worsening of the shortness of breath. Patient is known to have COPD. She also has history of chronic diastolic heart failure. She has hypertrophic obstructive cardiomyopathy with a markedly elevated gradient across the LV outflow tract. She denies any fever or chills. No cough. No chest pain. She has no history for coronary artery disease. She had a Myocardial perfusion imaging 2020 which was unremarkable. Patient also has a history of chronic anemia, kidney disease. Her kidney function currently seems to be stable. Review of Systems 2 Narrative: CONSTITUTIONAL: No fever or chills. Has been having feeling of weakness/lethargy for a while. EYES: No blurring of vision or other visual disturbances lately. ENT: No hoarseness of voice, auditory disturbances or sore throat. CARDIOVASCULAR: As mentioned above. RESPIRATORY: Shortness of breath and cough as mentioned above GASTROINTESTINAL: No hematemesis or melena. GENITOURINARY: No dysuria or hematuria. INTEGUMENTARY: No skin rashes or history of skin cancer. NEURO: No transient ischemic attacks or amaurosis. PSYCHIATRIC: No history of psychosis or major depression. HEMATOLOGIC: History of anemia and is on long-term oral anticoagulation ENDOCRINE: No history of polyuria or polydipsia. MUSCULOSKELETAL: No recent joint pain or swelling. ALLERGY/IMMUNOLOGY: As mentioned above. Medications/Allergies Home Medications Medication Instructions Recorded Confirmed Last Taken Type cholecalciferol (vitamin D3) 1,250 1,000 mcg PO DAILY@0800 01/25/20 11/24/23 11/03/23 History mcg (50,000 unit) capsule fluticasone 500 mcg-salmeterol 50 1 inh inhalation BID@0800,1800 01/25/20 11/24/23 11/03/23 History mcg/dose blistr powdr for inhalation (Advair Diskus) albuterol sulfate 90 mcg/actuation 2 puff inhalation Q6H PRN Wheezing 11/08/20 11/24/23 11/08/20 History aerosol inhaler (Ventolin HFA) coenzyme Q10 200 mg capsule (Co 200 mg PO DAILY 05/08/21 11/24/23 11/03/23 History Q-10) leflunomide 10 mg tablet 10 mg PO DAILY #30 tabs 08/26/23 11/24/23 11/03/23 Rx tramadol 50 mg tablet 50 mg PO Q8H PRN Pain 08/26/23 11/24/23 Unknown History diphenhydramine HCl 25 mg capsule 25 mg PO BEDTIME PRN Allergic 09/17/23 11/24/23 09/16/23 History (Benadryl) Symptoms folic acid 1 mg tablet 1 mg PO DAILY 09/17/23 11/24/23 11/03/23 History hydrocortisone 2.5 % topical cream 1 applic topical DAILY PRN Rash 09/17/23 11/24/23 Unknown History omega-3s 300 [id number] 1 cap PO QAM 09/17/23 11/24/23 11/03/23 History [id number] oil 1,000 mg capsule (Lissie-3 Fish Oil) omeprazole 20 mg tablet,delayed 20 mg PO DAILY 12 weeks #30 tabs 09/20/23 11/24/23 11/03/23 Rx release metoprolol tartrate 50 mg tablet 50 mg PO BID 11/03/23 11/24/23 11/03/23 History colchicine 0.6 mg tablet 0.6 mg PO DAILY #30 tabs 11/11/23 11/24/23 Unknown Rx diltiazem HCl 120 mg 240 mg (2 x 120 mg) PO DAILY 30 11/11/23 11/24/23 Unknown Rx capsule,extended release 24 hr days #60 caps docusate sodium 100 mg capsule 100 mg PO BID #10 caps 11/11/23 11/24/23 Unknown Rx acetaminophen 325 mg tablet 650 mg PO QID PRN Pain 11/24/23 11/24/23 Unknown History albuterol sulfate 2.5 mg/3 mL 2.5 mg inhalation Q4H PRN 11/24/23 11/24/23 Unknown History (0.083 %) solution for nebulization Shortness Of Breath Or Wheezing apixaban 5 mg tablet (Eliquis) 5 mg PO BID 11/24/23 11/24/23 Unknown History bisacodyl 10 mg rectal suppository 10 mg [place] DAILY PRN Constipation 11/24/23 11/24/23 Unknown History (Dulcolax (bisacodyl)) bumetanide 2 mg tablet 2 mg PO BID 11/24/23 11/24/23 Unknown History magnesium hydroxide 400 mg/5 mL 30 ml PO DAILY PRN Constipation 11/24/23 11/24/23 Unknown History oral suspension (Milk of Magnesia) ondansetron HCl 4 mg tablet 4 mg PO Q6H PRN Nausea And Vomiting 11/24/23 11/24/23 Unknown History prednisone 20 mg tablet 40 mg PO DAILY 11/24/23 11/24/23 Unknown History vit no.95-ferrous 1 tab PO DAILY 11/24/23 11/24/23 Unknown History fumarate 28 mg-folic acid 800 mcg tablet sodium phosphates 19 gram-7 118 ml [place] DAILY PRN Constipation 11/24/23 11/24/23 Unknown History gram/118 mL enema (Fleet Enema) Allergies Allergy/AdvReac Type Severity Reaction Status Date / Time propoxyphene [From Darvon-N] Allergy Unknown unknown Verified 11/03/23 09:30 Current Medications Generic Name Dose Route Start Last Admin Trade Name Freq PRN Reason Stop Dose Admin Diltiazem HCl 100 mg/ Sodium 100 mls @ 0 mls/hr 11/24/23 06:00 11/24/23 06:17 Chloride IV 5 mg/hr .Q0M MONY 5 mls/hr Administration Protocol Per Protocol PFSH Acute 2 PFSH: Medical History (Updated 11/24/23 @ 20:46 by Gadiel Mcneil MD) Hypertrophic obstructive cardiomyopathy CKD (chronic kidney disease) stage 3, GFR 30-59 ml/min Seronegative rheumatoid arthritis of both hands Acute kidney injury Rheumatoid arthritis flare Cellulitis Sepsis Left lower lobe pneumonia Immunization counseling High risk medication use Edema, peripheral Macrocytic anemia Chronic kidney disease Leg swelling COPD (chronic obstructive pulmonary disease) Cardiomyopathy Chronic diastolic heart failure Hypertension Hyperlipidemia Surgical History History of tonsillectomy Family History Mother CAD (coronary artery disease) Cancer Diabetes Father Chronic kidney disease (CKD) Other Hypertension Denies family history of Clotting disorder Dementia Suicide Anesthesia complication Bleeding disorder Lung disease Stroke Social History Smoking and tobacco/nicotine status: former use of tobacco/nicotine Alcohol intake: current Alcohol intake frequency: holidays/special occasions only Substance/Drug Use: never Household members: family Housing: House Vitals/I&O/Wt Last Vital Signs Temp 100.1 F H 11/24/23 05:44 Pulse 91 11/24/23 09:48 Resp 33 H 11/24/23 08:30 BP 130/78 11/24/23 09:38 Pulse Ox 96 11/24/23 09:48 O2 Del Method BiPAP 11/24/23 07:02 O2 Flow Rate 10 11/24/23 05:44 FiO2 50 11/24/23 09:48 11/23/23 11/24/23 11/24/23 22:59 06:59 14:59 Intake Total 50 / 50 1250 / 1250 Balance 50 / 50 1250 / 1250 Weight last 48 hrs Weight 190 lb Physical Exam 2 Narrative: GENERAL: The patient is alert and oriented times three. Not in any acute distress. HEENT: No significant pallor, icterus or lymphadenopathy.Oral cavity: There are no mucous membrane lesions. NECK: Trachea appears to be central. No masses noted. No JVD or thyromegaly appreciated. RESPIRATORY: Chest is symmetrical. No intercostals muscle retraction or any accessory muscle activation. There is no chest wall tenderness. Breath sounds are heard bilaterally. No rales or rhonchi heard. No evidence of any consolidation. BREASTS: Deferred. HEART: The heart sounds are normal. No S3 or S4. Systolic murmur grade 3 or 6 in the base of the heart. No diastolic murmurs.. No pericardial rub ABDOMEN: No vessel pulsations or distention. No tenderness. No organomegaly appreciated. Bowel sounds are normally heard. : Deferred. RECTAL: Deferred. LYMPHATIC: No lymphadenopathy noted in the neck. EXTREMITIES: 1-2+ edema on both lower extremities. No cyanosis. Features of chronic venous stasis. MUSCULOSKELETAL: No acute joint deformities or swelling SKIN: There are no significant rashes or ecchymosis NEUROPSYCHIATRIC: The patient is alert and oriented x3. Appears to be in a good mood. No tremors or rigidity noted. Urinary Catheter Management: Shafer: Cath Placed During This Visit: yes Reason for Continuing Indwelling Catheter: Acute Urinary Retention or Obstruction Urinary Catheter Date of Insertion: 11/03/23 Urinary Catheter Time of Insertion: 10:19 Data 11/24/23 05:52 11/24/23 05:52 Other data: Echocardiogram on 09/17/2023 LV systolic function is normal with EF 55 to 60%. Grade 1 diastolic dysfunction. Mild mitral regurgitation. Aortic valve is not well-visualized. Dynamic LVOT maximum velocity of 5.2 mm/s. Peak gardient was 113 mmHg with a mean gradient of 51 mmHg. Compared with prior echocardiogram from 05/2021, no significant changes are seen. Myocardial perfusion imaging on 06/21/2021 1. Unremarkable myocardial perfusion imaging. 2. LV wall motion analysis revealing no gross wall motion normalities. 3. Estimated LV ejection fraction of 86%. 4. Normal LV volume. No significant coronary ischemia, based on the above findings A&P Assessment and plan (1) Atrial fibrillation with RVR: Patient is on IV Cardizem. This may be continued. I may have family focus on the respiratory status and the heart failure. Since the blood pressure is in the low normal side I will be careful with the negative inotropic agents. Consider starting a digoxin, if the heart rate stays out of control (2) Thoracic ascending aortic aneurysm: Patient has a dilated aortic root. This should not be of any concern at this point. May continue to monitor as an outpatient. Qualifiers: Presence of rupture: without rupture Qualified Code(s): I71.21 - Aneurysm of the ascending aorta, without rupture (3) Hypertrophic obstructive cardiomyopathy: Since the patient is hemodynamically stable, may not require any specific intervention at this point. continuing on Calcium channel oral would be appropriate. (4) Acute on chronic diastolic heart failure: Patient may be carefully treated with IV diuretics. The heart rate control also might help the heart failure. (5) CKD (chronic kidney disease) stage 3, GFR 30-59 ml/min: Kidney function needs to be closely monitored. Qualifiers: Chronic kidney disease stage 3 subtype: stage 3a (GFR 45-59) Qualified Code(s): N18.31 - Chronic kidney disease, stage 3a (6) Parainfluenza: Continue on the current treatment measures. (7) Seronegative rheumatoid arthritis of both hands: Continue on the current treatment measures. (8) COPD (chronic obstructive pulmonary disease): May continue on the current management. Continue on the bronchodilators. Qualifiers: COPD type: unspecified COPD Qualified Code(s): J44.9 - Chronic obstructive pulmonary disease, unspecified (9) Hyperlipidemia: Continue the dietary modification Qualifiers: Hyperlipidemia type: mixed hyperlipidemia Qualified Code(s): E78.2 - Mixed hyperlipidemia (10) Hypertension: Blood pressure is in the low normal side at this time. Qualifiers: Hypertension type: essential hypertension Qualified Code(s): I10 - Essential (primary) hypertension Plan Will be closely monitoring the heart rate and blood pressure. I may continue on the current dose of the IV Cardizem. This may be switched to p.o. Cardizem in the morning. Based on the clinical progress, further recommendations will be made Coding Level of Care Code 87930 Diagnoses Atrial fibrillation with RVR I48.91 Aneurysm of ascending aorta without rupture I71.21 Presence of rupture: without rupture Hypertrophic obstructive cardiomyopathy I42.1 Acute on chronic diastolic heart failure I50.33 Stage 3a chronic kidney disease N18.31 Chronic kidney disease stage 3 subtype: stage 3a (GFR 45-59) Parainfluenza B34.8 Seronegative rheumatoid arthritis of both hands M06.041; M06.042 Chronic obstructive pulmonary disease, unspecified COPD type J44.9 COPD type: unspecified COPD Mixed hyperlipidemia E78.2 Hyperlipidemia type: mixed hyperlipidemia Essential hypertension I10 Hypertension type: essential hypertension
[2023-11-24 13:15] LABS: Troponin 5 6HR 188.8 ng/L (0-10); Troponin 5 6HR Delta 74.8 ng/L (0-12)
[2023-11-24] MEDS: predniSONE 20 mg Tablet 40 MG PO (13:17)
[2023-11-24] MEDS: metoprolol tartrate 25 mg Tablet PO (13:17)
[2023-11-24] MEDS: dilTIAZem 60 mg Tablet PO ×2 (13:17→17:29)
[2023-11-24] MEDS: piperacillin-tazobactam 3.375 GM in sodium chloride 0.9% (plus) 50 ML IV ×2 (13:22→21:23)
--- NOTE | 2023-11-24 14:04 | ECG_ITS ---
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 Measurements Intervals [place] Rate: 95 P: 0 MO: 0 QRS: 54 QRSD: 76 T: 73 QT: 323 QTc: 406 Interpretive Statements ATRIAL FIBRILLATION MODERATE ST DEPRESSION [0.05+ mV ST DEPRESSION] Compared to ECG 11/24/2023 08:06:58 No significant changes Electronically Signed On 11-24-2023 15:28:59 AIR TRAFFIC CONTROL OPERATOR by Mark Lawton M.D. [email or web address]
[2023-11-24 14:09] LABS: Bilirubin Urine Neg (Negative); Blood Urine 3+ (Negative); Glucose Urine UA Norm (Normal); Ketones Urine Negative (Negative); Nitrate Urine Positive (Negative); Protein Urine Neg (Negative); Urine Appearance Cloudy (CLEAR); Urine Color Yellow (Yellow); pH Urine 7 (5-7)
[2023-11-24 14:10] LABS: Add Urine Culture? Yes; Bacteria Urine 2+ /hpf; Leukocyte Esterase Urine 2+ (Negative); RBC Urine >100 /hpf (0-2); Squamous Epithelial Cell Urine 0-4 /hpf (0-5); Transitional Epi Cells Urine 0-4 /hpf; Urobilinogen Urine Neg (Negative); WBC Urine TOO NUMEROUS TO CNT /hpf (0-5)
--- NOTE | 2023-11-24 16:50 | PC.NURSE ---
Pt converted to sinus rhythm .
[2023-11-24] MEDS: metoprolol tartrate 50 mg Tablet PO (17:29)
[2023-11-24] MEDS: apixaban 5 mg Tablet PO (17:29)
[2023-11-24] MEDS: docusate sodium 100 mg Capsule PO (17:29)
--- NOTE | 2023-11-24 18:17 | PC.NURSE ---
Shift summary: Pt has rested in bed since her arrival to ICU. BiPap remains at 40%. It has been off briefly, a few times this shift for sips of water. She is tolerating BiPap well. Family has been very attentive at the bedside. he does have slight pitting edema in her extremities. She was on a Cardizem gtt upon her arrival and in AFib. Cardizem gtt is now off, she is now in sinus rhythm. SHe received Lasix this evening. SHe has had 1300ml of dark yellow with sediment urine.
[2023-11-25] VITALS (30 sets, daily range): BP systolic 83–137; BP diastolic 56–86; PULSE 62–120; RESP 13–33; TEMP 36.6–37.2; O2SAT 86–100
[2023-11-25] MEDS: dilTIAZem 60 mg Tablet PO (02:34)
[2023-11-25] MEDS: FUROsemide 10 mg/mL SDV 10mL 80 MG IVP ×2 (04:26→17:36)
[2023-11-25] MEDS: piperacillin-tazobactam 3.375 GM in sodium chloride 0.9% (plus) 50 ML IV ×3 (04:32→21:07)
[2023-11-25 05:08] LABS: Basophils % 0.2 %; Eosinophils # 0.1 10^3/uL (0.0-0.8); Eosinophils % 0.9 %; Hematocrit 27.6 % (36-47); Lymphocytes # 1.2 10^3/uL (0.8-4.8); Lymphocytes % 9.4 %; Mean Corpuscular HGB Conc 30.8 g/dL (30-55); Mean Corpuscular Hemoglobin 29.5 pg (27-33); Mean Corpuscular Volume 95.8 fl (85-98); Mean Platelet Volume 10.6 fL (7.4-10.4); Monocytes # 0.3 10^3/uL (0.2-0.9); Monocytes % 2.1 %; Neutrophils # 11.26 10^3/uL (1.8-7.7); Nucleated Red Blood Cells % 0 %; Platelet Count 213 10^3/cmm (157-399); Red Blood Count 2.88 10^6/uL (3.85-5.65); Red Cell Distribution Width 16.6 % (12.1-15.1); White Blood Count 12.93 10^3/uL (3.29-11.43)
[2023-11-25 05:36] LABS: Alanine Aminotransferase 25 U/L (0-33); Albumin Level 2.9 g/dL (3.5-5.2); Alkaline Phosphatase 86 U/L (35-105); Anion Gap 12.7 (5-19); Aspartate Amino Transferase 14 U/L (0-32); Blood Urea Nitrogen 24 mg/dL (8-23); Carbon Dioxide 38 mmol/L (22-29); Chloride 94 mmol/L (98-107); Globulin 2.6 g/dL (1.3-4.6); Glucose 130 mg/dL (65-115); Magnesium 1.7 mg/dL (1.7-2.3); Osmolality Calculated 300 mOsm/kg (285-295); Sodium 142 mmol/L (136-145); Total Bilirubin 0.5 mg/dL (0.15-1.2); Total Protein 5.5 g/dL (6.6-8.7)
[2023-11-25 05:44] LABS: Potassium 2.7 mmol/L (3.5-5.1)
[2023-11-25] MEDS: potassium chloride ER 20 mEq Tablet 40 MEQ PO ×2 (06:31→14:01)
[2023-11-25] MEDS: budesonide 0.5 mg/2 mL Neb INHALATION ×2 (08:01→20:55)
[2023-11-25] MEDS: ipratropium-albuterol 3 mL Neb INHALATION ×3 (08:01→20:55)
--- NOTE | 2023-11-25 08:05 | P.PN_ITS ---
Documented by User: lynn Austin 11/25/23 08:29 Subjective 2 Subjective: Patient was evaluated this morning while lying in bed on BiPAP. Patient was able to hold full conversation without becoming short of breath. She reports that she does feel improved in regards to her breathing, but still slightly short of breath. States also that the fluttering in her chest has much improved as this relates to her A-fib with RVR that has resolved. She denies any burning on urination, though has a Shafer catheter in place. Denies any chest pain, abdominal pain, nausea, and vomiting Medications: Reviewed: Yes Vitals/I&O/Wt Last Vital Signs Temp 98.1 F 11/25/23 07:43 Pulse 120 H 11/25/23 07:40 Resp 22 H 11/25/23 07:40 BP 100/67 11/25/23 07:00 Pulse Ox 94 11/25/23 07:40 O2 Del Method Nasal Cannula 11/25/23 07:40 O2 Flow Rate 10 11/24/23 05:44 FiO2 4 11/25/23 07:40 11/24/23 11/25/23 11/25/23 22:59 06:59 14:59 Intake Total 394.75 / 1700.000 250 / 1950.000 Output Total 1300 / 1300 1100 / 2400 Balance -905.25 / 400.000 -850 / -450.000 Weight last 48 hrs Weight 86.636 kg Weight 86.636 kg Weight 86.455 kg Weight 86.183 kg Physical Exam 2 Narrative: General: Alert, able to answer questions appropriately, on BiPAP currently exam, pleasant Neck: supple no lymphadenopathy thyromegaly Cardiovascular: Irregularly irregular, A-fib, pulses 1+ radial dorsalis pedis. 3+ pitting edema to lower extremity. 2+ pitting edema upper extremity. 2/4 murmur Respiratory: Prolonged expiratory phase, BiPAP, expiratory crackles, slight inspiratory wheeze, tachypnea Abdomen: Soft, round, active bowel sounds throughout : Shafer catheter in place. Extremities: Erythema to upper extremity with some cyanosis throughout. MCP joints both hands with some erythema and edema, significantly improved from last hospitalization. Urinary Catheter Management: Shafer: Cath Placed During This Visit: yes Reason for Continuing Indwelling Catheter: Acute Urinary Retention or Obstruction Urinary Catheter Date of Insertion: 11/03/23 Urinary Catheter Time of Insertion: 10:19 Data 11/25/23 09:27 11/25/23 04:57 Other Labs: Potassium 2.7, WBC 12.93, hemoglobin 8.50, HCT 27.6, BUN 24, creatinine 1 Urinalysis: + Nitrate, + leukocyte Estrace, urine WBC and urine RBC present. A&P Assessment and plan (1) Acute exacerbation of CHF (congestive heart failure): Patient is still requiring BiPAP at this time for acute hypoxic respiratory failure due to fluid overload of CHF exacerbation. Patient's overall shortness of breath is improving and subjectively stated improving. We will continue BiPAP as tolerated and transition to nasal cannula for rest periods Swelling in upper and lower extremity have not changed since yesterday. We will continue Lasix regimen at this time. Renal function is at patient's baseline. Cardiology consultation. Recommendations appreciated. Continue current medication regimen. Will avoid any extra fluids if possible. CBC and CMP in AM. Start diet today and advance as tolerated. 1000 ml fluid restriction. (2) Atrial fibrillation with RVR: Patient is currently rate controlled with a heart rate of 80s A-fib. Cardizem drip was weaned off yesterday. Resolved. Continue telemetry Continue beta-oral Continue Eliquis for anticoagulation. (3) Leukocytosis: Multifactorial most likely due to pneumonia/atelectasis and confirmed urinary tract infection yesterday. Continue Zosyn. Afebrile overnight. Trend Blood cultures. Labs in AM. (4) Elevated troponin: Multifactorial most likely due to A-fib with RVR versus CHF exacerbation versus inflammatory process. Noted to be markedly high as well as an increase in 2-hour Trop and 6 hour. (5) Hypertension: Stable at this time Hold Antihypertensive medications. Qualifiers: Hypertension type: essential hypertension Qualified Code(s): I10 - Essential (primary) hypertension (6) CKD (chronic kidney disease) stage 3, GFR 30-59 ml/min: Stable at this time Continue diuresis due to #1. CMP in AM. Qualifiers: Chronic kidney disease stage 3 subtype: stage 3a (GFR 45-59) Qualified Code(s): N18.31 - Chronic kidney disease, stage 3a (7) Parainfluenza: Patient noted to be positive for parainfluenza 3. Treat medically and/or symptomatically at this time. Precautions (8) Seronegative rheumatoid arthritis of both hands: Taper Prednisone to 30 mg today. (9) Hypokalemia: Patient's potassium level noted to be 2.7 this a.m. Patient was supplemented with 40 mEq p.o. at 6:30 AM. Will give additional Potassium IV this a.m. And another 40 mEq p.o. at 2 PM CBC, BMP, magnesium in a.m. Plan Plan as stated above. Supplement potassium. Restart diet. Fluid restriction. Continue antibiotic regimen. Continue BiPAP as tolerated. Monitor telemetry. Labs in AM CODE STATUS: Full code DVT prophylaxis: Eliquis Coding Level of Care Code 12866 Diagnoses Acute exacerbation of CHF (congestive heart failure) I50.9 Atrial fibrillation with RVR I48.91 Leukocytosis D72.829 Elevated troponin R79.89 Essential hypertension I10 Hypertension type: essential hypertension Stage 3a chronic kidney disease N18.31 Chronic kidney disease stage 3 subtype: stage 3a (GFR 45-59) Parainfluenza B34.8 Seronegative rheumatoid arthritis of both hands M06.041; M06.042 Hypokalemia E87.6 Time Spent (min) 33 Documented by User: Jeff Garner MD 11/25/23 10:04 Physical Exam 2 Urinary Catheter Management: Shafer: Cath Placed During This Visit: yes Data 11/25/23 09:27 11/25/23 04:57 A&P Assessment and plan (1) Acute exacerbation of CHF (congestive heart failure): (2) Atrial fibrillation with RVR: Patient is currently rate controlled with a heart rate of 80s A-fib. Cardizem drip was weaned off yesterday. Resolved. Continue telemetry Continue beta-oral Continue Eliquis for anticoagulation. Change Cardizem to long-acting (3) Leukocytosis: Multifactorial most likely due to pneumonia/atelectasis and confirmed urinary tract infection yesterday. Continue Zosyn. Afebrile overnight. Trend Blood cultures. Labs in AM. Change of Shafer catheter (4) Elevated troponin: (5) Hypertension: Qualifiers: Hypertension type: essential hypertension Qualified Code(s): I10 - Essential (primary) hypertension (6) CKD (chronic kidney disease) stage 3, GFR 30-59 ml/min: Qualifiers: Chronic kidney disease stage 3 subtype: stage 3a (GFR 45-59) Qualified Code(s): N18.31 - Chronic kidney disease, stage 3a (7) Parainfluenza: (8) Seronegative rheumatoid arthritis of both hands: (9) Hypokalemia: Plan Plan as stated above. Supplement potassium. Restart diet. Fluid restriction. Continue antibiotic regimen. Continue BiPAP as tolerated. Monitor telemetry. Labs in AM CODE STATUS: Full code DVT prophylaxis: Kraigis Possible transfer out of ICU today. Attestations 2 Medical Necessity Statement*: Needs continued hospital stay for further diuresis secondary to acute diastolic heart failure Diagnoses Acute exacerbation of CHF (congestive heart failure) I50.9 Atrial fibrillation with RVR I48.91 Leukocytosis D72.829 Elevated troponin R79.89 Essential hypertension I10 Hypertension type: essential hypertension Stage 3a chronic kidney disease N18.31 Chronic kidney disease stage 3 subtype: stage 3a (GFR 45-59) Parainfluenza B34.8 Seronegative rheumatoid arthritis of both hands M06.041; M06.042 Hypokalemia E87.6 Time Spent (min) 33
[2023-11-25] MEDS: docusate sodium 100 mg Capsule PO ×2 (08:36→17:36)
[2023-11-25] MEDS: colchicine 0.6 mg Tablet PO (08:36)
[2023-11-25] MEDS: folic acid 1 mg Tablet PO (08:36)
[2023-11-25] MEDS: apixaban 5 mg Tablet PO ×2 (08:36→17:36)
[2023-11-25] MEDS: dilTIAZem ER (24HR) 240 mg Capsule PO (08:36)
[2023-11-25] MEDS: metoprolol tartrate 50 mg Tablet PO ×2 (08:36→17:36)
[2023-11-25] MEDS: pantoprazole DR 40 mg Tablet PO (08:36)
[2023-11-25] MEDS: lidocaine 1% 5 ML in potassium chloride premix 100 ML 26.25 ML IV (08:36)
[2023-11-25] MEDS: predniSONE 20 mg Tablet 40 MG PO (08:36)
[2023-11-25 09:44] LABS: Basophils # 0.1 10^3/uL (0.0-0.1); Basophils % 0.4 %; Eosinophils # 0.2 10^3/uL (0.0-0.8); Eosinophils % 1.4 %; Hematocrit 29.9 % (36-47); Lymphocytes # 1.1 10^3/uL (0.8-4.8); Lymphocytes % 7.4 %; Mean Corpuscular HGB Conc 30.8 g/dL (30-55); Mean Corpuscular Hemoglobin 29.7 pg (27-33); Mean Corpuscular Volume 96.5 fl (85-98); Monocytes # 0.3 10^3/uL (0.2-0.9); Neutrophils # 12.63 10^3/uL (1.8-7.7); Neutrophils % 88.3 %; Nucleated Red Blood Cells % 0 %; Platelet Count 221 10^3/cmm (157-399); Red Cell Distribution Width 16.7 % (12.1-15.1); White Blood Count 14.28 10^3/uL (3.29-11.43)
--- NOTE | 2023-11-25 19:20 | P.PN_ITS ---
Subjective 2 Subjective: The patient is feeling better. She is back into normal sinus rhythm. The vitals are stable. She is on p.o. Cardizem and metoprolol. Denies any chest pain. No fever or chills. Still has a cough and significant shortness of breath. The shortness of breath seems to be improving. Medications: Medication Review Details: Current Medications Acetaminophen (Acetaminophen 325 Mg Tablet) 650 mg PO Q6H PRN PRN Reason: MILD PAIN Albuterol/Ipratropium (Ipratropium-Albuterol 3 Ml Neb) 3 ml INHALATION Q6H.RESP [facility] Last Admin: 11/25/23 13:25 Dose: 3 ml Apixaban (Apixaban 5 Mg Tablet) 5 mg PO BID [facility] Last Admin: 11/25/23 17:36 Dose: 5 mg Budesonide (Budesonide 0.5 Mg/2 Ml Neb) 0.5 mg INHALATION BID.RESPIRATORY [facility] Last Admin: 11/25/23 08:01 Dose: 0.5 mg Colchicine (Colchicine 0.6 Mg Tablet) 0.6 mg PO DAILY [facility] Last Admin: 11/25/23 08:36 Dose: 0.6 mg Diltiazem HCl (Diltiazem Er (24hr) 240 Mg Capsule) 240 mg PO DAILY [facility] Last Admin: 11/25/23 08:36 Dose: 240 mg Docusate Sodium (Docusate Sodium 100 Mg Capsule) 100 mg PO BID [facility] Last Admin: 11/25/23 17:36 Dose: 100 mg Folic Acid (Folic Acid 1 Mg Tablet) 1 mg PO DAILY [facility] Last Admin: 11/25/23 08:36 Dose: 1 mg Furosemide (Furosemide 10 Mg/Ml Sdv 10ml) 80 mg IVP Q12H [facility] Last Admin: 11/25/23 17:36 Dose: 80 mg Piperacillin Sod/Tazobactam (Sod 3.375 gm/ Sodium Chloride) 50 mls @ 12.5 mls/hr IV Q8H [facility] Last Titration: 11/25/23 19:07 Dose: 0 mls/hr Metoprolol Tartrate (Metoprolol Tartrate 50 Mg Tablet) 50 mg PO BID [facility] Last Admin: 11/25/23 17:36 Dose: 50 mg Ondansetron HCl (Ondansetron 2 Mg/Ml Sdv 2 Ml) 4 mg IVP Q6H PRN PRN Reason: NAUSEA AND VOMITING Pantoprazole Sodium (Pantoprazole Dr 40 Mg Tablet) 40 mg PO DAILY [facility] Last Admin: 11/25/23 08:36 Dose: 40 mg Prednisone (Prednisone 20 Mg Tablet) 30 mg PO DAILY [facility] Vitals/I&O/Wt Last Vital Signs Temp 98.9 F 11/25/23 12:00 Pulse 81 11/25/23 19:11 Resp 27 H 11/25/23 19:11 BP 137/76 11/25/23 19:11 Pulse Ox 96 11/25/23 19:11 O2 Del Method BiPAP 11/25/23 13:15 O2 Flow Rate 40 11/25/23 13:15 FiO2 40 11/25/23 13:26 11/25/23 11/25/23 11/25/23 06:59 14:59 22:59 Intake Total 250 / 1950.000 407 / 407 50 / 457 Output Total 1100 / 2400 1000 / 1000 475 / 1475 Balance -850 / -450.000 -593 / -593 -425 / -1018 Weight last 48 hrs Weight 191 lb Weight 191 lb Weight 190 lb 9.6 oz Weight 190 lb Physical Exam 2 Narrative: GENERAL: The patient is alert and oriented times three. Not in any acute distress. HEENT: No significant pallor, icterus or lymphadenopathy.Oral cavity: There are no mucous membrane lesions. NECK: Trachea appears to be central. No masses noted. No JVD or thyromegaly appreciated. RESPIRATORY: Chest is symmetrical. No intercostals muscle retraction or any accessory muscle activation. There is no chest wall tenderness. Breath sounds are heard bilaterally. Diffuse coarse crackles and expiratory wheezing BREASTS: Deferred. HEART: The heart sounds are normal. No S3 or S4. Systolic murmur grade 3 or 6 in the base of the heart. No diastolic murmurs.. No pericardial rub ABDOMEN: No vessel pulsations or distention. No tenderness. No organomegaly appreciated. Bowel sounds are normally heard. : Deferred. RECTAL: Deferred. LYMPHATIC: No lymphadenopathy noted in the neck. EXTREMITIES: 2+ edema both lower extremities. MUSCULOSKELETAL: No acute joint deformities or swelling SKIN: There are no significant rashes or ecchymosis NEUROPSYCHIATRIC: The patient is alert and oriented x3. Appears to be in a good mood. No tremors or rigidity noted. Urinary Catheter Management: Shafer: Cath Placed During This Visit: yes Reason for Continuing Indwelling Catheter: Acute Urinary Retention or Obstruction Urinary Catheter Date of Insertion: 11/25/23 Urinary Catheter Time of Insertion: 10:00 Data 11/25/23 09:27 11/26/23 05:21 Other Labs: Laboratory Last Values WBC 14.28 10^3/uL (3.29-11.43) H 11/25/23 09:27 RBC 3.10 10^6/uL (3.85-5.65) L 11/25/23 09: Hgb 9.20 g/dL (11.27-16.99) L 11/25/23 09: Hct 29.9 % (36-47) L 11/25/23 09: MCV 96.5 fl (85-98) 11/25/23 09: MCH 29.7 pg (27-33) 11/25/23 09: MCHC 30.8 g/dL (30-55) 11/25/23 09: RDW 16.7 % (12.1-15.1) H 11/25/23 09: Plt Count 221 10^3/cmm (157-399) 11/25/23 09: MPV 11.0 fL (7.4-10.4) H 11/25/23 09: Neut % (Auto) 88.3 % 11/25/23 09: Lymph % (Auto) 7.4 % 11/25/23 09: [place] % (Auto) 2.0 % 11/25/23 09: Eos % (Auto) 1.4 % 11/25/23 09: Baso % (Auto) 0.4 % 11/25/23 09:27 Neut # (Auto) 12.63 10^3/uL (1.8-7.7) H 11/25/23 09: Lymph # (Auto) 1.1 10^3/uL (0.8-4.8) 11/25/23 09: [place] # (Auto) 0.3 10^3/uL (0.2-0.9) 11/25/23 09: Eos # (Auto) 0.2 10^3/uL (0.0-0.8) 11/25/23 09:27 Baso # (Auto) 0.1 10^3/uL (0.0-0.1) 11/25/23 09:27 Nucleated RBC % (auto) 0 % 11/25/23 09:27 Nucleated RBCs # 0.0 /100WBC 11/25/23 09:27 Specimen Type Arterial 11/24/23 05:55 Sample Site Radial, left 11/24/23 05:55 ABG pH 7.50 (7.35-7.45) H 11/24/23 05:55 ABG pCO2 53.2 mmHg (35-45) H 11/24/23 05:55 ABG pO2 86.8 mmHg (80.0-100.0) 11/24/23 05:55 ABG PO2/FiO2 Ratio 0 11/24/23 05:55 ABG HCO3 41.1 mmol/L (22-26) H 11/24/23 05:55 ABG Base Excess 15.8 mmol/L (-2.0-2.0) H 11/24/23 05:55 Perry Test Pos 11/24/23 05:55 Hematocrit 32.2 % (37-47) L 11/24/23 05:55 Hgb O2 Saturation 94.6 % (95-100) L 11/24/23 05:55 Carboxyhemoglobin 0.1 %THgb (0.4-20.1) L 11/24/23 05:55 Methemoglobin 0.7 % (0.4-1.5) 11/24/23 05:55 Total Hemoglobin 10.5 g/dL (12-16) L 11/24/23 05:55 O2 Delivery Device Bipap 11/24/23 05:55 FiO2 60.0 % 11/24/23 05:55 Environmental Services Project Manager ID [email or web address] 11/24/23 05:55 Sodium 142 mmol/L (136-145) 11/25/23 04:57 Potassium 2.7 mmol/L (3.5-5.1) L* D 11/25/23 04:57 Chloride 94 mmol/L (98-107) L 11/25/23 04:57 Carbon Dioxide 38 mmol/L (22-29) H 11/25/23 04:57 Anion Gap 12.7 (5-19) 11/25/23 04:57 BUN 24 mg/dL (8-23) H 11/25/23 04:57 Creatinine 1.0 mg/dL (0.5-0.9) H 11/25/23 04:57 GFR Calculation Not Reportable 11/25/23 04:57 Glucose 130 mg/dL (65-115) H 11/25/23 04:57 Calculated Osmolality 300 mOsm/kg (285-295) H 11/25/23 04:57 Lactic Acid 2.4 mmol/L (0.5-2.2) H 11/24/23 06:05 Lactic Acid (Sepsis) 1.5 mmol/L (0.5-2.2) 11/24/23 09:08 Calcium 9.0 mg/dL (8.5-10.5) 11/25/23 04:57 Magnesium 1.7 mg/dL (1.7-2.3) 11/25/23 04:57 Total Bilirubin 0.5 mg/dL (0.15-1.2) 11/25/23 04:57 AST 14 U/L (0-32) 11/25/23 04:57 ALT 25 U/L (0-33) 11/25/23 04:57 Alkaline Phosphatase 86 U/L (35-105) 11/25/23 04:57 Troponin T Baseline 114 ng/L (0-10) H* 11/24/23 05:52 Troponin T 120 Minute 174.6 ng/L (0-10) H 11/24/23 07:48 Delta Troponin T 60.6 ABS# (0-10) H* 11/24/23 07:48 Troponin T Hi Sens 6Hr 188.8 ng/L (0-10) H 11/24/23 12:21 Troponin T Hi Sens 6Hr Delta 74.8 ng/L (0-12) H* 11/24/23 12:21 NT-Pro-B Natriuret Pep 73355 pg/mL (0-125) H 11/24/23 05:52 Total Protein 5.5 g/dL (6.6-8.7) L 11/25/23 04:57 Albumin 2.9 g/dL (3.5-5.2) L 11/25/23 04:57 Globulin 2.6 g/dL (1.3-4.6) 11/25/23 04:57 Urine Color Yellow (Yellow) 11/24/23 13:27 Urine Appearance Cloudy (CLEAR) A 11/24/23 13:27 Urine pH 7 (5-7) 11/24/23 13:27 Ur Specific [place] 1.010 (1.005-1.030) 11/24/23 13:27 Urine Protein Neg (Negative) 11/24/23 13:27 Urine Glucose (UA) Norm (Normal) 11/24/23 13:27 Urine Ketones Negative (Negative) 11/24/23 13:27 Urine Blood 3+ (Negative) H 11/24/23 13:27 Urine Nitrate Positive (Negative) H 11/24/23 13:27 Urine Bilirubin Neg (Negative) 11/24/23 13:27 Urine Urobilinogen Neg mg/dL (Negative) 11/24/23 13:27 Ur Leukocyte Esterase 2+ (Negative) H 11/24/23 13:27 Urine RBC >100 /hpf (0-2) H 11/24/23 13:27 Urine WBC Too numerous to cnt /hpf (0-5) H 11/24/23 13:27 Ur Squamous Epith Cells 0-4 /hpf (0-5) H 11/24/23 13:27 Ur Transition Epith Cell 0-4 /hpf 11/24/23 13:27 Amorphous Sediment Not Reportable 11/24/23 13:27 Urine Bacteria 2+ /hpf (NONE) H 11/24/23 13:27 Urine Yeast 2+ /hpf H 11/24/23 13:27 Adenovirus (PCR) Not detected (NOT DETECT) 11/24/23 06:10 C. pneumoniae DNA (PCR) Not detected (NOT DETECT) 11/24/23 06:10 Coronavirus 229E (PCR) Not detected (NOT DETECT) 11/24/23 06:10 Human Metapneumovir PCR Not detected (NOT DETECT) 11/24/23 06:10 Influenza A (H1) PCR Not detected (NOT DETECT) 11/24/23 06:10 Influ A (H1/09) PCR Not detected (NOT DETECT) 11/24/23 06:10 Influenza A (H3) PCR Not detected (NOT DETECT) 11/24/23 06:10 Influenza Type A (PCR) Not detected (NOT DETECT) 11/24/23 06:10 Influenza Type B (PCR) Not detected (NOT DETECT) 11/24/23 06:10 M. pneumoniae (PCR) Not detected (NOT DETECT) 11/24/23 06:10 Parainfluenza 1 (PCR) Not detected (NOT DETECT) 11/24/23 06:10 Parainfluenza 2 (PCR) Not detected (NOT DETECT) 11/24/23 06:10 Parainfluenza 3 (PCR) Detected (NOT DETECT) A 11/24/23 06:10 Parainfluenza 4 (PCR) Not detected (NOT DETECT) 11/24/23 06:10 RSV Type A (PCR) Not detected (NOT DETECT) 11/24/23 06:10 RSV Type B (PCR) Not detected (NOT DETECT) 11/24/23 06:10 Entero/Rhino (PCR) Not detected (NOT DETECT) 11/24/23 06:10 SARS-CoV-2 (PCR) Not detected (NOT DETECT) 11/24/23 06:10 Micro: Microbiology 11/25/23 09:03 Gram Stain - Final Sputum - Expectorated Sputum 11/24/23 13:27 Urine Culture - Preliminary Urine,Clean Catch Yeast species A&P Assessment and plan (1) Hypertrophic obstructive cardiomyopathy: Patient had a Significant gradient across the LV outflow tract. I will do a repeat Doppler examination to reevaluate this. (2) Atrial fibrillation with RVR: In view of the hypertrophic obstructive cardiomyopathy, atrial fibrillation complicated with a heart failure, it may be appropriate to start her on amiodarone to maintain sinus rhythm. At this point I may discontinue the metoprolol and keep her on the Cardizem and the amiodarone (3) Acute on chronic diastolic heart failure: Careful diuresis. Patient had moderate to severe pulmonary hypertension by echocardiogram in the past. But the last couple of studies, the PA pressure appeared to be in the normal range. But the studies are of suboptimal quality. Patient has some features of right heart failure. Since she is in sinus rhythm, I may go ahead and do Doppler studies of the tricuspid valve and pulmonic valve to evaluate the PA pressure (4) Hyperlipidemia: Continue on the current medication Qualifiers: Hyperlipidemia type: mixed hyperlipidemia Qualified Code(s): E78.2 - Mixed hyperlipidemia (5) Hypertension: Continue on the current medication Qualifiers: Hypertension type: essential hypertension Qualified Code(s): I10 - Essential (primary) hypertension (6) Thoracic ascending aortic aneurysm: Continue on the current management. Qualifiers: Presence of rupture: without rupture Qualified Code(s): I71.21 - Aneurysm of the ascending aorta, without rupture (7) CKD (chronic kidney disease) stage 3, GFR 30-59 ml/min: Continue on the current management. Kidney function appears to be stable Qualifiers: Chronic kidney disease stage 3 subtype: stage 3a (GFR 45-59) Qualified Code(s): N18.31 - Chronic kidney disease, stage 3a (8) Hypokalemia: The potassium is being supplemented. I will do a BMP now. Based on the results, further recommendations will be made Plan Amiodarone 400 mg p.o. twice daily Discontinue metoprolol Repeat Doppler examination of the LV outflow tract and tricuspid valve Continue on your current medications. After reviewing the results, further recommendations will be made Attestations 2 Medical Necessity Statement*: Patient requires continued hospital stay for close monitoring and further management Coding Level of Care Code 17411 Diagnoses Hypertrophic obstructive cardiomyopathy I42.1 Atrial fibrillation with RVR I48.91 Acute on chronic diastolic heart failure I50.33 Mixed hyperlipidemia E78.2 Hyperlipidemia type: mixed hyperlipidemia Essential hypertension I10 Hypertension type: essential hypertension Aneurysm of ascending aorta without rupture I71.21 Presence of rupture: without rupture Stage 3a chronic kidney disease N18.31 Chronic kidney disease stage 3 subtype: stage 3a (GFR 45-59) Hypokalemia E87.6
[2023-11-25] MEDS: acetaminophen 325 mg Tablet 650 MG PO (19:34)
[2023-11-25] MEDS: TRAMadol 50 mg Tablet PO (19:34)
--- NOTE | 2023-11-25 19:37 | PC.NURSE ---
Placed bipap per patient's request. No change to patient's settings.
[2023-11-25 21:02] LABS: Anion Gap 13.6 (5-19); Blood Urea Nitrogen 26 mg/dL (8-23); Carbon Dioxide 36 mmol/L (22-29); Chloride 96 mmol/L (98-107); Glucose 307 mg/dL (65-115); Osmolality Calculated 310 mOsm/kg (285-295); Potassium 3.6 mmol/L (3.5-5.1); Sodium 142 mmol/L (136-145)
[2023-11-26] VITALS (26 sets, daily range): BP systolic 109–139; BP diastolic 75–86; PULSE 84–145; RESP 17–37; TEMP 36.1–37.3; O2SAT 90–99; BMI 29.7
[2023-11-26] MEDS: ipratropium-albuterol 3 mL Neb INHALATION ×3 (02:00→19:42)
--- NOTE | 2023-11-26 02:41 | PC.NURSE ---
Patient's current heart rate running 110s to 140s. Informed Dr Varags and received telephone order to start Amiodarone 400mg PO first dose now and change from BID to every 12 hours. RBVO
[2023-11-26] MEDS: amiodarone 200 mg Tablet 400 MG PO (03:28)
[2023-11-26] MEDS: piperacillin-tazobactam 3.375 GM in sodium chloride 0.9% (plus) 50 ML IV ×3 (04:32→21:52)
[2023-11-26] MEDS: FUROsemide 10 mg/mL SDV 10mL 80 MG IVP ×3 (04:32→21:41)
[2023-11-26 06:01] LABS: Anion Gap 10.2 (5-19); Blood Urea Nitrogen 23 mg/dL (8-23); Calcium 9.6 mg/dL (8.5-10.5); Carbon Dioxide 40 mmol/L (22-29); Chloride 95 mmol/L (98-107); Glucose 133 mg/dL (65-115); Magnesium 1.9 mg/dL (1.7-2.3); Osmolality Calculated 300 mOsm/kg (285-295); Potassium 3.2 mmol/L (3.5-5.1); Sodium 142 mmol/L (136-145)
[2023-11-26] MEDS: dilTIAZem ER (24HR) 240 mg Capsule PO (06:13)
[2023-11-26] MEDS: metoprolol tartrate 1 mg/1 mL SDV 5 mL 5 MG IVP ×2 (07:58→10:14)
--- NOTE | 2023-11-26 08:19 | PM.PN ---
Documented by User: lynn Austin 11/26/23 08:41 Subjective Subjective: Patient was evaluated this morning while lying in bed on 3L/NC. Respiratory therapy at bedside transitioning patient from BiPAP to nasal cannula at time of exam. Within 2 to 3 minutes, patient became increasingly short of breath and unable to tolerate without the BiPAP. Patient reports that she noticed an increase shortness of breath without the BiPAP. Patient's noted telemetry at this time is currently A-fib with RVR as it looks like patient went into rhythm around 1930 on 11/25/2023. Patient received amiodarone p.o. last night for rhythm which did not correct. Son at bedside. Discussed plan of care. Patient denies any chest discomfort, abdominal pain, nausea, vomiting. No improvement to upper and lower extremity edema. no other complaints at this time. Medications: Reviewed: Yes Vitals/I&O/Wt Last Vital Signs Temp 97.0 F L 11/26/23 07:38 Pulse 138 H 11/26/23 07:38 Resp 28 H 11/26/23 07:38 BP 117/86 11/26/23 07:38 Pulse Ox 95 11/26/23 07:38 O2 Del Method CPAP 11/26/23 07:38 O2 Flow Rate 4 11/26/23 07:32 FiO2 40 11/26/23 04:21 11/25/23 11/26/23 11/26/23 22:59 06:59 14:59 Intake Total 300 / 707 100 / 807 Output Total 775 / 1775 175 / 1950 Balance -475 / -1068 -75 / -1143 Weight last 48 hrs Weight 86.183 kg Weight 86.636 kg Weight 86.636 kg Weight 86.455 kg Physical Exam Narrative: General: Alert, able to answer questions appropriately, on BiPAP currently exam, pleasant Neck: supple no lymphadenopathy thyromegaly Cardiovascular: Irregularly irregular, A-fib with RVR, pulses 1+ radial dorsalis pedis. 3+ pitting edema to lower extremity. 2+ pitting edema upper extremity. 2/4 murmur Respiratory: Prolonged expiratory phase, BiPAP, diminished/improved expiratory crackles, slight inspiratory wheeze, pursed lip breathing Abdomen: Soft, round, active bowel sounds throughout : Shafer catheter in place. Extremities: Erythema to upper extremity with some cyanosis throughout. MCP joints both hands with some erythema and edema, significantly improved from last hospitalization. Urinary Catheter Management: Shafer: Cath Placed During This Visit: yes Reason for Continuing Indwelling Catheter: Acute Urinary Retention or Obstruction Urinary Catheter Date of Insertion: 11/25/23 Urinary Catheter Time of Insertion: 10:00 Data 11/25/23 09:27 11/26/23 05:21 Other Labs: White blood cell 14.28, hemoglobin 9.2, hematocrit 29.9, potassium 3.2, BUN 1, Micro: Microbiology 11/25/23 09:03 Gram Stain - Final Sputum - Expectorated Sputum 11/24/23 13:27 Urine Culture - Preliminary Urine,Clean Catch Yeast species A&P Assessment and plan (1) Acute exacerbation of CHF (congestive heart failure): Patient is still requiring and utilizing BiPAP at this time for acute hypoxic respiratory failure due to fluid overload and CHF exacerbation. Patient reports that shortness of breath has worsened overnight. I potentially think that this is due to patient developing A-fib with RVR starting around approximately 1930 on 11/25/2023. Patient did receive amiodarone 400 mg p.o. last night by overnight hospitalist. This a.m., patient maintains A-fib with RVR in the rate of 140-150s. We will administer 5 mg IV metoprolol now. Patient was not able to tolerate removing BiPAP as she stated it felt like she became more short of breath. She was noticeably developing some respiratory distress while being on nasal cannula. BiPAP placed back on patient until heart rate is well-controlled and will attempt BiPAP removal at that time. Will avoid any extra fluids if possible, 1200 mill fluid restriction. Cardiology consultation. Recommendations appreciated Patient was placed on amiodarone twice daily Metoprolol was discontinued Repeat Doppler of LV outflow track and tricuspid valve. (2) Atrial fibrillation with RVR: As per #1 Patient's heart rhythm went into A-fib with RVR with a rate of 140-150s. Slight respiratory distress noted. We will administer metoprolol 5 mg IV. Continue telemetry Continue Eliquis for anticoagulation Cardizem p.o. (3) Leukocytosis: Multifactorial most likely due to pneumonia/atelectasis and confirmed urinary tract infection yesterday. Continue Zosyn. Sputum culture growing gram-positive. Afebrile overnight. Trend Blood cultures. Labs in AM. Shafer catheter replaced by nursing staff yesterday. (4) Elevated troponin: (5) Hypertension: Stable at this time Hold Antihypertensive medications. Qualifiers: Hypertension type: essential hypertension Qualified Code(s): I10 - Essential (primary) hypertension (6) CKD (chronic kidney disease) stage 3, GFR 30-59 ml/min: Stable at this time Continue diuresis due to #1. CMP in AM. Qualifiers: Chronic kidney disease stage 3 subtype: stage 3a (GFR 45-59) Qualified Code(s): N18.31 - Chronic kidney disease, stage 3a (7) Parainfluenza: Patient noted to be positive for parainfluenza 3. Treat medically and/or symptomatically at this time. Droplet precautions (8) Seronegative rheumatoid arthritis of both hands: Prednisone 30 mg (9) Hypokalemia: Patient's potassium level noted to be 3.2 this a.m. Potassium 40 mEq p.o. supplemented. CBC, CMP, magnesium in a.m. Plan Plan as stated above. Supplement potassium. Fluid restriction. Continue antibiotic regimen. continue BiPAP as tolerated. Monitor telemetry. Labs in AM Once stable for discharge, patient will return back to [facility] for further rehabilitation services. CODE STATUS: Full code DVT prophylaxis: Eliquis Coding Level of Care Code 25837 Diagnoses Acute exacerbation of CHF (congestive heart failure) I50.9 Atrial fibrillation with RVR I48.91 Leukocytosis D72.829 Elevated troponin R79.89 Essential hypertension I10 Hypertension type: essential hypertension Stage 3a chronic kidney disease N18.31 Chronic kidney disease stage 3 subtype: stage 3a (GFR 45-59) Parainfluenza B34.8 Seronegative rheumatoid arthritis of both hands M06.041; M06.042 Hypokalemia E87.6 Time Spent (min) 45 Documented by User: Jeff Garner MD 11/26/23 11:50 Physical Exam Urinary Catheter Management: Shafer: Cath Placed During This Visit: yes Data 11/25/23 09:27 11/26/23 05:21 A&P Assessment and plan (1) Acute exacerbation of CHF (congestive heart failure): Patient is still requiring and utilizing BiPAP at this time for acute hypoxic respiratory failure due to fluid overload and CHF exacerbation. Patient reports that shortness of breath has worsened overnight. I potentially think that this is due to patient developing A-fib with RVR starting around approximately 1930 on 11/25/2023. Patient did receive amiodarone 400 mg p.o. last night by overnight hospitalist. This a.m., patient maintains A-fib with RVR in the rate of 140-150s. We will administer 5 mg IV metoprolol now. Patient was not able to tolerate removing BiPAP as she stated it felt like she became more short of breath. She was noticeably developing some respiratory distress while being on nasal cannula. BiPAP placed back on patient until heart rate is well-controlled and will attempt BiPAP removal at that time. Will avoid any extra fluids if possible, 1200 mill fluid restriction. Cardiology consultation. Recommendations appreciated Patient was placed on amiodarone twice daily Metoprolol was discontinued Repeat Doppler of LV outflow track and tricuspid valve. Diamox added secondary to underlying lung disease, pulmonary hypertension, elevated CO2 Echo was ordered Increase Lasix IV to 80 mg every 8 hours (2) Atrial fibrillation with RVR: (3) Leukocytosis: Multifactorial most likely due to pneumonia/atelectasis and confirmed urinary tract infection yesterday. Continue Zosyn. Sputum culture pending Afebrile overnight. Trend Blood cultures. Labs in AM. Shafer catheter replaced by nursing staff yesterday. Right lung infiltrate on chest x-ray which I reviewed appears worse. Probable pleural effusion that is minor as well. Add vancomycin. Check MRSA PCR. (4) Elevated troponin: Cardiology evaluating (5) Hypertension: Qualifiers: Hypertension type: essential hypertension Qualified Code(s): I10 - Essential (primary) hypertension (6) CKD (chronic kidney disease) stage 3, GFR 30-59 ml/min: Qualifiers: Chronic kidney disease stage 3 subtype: stage 3a (GFR 45-59) Qualified Code(s): N18.31 - Chronic kidney disease, stage 3a (7) Parainfluenza: Patient noted to be positive for parainfluenza 3. Treat medically and/or symptomatically at this time. Droplet precautions Nebs (8) Seronegative rheumatoid arthritis of both hands: (9) Hypokalemia: Plan Plan as stated above. Supplement potassium. Fluid restriction. Continue antibiotic regimen. continue BiPAP as tolerated. Monitor telemetry. Labs in AM Anxiety. Ativan tried. She had some confusion with this. Will discontinue. Once stable for discharge, patient will return back to [facility] for further rehabilitation services. CODE STATUS: Full code DVT prophylaxis: Arnaldo Bonner Medical Necessity Statement*: Needs continued hospitalization for control of A-fib with RVR, treatment of respiratory failure. Diagnoses Acute exacerbation of CHF (congestive heart failure) I50.9 Atrial fibrillation with RVR I48.91 Leukocytosis D72.829 Elevated troponin R79.89 Essential hypertension I10 Hypertension type: essential hypertension Stage 3a chronic kidney disease N18.31 Chronic kidney disease stage 3 subtype: stage 3a (GFR 45-59) Parainfluenza B34.8 Seronegative rheumatoid arthritis of both hands M06.041; M06.042 Hypokalemia E87.6 Time Spent (min) 45
[2023-11-26] MEDS: LORazepam 2 mg/mL INJ 1 mL 0.5 MG IVP (08:59)
[2023-11-26] MEDS: lidocaine 1% 5 ML in potassium chloride premix 100 ML 26.25 ML IV ×2 (09:37→15:04)
[2023-11-26] MEDS: acetaZOLAMIDE 250 mg Tablet PO (09:38)
[2023-11-26] MEDS: apixaban 5 mg Tablet PO ×2 (09:38→17:33)
[2023-11-26] MEDS: potassium chloride ER 20 mEq Tablet 40 MEQ PO (09:39)
[2023-11-26] MEDS: colchicine 0.6 mg Tablet PO (09:39)
[2023-11-26] MEDS: predniSONE 20 mg Tablet 30 MG PO (09:39)
--- NOTE | 2023-11-26 09:50 | PM.PN ---
Subjective Subjective: Patient had a Myocardial perfusion imaging today. She was found to have mostly fixed defects with the very small areas of reversible defect in the apex. She continues to remain stable with no chest pain. Shortness of breath also is improving. No more active bleeding from the nose. Medications: Medication Review Details: Current Medications Acetaminophen (Acetaminophen 325 Mg Tablet) 650 mg PO Q6H PRN PRN Reason: MILD PAIN Last Admin: 11/25/23 19:34 Dose: 650 mg Acetazolamide (Acetazolamide 250 Mg Tablet) 250 mg PO DAILY MONY Last Admin: 11/26/23 09:38 Dose: 250 mg Albuterol/Ipratropium (Ipratropium-Albuterol 3 Ml Neb) 3 ml INHALATION Q6H.RESP [facility] Last Admin: 11/26/23 07:31 Dose: Not Given Amiodarone HCl (Amiodarone 200 Mg Tablet) 400 mg PO Q12H [facility] Last Admin: 11/26/23 03:28 Dose: 400 mg Apixaban (Apixaban 5 Mg Tablet) 5 mg PO BID [facility] Last Admin: 11/26/23 09:38 Dose: 5 mg Budesonide (Budesonide 0.5 Mg/2 Ml Neb) 0.5 mg INHALATION BID.RESPIRATORY MONY Last Admin: 11/26/23 07:31 Dose: Not Given Colchicine (Colchicine 0.6 Mg Tablet) 0.6 mg PO DAILY [facility] Last Admin: 11/26/23 09:39 Dose: 0.6 mg Diltiazem HCl (Diltiazem Er (24hr) 240 Mg Capsule) 240 mg PO DAILY MONY Last Admin: 11/26/23 06:13 Dose: 240 mg Docusate Sodium (Docusate Sodium 100 Mg Capsule) 100 mg PO BID MONY Last Admin: 11/25/23 17:36 Dose: 100 mg Folic Acid (Folic Acid 1 Mg Tablet) 1 mg PO DAILY MONY Last Admin: 11/25/23 08:36 Dose: 1 mg Furosemide (Furosemide 10 Mg/Ml Sdv 10ml) 80 mg IVP Q12H MONY Last Admin: 11/26/23 04:32 Dose: 80 mg Piperacillin Sod/Tazobactam (Sod 3.375 gm/ Sodium Chloride) 50 mls @ 12.5 mls/hr IV Q8H MONY Last Admin: 11/26/23 04:32 Dose: 12.5 mls/hr Lidocaine HCl 5 ml/ Potassium (Chloride) 105 mls @ 26.25 mls/hr IV Q4H [facility] Stop: 11/26/23 15:59 Last Admin: 11/26/23 09:37 Dose: 26.25 mls/hr Lorazepam (Lorazepam 2 Mg/Ml Inj 1 Ml) 0.5 mg IVP Q4H PRN PRN Reason: ANXIETY Last Admin: 11/26/23 08:59 Dose: 0.5 mg Ondansetron HCl (Ondansetron 2 Mg/Ml Sdv 2 Ml) 4 mg IVP Q6H PRN PRN Reason: NAUSEA AND VOMITING Pantoprazole Sodium (Pantoprazole Dr 40 Mg Tablet) 40 mg PO DAILY [facility] Last Admin: 11/25/23 08:36 Dose: 40 mg Prednisone (Prednisone 20 Mg Tablet) 30 mg PO DAILY [facility] Last Admin: 11/26/23 09:39 Dose: 30 mg Tramadol HCl (Tramadol 50 Mg Tablet) 50 mg PO Q8H PRN PRN Reason: Pain Last Admin: 11/25/23 19:34 Dose: 50 mg Vitals/I&O/Wt Last Vital Signs Temp 97.0 F L 11/26/23 07:38 Pulse 135 H 11/26/23 09:03 Resp 31 H 11/26/23 09:01 BP 117/86 11/26/23 07:38 Pulse Ox 94 11/26/23 09:01 O2 Del Method BiPAP 11/26/23 09:01 O2 Flow Rate 4 11/26/23 07:32 FiO2 40 11/26/23 09:01 11/25/23 11/26/23 11/26/23 22:59 06:59 14:59 Intake Total 300 / 707 100 / 807 Output Total 775 / 1775 175 / 1950 Balance -475 / -1068 -75 / -1143 Weight last 48 hrs Weight 190 lb Weight 191 lb Weight 191 lb Weight 190 lb 9.6 oz Physical Exam Narrative: GENERAL: The patient is alert and oriented times three. Not in any acute distress. HEENT: No significant pallor, icterus or lymphadenopathy.Oral cavity: There are no mucous membrane lesions. NECK: Trachea appears to be central. No masses noted. No JVD or thyromegaly appreciated. RESPIRATORY: Chest is symmetrical. No intercostals muscle retraction or any accessory muscle activation. There is no chest wall tenderness. Breath sounds are heard bilaterally. Diffuse coarse crackles and expiratory wheezing BREASTS: Deferred. HEART: The heart sounds are normal. No S3 or S4. Systolic murmur grade 3 or 6 in the base of the heart. No diastolic murmurs.. No pericardial rub ABDOMEN: No vessel pulsations or distention. No tenderness. No organomegaly appreciated. Bowel sounds are normally heard. : Deferred. RECTAL: Deferred. LYMPHATIC: No lymphadenopathy noted in the neck. EXTREMITIES: 2+ edema both lower extremities. MUSCULOSKELETAL: No acute joint deformities or swelling SKIN: There are no significant rashes or ecchymosis NEUROPSYCHIATRIC: The patient is alert and oriented x3. Appears to be in a good mood. No tremors or rigidity noted. Urinary Catheter Management: Shafer: Cath Placed During This Visit: yes Reason for Continuing Indwelling Catheter: Acute Urinary Retention or Obstruction Urinary Catheter Date of Insertion: 11/25/23 Urinary Catheter Time of Insertion: 10:00 Data 11/25/23 09:27 11/26/23 05:21 Other Labs: Laboratory Last Values WBC 14.28 10^3/uL (3.29-11.43) H 11/25/23 09: RBC 3.10 10^6/uL (3.85-5.65) L 11/25/23 09:27 Hgb 9.20 g/dL (11.27-16.99) L 11/25/23 09:27 Hct 29.9 % (36-47) L 11/25/23 09: MCV 96.5 fl (85-98) 11/25/23 09: MCH 29.7 pg (27-33) 11/25/23 09: MCHC 30.8 g/dL (30-55) 11/25/23 09: RDW 16.7 % (12.1-15.1) H 11/25/23 09: Plt Count 221 10^3/cmm (157-399) 11/25/23 09: MPV 11.0 fL (7.4-10.4) H 11/25/23 09:27 Neut % (Auto) 88.3 % 11/25/23 09: Lymph % (Auto) 7.4 % 11/25/23 09: [place] % (Auto) 2.0 % 11/25/23 09:27 Eos % (Auto) 1.4 % 11/25/23 09:27 Baso % (Auto) 0.4 % 11/25/23 09:27 Neut # (Auto) 12.63 10^3/uL (1.8-7.7) H 11/25/23 09:27 Lymph # (Auto) 1.1 10^3/uL (0.8-4.8) 11/25/23 09:27 [place] # (Auto) 0.3 10^3/uL (0.2-0.9) 11/25/23 09:27 Eos # (Auto) 0.2 10^3/uL (0.0-0.8) 11/25/23 09: Baso # (Auto) 0.1 10^3/uL (0.0-0.1) 11/25/23 09:27 Nucleated RBC % (auto) 0 % 11/25/23 09: Nucleated RBCs # 0.0 /100WBC 11/25/23 09:27 Specimen Type Arterial 11/26/23 11:10 Sample Site Radial, right 11/26/23 11:10 ABG pH 7.44 (7.35-7.45) 11/26/23 11:10 ABG pCO2 54.7 mmHg (35-45) H 11/26/23 11:10 ABG pO2 78.8 mmHg (80.0-100.0) L 11/26/23 11:10 ABG PO2/FiO2 Ratio 0 11/26/23 11:10 ABG HCO3 37.5 mmol/L (22-26) H 11/26/23 11:10 ABG Base Excess 11.1 mmol/L (-2.0-2.0) H 11/26/23 11:10 Perry Test Pos 11/26/23 11:10 Hematocrit 43.0 % (37-47) 11/26/23 11:10 Hgb O2 Saturation 94.6 % (95-100) L 11/24/23 05:55 Carboxyhemoglobin 0.1 %THgb (0.4-20.1) L 11/24/23 05:55 Methemoglobin 0.7 % (0.4-1.5) 11/24/23 05:55 Total Hemoglobin 10.5 g/dL (12-16) L 11/24/23 05:55 O2 Delivery Device Bipap 11/26/23 11:10 FiO2 40.0 % 11/26/23 11:10 Assistant Director Of Financial Aid ID glc 11/26/23 11:10 Sodium 142 mmol/L (136-145) 11/26/23 05:21 Potassium 3.2 mmol/L (3.5-5.1) L 11/26/23 05:21 Chloride 95 mmol/L (98-107) L 11/26/23 05:21 Carbon Dioxide 40 mmol/L (22-29) H 11/26/23 05:21 Anion Gap 10.2 (5-19) 11/26/23 05:21 BUN 23 mg/dL (8-23) 11/26/23 05:21 Creatinine 1.0 mg/dL (0.5-0.9) H 11/26/23 05:21 GFR Calculation Not Reportable 11/26/23 05:21 Glucose 133 mg/dL (65-115) H 11/26/23 05:21 Calculated Osmolality 300 mOsm/kg (285-295) H 11/26/23 05:21 Lactic Acid 2.4 mmol/L (0.5-2.2) H 11/24/23 06:05 Lactic Acid (Sepsis) 1.5 mmol/L (0.5-2.2) 11/24/23 09:08 Calcium 9.6 mg/dL (8.5-10.5) 11/26/23 05:21 Magnesium 1.9 mg/dL (1.7-2.3) 11/26/23 05:21 Total Bilirubin 0.5 mg/dL (0.15-1.2) 11/25/23 04:57 AST 14 U/L (0-32) 11/25/23 04:57 ALT 25 U/L (0-33) 11/25/23 04:57 Alkaline Phosphatase 86 U/L (35-105) 11/25/23 04:57 Troponin T Baseline 114 ng/L (0-10) H* 11/24/23 05:52 Troponin T 120 Minute 174.6 ng/L (0-10) H 11/24/23 07:48 Delta Troponin T 60.6 ABS# (0-10) H* 11/24/23 07:48 Troponin T Hi Sens 6Hr 188.8 ng/L (0-10) H 11/24/23 12:21 Troponin T Hi Sens 6Hr Delta 74.8 ng/L (0-12) H* 11/24/23 12:21 NT-Pro-B Natriuret Pep 29725 pg/mL (0-125) H 11/24/23 05:52 Total Protein 5.5 g/dL (6.6-8.7) L 11/25/23 04:57 Albumin 2.9 g/dL (3.5-5.2) L 11/25/23 04:57 Globulin 2.6 g/dL (1.3-4.6) 11/25/23 04:57 Urine Color Yellow (Yellow) 11/24/23 13:27 Urine Appearance Cloudy (CLEAR) A 11/24/23 13:27 Urine pH 7 (5-7) 11/24/23 13:27 Ur Specific [place] 1.010 (1.005-1.030) 11/24/23 13:27 Urine Protein Neg (Negative) 11/24/23 13:27 Urine Glucose (UA) Norm (Normal) 11/24/23 13:27 Urine Ketones Negative (Negative) 11/24/23 13:27 Urine Blood 3+ (Negative) H 11/24/23 13:27 Urine Nitrate Positive (Negative) H 11/24/23 13:27 Urine Bilirubin Neg (Negative) 11/24/23 13:27 Urine Urobilinogen Neg mg/dL (Negative) 11/24/23 13:27 Ur Leukocyte Esterase 2+ (Negative) H 11/24/23 13:27 Urine RBC >100 /hpf (0-2) H 11/24/23 13:27 Urine WBC Too numerous to cnt /hpf (0-5) H 11/24/23 13:27 Ur Squamous Epith Cells 0-4 /hpf (0-5) H 11/24/23 13:27 Ur Transition Epith Cell 0-4 /hpf 11/24/23 13:27 Amorphous Sediment Not Reportable 11/24/23 13:27 Urine Bacteria 2+ /hpf (NONE) H 11/24/23 13:27 Urine Yeast 2+ /hpf H 11/24/23 13:27 Adenovirus (PCR) Not detected (NOT DETECT) 11/24/23 06:10 C. pneumoniae DNA (PCR) Not detected (NOT DETECT) 11/24/23 06:10 Coronavirus 229E (PCR) Not detected (NOT DETECT) 11/24/23 06:10 Human Metapneumovir PCR Not detected (NOT DETECT) 11/24/23 06:10 Influenza A (H1) PCR Not detected (NOT DETECT) 11/24/23 06:10 Influ A (H1/09) PCR Not detected (NOT DETECT) 11/24/23 06:10 Influenza A (H3) PCR Not detected (NOT DETECT) 11/24/23 06:10 Influenza Type A (PCR) Not detected (NOT DETECT) 11/24/23 06:10 Influenza Type B (PCR) Not detected (NOT DETECT) 11/24/23 06:10 M. pneumoniae (PCR) Not detected (NOT DETECT) 11/24/23 06:10 Parainfluenza 1 (PCR) Not detected (NOT DETECT) 11/24/23 06:10 Parainfluenza 2 (PCR) Not detected (NOT DETECT) 11/24/23 06:10 Parainfluenza 3 (PCR) Detected (NOT DETECT) A 11/24/23 06:10 Parainfluenza 4 (PCR) Not detected (NOT DETECT) 11/24/23 06:10 RSV Type A (PCR) Not detected (NOT DETECT) 11/24/23 06:10 RSV Type B (PCR) Not detected (NOT DETECT) 11/24/23 06:10 Entero/Rhino (PCR) Not detected (NOT DETECT) 11/24/23 06:10 SARS-CoV-2 (PCR) Not detected (NOT DETECT) 11/24/23 06:10 Micro: Microbiology 11/25/23 09:03 Gram Stain - Final Sputum - Expectorated Sputum 11/24/23 13:27 Urine Culture - Preliminary Urine,Clean Catch Yeast species A&P Assessment and plan (1) Hypertrophic obstructive cardiomyopathy: Patient had a Significant gradient across the LV outflow tract. I will do a repeat Doppler examination to reevaluate this. (2) COPD exacerbation: She is on a BiPAP. Intermittent diastolic heart failure could be aggravating her condition. Continue careful IV diuresis (3) Atrial fibrillation with RVR: The amiodarone may be continued. Patient definitely atrial fibrillation with rapid ventricular rate this morning. Currently she seems to be back into sinus rhythm. She still has significant shortness of breath. (4) Acute on chronic diastolic heart failure: Careful diuresis. Patient had moderate to severe pulmonary hypertension by echocardiogram in the past. But the last couple of studies, the PA pressure appeared to be in the normal range. But the studies are of suboptimal quality. Patient has some features of right heart failure. Since she is in sinus rhythm, I may go ahead and do Doppler studies of the tricuspid valve and pulmonic valve to evaluate the PA pressure The echo Doppler study still pending (5) Hyperlipidemia: Continue on the current medication Qualifiers: Hyperlipidemia type: mixed hyperlipidemia Qualified Code(s): E78.2 - Mixed hyperlipidemia (6) Hypertension: Continue on the current medication Qualifiers: Hypertension type: essential hypertension Qualified Code(s): I10 - Essential (primary) hypertension (7) Thoracic ascending aortic aneurysm: Continue on the current management. Qualifiers: Presence of rupture: without rupture Qualified Code(s): I71.21 - Aneurysm of the ascending aorta, without rupture (8) CKD (chronic kidney disease) stage 3, GFR 30-59 ml/min: Continue on the current management. Kidney function appears to be stable Qualifiers: Chronic kidney disease stage 3 subtype: stage 3a (GFR 45-59) Qualified Code(s): N18.31 - Chronic kidney disease, stage 3a (9) Hypokalemia: The hypokalemia is improving. Plan Continue on the current measures. Will review the echo Doppler Attestations Medical Necessity Statement*: Patient requires continued hospital stay for close monitoring and further management Coding Level of Care Code Acute Code for [facility] Diagnoses Hypertrophic obstructive cardiomyopathy I42.1 COPD exacerbation J44.1 Atrial fibrillation with RVR I48.91 Acute on chronic diastolic heart failure I50.33 Mixed hyperlipidemia E78.2 Hyperlipidemia type: mixed hyperlipidemia Essential hypertension I10 Hypertension type: essential hypertension Aneurysm of ascending aorta without rupture I71.21 Presence of rupture: without rupture Stage 3a chronic kidney disease N18.31 Chronic kidney disease stage 3 subtype: stage 3a (GFR 45-59) Hypokalemia E87.6
--- NOTE | 2023-11-26 10:55 | XRR_ITS ---
PROCEDURE INFORMATION: Exam: XR Chest Exam date and time: 11/26/2023 11:09 AM Age: 72 years old Clinical indication: Dyspnea; Patient HX: On bipap, HX of chf and copd TECHNIQUE: Imaging protocol: Radiologic exam of the chest. Views: 1 view. COMPARISON: CR (CHEST, ) 11/24/2023 5:54 AM FINDINGS: Lungs: No focal consolidation. Pleural spaces: Moderate right and small left pleural effusion. No pneumothorax. Heart/Mediastinum: No cardiomegaly. Bones/joints: No acute findings. XR/XR chest 1V portable [id number] IMPRESSION: Moderate right and small left pleural effusions.
[2023-11-26 11:23] LABS: ABG PCO2 54.7 mmHg (35-45); ABG PH Result 7.44 (7.35-7.45); Base Excess ABG 11.1 mmol/L (-2.0-2.0); Blood Gas Allen Test Pos; Blood Gas Sample Type Arterial; HCO3 ABG 37.5 mmol/L (22-26); PO2 ABG 78.8 mmHg (80.0-100.0)
[2023-11-26 11:24] LABS: Blood Gas Operator Identificat glc; Blood Gas Sample Site Radial, right; Oxygen Device BIPAP; PO2 FiO2 Ratio Arterial Blood 0
--- NOTE | 2023-11-26 11:46 | PC.SOCIAL ---
IMM Update pg 2 of IMM updated and reviewed w/ patients son. Copy provided and copy dated, initialed and placed in chart.
[2023-11-26] MEDS: vancomycin 1,500 MG/300 ML PIGGYBACK 200 MG IV (14:12)
[2023-11-26] MEDS: docusate sodium 100 mg Capsule PO (17:35)
[2023-11-26] MEDS: budesonide 0.5 mg/2 mL Neb INHALATION (19:42)
[2023-11-26] MEDS: TRAMadol 50 mg Tablet PO (21:40)
[2023-11-26] MEDS: acetaminophen 325 mg Tablet 650 MG PO (21:41)
[2023-11-27] VITALS (18 sets, daily range): BP systolic 106–145; BP diastolic 70–87; PULSE 80–128; RESP 14–26; TEMP 36.4–36.6; O2SAT 95–99
[2023-11-27] MEDS: ipratropium-albuterol 3 mL Neb INHALATION ×3 (01:48→20:29)
[2023-11-27 04:00] LABS: Basophils % 0.7 %; Eosinophils # 0.2 10^3/uL (0.0-0.8); Eosinophils % 2.5 %; Hematocrit 28.7 % (36-47); Lymphocytes # 0.8 10^3/uL (0.8-4.8); Lymphocytes % 12.6 %; Mean Corpuscular HGB Conc 30.3 g/dL (30-55); Mean Corpuscular Hemoglobin 29.4 pg (27-33); Mean Platelet Volume 10.8 fL (7.4-10.4); Monocytes # 0.2 10^3/uL (0.2-0.9); Monocytes % 3.8 %; Neutrophils # 4.79 10^3/uL (1.8-7.7); Neutrophils % 79.4 %; Nucleated Red Blood Cells % 0 %; Platelet Count 226 10^3/cmm (157-399); Red Blood Count 2.96 10^6/uL (3.85-5.65); Red Cell Distribution Width 16.7 % (12.1-15.1); White Blood Count 6.03 10^3/uL (3.29-11.43)
[2023-11-27 04:22] LABS: Alanine Aminotransferase 650 U/L (0-33); Alkaline Phosphatase 85 U/L (35-105); Anion Gap 16.5 (5-19); Aspartate Amino Transferase 470 U/L (0-32); Blood Urea Nitrogen 32 mg/dL (8-23); Calcium 9.3 mg/dL (8.5-10.5); Carbon Dioxide 34 mmol/L (22-29); Chloride 95 mmol/L (98-107); Globulin 2.8 g/dL (1.3-4.6); Glucose 181 mg/dL (65-115); Magnesium 1.9 mg/dL (1.7-2.3); Osmolality Calculated 305 mOsm/kg (285-295); Potassium 3.5 mmol/L (3.5-5.1); Sodium 142 mmol/L (136-145); Total Bilirubin 0.2 mg/dL (0.15-1.2); Total Protein 5.8 g/dL (6.6-8.7)
[2023-11-27] MEDS: piperacillin-tazobactam 3.375 GM in sodium chloride 0.9% (plus) 50 ML IV ×3 (05:30→20:52)
[2023-11-27] MEDS: FUROsemide 10 mg/mL SDV 10mL 80 MG IVP ×3 (05:32→20:52)
[2023-11-27] MEDS: vancomycin 1,500 MG/300 ML PIGGYBACK 200 MG IV (05:42)
[2023-11-27] MEDS: budesonide 0.5 mg/2 mL Neb INHALATION ×2 (07:40→20:29)
--- NOTE | 2023-11-27 07:43 | PC.RESP ---
Heartrate 138 at this time, moises held.
--- NOTE | 2023-11-27 09:18 | P.PN_ITS ---
Subjective 2 Subjective: Patient is feeling better today. She been going back and forth into atrial fibrillation in sinus rhythm. She was found to have elevated liver enzymes. For that reason, we held the amiodarone. Restarted the metoprolol. The dose may be gradually increased for the heart rate control. Had a repeat Doppler examination of the LV outflow tract. Was found to have an LV outflow tract gradient of 117 mmHg Medications: Medication Review Details: Current Medications Acetaminophen (Acetaminophen 325 Mg Tablet) 650 mg PO Q6H PRN PRN Reason: MILD PAIN Last Admin: 11/26/23 21:41 Dose: 650 mg Acetazolamide (Acetazolamide 250 Mg Tablet) 250 mg PO DAILY [facility] Last Admin: 11/26/23 09:38 Dose: 250 mg Albuterol/Ipratropium (Ipratropium-Albuterol 3 Ml Neb) 3 ml INHALATION Q6H.RESP MONY Last Admin: 11/27/23 08:31 Dose: Not Given Apixaban (Apixaban 5 Mg Tablet) 5 mg PO BID [facility] Last Admin: 11/26/23 17:33 Dose: 5 mg Budesonide (Budesonide 0.5 Mg/2 Ml Neb) 0.5 mg INHALATION BID.RESPIRATORY MONY Last Admin: 11/27/23 07:40 Dose: 0.5 mg Colchicine (Colchicine 0.6 Mg Tablet) 0.6 mg PO DAILY [facility] Last Admin: 11/26/23 09:39 Dose: 0.6 mg Diltiazem HCl (Diltiazem Er (24hr) 240 Mg Capsule) 240 mg PO DAILY [facility] Last Admin: 11/26/23 06:13 Dose: 240 mg Docusate Sodium (Docusate Sodium 100 Mg Capsule) 100 mg PO BID [facility] Last Admin: 11/26/23 17:35 Dose: 100 mg Folic Acid (Folic Acid 1 Mg Tablet) 1 mg PO DAILY [facility] Last Admin: 11/26/23 10:23 Dose: Not Given Furosemide (Furosemide 10 Mg/Ml Sdv 10ml) 80 mg IVP Q8H MONY Last Admin: 11/27/23 05:32 Dose: 80 mg Piperacillin Sod/Tazobactam (Sod 3.375 gm/ Sodium Chloride) 50 mls @ 12.5 mls/hr IV Q8H [facility]Y Last Admin: 11/27/23 05:30 Dose: 12.5 mls/hr Amiodarone HCl/Dextrose (Nexterone) 360 mg in 200 mls @ 0 mls/hr IV .Q0M [facility]; Protocol Last Titration: 11/26/23 21:50 Dose: 0.5 mg/min, 16.67 mls/hr Vancomycin/PEG/NADA/Lysine/Water (Vancocin) 1,500 mg in 300 mls @ 200 mls/hr IV Q18H [facility] Last Admin: 11/27/23 05:42 Dose: 200 mls/hr Ondansetron HCl (Ondansetron 2 Mg/Ml Sdv 2 Ml) 4 mg IVP Q6H PRN PRN Reason: NAUSEA AND VOMITING Pantoprazole Sodium (Pantoprazole Dr 40 Mg Tablet) 40 mg PO DAILY [facility] Last Admin: 11/26/23 10:23 Dose: Not Given Prednisone (Prednisone 20 Mg Tablet) 30 mg PO DAILY [facility] Last Admin: 11/26/23 09:39 Dose: 30 mg Tramadol HCl (Tramadol 50 Mg Tablet) 50 mg PO Q8H PRN PRN Reason: Pain Last Admin: 11/26/23 21:40 Dose: 50 mg Vitals/I&O/Wt Last Vital Signs Temp 97.7 F 11/27/23 04:30 Pulse 125 H 11/27/23 07:41 Resp 19 H 11/27/23 07:20 BP 126/87 11/27/23 07:20 Pulse Ox 98 11/27/23 07:41 O2 Del Method CPAP 11/27/23 07:20 O2 Flow Rate 40 11/26/23 12:38 FiO2 40 11/27/23 07:41 11/26/23 11/27/23 11/27/23 22:59 06:59 14:59 Intake Total 1004.430 / 1159.430 200 / 1359.430 Output Total 1600 / 1600 200 / 1800 Balance -595.570 / -440.570 0 / -440.570 Weight last 48 hrs Weight 190 lb Weight 190 lb Weight 190 lb Physical Exam 2 Narrative: GENERAL: The patient is alert and oriented times three. Not in any acute distress. HEENT: No significant pallor, icterus or lymphadenopathy.Oral cavity: There are no mucous membrane lesions. NECK: Trachea appears to be central. No masses noted. No JVD or thyromegaly appreciated. RESPIRATORY: Chest is symmetrical. No intercostals muscle retraction or any accessory muscle activation. There is no chest wall tenderness. Breath sounds are heard bilaterally. Diffuse coarse crackles and expiratory wheezing BREASTS: Deferred. HEART: The heart sounds are normal. No S3 or S4. Systolic murmur grade 3 or 6 in the base of the heart. No diastolic murmurs.. No pericardial rub ABDOMEN: No vessel pulsations or distention. No tenderness. No organomegaly appreciated. Bowel sounds are normally heard. : Deferred. RECTAL: Deferred. LYMPHATIC: No lymphadenopathy noted in the neck. EXTREMITIES: 2+ edema both lower extremities. MUSCULOSKELETAL: No acute joint deformities or swelling SKIN: There are no significant rashes or ecchymosis NEUROPSYCHIATRIC: The patient is alert and oriented x3. Appears to be in a good mood. No tremors or rigidity noted. Urinary Catheter Management: Shafer: Cath Placed During This Visit: yes Reason for Continuing Indwelling Catheter: Acute Urinary Retention or Obstruction Urinary Catheter Date of Insertion: 11/25/23 Urinary Catheter Time of Insertion: 10:00 Data 11/27/23 03:09 11/27/23 03:09 Other Labs: Laboratory Last Values WBC 6.03 10^3/uL (3.29-11.43) 11/27/23 03:09 RBC 2.96 10^6/uL (3.85-5.65) L 11/27/23 03:09 Hgb 8.70 g/dL (11.27-16.99) L 11/27/23 03:09 Hct 28.7 % (36-47) L 11/27/23 03:09 MCV 97.0 fl (85-98) 11/27/23 03:09 MCH 29.4 pg (27-33) 11/27/23 03:09 MCHC 30.3 g/dL (30-55) 11/27/23 03:09 RDW 16.7 % (12.1-15.1) H 11/27/23 03:09 Plt Count 226 10^3/cmm (157-399) 11/27/23 03:09 MPV 10.8 fL (7.4-10.4) H 11/27/23 03:09 Neut % (Auto) 79.4 % 11/27/23 03:09 Lymph % (Auto) 12.6 % 11/27/23 03:09 [place] % (Auto) 3.8 % 11/27/23 03:09 Eos % (Auto) 2.5 % 11/27/23 03:09 Baso % (Auto) 0.7 % 11/27/23 03:09 Neut # (Auto) 4.79 10^3/uL (1.8-7.7) 11/27/23 03:09 Lymph # (Auto) 0.8 10^3/uL (0.8-4.8) 11/27/23 03:09 [place] # (Auto) 0.2 10^3/uL (0.2-0.9) 11/27/23 03:09 Eos # (Auto) 0.2 10^3/uL (0.0-0.8) 11/27/23 03:09 Baso # (Auto) 0.0 10^3/uL (0.0-0.1) 11/27/23 03:09 Nucleated RBC % (auto) 0 % 11/27/23 03:09 Nucleated RBCs # 0.0 /100WBC 11/27/23 03:09 Specimen Type Arterial 11/26/23 11:10 Sample Site Radial, right 11/26/23 11:10 ABG pH 7.44 (7.35-7.45) 11/26/23 11:10 ABG pCO2 54.7 mmHg (35-45) H 11/26/23 11:10 ABG pO2 78.8 mmHg (80.0-100.0) L 11/26/23 11:10 ABG PO2/FiO2 Ratio 0 11/26/23 11:10 ABG HCO3 37.5 mmol/L (22-26) H 11/26/23 11:10 ABG Base Excess 11.1 mmol/L (-2.0-2.0) H 11/26/23 11:10 Perry Test Pos 11/26/23 11:10 Hematocrit 43.0 % (37-47) 11/26/23 11:10 Hgb O2 Saturation 94.6 % (95-100) L 11/24/23 05:55 Carboxyhemoglobin 0.1 %THgb (0.4-20.1) L 11/24/23 05:55 Methemoglobin 0.7 % (0.4-1.5) 11/24/23 05:55 Total Hemoglobin 10.5 g/dL (12-16) L 11/24/23 05:55 O2 Delivery Device Bipap 11/26/23 11:10 FiO2 40.0 % 11/26/23 11:10 Project Structural Engineer ID [email or web address] 11/26/23 11:10 Sodium 142 mmol/L (136-145) 11/27/23 03:09 Potassium 3.5 mmol/L (3.5-5.1) 11/27/23 03:09 Chloride 95 mmol/L (98-107) L 11/27/23 03:09 Carbon Dioxide 34 mmol/L (22-29) H 11/27/23 03:09 Anion Gap 16.5 (5-19) 11/27/23 03:09 BUN 32 mg/dL (8-23) H 11/27/23 03:09 Creatinine 1.4 mg/dL (0.5-0.9) H 11/27/23 03:09 GFR Calculation Not Reportable 11/27/23 03:09 Glucose 181 mg/dL (65-115) H 11/27/23 03:09 Calculated Osmolality 305 mOsm/kg (285-295) H 11/27/23 03:09 Lactic Acid 2.4 mmol/L (0.5-2.2) H 11/24/23 06:05 Lactic Acid (Sepsis) 1.5 mmol/L (0.5-2.2) 11/24/23 09:08 Calcium 9.3 mg/dL (8.5-10.5) 11/27/23 03:09 Magnesium 1.9 mg/dL (1.7-2.3) 11/27/23 03:09 Total Bilirubin 0.2 mg/dL (0.15-1.2) 11/27/23 03:09 AST 470 U/L (0-32) H 11/27/23 03:09 ALT 650 U/L (0-33) H 11/27/23 03:09 Alkaline Phosphatase 85 U/L (35-105) 11/27/23 03:09 Troponin T Baseline 114 ng/L (0-10) H* 11/24/23 05:52 Troponin T 120 Minute 174.6 ng/L (0-10) H 11/24/23 07:48 Delta Troponin T 60.6 ABS# (0-10) H* 11/24/23 07:48 Troponin T Hi Sens 6Hr 188.8 ng/L (0-10) H 11/24/23 12:21 Troponin T Hi Sens 6Hr Delta 74.8 ng/L (0-12) H* 11/24/23 12:21 NT-Pro-B Natriuret Pep 80397 pg/mL (0-125) H 11/24/23 05:52 Total Protein 5.8 g/dL (6.6-8.7) L 11/27/23 03:09 Albumin 3.0 g/dL (3.5-5.2) L 11/27/23 03:09 Globulin 2.8 g/dL (1.3-4.6) 11/27/23 03:09 Urine Color Yellow (Yellow) 11/24/23 13:27 Urine Appearance Cloudy (CLEAR) A 11/24/23 13:27 Urine pH 7 (5-7) 11/24/23 13:27 Ur Specific [place] 1.010 (1.005-1.030) 11/24/23 13:27 Urine Protein Neg (Negative) 11/24/23 13:27 Urine Glucose (UA) Norm (Normal) 11/24/23 13:27 Urine Ketones Negative (Negative) 11/24/23 13:27 Urine Blood 3+ (Negative) H 11/24/23 13:27 Urine Nitrate Positive (Negative) H 11/24/23 13:27 Urine Bilirubin Neg (Negative) 11/24/23 13:27 Urine Urobilinogen Neg mg/dL (Negative) 11/24/23 13:27 Ur Leukocyte Esterase 2+ (Negative) H 11/24/23 13:27 Urine RBC >100 /hpf (0-2) H 11/24/23 13:27 Urine WBC Too numerous to cnt /hpf (0-5) H 11/24/23 13:27 Ur Squamous Epith Cells 0-4 /hpf (0-5) H 11/24/23 13:27 Ur Transition Epith Cell 0-4 /hpf 11/24/23 13:27 Amorphous Sediment Not Reportable 11/24/23 13:27 Urine Bacteria 2+ /hpf (NONE) H 11/24/23 13:27 Urine Yeast 2+ /hpf H 11/24/23 13:27 Adenovirus (PCR) Not detected (NOT DETECT) 11/24/23 06:10 C. pneumoniae DNA (PCR) Not detected (NOT DETECT) 11/24/23 06:10 Coronavirus 229E (PCR) Not detected (NOT DETECT) 11/24/23 06:10 Human Metapneumovir PCR Not detected (NOT DETECT) 11/24/23 06:10 Influenza A (H1) PCR Not detected (NOT DETECT) 11/24/23 06:10 Influ A (H1/09) PCR Not detected (NOT DETECT) 11/24/23 06:10 Influenza A (H3) PCR Not detected (NOT DETECT) 11/24/23 06:10 Influenza Type A (PCR) Not detected (NOT DETECT) 11/24/23 06:10 Influenza Type B (PCR) Not detected (NOT DETECT) 11/24/23 06:10 M. pneumoniae (PCR) Not detected (NOT DETECT) 11/24/23 06:10 Parainfluenza 1 (PCR) Not detected (NOT DETECT) 11/24/23 06:10 Parainfluenza 2 (PCR) Not detected (NOT DETECT) 11/24/23 06:10 Parainfluenza 3 (PCR) Detected (NOT DETECT) A 11/24/23 06:10 Parainfluenza 4 (PCR) Not detected (NOT DETECT) 11/24/23 06:10 RSV Type A (PCR) Not detected (NOT DETECT) 11/24/23 06:10 RSV Type B (PCR) Not detected (NOT DETECT) 11/24/23 06:10 Entero/Rhino (PCR) Not detected (NOT DETECT) 11/24/23 06:10 SARS-CoV-2 (PCR) Not detected (NOT DETECT) 11/24/23 06:10 Micro: Microbiology 11/24/23 06:16 Blood Culture - Preliminary Blood 11/24/23 06:05 Blood Culture - Preliminary Blood 11/25/23 09:03 Gram Stain - Final Sputum - Expectorated Sputum Sputum Culture - Preliminary A&P Assessment and plan (1) Hypertrophic obstructive cardiomyopathy: There is no worsening of the gradient across the LV outflow tract. At this point we may continue on the current management. (2) COPD exacerbation: She is on a BiPAP. Intermittent diastolic heart failure could be aggravating her condition. Continue careful IV diuresis and other symptomatic measures. (3) Atrial fibrillation with RVR: In view of the elevated liver enzymes, we may hold off on the amiodarone. Will restart the metoprolol and the dose may be titrated up for the heart rate control. (4) Acute on chronic diastolic heart failure: The tricuspid valve Doppler studies were a suboptimal quality. The PA pressure appears to be normal. But this could be very misleading. At this point, we may optimize the medical treatment (5) Hyperlipidemia: Continue on the current medication Qualifiers: Hyperlipidemia type: mixed hyperlipidemia Qualified Code(s): E78.2 - Mixed hyperlipidemia (6) Hypertension: Continue on the current medication Qualifiers: Hypertension type: essential hypertension Qualified Code(s): I10 - Essential (primary) hypertension (7) Thoracic ascending aortic aneurysm: Continue on the current management. Qualifiers: Presence of rupture: without rupture Qualified Code(s): I71.21 - Aneurysm of the ascending aorta, without rupture (8) CKD (chronic kidney disease) stage 3, GFR 30-59 ml/min: Continue on the current management. Kidney function appears to be stable Qualifiers: Chronic kidney disease stage 3 subtype: stage 3a (GFR 45-59) Qualified Code(s): N18.31 - Chronic kidney disease, stage 3a (9) Hypokalemia: The hypokalemia has improved. Plan Continue on the current measures. Attestations 2 Medical Necessity Statement*: Patient requires continued hospital stay for close monitoring and further management Coding Level of Care Code 13154 Diagnoses Hypertrophic obstructive cardiomyopathy I42.1 COPD exacerbation J44.1 Atrial fibrillation with RVR I48.91 Acute on chronic diastolic heart failure I50.33 Mixed hyperlipidemia E78.2 Hyperlipidemia type: mixed hyperlipidemia Essential hypertension I10 Hypertension type: essential hypertension Aneurysm of ascending aorta without rupture I71.21 Presence of rupture: without rupture Stage 3a chronic kidney disease N18.31 Chronic kidney disease stage 3 subtype: stage 3a (GFR 45-59) Hypokalemia E87.6
[2023-11-27] MEDS: acetaZOLAMIDE 250 mg Tablet PO (09:52)
[2023-11-27] MEDS: colchicine 0.6 mg Tablet PO (09:52)
[2023-11-27] MEDS: metoprolol tartrate 25 mg Tablet PO ×2 (09:52→17:38)
[2023-11-27] MEDS: apixaban 5 mg Tablet PO (09:52)
[2023-11-27] MEDS: pantoprazole DR 40 mg Tablet PO (09:52)
[2023-11-27] MEDS: predniSONE 20 mg Tablet 30 MG PO (09:52)
[2023-11-27] MEDS: folic acid 1 mg Tablet PO (09:53)
[2023-11-27] MEDS: dilTIAZem ER (24HR) 240 mg Capsule PO (09:53)
--- NOTE | 2023-11-27 10:06 | P.PN_ITS ---
Subjective 2 Subjective: Mrs. Chaves was on BiPAP when I saw her this morning. She appeared more comfortable than yesterday, and acknowledges this. She denies any particular pain. Amiodarone drip was initiated secondary to persistent A-fib with RVR. Medications: Reviewed: Yes Vitals/I&O/Wt Last Vital Signs Temp 97.7 F 11/27/23 04:30 Pulse 125 H 11/27/23 07:41 Resp 19 H 11/27/23 07:20 BP 126/87 11/27/23 07:20 Pulse Ox 98 11/27/23 07:41 O2 Del Method CPAP 11/27/23 07:20 O2 Flow Rate 40 11/26/23 12:38 FiO2 40 11/27/23 07:41 11/26/23 11/27/23 11/27/23 22:59 06:59 14:59 Intake Total 1004.430 / 1159.430 200 / 1359.430 198.333 / 198.333 Output Total 1600 / 1600 200 / 1800 Balance -595.570 / -440.570 0 / -440.570 198.333 / 198.333 Weight last 48 hrs Weight 86.183 kg Weight 86.183 kg Weight 86.183 kg Physical Exam 2 Narrative: General: Alert, able to answer questions appropriately, on BiPAP currently exam, pleasant. Looks more comfortable than yesterday Neck: supple no lymphadenopathy thyromegaly Cardiovascular: Irregularly irregular, A-fib with RVR, pulses 1+ radial dorsalis pedis. 2+ pitting edema to lower extremity. 2+ pitting edema upper extremity. 2/4 murmur Respiratory: Prolonged expiratory phase, BiPAP, diminished/improved expiratory crackles, slight inspiratory wheeze, pursed lip breathing Abdomen: Soft, round, active bowel sounds throughout : Shafer catheter in place. Extremities: Edema as noted above. No cyanosis or clubbing Urinary Catheter Management: Shafer: Cath Placed During This Visit: yes Reason for Continuing Indwelling Catheter: Acute Urinary Retention or Obstruction Urinary Catheter Date of Insertion: 11/25/23 Urinary Catheter Time of Insertion: 10:00 Data 11/27/23 03:09 11/27/23 03:09 Micro: Microbiology 11/24/23 06:16 Blood Culture - Preliminary Blood 11/24/23 06:05 Blood Culture - Preliminary Blood 11/25/23 09:03 Gram Stain - Final Sputum - Expectorated Sputum Sputum Culture - Preliminary A&P Assessment and plan (1) Acute exacerbation of CHF (congestive heart failure): Patient is still requiring and utilizing BiPAP at this time for acute hypoxic respiratory failure due to fluid overload and CHF exacerbation. She appears more comfortable this morning. Hopefully she can transition to high flow nasal cannula for some of her time. She will still need BiPAP when sleeping. Chest x-ray yesterday demonstrated right lung infiltrate, probable increase in right lung effusion probably small left effusion. These still appear relatively small per chest x-ray. Patient is still in A-fib, with rate of around 120 despite amiodarone. Liver function tests have increased which could kate worsening hepatic congestion versus amiodarone toxicity. Cardiology is going to address. Will avoid any extra fluids if possible, 1200 mill fluid restriction. Lasix was increased yesterday to 80 mg every 8 hours. Peripheral edema appears improved Cardiology consultation. Recommendations appreciated I believe cardiology is reinstituting metoprolol Echocardiogram is pending Diamox added secondary to underlying lung disease, pulmonary hypertension, elevated CO2 CBC, BMP daily (2) Atrial fibrillation with RVR: As per #1 Continue telemetry Continue Eliquis for anticoagulation Continue Cardizem p.o. Metoprolol likely to be restarted by cardiology (3) Leukocytosis: Multifactorial most likely due to pneumonia/atelectasis and confirmed urinary tract infection yesterday. Continue Zosyn. Sputum culture pending Vancomycin added secondary to worsening infiltrate right lung Labs in AM. Shafer catheter replaced by nursing staff yesterday. Right lung infiltrate on chest x-ray which I reviewed appears worse. Probable pleural effusion that is minor as well. Add vancomycin. Check MRSA PCR. (4) Elevated troponin: Cardiology evaluating (5) Hypertension: Stable at this time Hold Antihypertensive medications. Qualifiers: Hypertension type: essential hypertension Qualified Code(s): I10 - Essential (primary) hypertension (6) CKD (chronic kidney disease) stage 3, GFR 30-59 ml/min: Stable at this time Continue diuresis due to #1. CMP in AM. Qualifiers: Chronic kidney disease stage 3 subtype: stage 3a (GFR 45-59) Qualified Code(s): N18.31 - Chronic kidney disease, stage 3a (7) Parainfluenza: Patient noted to be positive for parainfluenza 3. Treat medically and/or symptomatically at this time. Droplet precautions Nebs (8) Seronegative rheumatoid arthritis of both hands: Prednisone 30 mg (9) Hypokalemia: Resolved Plan Plan as stated above. Supplement potassium. Fluid restriction. Continue antibiotic regimen. continue BiPAP as tolerated. Monitor telemetry. Labs in AM Anxiety. Ativan tried. She had some confusion with this. Will discontinue. Transaminitis. May be secondary to hepatic congestion versus amiodarone effect. Amiodarone has been discontinued. Repeat LFTs tomorrow. Once stable for discharge, patient will return back to [facility] for further rehabilitation services. CODE STATUS: Full code DVT prophylaxis: Arnaldo Bonner 2 Medical Necessity Statement*: Needs continued hospitalization secondary to A-fib with RVR, CHF requiring diuresis Diagnoses Acute exacerbation of CHF (congestive heart failure) I50.9 Atrial fibrillation with RVR I48.91 Leukocytosis D72.829 Elevated troponin R79.89 Essential hypertension I10 Hypertension type: essential hypertension Stage 3a chronic kidney disease N18.31 Chronic kidney disease stage 3 subtype: stage 3a (GFR 45-59) Parainfluenza B34.8 Seronegative rheumatoid arthritis of both hands M06.041; M06.042 Hypokalemia E87.6 Time Spent (min) 27
[2023-11-27] MEDS: metoprolol tartrate 1 mg/1 mL SDV 5 mL 5 MG IVP (10:16)
--- NOTE | 2023-11-27 13:43 | PC.NURSE ---
Per Phoebe Dorsey, RT. she placed the pt on heated High Flow and the pt managed to stay off Bipap for approx 7 minutes before requesting to go back on Bipap.
--- NOTE | 2023-11-27 13:58 | USCV_ITS ---
Any Chaves Age: 72 Gender: F : 1950 Exam Date: 11/27/2023 14:31 Ordering Phys: Gadiel Mcneil MD ([email or web address]) Technologist: Raimundo Cosby Exam Location: [facility] Indication: subaortic stenosis BP: 139 / 80 HR: 125 Rhythm: Sinus Technical Quality: Adequate MEASUREMENTS (Male / Female) Normal Values 2D ECHO LV Ejection Fraction MOD 2C 67.9 % LV Ejection Fraction 2C AL 67.9 % DOPPLER LVOT Peak Velocity 533.7 cm/s TR Peak Velocity 281.0 cm/s TR Peak Gradient 31.6 mmHg TV Peak E Velocity 121.0 cm/s Right Atrial Pressure 8.0 mmHg Pulmonary Artery Systolic Pressu 39.6 mmHg RV Acceleration Time 0.2 s FINDINGS Left Ventricle Normal left ventricular size and systolic function, EF 71 %. Moderate left ventricular hypertrophy. Right Ventricle Could not be visualized well Right Atrium Could not be visualized well Left Atrium Mildly increased left atrial size. Mitral Valve Aortic Valve The peak velocity at the LV outflow tract was 5.42 m/s with a peak gradient of 117 mmHg Tricuspid Valve Trace of tricuspid regurgitation. Estimated PA pressure was 40 mmHg Pulmonic Valve Pericardium Aorta IVC CONCLUSIONS Normal left ventricular size and systolic function, EF 71 %. Moderate left ventricular hypertrophy. Mildly increased left atrial size. The right-sided structures could not be visualized well. The peak gradient across LV outflow tract was 117 mmHg Features suggesting hypertrophic obstructive cardiomyopathy Mild pulmonary hypertension with an estimated pulmonary artery peak systolic pressure of 40 mmHg. Comparison with the previous study is difficult because of the difference in the technical quality. Dr Gadiel Mcneil MD [facility] (Electronically Signed) Final Date: 27 November 2023 16:03 S
--- NOTE | 2023-11-27 14:35 | PC.NURSE ---
Pt back into a. fib / flutter with RVR.
[2023-11-27] MEDS: acetaminophen 325 mg Tablet 650 MG PO (20:52)
[2023-11-27] MEDS: TRAMadol 50 mg Tablet PO (20:53)
[2023-11-27] MEDS: metoprolol tartrate 50 mg Tablet PO (20:53)
[2023-11-28] VITALS (15 sets, daily range): BP systolic 91–135; BP diastolic 65–76; PULSE 68–117; RESP 16–25; TEMP 35.8–36.8; O2SAT 93–100
[2023-11-28] MEDS: vancomycin 1,500 MG/300 ML PIGGYBACK 200 MG IV (00:45)
[2023-11-28] MEDS: ipratropium-albuterol 3 mL Neb INHALATION ×4 (02:45→20:11)
[2023-11-28 04:37] LABS: Basophils % 0.4 %; Eosinophils # 0.1 10^3/uL (0.0-0.8); Hematocrit 29.5 % (36-47); Lymphocytes # 1.2 10^3/uL (0.8-4.8); Mean Corpuscular HGB Conc 29.8 g/dL (30-55); Mean Corpuscular Hemoglobin 28.9 pg (27-33); Mean Corpuscular Volume 96.7 fl (85-98); Mean Platelet Volume 10.3 fL (7.4-10.4); Monocytes # 0.3 10^3/uL (0.2-0.9); Monocytes % 3.4 %; Neutrophils # 6.61 10^3/uL (1.8-7.7); Neutrophils % 79.6 %; Nucleated Red Blood Cells % 0 %; Platelet Count 263 10^3/cmm (157-399); Red Blood Count 3.05 10^6/uL (3.85-5.65); Red Cell Distribution Width 16.4 % (12.1-15.1); White Blood Count 8.29 10^3/uL (3.29-11.43)
[2023-11-28 04:59] LABS: Alanine Aminotransferase 556 U/L (0-33); Albumin Level 3.1 g/dL (3.5-5.2); Alkaline Phosphatase 85 U/L (35-105); Anion Gap 20.5 (5-19); Aspartate Amino Transferase 192 U/L (0-32); Blood Urea Nitrogen 34 mg/dL (8-23); Calcium 9.2 mg/dL (8.5-10.5); Carbon Dioxide 31 mmol/L (22-29); Chloride 91 mmol/L (98-107); Globulin 2.8 g/dL (1.3-4.6); Glucose 88 mg/dL (65-115); Osmolality Calculated 297 mOsm/kg (285-295); Sodium 140 mmol/L (136-145); Total Bilirubin 0.2 mg/dL (0.15-1.2); Total Protein 5.9 g/dL (6.6-8.7)
[2023-11-28 05:07] LABS: Potassium 2.5 mmol/L (3.5-5.1)
[2023-11-28] MEDS: piperacillin-tazobactam 3.375 GM in sodium chloride 0.9% (plus) 50 ML IV ×3 (05:08→21:17)
--- NOTE | 2023-11-28 05:24 | PC.NURSE ---
Patient currently has KCl of 2.5. Informed Dr Vargas and received telephone order for potassium 60mEq PO once now. Informed Dr Vargas of axillary temperature of 96.5
[2023-11-28] MEDS: FUROsemide 10 mg/mL SDV 10mL 80 MG IVP ×2 (05:33→17:57)
[2023-11-28] MEDS: potassium chloride ER 20 mEq Tablet 60 MEQ PO (05:33)
--- NOTE | 2023-11-28 07:00 | XR_ITS ---
WS: [id number] XR chest 1V portable [id number] REASON FOR EXAM: dyspnea FINDINGS: Compared to the examination of 11/26/2023, the lower lung opacities appear to be resolving. No new findings or other interval change. IMPRESSION: Improving lower lung field opacities.
--- NOTE | 2023-11-28 08:11 | P.PN_ITS ---
Subjective 2 Subjective: Does not feel short of breath on the BiPAP. No chest pain. Ankles less swollen. Medications: Reviewed: Yes Vitals/I&O/Wt Last Vital Signs Temp 96.5 F L 11/28/23 05:26 Pulse 92 11/28/23 06:10 Resp 23 H 11/28/23 05:26 BP 131/76 11/28/23 05:26 Pulse Ox 100 11/28/23 05:26 O2 Del Method BiPAP 11/28/23 05:26 O2 Flow Rate 55 11/27/23 13:27 FiO2 40 11/28/23 05:26 11/27/23 11/28/23 11/28/23 22:59 06:59 14:59 Intake Total 350 / 762.427 6878 / 2148.333 Output Total 640 / 1990 1350 / 3340 Balance -290 / -1391.667 200 / -1191.667 Weight last 48 hrs Weight 86.364 kg Weight 86.183 kg Weight 86.183 kg Physical Exam 2 Narrative: General: On BiPAP, no distress Neck: supple no lymphadenopathy thyromegaly Cardiovascular: Irregular, irregular with heart rate around 100 Respiratory: Diminished breath sounds but no wheezing. Respiratory rate normal Abdomen: Soft, round, active bowel sounds throughout : Shafer catheter in place. Extremities: 1+ bilateral edema Urinary Catheter Management: Shafer: Cath Placed During This Visit: yes Reason for Continuing Indwelling Catheter: Acute Urinary Retention or Obstruction Urinary Catheter Date of Insertion: 11/25/23 Urinary Catheter Time of Insertion: 10:00 Data 11/28/23 03:56 11/28/23 03:56 Micro: Microbiology 11/25/23 09:03 Gram Stain - Final Sputum - Expectorated Sputum Sputum Culture - Final 11/24/23 13:27 Urine Culture - Final Urine,Clean Catch Aleyda albicans A&P Assessment and plan (1) Acute exacerbation of CHF (congestive heart failure): Try to wean off BiPAP today I reviewed her chest x-ray, which demonstrates less effusion on the right. Amiodarone discontinued secondary to high LFTs. LFTs improving Increase metoprolol as tolerated. If blood pressure acceptable increase to 50 mg twice daily today. Will avoid any extra fluids if possible, 1200 mill fluid restriction. Lasix was increased yesterday to 80 mg every 8 hours. Peripheral edema appears improved again today Cardiology consultation appreciated I believe cardiology is reinstituting metoprolol Echocardiogram is pending Diamox added secondary to underlying lung disease, pulmonary hypertension, elevated CO2 CBC, BMP daily Overall about 3.5 L negative Echo demonstrates preserved EF, evidence of left ventricular outflow tract obstruction. They will address. (2) Atrial fibrillation with RVR: As per #1 Continue telemetry Continue Eliquis for anticoagulation Continue Cardizem p.o. Metoprolol likely to be restarted by cardiology (3) Leukocytosis: Multifactorial most likely due to pneumonia/atelectasis. Urine ultimately grew out some yeast which is likely colonization Continue Zosyn, vancomycin Sputum culture negative Labs in AM. Shafer catheter replaced by nursing staff yesterday. Await MRSA PCR. If negative consider discontinuing vancomycin (4) Elevated troponin: Cardiology evaluating (5) Hypertension: Stable at this time Hold Antihypertensive medications. Qualifiers: Hypertension type: essential hypertension Qualified Code(s): I10 - Essential (primary) hypertension (6) CKD (chronic kidney disease) stage 3, GFR 30-59 ml/min: Stable at this time Continue diuresis due to #1. CMP in AM. Qualifiers: Chronic kidney disease stage 3 subtype: stage 3a (GFR 45-59) Qualified Code(s): N18.31 - Chronic kidney disease, stage 3a (7) Parainfluenza: Patient noted to be positive for parainfluenza 3. Treat medically and/or symptomatically at this time. Droplet precautions Nebs (8) Seronegative rheumatoid arthritis of both hands: Prednisone 30 mg (9) Hypokalemia: Supplement heavily today, recheck tomorrow Plan Transaminitis. May be secondary to hepatic congestion versus amiodarone effect. Amiodarone has been discontinued. LFTs slightly improved. Recheck tomorrow Once stable for discharge, patient will return back to [facility] for further rehabilitation services. CODE STATUS: Full code DVT prophylaxis: Arnaldo Attestations 2 Medical Necessity Statement*: Needs continued hospitalization for further diuresis, stabilization of respiratory failure with need for weaning off BiPAP Diagnoses Acute exacerbation of CHF (congestive heart failure) I50.9 Atrial fibrillation with RVR I48.91 Leukocytosis D72.829 Elevated troponin R79.89 Essential hypertension I10 Hypertension type: essential hypertension Stage 3a chronic kidney disease N18.31 Chronic kidney disease stage 3 subtype: stage 3a (GFR 45-59) Parainfluenza B34.8 Seronegative rheumatoid arthritis of both hands M06.041; M06.042 Hypokalemia E87.6 Time Spent (min) 29
[2023-11-28] MEDS: budesonide 0.5 mg/2 mL Neb INHALATION ×2 (08:26→20:11)
[2023-11-28] MEDS: metoprolol tartrate 50 mg Tablet PO ×2 (08:45→20:05)
[2023-11-28] MEDS: colchicine 0.6 mg Tablet PO (08:45)
[2023-11-28] MEDS: dilTIAZem ER (24HR) 240 mg Capsule PO (08:45)
[2023-11-28] MEDS: apixaban 5 mg Tablet PO ×2 (08:46→20:05)
[2023-11-28] MEDS: predniSONE 20 mg Tablet 30 MG PO (08:46)
[2023-11-28] MEDS: pantoprazole DR 40 mg Tablet PO (08:47)
[2023-11-28] MEDS: acetaZOLAMIDE 250 mg Tablet PO (08:47)
[2023-11-28] MEDS: lidocaine 1% 5 ML in potassium chloride premix 100 ML 26.25 ML IV (08:47)
[2023-11-28] MEDS: folic acid 1 mg Tablet PO (08:47)
--- NOTE | 2023-11-28 11:03 | P.PN_ITS ---
Subjective 2 Subjective: The shortness of breath is gradually improving. Denies any chest pain. No palpitation or dizziness. The heart rate seems to be slowly getting under control. No fever or chills. She was found to be very hypokalemic. The potassium is being supplemented. Medications: Medication Review Details: Current Medications Acetaminophen (Acetaminophen 325 Mg Tablet) 650 mg PO Q6H PRN PRN Reason: MILD PAIN Last Admin: 11/27/23 20:52 Dose: 650 mg Acetazolamide (Acetazolamide 250 Mg Tablet) 250 mg PO DAILY [facility] Last Admin: 11/28/23 08:47 Dose: 250 mg Albuterol/Ipratropium (Ipratropium-Albuterol 3 Ml Neb) 3 ml INHALATION Q6H.RESP [facility] Last Admin: 11/28/23 08:26 Dose: 3 ml Apixaban (Apixaban 5 Mg Tablet) 5 mg PO BID@0900,2100 [facility] Last Admin: 11/28/23 08:46 Dose: 5 mg Budesonide (Budesonide 0.5 Mg/2 Ml Neb) 0.5 mg INHALATION BID.RESPIRATORY MONY Last Admin: 11/28/23 08:26 Dose: 0.5 mg Colchicine (Colchicine 0.6 Mg Tablet) 0.6 mg PO DAILY [facility] Last Admin: 11/28/23 08:45 Dose: 0.6 mg Diltiazem HCl (Diltiazem Er (24hr) 240 Mg Capsule) 240 mg PO DAILY [facility] Last Admin: 11/28/23 08:45 Dose: 240 mg Docusate Sodium (Docusate Sodium 100 Mg Capsule) 100 mg PO BID [facility] Last Admin: 11/28/23 08:48 Dose: Not Given Folic Acid (Folic Acid 1 Mg Tablet) 1 mg PO DAILY [facility] Last Admin: 11/28/23 08:47 Dose: 1 mg Furosemide (Furosemide 10 Mg/Ml Sdv 10ml) 80 mg IVP Q8H [facility] Last Admin: 11/28/23 05:33 Dose: 80 mg Piperacillin Sod/Tazobactam (Sod 3.375 gm/ Sodium Chloride) 50 mls @ 12.5 mls/hr IV Q8H [facility] Last Admin: 11/28/23 05:08 Dose: 12.5 mls/hr Vancomycin/PEG/NADA/Lysine/Water (Vancocin) 1,500 mg in 300 mls @ 200 mls/hr IV Q18H [facility] Last Titration: 11/28/23 02:21 Dose: 0 mls/hr Lidocaine HCl 5 ml/ Potassium (Chloride) 105 mls @ 26.25 mls/hr IV ONCE ONE Stop: 11/28/23 11:29 Last Admin: 11/28/23 08:47 Dose: 26.25 mls/hr Metoprolol Tartrate (Metoprolol Tartrate 50 Mg Tablet) 50 mg PO BID@0900,2100 [facility] Last Admin: 11/28/23 08:45 Dose: 50 mg Ondansetron HCl (Ondansetron 2 Mg/Ml Sdv 2 Ml) 4 mg IVP Q6H PRN PRN Reason: NAUSEA AND VOMITING Pantoprazole Sodium (Pantoprazole Dr 40 Mg Tablet) 40 mg PO DAILY [facility] Last Admin: 11/28/23 08:47 Dose: 40 mg Potassium Chloride (Potassium Chloride Er 20 Meq Tablet) 40 meq PO ONCE ONE Stop: 11/28/23 17:32 Prednisone (Prednisone 20 Mg Tablet) 30 mg PO DAILY [facility] Last Admin: 11/28/23 08:46 Dose: 30 mg Tramadol HCl (Tramadol 50 Mg Tablet) 50 mg PO Q8H PRN PRN Reason: Pain Last Admin: 11/27/23 20:53 Dose: 50 mg Vitals/I&O/Wt Last Vital Signs Temp 98.3 F 11/28/23 08:00 Pulse 112 H 11/28/23 08:28 Resp 16 11/28/23 08:28 BP 96/66 11/28/23 08:00 Pulse Ox 100 11/28/23 08:28 O2 Del Method BiPAP 11/28/23 08:28 O2 Flow Rate 55 11/27/23 13:27 FiO2 40 11/28/23 08:28 11/27/23 11/28/23 11/28/23 22:59 06:59 14:59 Intake Total 350 / 177.908 7637 / 2148.333 Output Total 640 / 1990 1350 / 3340 Balance -290 / -1391.667 200 / -1191.667 Weight last 48 hrs Weight 190 lb 6.4 oz Weight 190 lb Weight 190 lb Physical Exam 2 Narrative: GENERAL: The patient is alert and oriented times three. Not in any acute distress. HEENT: No significant pallor, icterus or lymphadenopathy.Oral cavity: There are no mucous membrane lesions. NECK: Trachea appears to be central. No masses noted. No JVD or thyromegaly appreciated. RESPIRATORY: Chest is symmetrical. No intercostals muscle retraction or any accessory muscle activation. There is no chest wall tenderness. Breath sounds are heard bilaterally. Diffuse coarse crackles and expiratory wheezing BREASTS: Deferred. HEART: The heart sounds are normal. No S3 or S4. Systolic murmur grade 3 or 6 in the base of the heart. No diastolic murmurs.. No pericardial rub ABDOMEN: No vessel pulsations or distention. No tenderness. No organomegaly appreciated. Bowel sounds are normally heard. : Deferred. RECTAL: Deferred. LYMPHATIC: No lymphadenopathy noted in the neck. EXTREMITIES: 1+ edema both lower extremities. MUSCULOSKELETAL: No acute joint deformities or swelling SKIN: There are no significant rashes or ecchymosis NEUROPSYCHIATRIC: The patient is alert and oriented x3. Appears to be in a good mood. No tremors or rigidity noted. Urinary Catheter Management: Shafer: Cath Placed During This Visit: yes Reason for Continuing Indwelling Catheter: Acute Urinary Retention or Obstruction Urinary Catheter Date of Insertion: 11/25/23 Urinary Catheter Time of Insertion: 10:00 Data 11/28/23 03:56 11/28/23 03:56 Other Labs: Laboratory Last Values WBC 8.29 10^3/uL (3.29-11.43) 11/28/23 03:56 RBC 3.05 10^6/uL (3.85-5.65) L 11/28/23 03:56 Hgb 8.80 g/dL (11.27-16.99) L 11/28/23 03:56 Hct 29.5 % (36-47) L 11/28/23 03:56 MCV 96.7 fl (85-98) 11/28/23 03:56 MCH 28.9 pg (27-33) 11/28/23 03:56 MCHC 29.8 g/dL (30-55) L 11/28/23 03:56 RDW 16.4 % (12.1-15.1) H 11/28/23 03:56 Plt Count 263 10^3/cmm (157-399) 11/28/23 03:56 MPV 10.3 fL (7.4-10.4) 11/28/23 03:56 Neut % (Auto) 79.6 % 11/28/23 03:56 Lymph % (Auto) 15.0 % 11/28/23 03:56 Marion % (Auto) 3.4 % 11/28/23 03:56 Eos % (Auto) 1.0 % 11/28/23 03:56 Baso % (Auto) 0.4 % 11/28/23 03:56 Neut # (Auto) 6.61 10^3/uL (1.8-7.7) 11/28/23 03:56 Lymph # (Auto) 1.2 10^3/uL (0.8-4.8) 11/28/23 03:56 Marion # (Auto) 0.3 10^3/uL (0.2-0.9) 11/28/23 03:56 Eos # (Auto) 0.1 10^3/uL (0.0-0.8) 11/28/23 03:56 Baso # (Auto) 0.0 10^3/uL (0.0-0.1) 11/28/23 03:56 Nucleated RBC % (auto) 0 % 11/28/23 03:56 Nucleated RBCs # 0.0 /100WBC 11/28/23 03:56 Specimen Type Arterial 11/26/23 11:10 Sample Site Radial, right 11/26/23 11:10 ABG pH 7.44 (7.35-7.45) 11/26/23 11:10 ABG pCO2 54.7 mmHg (35-45) H 11/26/23 11:10 ABG pO2 78.8 mmHg (80.0-100.0) L 11/26/23 11:10 ABG PO2/FiO2 Ratio 0 11/26/23 11:10 ABG HCO3 37.5 mmol/L (22-26) H 11/26/23 11:10 ABG Base Excess 11.1 mmol/L (-2.0-2.0) H 11/26/23 11:10 Perry Test Pos 11/26/23 11:10 Hematocrit 43.0 % (37-47) 11/26/23 11:10 Hgb O2 Saturation 94.6 % (95-100) L 11/24/23 05:55 Carboxyhemoglobin 0.1 %THgb (0.4-20.1) L 11/24/23 05:55 Methemoglobin 0.7 % (0.4-1.5) 11/24/23 05:55 Total Hemoglobin 10.5 g/dL (12-16) L 11/24/23 05:55 O2 Delivery Device Bipap 11/26/23 11:10 FiO2 40.0 % 11/26/23 11:10 Market Relationship Manager ID [email or web address] 11/26/23 11:10 Sodium 140 mmol/L (136-145) 11/28/23 03:56 Potassium 2.5 mmol/L (3.5-5.1) L* 11/28/23 03:56 Chloride 91 mmol/L (98-107) L 11/28/23 03:56 Carbon Dioxide 31 mmol/L (22-29) H 11/28/23 03:56 Anion Gap 20.5 (5-19) H 11/28/23 03:56 BUN 34 mg/dL (8-23) H 11/28/23 03:56 Creatinine 1.4 mg/dL (0.5-0.9) H 11/28/23 03:56 GFR Calculation Not Reportable 11/28/23 03:56 Glucose 88 mg/dL (65-115) 11/28/23 03:56 Calculated Osmolality 297 mOsm/kg (285-295) H 11/28/23 03:56 Lactic Acid 2.4 mmol/L (0.5-2.2) H 11/24/23 06:05 Lactic Acid (Sepsis) 1.5 mmol/L (0.5-2.2) 11/24/23 09:08 Calcium 9.2 mg/dL (8.5-10.5) 11/28/23 03:56 Magnesium 2.0 mg/dL (1.7-2.3) 11/28/23 03:56 Total Bilirubin 0.2 mg/dL (0.15-1.2) 11/28/23 03:56 AST 192 U/L (0-32) H 11/28/23 03:56 ALT 556 U/L (0-33) H 11/28/23 03:56 Alkaline Phosphatase 85 U/L (35-105) 11/28/23 03:56 Troponin T Baseline 114 ng/L (0-10) H* 11/24/23 05:52 Troponin T 120 Minute 174.6 ng/L (0-10) H 11/24/23 07:48 Delta Troponin T 60.6 ABS# (0-10) H* 11/24/23 07:48 Troponin T Hi Sens 6Hr 188.8 ng/L (0-10) H 11/24/23 12:21 Troponin T Hi Sens 6Hr Delta 74.8 ng/L (0-12) H* 11/24/23 12:21 NT-Pro-B Natriuret Pep pg/mL (0-125) H 11/24/23 05:52 Total Protein 5.9 g/dL (6.6-8.7) L 11/28/23 03:56 Albumin 3.1 g/dL (3.5-5.2) L 11/28/23 03:56 Globulin 2.8 g/dL (1.3-4.6) 11/28/23 03:56 Urine Color Yellow (Yellow) 11/24/23 13:27 Urine Appearance Cloudy (CLEAR) A 11/24/23 13:27 Urine pH 7 (5-7) 11/24/23 13:27 Ur Specific [place] 1.010 (1.005-1.030) 11/24/23 13:27 Urine Protein Neg (Negative) 11/24/23 13:27 Urine Glucose (UA) Norm (Normal) 11/24/23 13:27 Urine Ketones Negative (Negative) 11/24/23 13:27 Urine Blood 3+ (Negative) H 11/24/23 13:27 Urine Nitrate Positive (Negative) H 11/24/23 13:27 Urine Bilirubin Neg (Negative) 11/24/23 13:27 Urine Urobilinogen Neg mg/dL (Negative) 11/24/23 13:27 Ur Leukocyte Esterase 2+ (Negative) H 11/24/23 13:27 Urine RBC >100 /hpf (0-2) H 11/24/23 13:27 Urine WBC Too numerous to cnt /hpf (0-5) H 11/24/23 13:27 Ur Squamous Epith Cells 0-4 /hpf (0-5) H 11/24/23 13:27 Ur Transition Epith Cell 0-4 /hpf 11/24/23 13:27 Amorphous Sediment Not Reportable 11/24/23 13:27 Urine Bacteria 2+ /hpf (NONE) H 11/24/23 13:27 Urine Yeast 2+ /hpf H 11/24/23 13:27 Adenovirus (PCR) Not detected (NOT DETECT) 11/24/23 06:10 C. pneumoniae DNA (PCR) Not detected (NOT DETECT) 11/24/23 06:10 Coronavirus 229E (PCR) Not detected (NOT DETECT) 11/24/23 06:10 Human Metapneumovir PCR Not detected (NOT DETECT) 11/24/23 06:10 Influenza A (H1) PCR Not detected (NOT DETECT) 11/24/23 06:10 Influ A (H1/09) PCR Not detected (NOT DETECT) 11/24/23 06:10 Influenza A (H3) PCR Not detected (NOT DETECT) 11/24/23 06:10 Influenza Type A (PCR) Not detected (NOT DETECT) 11/24/23 06:10 Influenza Type B (PCR) Not detected (NOT DETECT) 11/24/23 06:10 M. pneumoniae (PCR) Not detected (NOT DETECT) 11/24/23 06:10 Parainfluenza 1 (PCR) Not detected (NOT DETECT) 11/24/23 06:10 Parainfluenza 2 (PCR) Not detected (NOT DETECT) 11/24/23 06:10 Parainfluenza 3 (PCR) Detected (NOT DETECT) A 11/24/23 06:10 Parainfluenza 4 (PCR) Not detected (NOT DETECT) 11/24/23 06:10 RSV Type A (PCR) Not detected (NOT DETECT) 11/24/23 06:10 RSV Type B (PCR) Not detected (NOT DETECT) 11/24/23 06:10 Entero/Rhino (PCR) Not detected (NOT DETECT) 11/24/23 06:10 SARS-CoV-2 (PCR) Not detected (NOT DETECT) 11/24/23 06:10 Micro: Microbiology 11/25/23 09:03 Gram Stain - Final Sputum - Expectorated Sputum Sputum Culture - Final 11/24/23 13:27 Urine Culture - Final Urine,Clean Catch Aleyda albicans A&P Assessment and plan (1) Hypertrophic obstructive cardiomyopathy: There is no worsening of the gradient across the LV outflow tract. At this point we may continue on the current management. (2) COPD exacerbation: She is on a BiPAP. Intermittent diastolic heart failure could be aggravating her condition. Continue careful IV diuresis and other symptomatic measures. (3) Atrial fibrillation with RVR: The liver enzymes are trending down. Continue to hold off on amiodarone at this time. Continue on the beta-oral and a calcium oral. May need to titrate the dose. Will continue on the oral anticoagulation. (4) Acute on chronic diastolic heart failure: The tricuspid valve Doppler studies were a suboptimal quality. The PA pressure appears to be normal. But this could be very misleading. At this point, we may optimize the medical treatment (5) Hyperlipidemia: Continue on the current medication Qualifiers: Hyperlipidemia type: mixed hyperlipidemia Qualified Code(s): E78.2 - Mixed hyperlipidemia (6) Hypertension: Continue on the current medication Qualifiers: Hypertension type: essential hypertension Qualified Code(s): I10 - Essential (primary) hypertension (7) Thoracic ascending aortic aneurysm: Continue on the current management. Qualifiers: Presence of rupture: without rupture Qualified Code(s): I71.21 - Aneurysm of the ascending aorta, without rupture (8) CKD (chronic kidney disease) stage 3, GFR 30-59 ml/min: Continue on the current management. Kidney function appears to be stable Qualifiers: Chronic kidney disease stage 3 subtype: stage 3a (GFR 45-59) Qualified Code(s): N18.31 - Chronic kidney disease, stage 3a (9) Hypokalemia: The patient is getting IV potassium supplements. Plan Based on the clinical progress, further management decisions will be made. Attestations 2 Medical Necessity Statement*: Deferred to the primary Coding Level of Care Code 58834 Diagnoses Hypertrophic obstructive cardiomyopathy I42.1 COPD exacerbation J44.1 Atrial fibrillation with RVR I48.91 Acute on chronic diastolic heart failure I50.33 Mixed hyperlipidemia E78.2 Hyperlipidemia type: mixed hyperlipidemia Essential hypertension I10 Hypertension type: essential hypertension Aneurysm of ascending aorta without rupture I71.21 Presence of rupture: without rupture Stage 3a chronic kidney disease N18.31 Chronic kidney disease stage 3 subtype: stage 3a (GFR 45-59) Hypokalemia E87.6
[2023-11-28] MEDS: potassium chloride ER 20 mEq Tablet 40 MEQ PO (17:56)
[2023-11-29] VITALS (20 sets, daily range): BP systolic 114–134; BP diastolic 49–80; PULSE 62–88; RESP 13–27; TEMP 35.9–36.7; O2SAT 93–100
[2023-11-29] MEDS: ipratropium-albuterol 3 mL Neb INHALATION ×4 (02:42→19:35)
[2023-11-29] MEDS: piperacillin-tazobactam 3.375 GM in sodium chloride 0.9% (plus) 50 ML IV ×3 (05:14→21:34)
[2023-11-29] MEDS: FUROsemide 10 mg/mL SDV 10mL 80 MG IVP (05:23)
[2023-11-29 05:49] LABS: Basophils % 0.3 %; Eosinophils # 0.1 10^3/uL (0.0-0.8); Eosinophils % 2.1 %; Hematocrit 31.3 % (36-47); Lymphocytes # 1.3 10^3/uL (0.8-4.8); Lymphocytes % 20.4 %; Mean Corpuscular HGB Conc 30.4 g/dL (30-55); Mean Corpuscular Hemoglobin 29.2 pg (27-33); Mean Corpuscular Volume 96.3 fl (85-98); Mean Platelet Volume 9.6 fL (7.4-10.4); Monocytes # 0.3 10^3/uL (0.2-0.9); Monocytes % 4.7 %; Neutrophils # 4.37 10^3/uL (1.8-7.7); Neutrophils % 71.4 %; Nucleated Red Blood Cells % 0 %; Platelet Count 268 10^3/cmm (157-399); Red Blood Count 3.25 10^6/uL (3.85-5.65); Red Cell Distribution Width 16.2 % (12.1-15.1); White Blood Count 6.13 10^3/uL (3.29-11.43)
[2023-11-29 06:07] LABS: Alanine Aminotransferase 506 U/L (0-33); Albumin Level 3.2 g/dL (3.5-5.2); Alkaline Phosphatase 89 U/L (35-105); Anion Gap 16.8 (5-19); Aspartate Amino Transferase 119 U/L (0-32); Blood Urea Nitrogen 31 mg/dL (8-23); Calcium 9.2 mg/dL (8.5-10.5); Carbon Dioxide 33 mmol/L (22-29); Chloride 97 mmol/L (98-107); Globulin 2.9 g/dL (1.3-4.6); Glucose 87 mg/dL (65-115); Osmolality Calculated 304 mOsm/kg (285-295); Sodium 144 mmol/L (136-145); Total Bilirubin 0.2 mg/dL (0.15-1.2); Total Protein 6.1 g/dL (6.6-8.7)
[2023-11-29 06:15] LABS: Potassium 2.8 mmol/L (3.5-5.1)
[2023-11-29 06:16] LABS: Vancomycin Trough 31.1 ug/mL (10-15)
--- NOTE | 2023-11-29 07:08 | PC.PHAR ---
Vancomycin dosing: Will redraw trough 11/30 0800 to see if more appropriate Use this page to adjust dose, Tinf, or tau when only a TROUGH is taken. VANCOMYCIN or AMINOGLYCOSIDE: VANCO mg/kg Last Name Anastacio Dose(mg) 1500 21.07 First Name Any Tinf (hrs) 1 hrs : 49 Tau=freq (hrs) 24 hrs Location: 105-1 Cmax (calculated) 58.3 mcg/ml Cpeak (calculated) 56.8 mcg/ml Sex (M/F) F Cmin (trough): 31 mcg/ml AGE (yrs) 72 Calculated Vd: 53.4 liters Ht (inches) 67.0 Calculated Ke: 0.027 hrs-1 ABW (Kg) 85.6 Calculated T1/2: 25.78 hrs IBW (Kg) 61.6 mg/kg DW (Kg) 71.2 NEW Dose (mg) 1250 17.56 NEW Tinf (hrs) 1 NEW Tau (hrs) 36 VANCO GENT TARGETS Expected Cmax: 37.3 Targets Standard Dosing High Dose Expected Cpeak: 36.3 25 to 40 6 - 12 mcg/ml 20 - 24 mcg/ml Expected Cmin: 14.5 10 to 20 0.5 - 2 mcg/ml < 1 mcg/ml WHEN DO I GIVE THE NEXT DOSE? When will the Blood Conc. Be Equal to my New Expected Cmin? If Dose was HELD If Dose was GIVEN Give Next Dose In: (From time trough drawn) 28 hrs 52 hrs Where will the Conc. Be if I wait : 16.3 mcg/ml 31.0 mcg/ml 24 hrs
[2023-11-29] MEDS: budesonide 0.5 mg/2 mL Neb INHALATION ×2 (09:19→19:35)
[2023-11-29] MEDS: pantoprazole DR 40 mg Tablet PO (09:36)
[2023-11-29] MEDS: dilTIAZem ER (24HR) 240 mg Capsule PO (09:36)
[2023-11-29] MEDS: predniSONE 20 mg Tablet 30 MG PO (09:36)
[2023-11-29] MEDS: folic acid 1 mg Tablet PO (09:36)
[2023-11-29] MEDS: colchicine 0.6 mg Tablet PO (09:36)
[2023-11-29] MEDS: acetaZOLAMIDE 250 mg Tablet PO (09:37)
[2023-11-29] MEDS: apixaban 5 mg Tablet PO ×2 (09:37→21:33)
[2023-11-29] MEDS: lidocaine 1% 5 ML in potassium chloride premix 100 ML 26.25 ML IV ×2 (09:37→14:00)
[2023-11-29] MEDS: metoprolol tartrate 50 mg Tablet PO ×2 (09:37→21:31)
--- NOTE | 2023-11-29 10:09 | P.PN_ITS ---
Subjective 2 Subjective: Overall is feeling better decreased shortness of breath. She is back in normal sinus rhythm heart rate in the 70s with occasional PACs and PVCs. No chest pain Vitals/I&O/Wt Last Vital Signs Temp 97.3 F L 11/29/23 07:14 Pulse 82 11/29/23 09:26 Resp 20 H 11/29/23 09:21 BP 131/76 11/29/23 07:14 Pulse Ox 93 11/29/23 09:21 O2 Del Method Heated High Flow 11/29/23 09:21 O2 Flow Rate 50 11/29/23 09:21 FiO2 40 11/29/23 09:21 11/28/23 11/29/23 11/29/23 22:59 06:59 14:59 Intake Total 185 / 235 450 / 685 Output Total 300 / 1300 1650 / 2950 Balance -115 / -1065 -1200 / -2265 Weight last 48 hrs Weight 188 lb 11.2 oz Weight 190 lb 6.4 oz Physical Exam 2 Narrative: GENERAL: The patient is alert and oriented times three. Not in any acute distress. HEENT: No significant pallor, icterus or lymphadenopathy.Oral cavity: There are no mucous membrane lesions. NECK: Trachea appears to be central. No masses noted. No JVD or thyromegaly appreciated. RESPIRATORY: Chest is symmetrical. No intercostals muscle retraction or any accessory muscle activation. There is no chest wall tenderness. Breath sounds are heard bilaterally. Diffuse coarse crackles and expiratory wheezing BREASTS: Deferred. HEART: The heart sounds are normal. No S3 or S4. Systolic murmur grade 3 or 6 in the base of the heart. No diastolic murmurs.. No pericardial rub ABDOMEN: No vessel pulsations or distention. No tenderness. No organomegaly appreciated. Bowel sounds are normally heard. : Deferred. RECTAL: Deferred. LYMPHATIC: No lymphadenopathy noted in the neck. EXTREMITIES: 1+ edema both lower extremities. MUSCULOSKELETAL: No acute joint deformities or swelling SKIN: There are no significant rashes or ecchymosis NEUROPSYCHIATRIC: The patient is alert and oriented x3. Appears to be in a good mood. No tremors or rigidity noted. Urinary Catheter Management: Shafer: Cath Placed During This Visit: yes Reason for Continuing Indwelling Catheter: Acute Urinary Retention or Obstruction Urinary Catheter Date of Insertion: 11/25/23 Urinary Catheter Time of Insertion: 10:00 Data 11/29/23 05:32 11/29/23 05:32 A&P Assessment and plan (1) Hypertrophic obstructive cardiomyopathy: Stable continue calcium channel blockers and beta-blockers. (2) COPD exacerbation: Slightly improving still on BiPAP managed by internal medicine (3) Atrial fibrillation with RVR: Patient is back in normal sinus rhythm continue rate controlling medication. Patient to continue on Eliquis. Further ischemic workup at later stage with Lexiscan stress test after her respiratory status improves Attestations 2 Medical Necessity Statement*: Defer to internal medicine Coding Level of Care Code 41286 Diagnoses Hypertrophic obstructive cardiomyopathy I42.1 COPD exacerbation J44.1 Atrial fibrillation with RVR I48.91
[2023-11-29 14:24] LABS: NT Pro B Type Natriuretic Pept 7405 pg/mL (0-125)
--- NOTE | 2023-11-29 14:59 | P.PN_ITS ---
Subjective 2 Subjective: Patient was seen this morning, denies any shortness of breath, no abdominal pain, no fevers, no chills, at bedside Vitals/I&O/Wt Last Vital Signs Temp 96.7 F L 11/29/23 11:17 Pulse 69 11/29/23 14:42 Resp 20 H 11/29/23 14:42 BP 131/74 11/29/23 11:17 Pulse Ox 93 11/29/23 14:42 O2 Del Method BiPAP 11/29/23 13:37 O2 Flow Rate 50 11/29/23 14:42 FiO2 40 11/29/23 14:42 11/28/23 11/29/23 11/29/23 22:59 06:59 14:59 Intake Total 185 / 235 450 / 685 555 / 555 Output Total 300 / 1300 1650 / 2950 3350 / 3350 Balance -115 / -1065 -1200 / -2265 -2795 / -2795 Weight last 48 hrs Weight 85.593 kg Weight 86.364 kg Physical Exam 2 Const: COMMON NORMALS: no acute distress and patient oriented x3 Resp: COMMON NORMALS: normal respiratory effort, No retractions, No use of accessory muscles and clear to auscultation bilaterally AUSCULTATION: clear to auscultation bilaterally Cardio: COMMON NORMALS: regular rate, regular rhythm, S1 normal heart sound present and S2 normal heart sound present RATE: regular rate RHYTHM: r egular rhythm HEART SOUNDS: S1 normal heart sound present and S2 normal heart sound present GI: COMMON NORMALS: Normal to inspection, nondistended, normoactive bowel sounds present and non-tender Extremity: NARRATIVE EXTREMITY EXAM: 1+ pitting edema Neuro: COMMON NORMALS: patient oriented x3 Psych: COMMON NORMALS: mental status grossly normal Urinary Catheter Management: Shafer: Cath Placed During This Visit: yes Reason for Continuing Indwelling Catheter: Acute Urinary Retention or Obstruction Urinary Catheter Date of Insertion: 11/25/23 Urinary Catheter Time of Insertion: 10:00 Data 11/29/23 05:32 11/29/23 05:32 A&P Assessment and plan (1) Acute exacerbation of CHF (congestive heart failure): Try to wean off BiPAP today I reviewed her chest x-ray, which demonstrates less effusion on the right. Amiodarone discontinued secondary to high LFTs. LFTs improving Increase metoprolol as tolerated. If blood pressure acceptable increase to 50 mg twice daily today. Will avoid any extra fluids if possible, 1200 mill fluid restriction. 1 dose Lasix 60 mg IV push once, -8 L so far monitor urine output, ? Hypokalemia, requiring IV replacement of potassium 80 mEq, recheck potassium in the afternoon Cardiology consultation appreciated Echocardiogram CONCLUSIONS Normal left ventricular size and systolic function, EF 71 %. Moderate left ventricular hypertrophy. Mildly increased left atrial size. The right-sided structures could not be visualized well. The peak gradient across LV outflow tract was 117 mmHg Features suggesting hypertrophic obstructive cardiomyopathy Mild pulmonary hypertension with an estimated pulmonary artery peak systolic pressure of 40 mmHg. Comparison with the previous study is difficult because of the difference in the technical quality. Diamox added secondary to underlying lung disease, pulmonary hypertension, elevated CO2 CBC, BMP daily (2) Atrial fibrillation with RVR: As per #1 Continue telemetry Continue Eliquis for anticoagulation Continue Cardizem p.o. Metoprolol likely to be restarted by cardiology (3) Leukocytosis: Multifactorial most likely due to pneumonia/atelectasis. Urine ultimately grew out some yeast which is likely colonization Continue Zosyn, vancomycin stopped due to elevated Vanco trough monitor urine output monitor creatinine Sputum culture negative Labs in AM. Shafer catheter replaced by nursing staff yesterday. Await MRSA PCR. (4) Elevated troponin: Cardiology evaluating (5) Hypertension: Stable at this time Hold Antihypertensive medications. Qualifiers: Hypertension type: essential hypertension Qualified Code(s): I10 - Essential (primary) hypertension (6) CKD (chronic kidney disease) stage 3, GFR 30-59 ml/min: Stable at this time Continue diuresis due to #1. CMP in AM. Qualifiers: Chronic kidney disease stage 3 subtype: stage 3a (GFR 45-59) Qualified Code(s): N18.31 - Chronic kidney disease, stage 3a (7) Parainfluenza: Patient noted to be positive for parainfluenza 3. Treat medically and/or symptomatically at this time. Droplet precautions Nebs (8) Seronegative rheumatoid arthritis of both hands: Prednisone 30 mg (9) Hypokalemia: Receiving IV replacement Plan Transaminitis. May be secondary to hepatic congestion versus amiodarone effect. Amiodarone has been discontinued. LFTs slightly improved. Recheck tomorrow Once stable for discharge, patient will return back to [facility] for further rehabilitation services. CODE STATUS: Full code DVT prophylaxis: Arnaldo Thomasations 2 Medical Necessity Statement*: Patient requires hospitalization for CHF requiring IV diuresis, hypokalemia, concerns for pneumonia leukocytosis on Zosyn, holding vancomycin due to elevated vancomycin trough monitoring creatinine, urine output Diagnoses Acute exacerbation of CHF (congestive heart failure) I50.9 Atrial fibrillation with RVR I48.91 Leukocytosis D72.829 Elevated troponin R79.89 Essential hypertension I10 Hypertension type: essential hypertension Stage 3a chronic kidney disease N18.31 Chronic kidney disease stage 3 subtype: stage 3a (GFR 45-59) Parainfluenza B34.8 Seronegative rheumatoid arthritis of both hands M06.041; M06.042 Hypokalemia E87.6
[2023-11-29 16:18] LABS: Anion Gap 16.6 (5-19); Blood Urea Nitrogen 28 mg/dL (8-23); Calcium 9.3 mg/dL (8.5-10.5); Carbon Dioxide 30 mmol/L (22-29); Chloride 92 mmol/L (98-107); Glucose 282 mg/dL (65-115); Osmolality Calculated 296 mOsm/kg (285-295); Potassium 3.6 mmol/L (3.5-5.1); Sodium 135 mmol/L (136-145)
[2023-11-29] MEDS: docusate sodium 100 mg Capsule PO (18:22)
[2023-11-29] MEDS: acetaminophen 325 mg Tablet 650 MG PO (21:34)
[2023-11-29] MEDS: TRAMadol 50 mg Tablet PO (21:35)
[2023-11-30] VITALS (20 sets, daily range): BP systolic 85–128; BP diastolic 59–74; PULSE 64–102; RESP 14–33; TEMP 36.1–37.2; O2SAT 94–99
[2023-11-30] MEDS: ipratropium-albuterol 3 mL Neb INHALATION ×4 (03:40→20:40)
[2023-11-30 03:58] LABS: Basophils % 0.2 %; Eosinophils # 0.1 10^3/uL (0.0-0.8); Eosinophils % 1.6 %; Hematocrit 30.2 % (36-47); Lymphocytes # 1.3 10^3/uL (0.8-4.8); Lymphocytes % 15.4 %; Mean Corpuscular HGB Conc 29.8 g/dL (30-55); Mean Corpuscular Hemoglobin 29.1 pg (27-33); Mean Corpuscular Volume 97.7 fl (85-98); Mean Platelet Volume 9.7 fL (7.4-10.4); Monocytes # 0.4 10^3/uL (0.2-0.9); Monocytes % 4.8 %; Neutrophils # 6.22 10^3/uL (1.8-7.7); Neutrophils % 76.9 %; Nucleated Red Blood Cells % 0 %; Platelet Count 292 10^3/cmm (157-399); Red Blood Count 3.09 10^6/uL (3.85-5.65)
[2023-11-30 04:22] LABS: Alanine Aminotransferase 384 U/L (0-33); Albumin Level 3.2 g/dL (3.5-5.2); Alkaline Phosphatase 90 U/L (35-105); Anion Gap 11.7 (5-19); Aspartate Amino Transferase 70 U/L (0-32); Blood Urea Nitrogen 26 mg/dL (8-23); Calcium 8.9 mg/dL (8.5-10.5); Carbon Dioxide 33 mmol/L (22-29); Chloride 98 mmol/L (98-107); Globulin 2.6 g/dL (1.3-4.6); Glucose 107 mg/dL (65-115); Magnesium 2.2 mg/dL (1.7-2.3); Osmolality Calculated 295 mOsm/kg (285-295); Phosphorus 3.2 mg/dL (2.5-4.5); Sodium 140 mmol/L (136-145); Total Bilirubin 0.3 mg/dL (0.15-1.2); Total Protein 5.8 g/dL (6.6-8.7)
[2023-11-30 04:30] LABS: NT Pro B Type Natriuretic Pept 5413 pg/mL (0-125)
[2023-11-30 04:56] LABS: Potassium 2.7 mmol/L (3.5-5.1)
[2023-11-30] MEDS: potassium chloride ER 20 mEq Tablet 60 MEQ PO (06:15)
[2023-11-30] MEDS: piperacillin-tazobactam 3.375 GM in sodium chloride 0.9% (plus) 50 ML IV ×3 (06:24→21:50)
--- NOTE | 2023-11-30 07:00 | XRR_ITS ---
PROCEDURE INFORMATION: Exam: XR Chest Exam date and time: 11/30/2023 8:38 AM Age: 72 years old Clinical indication: Shortness of breath; Patient HX: On bipap; history of CHF and COPD; Additional info: SOB TECHNIQUE: Imaging protocol: Radiologic exam of the chest. Views: 1 view. COMPARISON: CR XR chest 1V portable [id number] 11/28/2023 7:31 AM FINDINGS: Lungs: Minimal bibasilar atelectasis similar to 11/28/2023. No new pulmonary infiltrate identified. Chronic emphysema is again evident. Pleural spaces: No significant pleural fluid. No pneumothorax detected. Heart/Mediastinum: Heart size stable compared to prior exam. No pulmonary vascular congestion. Bones/joints: No obvious acute abnormality. XR/XR chest 1V portable [id number] IMPRESSION: Minimal residual basilar atelectasis. No new pulmonary abnormality identified.
[2023-11-30] MEDS: budesonide 0.5 mg/2 mL Neb INHALATION ×2 (07:47→20:40)
--- NOTE | 2023-11-30 09:28 | P.PN_ITS ---
Subjective 2 Subjective: Patient still requiring high oxygen demand with occasional desaturation. Feeling better this morning according to her cardiac perez she is still in sinus rhythm in the 70s. Vitals/I&O/Wt Last Vital Signs Temp 97.0 F L 11/30/23 04:00 Pulse 84 11/30/23 07:49 Resp 11/30/23 07:48 BP 85/68 11/30/23 04:00 Pulse Ox 97 11/30/23 07:49 O2 Del Method BiPAP 11/30/23 07:48 O2 Flow Rate 30 11/30/23 07:48 FiO2 30 11/30/23 07:49 11/29/23 11/30/23 11/30/23 22:59 06:59 14:59 Intake Total 555 / 1110 250 / 1360 Output Total 650 / 4000 250 / 4250 Balance -95 / -2890 0 / -2890 Weight last 48 hrs Weight 190 lb 1.6 oz Weight 188 lb 11.2 oz Physical Exam 2 Narrative: GENERAL: The patient is alert and oriented times three. Not in any acute distress. HEENT: No significant pallor, icterus or lymphadenopathy.Oral cavity: There are no mucous membrane lesions. NECK: Trachea appears to be central. No masses noted. No JVD or thyromegaly appreciated. RESPIRATORY: Chest is symmetrical. No intercostals muscle retraction or any accessory muscle activation. There is no chest wall tenderness. Breath sounds are heard bilaterally. Diffuse coarse crackles and expiratory wheezing BREASTS: Deferred. HEART: The heart sounds are normal. No S3 or S4. Systolic murmur grade 3 or 6 in the base of the heart. No diastolic murmurs.. No pericardial rub ABDOMEN: No vessel pulsations or distention. No tenderness. No organomegaly appreciated. Bowel sounds are normally heard. : Deferred. RECTAL: Deferred. LYMPHATIC: No lymphadenopathy noted in the neck. EXTREMITIES: 1+ edema both lower extremities. MUSCULOSKELETAL: No acute joint deformities or swelling SKIN: There are no significant rashes or ecchymosis NEUROPSYCHIATRIC: The patient is alert and oriented x3. Appears to be in a good mood. No tremors or rigidity noted. Const: COMMON NORMALS: no acute distress and patient oriented x3 Resp: COMMON NORMALS: normal respiratory effort, No retractions, No use of accessory muscles and clear to auscultation bilaterally AUSCULTATION: clear to auscultation bilaterally Cardio: COMMON NORMALS: regular rate, regular rhythm, S1 normal heart sound present and S2 normal heart sound present RATE: regular rate RHYTHM: r egular rhythm HEART SOUNDS: S1 normal heart sound present and S2 normal heart sound present GI: COMMON NORMALS: Normal to inspection, nondistended, normoactive bowel sounds present and non-tender Extremity: NARRATIVE EXTREMITY EXAM: 1+ pitting edema Neuro: COMMON NORMALS: patient oriented x3 Psych: COMMON NORMALS: mental status grossly normal Urinary Catheter Management: Shafer: Cath Placed During This Visit: yes Reason for Continuing Indwelling Catheter: Acute Urinary Retention or Obstruction Urinary Catheter Date of Insertion: 11/25/23 Urinary Catheter Time of Insertion: 10:00 Data 11/30/23 03:35 11/30/23 03:35 A&P Assessment and plan (1) Hypertrophic obstructive cardiomyopathy: Stable continue calcium channel blockers and beta-blockers. Potassium is low today be replaced. Potassium to be repeated later on after replacement. (2) COPD exacerbation: Occasional desaturation. Still on BiPAP managed by internal medicine (3) Atrial fibrillation with RVR: Patient is back in normal sinus rhythm continue rate controlling medication. Patient to continue on Eliquis. Further ischemic workup at later stage with Lexiscan stress test after her respiratory status improves Attestations 2 Medical Necessity Statement*: Deferred to internal medicine Coding Level of Care Code 70232 Diagnoses Hypertrophic obstructive cardiomyopathy I42.1 COPD exacerbation J44.1 Atrial fibrillation with RVR I48.91
[2023-11-30] MEDS: folic acid 1 mg Tablet PO (10:08)
[2023-11-30] MEDS: colchicine 0.6 mg Tablet PO (10:08)
[2023-11-30] MEDS: dilTIAZem ER (24HR) 240 mg Capsule PO (10:09)
[2023-11-30] MEDS: metoprolol tartrate 50 mg Tablet PO ×2 (10:09→21:47)
[2023-11-30] MEDS: predniSONE 20 mg Tablet 30 MG PO (10:09)
[2023-11-30] MEDS: apixaban 5 mg Tablet PO ×2 (10:10→21:47)
[2023-11-30] MEDS: pantoprazole DR 40 mg Tablet PO (10:10)
[2023-11-30] MEDS: lidocaine 1% 5 ML in potassium chloride premix 100 ML 52.5 ML IV (10:10)
[2023-11-30 14:33] LABS: Anion Gap 13.7 (5-19); Blood Urea Nitrogen 23 mg/dL (8-23); Calcium 8.8 mg/dL (8.5-10.5); Carbon Dioxide 28 mmol/L (22-29); Chloride 99 mmol/L (98-107); Glucose 208 mg/dL (65-115); Osmolality Calculated 294 mOsm/kg (285-295); Potassium 3.7 mmol/L (3.5-5.1); Sodium 137 mmol/L (136-145)
--- NOTE | 2023-11-30 16:12 | P.PN_ITS ---
Subjective 2 Subjective: Patient was seen this morning, family members at bedside, she remains at times BiPAP dependent, family numbers are worried as her 02 sats on BiPAP symptoms dropped into the low 80s, but they quickly bounce back up she never struggling to breathe, she is alert to person, to place, not to time she denies any shortness of breath, at senior care she remains bedbound, she is a [place] lift, she does not ambulate, this morning her potassium was 2.7, she has been given 60 p.o. potassium, she tells me she does not like taking p.o. potassium as pills are hard to swallow, I have ordered 20 mill equivalents of IV potassium, we discussed rechecking the potassium in the afternoon, if its within normal limits, we will give her another dose of IV Lasix with potassium continue to diurese her as her BNP remains elevated, she remains BiPAP dependent and will order a overnight pulse ox, as she might need BiPAP at intermediate facility for chronic respiratory failure will see if she qualifies, will order another x- ray on her today, she remains afebrile, she continues to diurese well she is -8 L so far her liver function is trending downwards, discussed extensively with family members at bedside, they voiced understanding, all questions answered, agreed to proceed Vitals/I&O/Wt Last Vital Signs Temp 97.0 F L 11/30/23 04:00 Pulse 66 11/30/23 15:41 Resp 16 11/30/23 13:17 BP 118/59 11/30/23 13:08 Pulse Ox 99 11/30/23 15:41 O2 Del Method Heated High Flow 11/30/23 13:17 O2 Flow Rate 45 11/30/23 15:41 FiO2 40 11/30/23 15:41 11/30/23 11/30/23 11/30/23 06:59 14:59 22:59 Intake Total 250 / 1360 575 / 575 Output Total 250 / 4250 Balance 0 / -2890 575 / 575 Weight last 48 hrs Weight 86.228 kg Weight 85.593 kg Physical Exam 2 Const: COMMON NORMALS: no acute distress Resp: COMMON NORMALS: normal respiratory effort, No retractions and No use of accessory muscles AUSCULTATION: crackles Cardio: COMMON NORMALS: regular rate, regular rhythm, S1 normal heart sound present and S2 normal heart sound present RATE: regular rate RHYTHM: r egular rhythm HEART SOUNDS: S1 normal heart sound present and S2 normal heart sound present GI: COMMON NORMALS: Normal to inspection, nondistended, normoactive bowel sounds present and non-tender Extremity: COMMON NORMALS: no pedal edema Psych: COMMON NORMALS: mental status grossly normal Urinary Catheter Management: Shafer: Cath Placed During This Visit: yes Reason for Continuing Indwelling Catheter: Acute Urinary Retention or Obstruction Urinary Catheter Date of Insertion: 11/25/23 Urinary Catheter Time of Insertion: 10:00 Data 11/30/23 03:35 11/30/23 13:44 A&P Assessment and plan (1) Acute exacerbation of CHF (congestive heart failure): Remains BiPAP dependent, will order a overnight pulse ox to see if she qualifies Chest x-ray shows improving pulmonary vascular congestion Amiodarone discontinued secondary to high LFTs. LFTs improving Increase metoprolol as tolerated Will avoid any extra fluids if possible, 1200 mill fluid restriction. Repeat BMP this afternoon if potassium reasonable give 40 mg IV push Lasix with potassium replacement, -8 L so far monitor urine output, ? Hypokalemia, requiring IV replacement of potassium 80 mEq, recheck potassium in the afternoon Cardiology consultation appreciated Echocardiogram CONCLUSIONS Normal left ventricular size and systolic function, EF 71 %. Moderate left ventricular hypertrophy. Mildly increased left atrial size. The right-sided structures could not be visualized well. The peak gradient across LV outflow tract was 117 mmHg Features suggesting hypertrophic obstructive cardiomyopathy Mild pulmonary hypertension with an estimated pulmonary artery peak systolic pressure of 40 mmHg. Comparison with the previous study is difficult because of the difference in the technical quality. Diamox added secondary to underlying lung disease, pulmonary hypertension, elevated CO2 CBC, BMP daily (2) Atrial fibrillation with RVR: As per #1 Continue telemetry Continue Eliquis for anticoagulation Continue Cardizem p.o. Metoprolol likely to be restarted by cardiology (3) Leukocytosis: Multifactorial most likely due to pneumonia/atelectasis. Urine ultimately grew out some yeast which is likely colonization Continue Zosyn, vancomycin stopped due to elevated Vanco trough monitor urine output monitor creatinine Sputum culture negative Labs in AM. Shafer catheter replaced by nursing staff yesterday. Await MRSA PCR. (4) Elevated troponin: Cardiology evaluating (5) Hypertension: Stable at this time Hold Antihypertensive medications. Qualifiers: Hypertension type: essential hypertension Qualified Code(s): I10 - Essential (primary) hypertension (6) CKD (chronic kidney disease) stage 3, GFR 30-59 ml/min: Stable at this time Continue diuresis due to #1. CMP in AM. Qualifiers: Chronic kidney disease stage 3 subtype: stage 3a (GFR 45-59) Qualified Code(s): N18.31 - Chronic kidney disease, stage 3a (7) Parainfluenza: Patient noted to be positive for parainfluenza 3. Treat medically and/or symptomatically at this time. Droplet precautions Nebs (8) Seronegative rheumatoid arthritis of both hands: Prednisone 30 mg (9) Hypokalemia: Receiving IV replacement Plan Transaminitis. May be secondary to hepatic congestion versus amiodarone effect. Amiodarone has been discontinued. LFTs slightly improved. Recheck tomorrow Once stable for discharge, patient will return back to [facility] for further rehabilitation services. CODE STATUS: Full code DVT prophylaxis: Arnaldo Patient was seen this morning, family members at bedside, she remains at times BiPAP dependent, family numbers are worried as her 02 sats on BiPAP symptoms dropped into the low 80s, but they quickly bounce back up she never struggling to breathe, she is alert to person, to place, not to time she denies any shortness of breath, at senior care she remains bedbound, she is a [place] lift, she does not ambulate, this morning her potassium was 2.7, she has been given 60 p.o. potassium, she tells me she does not like taking p.o. potassium as pills are hard to swallow, I have ordered 20 mill equivalents of IV potassium, we discussed rechecking the potassium in the afternoon, if its within normal limits, we will give her another dose of IV Lasix with potassium continue to diurese her as her BNP remains elevated, she remains BiPAP dependent and will order a overnight pulse ox, as she might need BiPAP at intermediate facility for chronic respiratory failure will see if she qualifies, will order another x- ray on her today, she remains afebrile, she continues to diurese well she is -8 L so far her liver function is trending downwards, discussed extensively with family members at bedside, they voiced understanding, all questions answered, agreed to proceed Attestations 2 Medical Necessity Statement*: Patient requires hospitalization for acute CHF exacerbation requiring IV diuresis Diagnoses Acute exacerbation of CHF (congestive heart failure) I50.9 Atrial fibrillation with RVR I48.91 Leukocytosis D72.829 Elevated troponin R79.89 Essential hypertension I10 Hypertension type: essential hypertension Stage 3a chronic kidney disease N18.31 Chronic kidney disease stage 3 subtype: stage 3a (GFR 45-59) Parainfluenza B34.8 Seronegative rheumatoid arthritis of both hands M06.041; M06.042 Hypokalemia E87.6
[2023-11-30] MEDS: lidocaine 1% 5 ML in potassium chloride premix 100 ML 26.25 ML IV (18:43)
[2023-12-01] VITALS (22 sets, daily range): BP systolic 122–144; BP diastolic 62–83; PULSE 58–89; RESP 15–27; TEMP 36.1–36.5; O2SAT 93–98; BMI 29.7
[2023-12-01 02:31] LABS: Basophils % 0.3 %; Eosinophils % 0.5 %; Hematocrit 31.6 % (36-47); Lymphocytes # 0.9 10^3/uL (0.8-4.8); Lymphocytes % 14.6 %; Mean Corpuscular HGB Conc 28.2 g/dL (30-55); Mean Corpuscular Hemoglobin 28.7 pg (27-33); Mean Corpuscular Volume 101.9 fl (85-98); Mean Platelet Volume 9.8 fL (7.4-10.4); Monocytes # 0.3 10^3/uL (0.2-0.9); Monocytes % 5.1 %; Neutrophils # 4.75 10^3/uL (1.8-7.7); Nucleated Red Blood Cells % 0 %; Platelet Count 308 10^3/cmm (157-399); Red Cell Distribution Width 16.3 % (12.1-15.1); White Blood Count 6.09 10^3/uL (3.29-11.43)
[2023-12-01 02:54] LABS: Alanine Aminotransferase 322 U/L (0-33); Albumin Level 3.1 g/dL (3.5-5.2); Alkaline Phosphatase 83 U/L (35-105); Blood Urea Nitrogen 24 mg/dL (8-23); C Reactive Protein 18.4 mg/L (0.0-4.9); Carbon Dioxide 29 mmol/L (22-29); Chloride 103 mmol/L (98-107); Globulin 1.9 g/dL (1.3-4.6); Glucose 113 mg/dL (65-115); Magnesium 2.3 mg/dL (1.7-2.3); Osmolality Calculated 299 mOsm/kg (285-295); Phosphorus 2.9 mg/dL (2.5-4.5); Sodium 142 mmol/L (136-145); Total Bilirubin 0.2 mg/dL (0.15-1.2)
[2023-12-01 03:01] LABS: Anion Gap 14.2 (5-19); Aspartate Amino Transferase 80 U/L (0-32); Potassium 4.2 mmol/L (3.5-5.1)
[2023-12-01] MEDS: ipratropium-albuterol 3 mL Neb INHALATION ×4 (03:10→21:12)
[2023-12-01 03:41] LABS: NT Pro B Type Natriuretic Pept 5203 pg/mL (0-125)
[2023-12-01] MEDS: piperacillin-tazobactam 3.375 GM in sodium chloride 0.9% (plus) 50 ML IV ×3 (06:24→21:04)
[2023-12-01] MEDS: budesonide 0.5 mg/2 mL Neb INHALATION ×2 (07:24→21:12)
[2023-12-01] MEDS: predniSONE 20 mg Tablet 30 MG PO (09:08)
[2023-12-01] MEDS: dilTIAZem ER (24HR) 240 mg Capsule PO (09:09)
[2023-12-01] MEDS: apixaban 5 mg Tablet PO ×2 (09:10→21:04)
[2023-12-01] MEDS: pantoprazole DR 40 mg Tablet PO (09:10)
[2023-12-01] MEDS: docusate sodium 100 mg Capsule PO ×2 (09:10→17:51)
[2023-12-01] MEDS: folic acid 1 mg Tablet PO (09:10)
[2023-12-01] MEDS: colchicine 0.6 mg Tablet PO (09:10)
[2023-12-01] MEDS: metoprolol tartrate 50 mg Tablet PO ×2 (09:11→21:04)
--- NOTE | 2023-12-01 09:39 | P.PN_ITS ---
Subjective 2 Subjective: Patient is feeling better. He she still has significant shortness of breath with activities. She has not been ambulating around much. Telemetry shows sinus rhythm. She is currently on the diltiazem and metoprolol. Seems to be tolerating medication so far well. The blood pressure has been stable. She remains afebrile. Medications: Medication Review Details: Current Medications Acetaminophen (Acetaminophen 325 Mg Tablet) 650 mg PO Q6H PRN PRN Reason: MILD PAIN Last Admin: 11/29/23 21:34 Dose: 650 mg Albuterol/Ipratropium (Ipratropium-Albuterol 3 Ml Neb) 3 ml INHALATION Q6H.RESP MONY Last Admin: 12/01/23 07:24 Dose: 3 ml Apixaban (Apixaban 5 Mg Tablet) 5 mg PO BID@0900,2100 [facility] Last Admin: 12/01/23 09:10 Dose: 5 mg Budesonide (Budesonide 0.5 Mg/2 Ml Neb) 0.5 mg INHALATION BID.RESPIRATORY MONY Last Admin: 12/01/23 07:24 Dose: 0.5 mg Colchicine (Colchicine 0.6 Mg Tablet) 0.6 mg PO DAILY [facility] Last Admin: 12/01/23 09:10 Dose: 0.6 mg Diltiazem HCl (Diltiazem Er (24hr) 240 Mg Capsule) 240 mg PO DAILY MONY Last Admin: 12/01/23 09:09 Dose: 240 mg Docusate Sodium (Docusate Sodium 100 Mg Capsule) 100 mg PO BID MONY Last Admin: 12/01/23 09:10 Dose: 100 mg Folic Acid (Folic Acid 1 Mg Tablet) 1 mg PO DAILY MONY Last Admin: 12/01/23 09:10 Dose: 1 mg Furosemide (Furosemide 10 Mg/Ml Sdv 4ml) 40 mg IVP ONCE ONE Stop: 12/01/23 18:35 Piperacillin Sod/Tazobactam (Sod 3.375 gm/ Sodium Chloride) 50 mls @ 12.5 mls/hr IV Q8H MONY Last Admin: 12/01/23 06:24 Dose: 12.5 mls/hr Metoprolol Tartrate (Metoprolol Tartrate 50 Mg Tablet) 50 mg PO BID@0900,2100 [facility] Last Admin: 12/01/23 09:11 Dose: 50 mg Ondansetron HCl (Ondansetron 2 Mg/Ml Sdv 2 Ml) 4 mg IVP Q6H PRN PRN Reason: NAUSEA AND VOMITING Pantoprazole Sodium (Pantoprazole Dr 40 Mg Tablet) 40 mg PO DAILY [facility] Last Admin: 12/01/23 09:10 Dose: 40 mg Prednisone (Prednisone 20 Mg Tablet) 30 mg PO DAILY [facility] Last Admin: 12/01/23 09:08 Dose: 30 mg Tramadol HCl (Tramadol 50 Mg Tablet) 50 mg PO Q8H PRN PRN Reason: Pain Last Admin: 11/29/23 21:35 Dose: 50 mg Vitals/I&O/Wt Last Vital Signs Temp 97.0 F L 12/01/23 04:00 Pulse 85 12/01/23 07:34 Resp 20 H 12/01/23 07:26 BP 142/73 12/01/23 04:00 Pulse Ox 95 12/01/23 07:26 O2 Del Method Heated High Flow 12/01/23 07:26 O2 Flow Rate 40 12/01/23 07:26 FiO2 40 12/01/23 07:26 11/30/23 12/01/23 12/01/23 22:59 06:59 14:59 Intake Total 155 / 730 50 / 780 Output Total 550 / 550 350 / 900 Balance -395 / 180 -300 / -120 Weight last 48 hrs Weight 190 lb 1.6 oz Physical Exam 2 Narrative: GENERAL: The patient is alert and oriented times three. Not in any acute distress. HEENT: No significant pallor, icterus or lymphadenopathy.Oral cavity: There are no mucous membrane lesions. NECK: Trachea appears to be central. No masses noted. No JVD or thyromegaly appreciated. RESPIRATORY: Chest is symmetrical. No intercostals muscle retraction or any accessory muscle activation. There is no chest wall tenderness. Breath sounds are heard bilaterally. Diffuse coarse crackles and expiratory wheezing is still present BREASTS: Deferred. HEART: The heart sounds are normal. No S3 or S4. Systolic murmur grade 3 or 6 in the base of the heart. No diastolic murmurs.. No pericardial rub ABDOMEN: No vessel pulsations or distention. No tenderness. No organomegaly appreciated. Bowel sounds are normally heard. : Deferred. RECTAL: Deferred. LYMPHATIC: No lymphadenopathy noted in the neck. EXTREMITIES: 1+ edema both lower extremities. MUSCULOSKELETAL: No acute joint deformities or swelling SKIN: There are no significant rashes or ecchymosis NEUROPSYCHIATRIC: The patient is alert and oriented x3. Appears to be in a good mood. No tremors or rigidity noted. Urinary Catheter Management: Shafer: Cath Placed During This Visit: yes Reason for Continuing Indwelling Catheter: Acute Urinary Retention or Obstruction Urinary Catheter Date of Insertion: 11/25/23 Urinary Catheter Time of Insertion: 10:00 Data 12/01/23 02:03 12/01/23 02:03 Other Labs: Laboratory Last Values WBC 6.09 10^3/uL (3.29-11.43) 12/01/23 02:03 RBC 3.10 10^6/uL (3.85-5.65) L 12/01/23 02:03 Hgb 8.90 g/dL (11.27-16.99) L 12/01/23 02:03 Hct 31.6 % (36-47) L 12/01/23 02:03 MCV 101.9 fl (85-98) H 12/01/23 02:03 MCH 28.7 pg (27-33) 12/01/23 02:03 MCHC 28.2 g/dL (30-55) L D 12/01/23 02:03 RDW 16.3 % (12.1-15.1) H 12/01/23 02:03 Plt Count 308 10^3/cmm (157-399) 12/01/23 02:03 MPV 9.8 fL (7.4-10.4) 12/01/23 02:03 Neut % (Auto) 78.0 % 12/01/23 02:03 Lymph % (Auto) 14.6 % 12/01/23 02:03 [place] % (Auto) 5.1 % 12/01/23 02:03 Eos % (Auto) 0.5 % 12/01/23 02:03 Baso % (Auto) 0.3 % 12/01/23 02:03 Neut # (Auto) 4.75 10^3/uL (1.8-7.7) 12/01/23 02:03 Lymph # (Auto) 0.9 10^3/uL (0.8-4.8) 12/01/23 02:03 [place] # (Auto) 0.3 10^3/uL (0.2-0.9) 12/01/23 02:03 Eos # (Auto) 0.0 10^3/uL (0.0-0.8) 12/01/23 02:03 Baso # (Auto) 0.0 10^3/uL (0.0-0.1) 12/01/23 02:03 Nucleated RBC % (auto) 0 % 12/01/23 02:03 Nucleated RBCs # 0.0 /100WBC 12/01/23 02:03 Specimen Type Arterial 11/26/23 11:10 Sample Site Radial, right 11/26/23 11:10 ABG pH 7.44 (7.35-7.45) 11/26/23 11:10 ABG pCO2 54.7 mmHg (35-45) H 11/26/23 11:10 ABG pO2 78.8 mmHg (80.0-100.0) L 11/26/23 11:10 ABG PO2/FiO2 Ratio 0 11/26/23 11:10 ABG HCO3 37.5 mmol/L (22-26) H 11/26/23 11:10 ABG Base Excess 11.1 mmol/L (-2.0-2.0) H 11/26/23 11:10 Perry Test Pos 11/26/23 11:10 Hematocrit 43.0 % (37-47) 11/26/23 11:10 Hgb O2 Saturation 94.6 % (95-100) L 11/24/23 05:55 Carboxyhemoglobin 0.1 %THgb (0.4-20.1) L 11/24/23 05:55 Methemoglobin 0.7 % (0.4-1.5) 11/24/23 05:55 Total Hemoglobin 10.5 g/dL (12-16) L 11/24/23 05:55 O2 Delivery Device Bipap 11/26/23 11:10 FiO2 40.0 % 11/26/23 11:10 Coal Hiker ID glc 11/26/23 11:10 Sodium 142 mmol/L (136-145) 12/01/23 02:03 Potassium 4.2 mmol/L (3.5-5.1) 12/01/23 02:03 Chloride 103 mmol/L (98-107) 12/01/23 02:03 Carbon Dioxide 29 mmol/L (22-29) 12/01/23 02:03 Anion Gap 14.2 (5-19) 12/01/23 02:03 BUN 24 mg/dL (8-23) H 12/01/23 02:03 Creatinine 1.0 mg/dL (0.5-0.9) H 12/01/23 02:03 GFR Calculation Not Reportable 12/01/23 02:03 Glucose 113 mg/dL (65-115) 12/01/23 02:03 Calculated Osmolality 299 mOsm/kg (285-295) H 12/01/23 02:03 Lactic Acid 2.4 mmol/L (0.5-2.2) H 11/24/23 06:05 Lactic Acid (Sepsis) 1.5 mmol/L (0.5-2.2) 11/24/23 09:08 Calcium 9.0 mg/dL (8.5-10.5) 12/01/23 02:03 Phosphorus 2.9 mg/dL (2.5-4.5) 12/01/23 02:03 Magnesium 2.3 mg/dL (1.7-2.3) 12/01/23 02:03 Total Bilirubin 0.2 mg/dL (0.15-1.2) 12/01/23 02:03 AST 80 U/L (0-32) H 12/01/23 02:03 ALT 322 U/L (0-33) H 12/01/23 02:03 Alkaline Phosphatase 83 U/L (35-105) 12/01/23 02:03 Troponin T Baseline 114 ng/L (0-10) H* 11/24/23 05:52 Troponin T 120 Minute 174.6 ng/L (0-10) H 11/24/23 07:48 Delta Troponin T 60.6 ABS# (0-10) H* 11/24/23 07:48 Troponin T Hi Sens 6Hr 188.8 ng/L (0-10) H 11/24/23 12:21 Troponin T Hi Sens 6Hr Delta 74.8 ng/L (0-12) H* 11/24/23 12:21 C-Reactive Protein 18.4 mg/L (0.0-4.9) H 12/01/23 02:03 NT-Pro-B Natriuret Pep 5203 pg/mL (0-125) H 12/01/23 02:03 Total Protein 5.0 g/dL (6.6-8.7) L 12/01/23 02:03 Albumin 3.1 g/dL (3.5-5.2) L 12/01/23 02:03 Globulin 1.9 g/dL (1.3-4.6) 12/01/23 02:03 Urine Color Yellow (Yellow) 11/24/23 13:27 Urine Appearance Cloudy (CLEAR) A 11/24/23 13:27 Urine pH 7 (5-7) 11/24/23 13:27 Ur Specific [place] 1.010 (1.005-1.030) 11/24/23 13:27 Urine Protein Neg (Negative) 11/24/23 13:27 Urine Glucose (UA) Norm (Normal) 11/24/23 13:27 Urine Ketones Negative (Negative) 11/24/23 13:27 Urine Blood 3+ (Negative) H 11/24/23 13:27 Urine Nitrate Positive (Negative) H 11/24/23 13:27 Urine Bilirubin Neg (Negative) 11/24/23 13:27 Urine Urobilinogen Neg mg/dL (Negative) 11/24/23 13:27 Ur Leukocyte Esterase 2+ (Negative) H 11/24/23 13:27 Urine RBC >100 /hpf (0-2) H 11/24/23 13:27 Urine WBC Too numerous to cnt /hpf (0-5) H 11/24/23 13:27 Ur Squamous Epith Cells 0-4 /hpf (0-5) H 11/24/23 13:27 Ur Transition Epith Cell 0-4 /hpf 11/24/23 13:27 Amorphous Sediment Not Reportable 11/24/23 13:27 Urine Bacteria 2+ /hpf (NONE) H 11/24/23 13:27 Urine Yeast 2+ /hpf H 11/24/23 13:27 Vancomycin Trough 31.1 ug/mL (10-15) H* 11/29/23 05:32 Adenovirus (PCR) Not detected (NOT DETECT) 11/24/23 06:10 C. pneumoniae DNA (PCR) Not detected (NOT DETECT) 11/24/23 06:10 Coronavirus 229E (PCR) Not detected (NOT DETECT) 11/24/23 06:10 Human Metapneumovir PCR Not detected (NOT DETECT) 11/24/23 06:10 Influenza A (H1) PCR Not detected (NOT DETECT) 11/24/23 06:10 Influ A (H1/09) PCR Not detected (NOT DETECT) 11/24/23 06:10 Influenza A (H3) PCR Not detected (NOT DETECT) 11/24/23 06:10 Influenza Type A (PCR) Not detected (NOT DETECT) 11/24/23 06:10 Influenza Type B (PCR) Not detected (NOT DETECT) 11/24/23 06:10 M. pneumoniae (PCR) Not detected (NOT DETECT) 11/24/23 06:10 Parainfluenza 1 (PCR) Not detected (NOT DETECT) 11/24/23 06:10 Parainfluenza 2 (PCR) Not detected (NOT DETECT) 11/24/23 06:10 Parainfluenza 3 (PCR) Detected (NOT DETECT) A 11/24/23 06:10 Parainfluenza 4 (PCR) Not detected (NOT DETECT) 11/24/23 06:10 RSV Type A (PCR) Not detected (NOT DETECT) 11/24/23 06:10 RSV Type B (PCR) Not detected (NOT DETECT) 11/24/23 06:10 Entero/Rhino (PCR) Not detected (NOT DETECT) 11/24/23 06:10 SARS-CoV-2 (PCR) Not detected (NOT DETECT) 11/24/23 06:10 Micro: Microbiology 11/24/23 06:16 Blood Culture - Final Blood 11/24/23 06:05 Blood Culture - Final Blood A&P Assessment and plan (1) Hypertrophic obstructive cardiomyopathy: There is no worsening of the gradient across the LV outflow tract. At this point we may continue on the current management. (2) COPD exacerbation: She is on a BiPAP. Intermittent diastolic heart failure could be aggravating her condition. Continue careful IV diuresis and other symptomatic measures. (3) Atrial fibrillation with RVR: She is back into sinus rhythm at this point. May continue on the current medications. Will continue to hold off on the amiodarone. Liver enzymes seems to be returning to the baseline. (4) Acute on chronic diastolic heart failure: The tricuspid valve Doppler studies were a suboptimal quality. The PA pressure appears to be normal. But this could be very misleading. At this point, we may optimize the medical treatment (5) Hyperlipidemia: Continue on the current medication Qualifiers: Hyperlipidemia type: mixed hyperlipidemia Qualified Code(s): E78.2 - Mixed hyperlipidemia (6) Hypertension: Continue on the current medication Qualifiers: Hypertension type: essential hypertension Qualified Code(s): I10 - Essential (primary) hypertension (7) Thoracic ascending aortic aneurysm: Continue on the current management. Qualifiers: Presence of rupture: without rupture Qualified Code(s): I71.21 - Aneurysm of the ascending aorta, without rupture (8) CKD (chronic kidney disease) stage 3, GFR 30-59 ml/min: Continue on the current management. Kidney function appears to be stable Qualifiers: Chronic kidney disease stage 3 subtype: stage 3a (GFR 45-59) Qualified Code(s): N18.31 - Chronic kidney disease, stage 3a (9) Hypokalemia: The potassium level is back to normal at this point Plan The overall cardiac status seems to be stable. Disposition as per the primary. Attestations 2 Medical Necessity Statement*: Deferred to the primary Coding Level of Care Code 77810 Diagnoses Hypertrophic obstructive cardiomyopathy I42.1 COPD exacerbation J44.1 Atrial fibrillation with RVR I48.91 Acute on chronic diastolic heart failure I50.33 Mixed hyperlipidemia E78.2 Hyperlipidemia type: mixed hyperlipidemia Essential hypertension I10 Hypertension type: essential hypertension Aneurysm of ascending aorta without rupture I71.21 Presence of rupture: without rupture Stage 3a chronic kidney disease N18.31 Chronic kidney disease stage 3 subtype: stage 3a (GFR 45-59) Hypokalemia E87.6
--- NOTE | 2023-12-01 11:45 | PC.SOCIAL ---
IMM updated IMM dated and initialed, copy given to patient and copy placed in chart.
[2023-12-01] MEDS: FUROsemide 10 mg/mL SDV 4mL 40 MG IVP (17:49)
--- NOTE | 2023-12-01 21:10 | P.PN_ITS ---
Subjective 2 Subjective: She is visited by family. Reports she is feeling about the same. Denies worsening. No chest pain or pressure. No nausea vomiting or diarrhea. Vitals/I&O/Wt Last Vital Signs Temp 97.7 F 12/01/23 10:47 Pulse 67 12/01/23 18:10 Resp 26 H 12/01/23 18:10 BP 123/64 12/01/23 18:10 Pulse Ox 97 12/01/23 18:10 O2 Del Method Heated High Flow 12/01/23 07:26 O2 Flow Rate 35 12/01/23 16:50 FiO2 44 12/01/23 16:50 12/01/23 12/01/23 12/01/23 06:59 14:59 22:59 Intake Total 50 / 780 50 / 50 530 / 580 Output Total 350 / 900 358 / 358 Balance -300 / -120 -308 / -308 530 / 222 Weight last 48 hrs Weight 86.228 kg Weight 86.228 kg Physical Exam 2 Narrative: Sitting up in bed. Const: COMMON NORMALS: patient oriented x3 and alert GENERAL APPEARANCE: c ooperative ORIENTATION/CONSCIOUSNESS: Yes awake HENMT: COMMON NORMALS: oropharynx normal Neck/C-Spine: COMMON NORMALS: no JVD Resp: COMMON NORMALS: normal respiratory effort AUSCULTATION: diminished lung sounds bilateral OTHER: About to receive a breathing treatment. Cardio: COMMON NORMALS: no JVD, regular rhythm, S1 normal heart sound present, S2 normal heart sound present and No murmurs present (Cardio) RHYTHM: regular rhythm HEART SOUNDS: S1 normal heart sound present and S2 normal heart sound present GI: COMMON NORMALS: Normal to inspection, nondistended, normoactive bowel sounds present, Soft to palpation and non-tender PALPATION: Yes Soft to palpation Extremity: COMMON NORMALS: no joint enlargement and no pedal edema Neuro: COMMON NORMALS: patient oriented x3 and moves all extremities S ENSORIUM/ORIENTATION: Yes alert Skin: COMMON NORMALS: no rashes or lesions noted GENERAL SKIN EXAM: no rashes or lesions noted Urinary Catheter Management: Shafer: Cath Placed During This Visit: yes Reason for Continuing Indwelling Catheter: Acute Urinary Retention or Obstruction Urinary Catheter Date of Insertion: 11/25/23 Urinary Catheter Time of Insertion: 10:00 Data 12/01/23 02:03 12/01/23 02:03 Micro: Microbiology 11/24/23 06:16 Blood Culture - Final Blood 11/24/23 06:05 Blood Culture - Final Blood A&P Assessment and plan (1) Acute exacerbation of CHF (congestive heart failure): Weaned off BiPAP to heated high flow. Still sounding tight, poor air entry. Pending breathing treatment at the time of my visit. Patient continue BiPAP support as needed. Received Lasix tonight. Reassess volume status, renal function. Monitor YAIR. Reviewed BUN, creatinine. Reassess renal function in the morning. Consider additional Lasix. Reviewed cardiology note. Discussed with immigration case manager. Amiodarone discontinued secondary to high LFTs. LFTs improving Cont 1200 mill fluid restriction. Repeat BMP this afternoon if potassium reasonable give 40 mg IV push Lasix with potassium replacement, -8 L so far monitor urine output, ? Hypokalemia, requiring IV replacement of potassium 80 mEq, recheck potassium in the afternoon Cardiology consultation appreciated Echocardiogram reviewed: CONCLUSIONS Normal left ventricular size and systolic function, EF 71 %. Moderate left ventricular hypertrophy. Mildly increased left atrial size. The right-sided structures could not be visualized well. The peak gradient across LV outflow tract was 117 mmHg Features suggesting hypertrophic obstructive cardiomyopathy Mild pulmonary hypertension with an estimated pulmonary artery peak systolic pressure of 40 mmHg. Comparison with the previous study is difficult because of the difference in the technical quality. Diamox secondary to underlying lung disease, pulmonary hypertension, elevated CO2 Requested CBC, BMP follow up. (2) Atrial fibrillation with RVR: Continue metoprolol. Eliquis. Monitor heart rates. Continue telemetry Continue Eliquis for anticoagulation Continue Cardizem p.o. Metoprolol likely to be restarted by cardiology (3) Leukocytosis: Reviewed WBC, leukocytosis resolved. Reviewed sputum culture, noted mixed upper respiratory vince. Multifactorial most likely due to pneumonia/atelectasis. Urine ultimately grew out some yeast which is likely colonization Continue Zosyn, vancomycin stopped due to elevated Vanco trough monitor urine output monitor creatinine Sputum culture negative Shafer catheter replaced by nursing staff yesterday. Await MRSA PCR. (4) Elevated troponin: Cardiology evaluating (5) Hypertension: Stable at this time Hold Antihypertensive medications. Qualifiers: Hypertension type: essential hypertension Qualified Code(s): I10 - Essential (primary) hypertension (6) CKD (chronic kidney disease) stage 3, GFR 30-59 ml/min: Reviewed BUN, creatinine. Stable at this time Continue diuresis due to #1. CMP in AM. Qualifiers: Chronic kidney disease stage 3 subtype: stage 3a (GFR 45-59) Qualified Code(s): N18.31 - Chronic kidney disease, stage 3a (7) Parainfluenza: Patient noted to be positive for parainfluenza 3. Treat medically and/or symptomatically at this time. Droplet precautions Nebs (8) Seronegative rheumatoid arthritis of both hands: Prednisone 30 mg (9) Hypokalemia: Reviewed potassium, WNL today. Plan Transaminitis. Reviewed AST, ALT, Noted with mild gradual improvement. may be secondary to hepatic congestion versus amiodarone effect. Amiodarone has been discontinued. Recheck Once stable for discharge, patient will return back to [facility] for further rehabilitation services. Discussed with immigration case manager. PT. CODE STATUS: Full code DVT prophylaxis: Arnaldo Bonner 2 Medical Necessity Statement*: Continue admission for assessment management of CHF exacerbation. and High MDM includes amount and/or complexity of data reviewed/ordered [ previous or external records, resulted lab(s)/test(s), ordered lab(s)/test(s) and other healthcare professional discussion] as documented Diagnoses Acute exacerbation of CHF (congestive heart failure) I50.9 Atrial fibrillation with RVR I48.91 Leukocytosis D72.829 Elevated troponin R79.89 Essential hypertension I10 Hypertension type: essential hypertension Stage 3a chronic kidney disease N18.31 Chronic kidney disease stage 3 subtype: stage 3a (GFR 45-59) Parainfluenza B34.8 Seronegative rheumatoid arthritis of both hands M06.041; M06.042 Hypokalemia E87.6
[2023-12-02] VITALS (20 sets, daily range): BP systolic 95–163; BP diastolic 63–82; PULSE 60–87; RESP 14–27; TEMP 36.3–36.9; O2SAT 97–100
[2023-12-02] MEDS: ipratropium-albuterol 3 mL Neb INHALATION ×4 (02:21→20:57)
[2023-12-02 04:40] LABS: Basophils % 0.2 %; Eosinophils % 0.4 %; Hematocrit 30.5 % (36-47); Lymphocytes % 12.3 %; Mean Corpuscular HGB Conc 29.8 g/dL (30-55); Mean Corpuscular Hemoglobin 28.9 pg (27-33); Mean Corpuscular Volume 96.8 fl (85-98); Mean Platelet Volume 9.8 fL (7.4-10.4); Monocytes # 0.5 10^3/uL (0.2-0.9); Monocytes % 5.4 %; Neutrophils # 6.65 10^3/uL (1.8-7.7); Neutrophils % 79.4 %; Nucleated Red Blood Cells % 0 %; Platelet Count 335 10^3/cmm (157-399); Red Blood Count 3.15 10^6/uL (3.85-5.65); White Blood Count 8.37 10^3/uL (3.29-11.43)
[2023-12-02 04:59] LABS: Alanine Aminotransferase 197 U/L (0-33); Alkaline Phosphatase 100 U/L (35-105); Anion Gap 10.7 (5-19); Aspartate Amino Transferase 34 U/L (0-32); Blood Urea Nitrogen 21 mg/dL (8-23); C Reactive Protein 9.7 mg/L (0.0-4.9); Calcium 9.5 mg/dL (8.5-10.5); Carbon Dioxide 33 mmol/L (22-29); Chloride 103 mmol/L (98-107); Globulin 2.6 g/dL (1.3-4.6); Glucose 151 mg/dL (65-115); Magnesium 2.1 mg/dL (1.7-2.3); Osmolality Calculated 304 mOsm/kg (285-295); Phosphorus 2.5 mg/dL (2.5-4.5); Sodium 144 mmol/L (136-145); Total Bilirubin 0.2 mg/dL (0.15-1.2); Total Protein 5.6 g/dL (6.6-8.7)
[2023-12-02] MEDS: piperacillin-tazobactam 3.375 GM in sodium chloride 0.9% (plus) 50 ML IV ×3 (05:04→20:38)
[2023-12-02 05:12] LABS: NT Pro B Type Natriuretic Pept 8431 pg/mL (0-125); Procalcitonin 0.16 ng/mL (0-0.5)
[2023-12-02 05:15] LABS: Potassium 2.7 mmol/L (3.5-5.1)
[2023-12-02] MEDS: lidocaine 1% 5 ML in potassium chloride premix 100 ML 26.25 ML IV (06:41)
[2023-12-02] MEDS: budesonide 0.5 mg/2 mL Neb INHALATION ×2 (08:18→20:57)
[2023-12-02] MEDS: bumetanide 0.25 mg/mL SDV 10 mL 3 MG IVP ×2 (09:30→20:37)
[2023-12-02] MEDS: predniSONE 20 mg Tablet 30 MG PO (09:38)
[2023-12-02] MEDS: colchicine 0.6 mg Tablet PO (09:39)
[2023-12-02] MEDS: TRAMadol 50 mg Tablet PO ×2 (09:39→20:37)
[2023-12-02] MEDS: acetaminophen 325 mg Tablet 650 MG PO ×2 (09:40→20:38)
[2023-12-02] MEDS: apixaban 5 mg Tablet PO ×2 (09:40→20:37)
[2023-12-02] MEDS: pantoprazole DR 40 mg Tablet PO (09:40)
[2023-12-02] MEDS: folic acid 1 mg Tablet PO (09:40)
[2023-12-02] MEDS: metoprolol tartrate 50 mg Tablet PO ×2 (09:40→20:37)
[2023-12-02] MEDS: dilTIAZem ER (24HR) 240 mg Capsule PO (09:41)
[2023-12-02] MEDS: potassium chloride oral liq 20 mEq/15 mL UDC 40 MEQ PO (09:44)
--- NOTE | 2023-12-02 09:44 | P.PN_ITS ---
Subjective 2 Subjective: Patient continues to have the generalized weakness and shortness of breath. Telemetry shows sinus rhythm. Medications: Medication Review Details: Current Medications Acetaminophen (Acetaminophen 325 Mg Tablet) 650 mg PO Q6H PRN PRN Reason: MILD PAIN Last Admin: 12/02/23 09:40 Dose: 650 mg Albuterol/Ipratropium (Ipratropium-Albuterol 3 Ml Neb) 3 ml INHALATION Q6H.RESP [facility] Last Admin: 12/02/23 08:18 Dose: 3 ml Apixaban (Apixaban 5 Mg Tablet) 5 mg PO BID@0900,2100 [facility] Last Admin: 12/02/23 09:40 Dose: 5 mg Budesonide (Budesonide 0.5 Mg/2 Ml Neb) 0.5 mg INHALATION BID.RESPIRATORY [facility] Last Admin: 12/02/23 08:18 Dose: 0.5 mg Bumetanide (Bumetanide 0.25 Mg/Ml Sdv 10 Ml) 3 mg IVP Q12H [facility] Last Admin: 12/02/23 09:30 Dose: 3 mg Colchicine (Colchicine 0.6 Mg Tablet) 0.6 mg PO DAILY [facility] Last Admin: 12/02/23 09:39 Dose: 0.6 mg Diltiazem HCl (Diltiazem Er (24hr) 240 Mg Capsule) 240 mg PO DAILY [facility] Last Admin: 12/02/23 09:41 Dose: 240 mg Docusate Sodium (Docusate Sodium 100 Mg Capsule) 100 mg PO BID [facility] Last Admin: 12/02/23 09:41 Dose: Not Given Folic Acid (Folic Acid 1 Mg Tablet) 1 mg PO DAILY [facility] Last Admin: 12/02/23 09:40 Dose: 1 mg Piperacillin Sod/Tazobactam (Sod 3.375 gm/ Sodium Chloride) 50 mls @ 12.5 mls/hr IV Q8H [facility] Last Admin: 12/02/23 05:04 Dose: 12.5 mls/hr Lidocaine HCl 5 ml/ Potassium (Chloride) 105 mls @ 26.25 mls/hr IV ONCE ONE Stop: 12/02/23 10:00 Last Admin: 12/02/23 06:41 Dose: 26.25 mls/hr Metoprolol Tartrate (Metoprolol Tartrate 50 Mg Tablet) 50 mg PO BID@0900,2100 [facility] Last Admin: 12/02/23 09:40 Dose: 50 mg Ondansetron HCl (Ondansetron 2 Mg/Ml Sdv 2 Ml) 4 mg IVP Q6H PRN PRN Reason: NAUSEA AND VOMITING Pantoprazole Sodium (Pantoprazole Dr 40 Mg Tablet) 40 mg PO DAILY [facility] Last Admin: 12/02/23 09:40 Dose: 40 mg Potassium Chloride (Potassium Chloride Oral Liq 20 Meq/15 Ml Udc) 40 meq PO ONCE ONE Stop: 12/02/23 10:01 Last Admin: 12/02/23 09:44 Dose: 40 meq Prednisone (Prednisone 20 Mg Tablet) 30 mg PO DAILY [facility] Last Admin: 12/02/23 09:38 Dose: 30 mg Tramadol HCl (Tramadol 50 Mg Tablet) 50 mg PO Q8H PRN PRN Reason: Pain Last Admin: 12/02/23 09:39 Dose: 50 mg Vitals/I&O/Wt Last Vital Signs Temp 97.7 F 12/02/23 03:43 Pulse 71 12/02/23 08:22 Resp 20 H 12/02/23 08:22 BP 163/68 12/02/23 03:41 Pulse Ox 98 12/02/23 08:22 O2 Del Method Heated High Flow 12/02/23 08:18 O2 Flow Rate 35 12/02/23 08:22 FiO2 35 12/02/23 08:22 12/01/23 12/02/23 12/02/23 22:59 06:59 14:59 Intake Total 650 / 700 450 / 1150 Output Total 150 / 508 Balance 650 / 342 300 / 642 Weight last 48 hrs Weight 190 lb Weight 190 lb 1.6 oz Physical Exam 2 Narrative: GENERAL: The patient is alert and oriented times three. Not in any acute distress. HEENT: No significant pallor, icterus or lymphadenopathy.Oral cavity: There are no mucous membrane lesions. NECK: Trachea appears to be central. No masses noted. No JVD or thyromegaly appreciated. RESPIRATORY: Chest is symmetrical. No intercostals muscle retraction or any accessory muscle activation. There is no chest wall tenderness. Breath sounds are heard bilaterally. Diffuse coarse crackles and expiratory wheezing is still present BREASTS: Deferred. HEART: The heart sounds are normal. No S3 or S4. Systolic murmur grade 3 or 6 in the base of the heart. No diastolic murmurs.. No pericardial rub ABDOMEN: No vessel pulsations or distention. No tenderness. No organomegaly appreciated. Bowel sounds are normally heard. : Deferred. RECTAL: Deferred. LYMPHATIC: No lymphadenopathy noted in the neck. EXTREMITIES: 1+ edema both lower extremities. MUSCULOSKELETAL: No acute joint deformities or swelling SKIN: There are no significant rashes or ecchymosis NEUROPSYCHIATRIC: The patient is alert and oriented x3. Appears to be in a good mood. No tremors or rigidity noted. Urinary Catheter Management: Shafer: Cath Placed During This Visit: yes Reason for Continuing Indwelling Catheter: Acute Urinary Retention or Obstruction Urinary Catheter Date of Insertion: 11/25/23 Urinary Catheter Time of Insertion: 10:00 Data 12/02/23 04:10 12/02/23 16:28 Other Labs: Laboratory Last Values WBC 8.37 10^3/uL (3.29-11.43) 12/02/23 04:10 RBC 3.15 10^6/uL (3.85-5.65) L 12/02/23 04:10 Hgb 9.10 g/dL (11.27-16.99) L 12/02/23 04:10 Hct 30.5 % (36-47) L 12/02/23 04:10 MCV 96.8 fl (85-98) 12/02/23 04:10 MCH 28.9 pg (27-33) 12/02/23 04:10 MCHC 29.8 g/dL (30-55) L D 12/02/23 04:10 RDW 16.0 % (12.1-15.1) H 12/02/23 04:10 Plt Count 335 10^3/cmm (157-399) 12/02/23 04:10 MPV 9.8 fL (7.4-10.4) 12/02/23 04:10 Neut % (Auto) 79.4 % 12/02/23 04:10 Lymph % (Auto) 12.3 % 12/02/23 04:10 Dane % (Auto) 5.4 % 12/02/23 04:10 Eos % (Auto) 0.4 % 12/02/23 04:10 Baso % (Auto) 0.2 % 12/02/23 04:10 Neut # (Auto) 6.65 10^3/uL (1.8-7.7) 12/02/23 04:10 Lymph # (Auto) 1.0 10^3/uL (0.8-4.8) 12/02/23 04:10 Dane # (Auto) 0.5 10^3/uL (0.2-0.9) 12/02/23 04:10 Eos # (Auto) 0.0 10^3/uL (0.0-0.8) 12/02/23 04:10 Baso # (Auto) 0.0 10^3/uL (0.0-0.1) 12/02/23 04:10 Nucleated RBC % (auto) 0 % 12/02/23 04:10 Nucleated RBCs # 0.0 /100WBC 12/02/23 04:10 Specimen Type Arterial 11/26/23 11:10 Sample Site Radial, right 11/26/23 11:10 ABG pH 7.44 (7.35-7.45) 11/26/23 11:10 ABG pCO2 54.7 mmHg (35-45) H 11/26/23 11:10 ABG pO2 78.8 mmHg (80.0-100.0) L 11/26/23 11:10 ABG PO2/FiO2 Ratio 0 11/26/23 11:10 ABG HCO3 37.5 mmol/L (22-26) H 11/26/23 11:10 ABG Base Excess 11.1 mmol/L (-2.0-2.0) H 11/26/23 11:10 Perry Test Pos 11/26/23 11:10 Hematocrit 43.0 % (37-47) 11/26/23 11:10 Hgb O2 Saturation 94.6 % (95-100) L 11/24/23 05:55 Carboxyhemoglobin 0.1 %THgb (0.4-20.1) L 11/24/23 05:55 Methemoglobin 0.7 % (0.4-1.5) 11/24/23 05:55 Total Hemoglobin 10.5 g/dL (12-16) L 11/24/23 05:55 O2 Delivery Device Bipap 11/26/23 11:10 FiO2 40.0 % 11/26/23 11:10 Supervisor Pipe Manufacture ID glc 11/26/23 11:10 Sodium 144 mmol/L (136-145) 12/02/23 04:10 Potassium 2.7 mmol/L (3.5-5.1) L* 12/02/23 04:10 Chloride 103 mmol/L (98-107) 12/02/23 04:10 Carbon Dioxide 33 mmol/L (22-29) H 12/02/23 04:10 Anion Gap 10.7 (5-19) 12/02/23 04:10 BUN 21 mg/dL (8-23) 12/02/23 04:10 Creatinine 0.9 mg/dL (0.5-0.9) 12/02/23 04:10 GFR Calculation Not Reportable 12/02/23 04:10 Glucose 151 mg/dL (65-115) H 12/02/23 04:10 Calculated Osmolality 304 mOsm/kg (285-295) H 12/02/23 04:10 Lactic Acid 2.4 mmol/L (0.5-2.2) H 11/24/23 06:05 Lactic Acid (Sepsis) 1.5 mmol/L (0.5-2.2) 11/24/23 09:08 Calcium 9.5 mg/dL (8.5-10.5) 12/02/23 04:10 Phosphorus 2.5 mg/dL (2.5-4.5) 12/02/23 04:10 Magnesium 2.1 mg/dL (1.7-2.3) 12/02/23 04:10 Total Bilirubin 0.2 mg/dL (0.15-1.2) 12/02/23 04:10 AST 34 U/L (0-32) H 12/02/23 04:10 ALT 197 U/L (0-33) H 12/02/23 04:10 Alkaline Phosphatase 100 U/L (35-105) 12/02/23 04:10 Troponin T Baseline 114 ng/L (0-10) H* 11/24/23 05:52 Troponin T 120 Minute 174.6 ng/L (0-10) H 11/24/23 07:48 Delta Troponin T 60.6 ABS# (0-10) H* 11/24/23 07:48 Troponin T Hi Sens 6Hr 188.8 ng/L (0-10) H 11/24/23 12:21 Troponin T Hi Sens 6Hr Delta 74.8 ng/L (0-12) H* 11/24/23 12:21 C-Reactive Protein 9.7 mg/L (0.0-4.9) H 12/02/23 04:10 NT-Pro-B Natriuret Pep 8431 pg/mL (0-125) H 12/02/23 04:10 Total Protein 5.6 g/dL (6.6-8.7) L 12/02/23 04:10 Albumin 3.0 g/dL (3.5-5.2) L 12/02/23 04:10 Globulin 2.6 g/dL (1.3-4.6) 12/02/23 04:10 Procalcitonin 0.16 ng/mL (0-0.5) 12/02/23 04:10 Urine Color Yellow (Yellow) 11/24/23 13:27 Urine Appearance Cloudy (CLEAR) A 11/24/23 13:27 Urine pH 7 (5-7) 11/24/23 13:27 Ur Specific [place] 1.010 (1.005-1.030) 11/24/23 13:27 Urine Protein Neg (Negative) 11/24/23 13:27 Urine Glucose (UA) Norm (Normal) 11/24/23 13:27 Urine Ketones Negative (Negative) 11/24/23 13:27 Urine Blood 3+ (Negative) H 11/24/23 13:27 Urine Nitrate Positive (Negative) H 11/24/23 13:27 Urine Bilirubin Neg (Negative) 11/24/23 13:27 Urine Urobilinogen Neg mg/dL (Negative) 11/24/23 13:27 Ur Leukocyte Esterase 2+ (Negative) H 11/24/23 13:27 Urine RBC >100 /hpf (0-2) H 11/24/23 13:27 Urine WBC Too numerous to cnt /hpf (0-5) H 11/24/23 13:27 Ur Squamous Epith Cells 0-4 /hpf (0-5) H 11/24/23 13:27 Ur Transition Epith Cell 0-4 /hpf 11/24/23 13:27 Amorphous Sediment Not Reportable 11/24/23 13:27 Urine Bacteria 2+ /hpf (NONE) H 11/24/23 13:27 Urine Yeast 2+ /hpf H 11/24/23 13:27 Vancomycin Trough 31.1 ug/mL (10-15) H* 11/29/23 05:32 Adenovirus (PCR) Not detected (NOT DETECT) 11/24/23 06:10 C. pneumoniae DNA (PCR) Not detected (NOT DETECT) 11/24/23 06:10 Coronavirus 229E (PCR) Not detected (NOT DETECT) 11/24/23 06:10 Human Metapneumovir PCR Not detected (NOT DETECT) 11/24/23 06:10 Influenza A (H1) PCR Not detected (NOT DETECT) 11/24/23 06:10 Influ A (H1/09) PCR Not detected (NOT DETECT) 11/24/23 06:10 Influenza A (H3) PCR Not detected (NOT DETECT) 11/24/23 06:10 Influenza Type A (PCR) Not detected (NOT DETECT) 11/24/23 06:10 Influenza Type B (PCR) Not detected (NOT DETECT) 11/24/23 06:10 M. pneumoniae (PCR) Not detected (NOT DETECT) 11/24/23 06:10 Parainfluenza 1 (PCR) Not detected (NOT DETECT) 11/24/23 06:10 Parainfluenza 2 (PCR) Not detected (NOT DETECT) 11/24/23 06:10 Parainfluenza 3 (PCR) Detected (NOT DETECT) A 11/24/23 06:10 Parainfluenza 4 (PCR) Not detected (NOT DETECT) 11/24/23 06:10 RSV Type A (PCR) Not detected (NOT DETECT) 11/24/23 06:10 RSV Type B (PCR) Not detected (NOT DETECT) 11/24/23 06:10 Entero/Rhino (PCR) Not detected (NOT DETECT) 11/24/23 06:10 SARS-CoV-2 (PCR) Not detected (NOT DETECT) 11/24/23 06:10 A&P Assessment and plan (1) Acute on chronic diastolic heart failure: The heart failure seems to be fairly compensated at this time. May continue on the current management. (2) Hypertrophic obstructive cardiomyopathy: There is no worsening of the gradient across the LV outflow tract. At this point we may continue on the current management. (3) Atrial fibrillation with RVR: She is back into sinus rhythm at this point. May continue on the Cardizem and the beta-oral. (4) COPD exacerbation: Management as per the primary (5) Hyperlipidemia: Continue on the current medication Qualifiers: Hyperlipidemia type: mixed hyperlipidemia Qualified Code(s): E78.2 - Mixed hyperlipidemia (6) Hypertension: Continue on the current medication Qualifiers: Hypertension type: essential hypertension Qualified Code(s): I10 - Essential (primary) hypertension (7) Thoracic ascending aortic aneurysm: Continue on the current management. Qualifiers: Presence of rupture: without rupture Qualified Code(s): I71.21 - Aneurysm of the ascending aorta, without rupture (8) CKD (chronic kidney disease) stage 3, GFR 30-59 ml/min: Continue on the current management. Kidney function appears to be stable Qualifiers: Chronic kidney disease stage 3 subtype: stage 3a (GFR 45-59) Qualified Code(s): N18.31 - Chronic kidney disease, stage 3a (9) Hypokalemia: Patient is having intermittent hypokalemia. Currently he is on the potassium supplement. Plan Continue on the current treatment. Encourage ambulation with physical therapy assistance Attestations 2 Medical Necessity Statement*: Deferred to the primary Coding Level of Care Code 01230 Diagnoses Acute on chronic diastolic heart failure I50.33 Hypertrophic obstructive cardiomyopathy I42.1 Atrial fibrillation with RVR I48.91 COPD exacerbation J44.1 Mixed hyperlipidemia E78.2 Hyperlipidemia type: mixed hyperlipidemia Essential hypertension I10 Hypertension type: essential hypertension Aneurysm of ascending aorta without rupture I71.21 Presence of rupture: without rupture Stage 3a chronic kidney disease N18.31 Chronic kidney disease stage 3 subtype: stage 3a (GFR 45-59) Hypokalemia E87.6
[2023-12-02 17:01] LABS: Potassium 3.7 mmol/L (3.5-5.1)
--- NOTE | 2023-12-02 22:29 | PM.PN ---
Subjective Subjective: She has been eating slightly better. Still having peripheral edema although with some improvement. Still some wheezing. Vitals/I&O/Wt Last Vital Signs Temp 97.7 F 12/02/23 20:00 Pulse 75 12/02/23 21:04 Resp 21 H 12/02/23 21:04 BP 104/82 12/02/23 21:04 Pulse Ox 99 12/02/23 21:04 O2 Del Method Nasal Cannula 12/02/23 21:00 O2 Flow Rate 4 12/02/23 21:00 FiO2 30 12/02/23 17:39 12/02/23 12/02/23 12/02/23 06:59 14:59 22:59 Intake Total 450 / 1150 290 / 290 515 / 805 Output Total 150 / 508 1100 / 1100 Balance 300 / 642 290 / 290 -585 / -295 Weight last 48 hrs Weight 86.183 kg Weight 86.228 kg Physical Exam Narrative: Sitting up in bed. Const: COMMON NORMALS: patient oriented x3 and alert GENERAL APPEARANCE: cooperative ORIENTATION/CONSCIOUSNESS: Yes awake HENMT: COMMON NORMALS: oropharynx normal Neck/C-Spine: COMMON NORMALS: no JVD Resp: COMMON NORMALS: normal respiratory effort AUSCULTATION: diminished lung sounds bilateral OTHER: Mild wheeze. Cardio: COMMON NORMALS: no JVD, regular rhythm, S1 normal heart sound present, S2 normal heart sound present and No murmurs present (Cardio) RHYTHM: regular rhythm HEART SOUNDS: S1 normal heart sound present and S2 normal heart sound present GI: COMMON NORMALS: Normal to inspection, nondistended, normoactive bowel sounds present, Soft to palpation and non-tender PALPATION: Yes Soft to palpation Extremity: COMMON NORMALS: no joint enlargement OTHER: Stable about 2+ edema of the with some wrinkling of the skin, some improvement. Neuro: COMMON NORMALS: patient oriented x3 and moves all extremities SENSORIUM/ORIENTATION: Yes alert Skin: COMMON NORMALS: no rashes or lesions noted GENERAL SKIN EXAM: no rashes or lesions noted Urinary Catheter Management: Shafer: Cath Placed During This Visit: yes Reason for Continuing Indwelling Catheter: Acute Urinary Retention or Obstruction Urinary Catheter Date of Insertion: 11/25/23 Urinary Catheter Time of Insertion: 10:00 Data 12/02/23 04:10 12/02/23 16:28 A&P Assessment and plan (1) Acute exacerbation of CHF (congestive heart failure): Reviewed vitals, INR, CBC, CMP. Renal function so far WNL. Tolerating diuretic but in neutral balance. Discussed with her, discussed with stockbroker for now increasing diuretic doses she is noted to taking Bumex 2 mg twice a day at home. Increase to 3 mg IV twice daily for now. Monitor YAIR. At risk of electrolyte deficiency, reassess chemistry. At risk of renal dysfunction, reassess renal function. Discussed with senior case manager. Amiodarone discontinued secondary to high LFTs. LFTs improving Cont 1200 mill fluid restriction. Repeat BMP this afternoon if potassium reasonable give 40 mg IV push Lasix with potassium replacement, -8 L so far monitor urine output, ? Hypokalemia, requiring IV replacement of potassium 80 mEq, recheck potassium in the afternoon Cardiology consultation appreciated Echocardiogram reviewed: CONCLUSIONS Normal left ventricular size and systolic function, EF 71 %. Moderate left ventricular hypertrophy. Mildly increased left atrial size. The right-sided structures could not be visualized well. The peak gradient across LV outflow tract was 117 mmHg Features suggesting hypertrophic obstructive cardiomyopathy Mild pulmonary hypertension with an estimated pulmonary artery peak systolic pressure of 40 mmHg. Comparison with the previous study is difficult because of the difference in the technical quality. Diamox secondary to underlying lung disease, pulmonary hypertension, elevated CO2 Requested CBC, BMP follow up. (2) Parainfluenza: Still with persistent bronchitis, decreased air entry, mild wheeze. Continue budesonide, albuterol, prednisone. Empirically on Zosyn for now as well. Reviewed procalcitonin, 0.16. Reviewed CBC, without leukocytosis. Will stop Zosyn. Add incentive spirometer. Patient noted to be positive for parainfluenza 3. Treat medically and/or symptomatically at this time. Droplet precautions Nebs (3) Atrial fibrillation with RVR: Continue metoprolol. Eliquis. Monitor heart rates. Continue telemetry Continue Eliquis for anticoagulation Continue Cardizem p.o. Metoprolol likely to be restarted by cardiology (4) Leukocytosis: Reviewed WBC, leukocytosis resolved. Reviewed sputum culture, noted mixed upper respiratory vince. Multifactorial most likely due to pneumonia/atelectasis. Urine ultimately grew out some yeast which is likely colonization Continue Zosyn, vancomycin stopped due to elevated Vanco trough monitor urine output monitor creatinine Sputum culture negative Shafer catheter replaced by nursing staff yesterday. Await MRSA PCR. (5) Elevated troponin: Cardiology evaluating (6) Hypertension: Stable at this time Hold Antihypertensive medications. Qualifiers: Hypertension type: essential hypertension Qualified Code(s): I10 - Essential (primary) hypertension (7) CKD (chronic kidney disease) stage 3, GFR 30-59 ml/min: Reviewed BUN, creatinine. Stable at this time Continue diuresis due to #1. CMP in AM. Qualifiers: Chronic kidney disease stage 3 subtype: stage 3a (GFR 45-59) Qualified Code(s): N18.31 - Chronic kidney disease, stage 3a (8) Seronegative rheumatoid arthritis of both hands: Prednisone 30 mg (9) Hypokalemia: Reviewed potassium, WNL today. Plan Transaminitis. Reviewed AST, ALT, Noted with mild gradual improvement. may be secondary to hepatic congestion versus amiodarone effect. Amiodarone has been discontinued. Recheck Once stable for discharge, patient will return back to [facility] for further rehabilitation services. Discussed with senior case manager. PT. CODE STATUS: Full code DVT prophylaxis: Arnaldo Bonner Medical Necessity Statement*: Continue admission for assessment of management of CHF exacerbation, bronchitis with persistent hypoxia. Diagnoses Acute exacerbation of CHF (congestive heart failure) I50.9 Parainfluenza B34.8 Atrial fibrillation with RVR I48.91 Leukocytosis D72.829 Elevated troponin R79.89 Essential hypertension I10 Hypertension type: essential hypertension Stage 3a chronic kidney disease N18.31 Chronic kidney disease stage 3 subtype: stage 3a (GFR 45-59) Seronegative rheumatoid arthritis of both hands M06.041; M06.042 Hypokalemia E87.6
[2023-12-03] VITALS (16 sets, daily range): BP systolic 124–161; BP diastolic 62–88; PULSE 63–115; RESP 16–27; TEMP 35.9–36.8; O2SAT 91–100; BMI 29.4
[2023-12-03] MEDS: ipratropium-albuterol 3 mL Neb INHALATION ×4 (02:42→19:58)
[2023-12-03 04:06] LABS: Basophils % 0.2 %; Eosinophils # 0.1 10^3/uL (0.0-0.8); Eosinophils % 0.8 %; Hematocrit 30.9 % (36-47); Lymphocytes # 1.5 10^3/uL (0.8-4.8); Lymphocytes % 15.1 %; Mean Corpuscular HGB Conc 30.1 g/dL (30-55); Mean Corpuscular Hemoglobin 28.9 pg (27-33); Mean Platelet Volume 9.9 fL (7.4-10.4); Monocytes # 0.4 10^3/uL (0.2-0.9); Monocytes % 4.4 %; Neutrophils # 7.58 10^3/uL (1.8-7.7); Neutrophils % 76.5 %; Nucleated Red Blood Cells % 0 %; Platelet Count 345 10^3/cmm (157-399); Red Blood Count 3.22 10^6/uL (3.85-5.65); Red Cell Distribution Width 15.9 % (12.1-15.1); White Blood Count 9.92 10^3/uL (3.29-11.43)
[2023-12-03 04:23] LABS: Alanine Aminotransferase 152 U/L (0-33); Albumin Level 3.3 g/dL (3.5-5.2); Alkaline Phosphatase 101 U/L (35-105); Anion Gap 13.3 (5-19); Aspartate Amino Transferase 27 U/L (0-32); Blood Urea Nitrogen 23 mg/dL (8-23); Calcium 9.6 mg/dL (8.5-10.5); Carbon Dioxide 34 mmol/L (22-29); Chloride 100 mmol/L (98-107); Globulin 2.4 g/dL (1.3-4.6); Glucose 110 mg/dL (65-115); Osmolality Calculated 302 mOsm/kg (285-295); Potassium 3.3 mmol/L (3.5-5.1); Sodium 144 mmol/L (136-145); Total Bilirubin 0.3 mg/dL (0.15-1.2); Total Protein 5.7 g/dL (6.6-8.7)
[2023-12-03] MEDS: budesonide 0.5 mg/2 mL Neb INHALATION ×2 (07:29→19:58)
[2023-12-03] MEDS: folic acid 1 mg Tablet PO (08:14)
[2023-12-03] MEDS: dilTIAZem ER (24HR) 240 mg Capsule PO (08:14)
[2023-12-03] MEDS: metoprolol tartrate 50 mg Tablet PO ×2 (08:14→20:34)
[2023-12-03] MEDS: predniSONE 20 mg Tablet 30 MG PO (08:14)
[2023-12-03] MEDS: docusate sodium 100 mg Capsule PO (08:14)
[2023-12-03] MEDS: colchicine 0.6 mg Tablet PO (08:14)
[2023-12-03] MEDS: pantoprazole DR 40 mg Tablet PO (08:14)
[2023-12-03] MEDS: apixaban 5 mg Tablet PO ×2 (08:14→20:35)
[2023-12-03] MEDS: bumetanide 0.25 mg/mL SDV 10 mL 3 MG IVP (08:15)
[2023-12-03] MEDS: potassium chloride ER 20 mEq Tablet 40 MEQ PO (11:52)
--- NOTE | 2023-12-03 12:18 | P.PN_ITS ---
Subjective 2 Subjective: Feels slightly better this morning but is again more dyspneic in the afternoon. Lower extremity swelling has been coming down. Vitals/I&O/Wt Last Vital Signs Temp 97.7 F 12/03/23 08:00 Pulse 115 H 12/03/23 08:00 Resp 19 H 12/03/23 08:00 BP 132/62 12/03/23 08:00 Pulse Ox 98 12/03/23 08:00 O2 Del Method Nasal Cannula 12/03/23 08:00 O2 Flow Rate 3 12/03/23 08:00 FiO2 30 12/02/23 17:39 12/02/23 12/03/23 12/03/23 22:59 06:59 14:59 Intake Total 515 / 805 780.625 / 1585.625 Output Total 1100 / 1100 500 / 1600 Balance -585 / -295 280.625 / -14.375 Weight last 48 hrs Weight 85.304 kg Weight 86.183 kg Weight 86.228 kg Physical Exam 2 Narrative: Sitting up in bed. Accompanied by her daughter. Const: COMMON NORMALS: patient oriented x3 and alert GENERAL APPEARANCE: c ooperative ORIENTATION/CONSCIOUSNESS: Yes awake HENMT: COMMON NORMALS: oropharynx normal Neck/C-Spine: COMMON NORMALS: no JVD Resp: COMMON NORMALS: normal respiratory effort AUSCULTATION: diminished lung sounds bilateral Cardio: COMMON NORMALS: no JVD, regular rhythm, S1 normal heart sound present, S2 normal heart sound present and No murmurs present (Cardio) RHYTHM: regular rhythm HEART SOUNDS: S1 normal heart sound present and S2 normal heart sound present GI: COMMON NORMALS: Normal to inspection, nondistended, normoactive bowel sounds present, Soft to palpation and non-tender PALPATION: Yes Soft to palpation Extremity: COMMON NORMALS: no joint enlargement and no pedal edema OTHER: Stable about 2+ edema of the with some wrinkling of the skin, some improvement. Neuro: COMMON NORMALS: patient oriented x3 and moves all extremities S ENSORIUM/ORIENTATION: Yes alert Skin: COMMON NORMALS: no rashes or lesions noted GENERAL SKIN EXAM: no rashes or lesions noted Urinary Catheter Management: Shafer: Cath Placed During This Visit: yes Reason for Continuing Indwelling Catheter: Acute Urinary Retention or Obstruction Urinary Catheter Date of Insertion: 11/25/23 Urinary Catheter Time of Insertion: 10:00 Data 12/03/23 03:46 12/03/23 03:46 A&P Assessment and plan (1) Parainfluenza: Persistent acute bronchitis component, diminished air entry. Stop prednisone. Start IV steroid, Solu-Medrol 40 mg every 8 hours. Increase DuoNebs to every 4 hours. Add PRN DuoNebs. Still with persistent bronchitis, decreased air entry, mild wheeze. Continue budesonide, albuterol, prednisone. Empirically on Zosyn for now as well. Reviewed procalcitonin, 0.16. Reviewed CBC, without leukocytosis. Will stop Zosyn. Add incentive spirometer. Patient noted to be positive for parainfluenza 3. Treat medically and/or symptomatically at this time. Droplet precautions Nebs Discussed with transplant case manager, to return to [facility] after discharge. (2) Acute exacerbation of CHF (congestive heart failure): Reviewed vitals, CBC, CMP. Hypokalemia noted replacement requested. Stop IV Bumex, start oral Bumex. Reviewed BUN, creatinine. Recheck renal function. Monitor YAIR. At risk of electrolyte deficiency, reassess chemistry. At risk of renal dysfunction, reassess renal function. Reviewed cardiology note. Discussed with transplant case manager. Amiodarone discontinued secondary to high LFTs. LFTs improving Cont 1200 mill fluid restriction. Repeat BMP this afternoon if potassium reasonable give 40 mg IV push Lasix with potassium replacement, -8 L so far monitor urine output, ? Hypokalemia, requiring IV replacement of potassium 80 mEq, recheck potassium in the afternoon Cardiology consultation appreciated Echocardiogram reviewed: CONCLUSIONS Normal left ventricular size and systolic function, EF 71 %. Moderate left ventricular hypertrophy. Mildly increased left atrial size. The right-sided structures could not be visualized well. The peak gradient across LV outflow tract was 117 mmHg Features suggesting hypertrophic obstructive cardiomyopathy Mild pulmonary hypertension with an estimated pulmonary artery peak systolic pressure of 40 mmHg. Comparison with the previous study is difficult because of the difference in the technical quality. Diamox secondary to underlying lung disease, pulmonary hypertension, elevated CO2 Requested CBC, BMP follow up. (3) Atrial fibrillation with RVR: Heart rate 1 episode slightly higher this morning 115, monitor heart rate, replace potassium. Continue metoprolol. May have to increase the dose if tachycardia persist. Monitor blood pressure, risk of hypotension with combination of metoprolol and diltiazem. Eliquis. Monitor heart rates. Continue telemetry Continue Eliquis for anticoagulation Continue Cardizem p.o. (4) Leukocytosis: Resolved. Reviewed sputum culture, noted mixed upper respiratory vince. Multifactorial most likely due to pneumonia/atelectasis. Urine ultimately grew out some yeast which is likely colonization Completed Zosyn, vancomycin Sputum culture negative Shafer catheter replaced by nursing staff yesterday. Await MRSA PCR. (5) Elevated troponin: Cardiology evaluating (6) Hypertension: Stable at this time Hold Antihypertensive medications. Qualifiers: Hypertension type: essential hypertension Qualified Code(s): I10 - Essential (primary) hypertension (7) CKD (chronic kidney disease) stage 3, GFR 30-59 ml/min: Reviewed BUN, creatinine. Stable at this time Continue diuresis due to #1. CMP in AM. Qualifiers: Chronic kidney disease stage 3 subtype: stage 3a (GFR 45-59) Qualified Code(s): N18.31 - Chronic kidney disease, stage 3a (8) Seronegative rheumatoid arthritis of both hands: For now switch to IV steroids for persistent bronchitis/reactive airway disease as above. (9) Hypokalemia: Reviewed potassium, 2.3. Magnesium reviewed, 2. Replace potassium. Recheck. Plan Transaminitis. Reviewed AST, ALT, Noted with mild gradual improvement. may be secondary to hepatic congestion versus amiodarone effect. Amiodarone has been discontinued. Recheck Once stable for discharge, patient will return back to [facility] for further [facility] services. Discussed with transplant case manager. PT. CODE STATUS: Full code DVT prophylaxis: Eliquis Attestations 2 Medical Necessity Statement*: Continue admission for assessment and management of recurrent illness with dyspnea, persistent reactive airway disease, bronchitis, optimization of control of CHF, A-fib with RVR. and High MDM includes amount and/or complexity of data reviewed/ordered [ previous or external records, resulted lab(s)/test(s), ordered lab(s)/test(s) and other healthcare professional discussion] and described risk of complication, morbidity or mortality of management as documented Diagnoses Parainfluenza B34.8 Acute exacerbation of CHF (congestive heart failure) I50.9 Atrial fibrillation with RVR I48.91 Leukocytosis D72.829 Elevated troponin R79.89 Essential hypertension I10 Hypertension type: essential hypertension Stage 3a chronic kidney disease N18.31 Chronic kidney disease stage 3 subtype: stage 3a (GFR 45-59) Seronegative rheumatoid arthritis of both hands M06.041; M06.042 Hypokalemia E87.6
[2023-12-03 12:25] LABS: Methicillin-Resist S.aureu PCR NOT DETECTED (NOT DETECTED)
[2023-12-03] MEDS: methylPREDNISolone sod succ 40 mg/mL INJ IVP ×2 (12:58→20:34)
[2023-12-03] MEDS: acetaminophen 325 mg Tablet 650 MG PO ×2 (13:55→20:35)
[2023-12-03] MEDS: bumetanide 1 mg Tablet 2 MG PO (18:05)
--- NOTE | 2023-12-03 18:09 | P.PN_ITS ---
Subjective 2 Subjective: Patient says shortness of breath is somewhat better. She seems to are not much drive to get up and move around. She is mainly complaining of aches and pains, generalized weakness and some shortness of breath. No fever or chills. No cough. Medications: Medication Review Details: Current Medications Acetaminophen (Acetaminophen 325 Mg Tablet) 650 mg PO Q6H PRN PRN Reason: MILD PAIN Last Admin: 12/03/23 13:55 Dose: 650 mg Albuterol/Ipratropium (Ipratropium-Albuterol 3 Ml Neb) 3 ml INHALATION Q4H.RESPIRATORY [facility] Last Admin: 12/03/23 15:28 Dose: 3 ml Albuterol/Ipratropium (Ipratropium-Albuterol 3 Ml Neb) 3 ml INHALATION Q6H PRN PRN Reason: SHORTNESS OF BREATH Apixaban (Apixaban 5 Mg Tablet) 5 mg PO BID@0900,2100 [facility] Last Admin: 12/03/23 08:14 Dose: 5 mg Budesonide (Budesonide 0.5 Mg/2 Ml Neb) 0.5 mg INHALATION BID.RESPIRATORY [facility] Last Admin: 12/03/23 07:29 Dose: 0.5 mg Bumetanide (Bumetanide 1 Mg Tablet) 2 mg PO BID [facility] Last Admin: 12/03/23 18:05 Dose: 2 mg Colchicine (Colchicine 0.6 Mg Tablet) 0.6 mg PO DAILY [facility] Last Admin: 12/03/23 08:14 Dose: 0.6 mg Diltiazem HCl (Diltiazem Er (24hr) 240 Mg Capsule) 240 mg PO DAILY [facility] Last Admin: 12/03/23 08:14 Dose: 240 mg Docusate Sodium (Docusate Sodium 100 Mg Capsule) 100 mg PO BID [facility] Last Admin: 12/03/23 18:05 Dose: Not Given Folic Acid (Folic Acid 1 Mg Tablet) 1 mg PO DAILY [facility] Last Admin: 12/03/23 08:14 Dose: 1 mg Methylprednisolone Sodium Succinate (Methylprednisolone Sod Succ 40 Mg/Ml Inj) 40 mg IVP Q8H [facility] Last Admin: 12/03/23 12:58 Dose: 40 mg Metoprolol Tartrate (Metoprolol Tartrate 50 Mg Tablet) 50 mg PO BID@0900,2100 [facility] Last Admin: 12/03/23 08:14 Dose: 50 mg Ondansetron HCl (Ondansetron 2 Mg/Ml Sdv 2 Ml) 4 mg IVP Q6H PRN PRN Reason: NAUSEA AND VOMITING Pantoprazole Sodium (Pantoprazole Dr 40 Mg Tablet) 40 mg PO DAILY [facility] Last Admin: 12/03/23 08:14 Dose: 40 mg Vitals/I&O/Wt Last Vital Signs Temp 98.2 F 12/03/23 17:48 Pulse 88 12/03/23 17:48 Resp 20 H 12/03/23 17:48 BP 150/81 12/03/23 17:48 Pulse Ox 91 12/03/23 17:48 O2 Del Method Room Air 12/03/23 17:48 O2 Flow Rate 3 12/03/23 15:20 FiO2 30 12/02/23 17:39 12/03/23 12/03/23 12/03/23 06:59 14:59 22:59 Intake Total 780.625 / 1585.625 440 / 440 440 / 880 Output Total 500 / 1600 450 / 450 Balance 280.625 / -14.375 440 / 440 -10 / 430 Weight last 48 hrs Weight 188 lb 1 oz Weight 190 lb Weight 190 lb 1.6 oz Physical Exam 2 Narrative: GENERAL: The patient is alert and oriented times three. Not in any acute distress. HEENT: No significant pallor, icterus or lymphadenopathy.Oral cavity: There are no mucous membrane lesions. NECK: Trachea appears to be central. No masses noted. No JVD or thyromegaly appreciated. RESPIRATORY: Chest is symmetrical. No intercostals muscle retraction or any accessory muscle activation. There is no chest wall tenderness. Breath sounds are heard bilaterally. Scattered expiratory wheezing is still present. Diminished intensity breath sounds bilaterally BREASTS: Deferred. HEART: The heart sounds are normal. No S3 or S4. Systolic murmur grade 3 or 6 in the base of the heart. No diastolic murmurs.. No pericardial rub ABDOMEN: No vessel pulsations or distention. No tenderness. No organomegaly appreciated. Bowel sounds are normally heard. : Deferred. RECTAL: Deferred. LYMPHATIC: No lymphadenopathy noted in the neck. EXTREMITIES: 1+ edema both lower extremities. MUSCULOSKELETAL: No acute joint deformities or swelling SKIN: There are no significant rashes or ecchymosis NEUROPSYCHIATRIC: The patient is alert and oriented x3. Appears to be in a good mood. No tremors or rigidity noted. Urinary Catheter Management: Shafer: Cath Placed During This Visit: yes Reason for Continuing Indwelling Catheter: Acute Urinary Retention or Obstruction Urinary Catheter Date of Insertion: 11/25/23 Urinary Catheter Time of Insertion: 10:00 Data 12/03/23 03:46 12/03/23 03:46 A&P Assessment and plan (1) Acute on chronic diastolic heart failure: The heart failure seems to be fairly compensated at this time. The IV diuretics is changed to p.o. (2) Hypertrophic obstructive cardiomyopathy: There is no worsening of the gradient across the LV outflow tract. At this point we may continue on the current management. (3) Atrial fibrillation with RVR: She is back into sinus rhythm at this point. May continue on the Cardizem and the beta-oral. (4) COPD exacerbation: Management as per the primary (5) Hyperlipidemia: Continue on the current medication Qualifiers: Hyperlipidemia type: mixed hyperlipidemia Qualified Code(s): E78.2 - Mixed hyperlipidemia (6) Hypertension: Continue on the current medication Qualifiers: Hypertension type: essential hypertension Qualified Code(s): I10 - Essential (primary) hypertension (7) Thoracic ascending aortic aneurysm: Continue on the current management. Qualifiers: Presence of rupture: without rupture Qualified Code(s): I71.21 - Aneurysm of the ascending aorta, without rupture (8) CKD (chronic kidney disease) stage 3, GFR 30-59 ml/min: Continue on the current management. Kidney function appears to be stable Qualifiers: Chronic kidney disease stage 3 subtype: stage 3a (GFR 45-59) Qualified Code(s): N18.31 - Chronic kidney disease, stage 3a (9) Hypokalemia: The potassium level is slowly improving. Plan Continue on the current treatment. Encourage ambulation with physical therapy assistance. Patient may benefit from some antidepressant-discussed with Dr. Moreau. Attestations 2 Medical Necessity Statement*: Disposition as per the primary service Coding Level of Care Code 44906 Diagnoses Acute on chronic diastolic heart failure I50.33 Hypertrophic obstructive cardiomyopathy I42.1 Atrial fibrillation with RVR I48.91 COPD exacerbation J44.1 Mixed hyperlipidemia E78.2 Hyperlipidemia type: mixed hyperlipidemia Essential hypertension I10 Hypertension type: essential hypertension Aneurysm of ascending aorta without rupture I71.21 Presence of rupture: without rupture Stage 3a chronic kidney disease N18.31 Chronic kidney disease stage 3 subtype: stage 3a (GFR 45-59) Hypokalemia E87.6
--- NOTE | 2023-12-03 18:49 | PC.NURSE ---
Patient is asking for tramadol. Provider notified and ordered tramadol 50mg Q8H prn pain. Order entered.
[2023-12-03] MEDS: TRAMadol 50 mg Tablet PO (20:35)
[2023-12-04] VITALS (20 sets, daily range): BP systolic 115–166; BP diastolic 56–84; PULSE 67–90; RESP 16–28; TEMP 36.1–36.9; O2SAT 96–100
[2023-12-04] MEDS: ipratropium-albuterol 3 mL Neb INHALATION ×5 (00:11→19:45)
[2023-12-04] MEDS: methylPREDNISolone sod succ 40 mg/mL INJ IVP (03:32)
[2023-12-04 04:14] LABS: Basophils % 0.1 %; Hematocrit 29.9 % (36-47); Lymphocytes # 0.9 10^3/uL (0.8-4.8); Lymphocytes % 5.9 %; Mean Corpuscular HGB Conc 30.1 g/dL (30-55); Mean Corpuscular Hemoglobin 28.8 pg (27-33); Mean Corpuscular Volume 95.5 fl (85-98); Mean Platelet Volume 10.1 fL (7.4-10.4); Monocytes # 0.2 10^3/uL (0.2-0.9); Monocytes % 1.3 %; Neutrophils # 13.17 10^3/uL (1.8-7.7); Neutrophils % 91.1 %; Nucleated Red Blood Cells % 0 %; Platelet Count 372 10^3/cmm (157-399); Red Blood Count 3.13 10^6/uL (3.85-5.65); Red Cell Distribution Width 16.2 % (12.1-15.1); White Blood Count 14.46 10^3/uL (3.29-11.43)
[2023-12-04 04:34] LABS: Alanine Aminotransferase 120 U/L (0-33); Albumin Level 3.4 g/dL (3.5-5.2); Alkaline Phosphatase 113 U/L (35-105); Anion Gap 12.8 (5-19); Aspartate Amino Transferase 21 U/L (0-32); Blood Urea Nitrogen 34 mg/dL (8-23); Calcium 9.5 mg/dL (8.5-10.5); Carbon Dioxide 35 mmol/L (22-29); Chloride 98 mmol/L (98-107); Globulin 2.3 g/dL (1.3-4.6); Glucose 225 mg/dL (65-115); Osmolality Calculated 309 mOsm/kg (285-295); Potassium 3.8 mmol/L (3.5-5.1); Sodium 142 mmol/L (136-145); Total Bilirubin 0.3 mg/dL (0.15-1.2); Total Protein 5.7 g/dL (6.6-8.7)
[2023-12-04] MEDS: budesonide 0.5 mg/2 mL Neb INHALATION ×2 (07:40→19:44)
[2023-12-04] MEDS: apixaban 5 mg Tablet PO ×2 (08:40→20:22)
[2023-12-04] MEDS: bumetanide 1 mg Tablet 2 MG PO ×2 (08:40→17:37)
[2023-12-04] MEDS: metoprolol tartrate 50 mg Tablet PO ×2 (08:40→20:22)
[2023-12-04] MEDS: dilTIAZem ER (24HR) 240 mg Capsule PO (08:41)
[2023-12-04] MEDS: pantoprazole DR 40 mg Tablet PO ×2 (08:41→17:37)
[2023-12-04] MEDS: folic acid 1 mg Tablet PO (08:41)
[2023-12-04] MEDS: colchicine 0.6 mg Tablet PO (08:41)
--- NOTE | 2023-12-04 09:06 | P.PN_ITS ---
Subjective 2 Subjective: The shortness of breath continues to improve. Telemetry still shows sinus rhythm with occasional PVCs/ PACs. Seems to have frequent bowel movements/diarrhea. Has difficulty getting up and moving around. Aches and pains are somewhat improving Medications: Medication Review Details: Current Medications Acetaminophen (Acetaminophen 325 Mg Tablet) 650 mg PO Q6H PRN PRN Reason: MILD PAIN Last Admin: 12/03/23 20:35 Dose: 650 mg Albuterol/Ipratropium (Ipratropium-Albuterol 3 Ml Neb) 3 ml INHALATION Q4H.RESPIRATORY [facility] Last Admin: 12/04/23 07:40 Dose: 3 ml Albuterol/Ipratropium (Ipratropium-Albuterol 3 Ml Neb) 3 ml INHALATION Q6H PRN PRN Reason: SHORTNESS OF BREATH Apixaban (Apixaban 5 Mg Tablet) 5 mg PO BID@0900,2100 [facility] Last Admin: 12/04/23 08:40 Dose: 5 mg Budesonide (Budesonide 0.5 Mg/2 Ml Neb) 0.5 mg INHALATION BID.RESPIRATORY [facility] Last Admin: 12/04/23 07:40 Dose: 0.5 mg Bumetanide (Bumetanide 1 Mg Tablet) 2 mg PO BID [facility] Last Admin: 12/04/23 08:40 Dose: 2 mg Colchicine (Colchicine 0.6 Mg Tablet) 0.6 mg PO DAILY [facility] Last Admin: 12/04/23 08:41 Dose: 0.6 mg Diltiazem HCl (Diltiazem Er (24hr) 240 Mg Capsule) 240 mg PO DAILY [facility] Last Admin: 12/04/23 08:41 Dose: 240 mg Docusate Sodium (Docusate Sodium 100 Mg Capsule) 100 mg PO BID [facility] Last Admin: 12/04/23 09:01 Dose: Not Given Folic Acid (Folic Acid 1 Mg Tablet) 1 mg PO DAILY [facility] Last Admin: 12/04/23 08:41 Dose: 1 mg Methylprednisolone Sodium Succinate (Methylprednisolone Sod Succ 40 Mg/Ml Inj) 40 mg IVP Q8H [facility] Last Admin: 12/04/23 03:32 Dose: 40 mg Metoprolol Tartrate (Metoprolol Tartrate 50 Mg Tablet) 50 mg PO BID@0900,2100 [facility] Last Admin: 12/04/23 08:40 Dose: 50 mg Ondansetron HCl (Ondansetron 2 Mg/Ml Sdv 2 Ml) 4 mg IVP Q6H PRN PRN Reason: NAUSEA AND VOMITING Pantoprazole Sodium (Pantoprazole Dr 40 Mg Tablet) 40 mg PO DAILY [facility] Last Admin: 12/04/23 08:41 Dose: 40 mg Tramadol HCl (Tramadol 50 Mg Tablet) 50 mg PO Q8H PRN PRN Reason: MODERATE PAIN Last Admin: 12/03/23 20:35 Dose: 50 mg Vitals/I&O/Wt Last Vital Signs Temp 97.6 F 12/04/23 08:00 Pulse 88 12/04/23 08:00 Resp 22 H 12/04/23 08:00 BP 147/78 12/04/23 08:00 Pulse Ox 98 12/04/23 08:00 O2 Del Method Heated High Flow 12/04/23 08:00 O2 Flow Rate 4 12/04/23 07:42 FiO2 30 12/02/23 17:39 12/03/23 12/04/23 12/04/23 22:59 06:59 14:59 Intake Total 440 / 880 Output Total 450 / 450 800 / 1250 600 / 600 Balance -10 / 430 -800 / -370 -600 / -600 Weight last 48 hrs Weight 182 lb 6.4 oz Weight 188 lb 1 oz Physical Exam 2 Narrative: GENERAL: The patient is alert and oriented times three. Not in any acute distress. HEENT: No significant pallor, icterus or lymphadenopathy.Oral cavity: There are no mucous membrane lesions. NECK: Trachea appears to be central. No masses noted. No JVD or thyromegaly appreciated. RESPIRATORY: Chest is symmetrical. No intercostals muscle retraction or any accessory muscle activation. There is no chest wall tenderness. Breath sounds are heard bilaterally. Scattered expiratory wheezing is still present. Diminished intensity breath sounds bilaterally BREASTS: Deferred. HEART: The heart sounds are normal. No S3 or S4. Systolic murmur grade 3 or 6 in the base of the heart. No diastolic murmurs.. No pericardial rub ABDOMEN: No vessel pulsations or distention. No tenderness. No organomegaly appreciated. Bowel sounds are normally heard. : Deferred. RECTAL: Deferred. LYMPHATIC: No lymphadenopathy noted in the neck. EXTREMITIES: No significant edema both lower extremities. MUSCULOSKELETAL: No acute joint deformities or swelling SKIN: There are no significant rashes or ecchymosis NEUROPSYCHIATRIC: The patient is alert and oriented x3. Appears to be in a good mood. No tremors or rigidity noted. Urinary Catheter Management: Shafer: Cath Placed During This Visit: yes Reason for Continuing Indwelling Catheter: Acute Urinary Retention or Obstruction Urinary Catheter Date of Insertion: 11/25/23 Urinary Catheter Time of Insertion: 10:00 Data 12/04/23 03:48 12/04/23 03:48 Other Labs: Laboratory Last Values WBC 14.46 10^3/uL (3.29-11.43) H 12/04/23 03:48 RBC 3.13 10^6/uL (3.85-5.65) L 12/04/23 03:48 Hgb 9.00 g/dL (11.27-16.99) L 12/04/23 03:48 Hct 29.9 % (36-47) L 12/04/23 03:48 MCV 95.5 fl (85-98) 12/04/23 03:48 MCH 28.8 pg (27-33) 12/04/23 03:48 MCHC 30.1 g/dL (30-55) 12/04/23 03:48 RDW 16.2 % (12.1-15.1) H 12/04/23 03:48 Plt Count 372 10^3/cmm (157-399) 12/04/23 03:48 MPV 10.1 fL (7.4-10.4) 12/04/23 03:48 Neut % (Auto) 91.1 % 12/04/23 03:48 Lymph % (Auto) 5.9 % 12/04/23 03:48 [place] % (Auto) 1.3 % 12/04/23 03:48 Eos % (Auto) 0.0 % 12/04/23 03:48 Baso % (Auto) 0.1 % 12/04/23 03:48 Neut # (Auto) 13.17 10^3/uL (1.8-7.7) H 12/04/23 03:48 Lymph # (Auto) 0.9 10^3/uL (0.8-4.8) 12/04/23 03:48 [place] # (Auto) 0.2 10^3/uL (0.2-0.9) 12/04/23 03:48 Eos # (Auto) 0.0 10^3/uL (0.0-0.8) 12/04/23 03:48 Baso # (Auto) 0.0 10^3/uL (0.0-0.1) 12/04/23 03:48 Nucleated RBC % (auto) 0 % 12/04/23 03:48 Nucleated RBCs # 0.0 /100WBC 12/04/23 03:48 Specimen Type Arterial 11/26/23 11:10 Sample Site Radial, right 11/26/23 11:10 ABG pH 7.44 (7.35-7.45) 11/26/23 11:10 ABG pCO2 54.7 mmHg (35-45) H 11/26/23 11:10 ABG pO2 78.8 mmHg (80.0-100.0) L 11/26/23 11:10 ABG PO2/FiO2 Ratio 0 11/26/23 11:10 ABG HCO3 37.5 mmol/L (22-26) H 11/26/23 11:10 ABG Base Excess 11.1 mmol/L (-2.0-2.0) H 11/26/23 11:10 [place] Test Pos 11/26/23 11:10 Hematocrit 43.0 % (37-47) 11/26/23 11:10 Hgb O2 Saturation 94.6 % (95-100) L 11/24/23 05:55 Carboxyhemoglobin 0.1 %THgb (0.4-20.1) L 11/24/23 05:55 Methemoglobin 0.7 % (0.4-1.5) 11/24/23 05:55 Total Hemoglobin 10.5 g/dL (12-16) L 11/24/23 05:55 O2 Delivery Device Bipap 11/26/23 11:10 FiO2 40.0 % 11/26/23 11:10 Disposition Clerk ID glc 11/26/23 11:10 Sodium 142 mmol/L (136-145) 12/04/23 03:48 Potassium 3.8 mmol/L (3.5-5.1) 12/04/23 03:48 Chloride 98 mmol/L (98-107) 12/04/23 03:48 Carbon Dioxide 35 mmol/L (22-29) H 12/04/23 03:48 Anion Gap 12.8 (5-19) 12/04/23 03:48 BUN 34 mg/dL (8-23) H 12/04/23 03:48 Creatinine 1.1 mg/dL (0.5-0.9) H 12/04/23 03:48 GFR Calculation Not Reportable 12/04/23 03:48 Glucose 225 mg/dL (65-115) H 12/04/23 03:48 Calculated Osmolality 309 mOsm/kg (285-295) H 12/04/23 03:48 Lactic Acid 2.4 mmol/L (0.5-2.2) H 11/24/23 06:05 Lactic Acid (Sepsis) 1.5 mmol/L (0.5-2.2) 11/24/23 09:08 Calcium 9.5 mg/dL (8.5-10.5) 12/04/23 03:48 Phosphorus 2.5 mg/dL (2.5-4.5) 12/02/23 04:10 Magnesium 2.0 mg/dL (1.7-2.3) 12/03/23 03:46 Total Bilirubin 0.3 mg/dL (0.15-1.2) 12/04/23 03:48 AST 21 U/L (0-32) 12/04/23 03:48 ALT 120 U/L (0-33) H 12/04/23 03:48 Alkaline Phosphatase 113 U/L (35-105) H 12/04/23 03:48 Troponin T Baseline 114 ng/L (0-10) H* 11/24/23 05:52 Troponin T 120 Minute 174.6 ng/L (0-10) H 11/24/23 07:48 Delta Troponin T 60.6 ABS# (0-10) H* 11/24/23 07:48 Troponin T Hi Sens 6Hr 188.8 ng/L (0-10) H 11/24/23 12:21 Troponin T Hi Sens 6Hr Delta 74.8 ng/L (0-12) H* 11/24/23 12:21 C-Reactive Protein 9.7 mg/L (0.0-4.9) H 12/02/23 04:10 NT-Pro-B Natriuret Pep 8431 pg/mL (0-125) H 12/02/23 04:10 Total Protein 5.7 g/dL (6.6-8.7) L 12/04/23 03:48 Albumin 3.4 g/dL (3.5-5.2) L 12/04/23 03:48 Globulin 2.3 g/dL (1.3-4.6) 12/04/23 03:48 Procalcitonin 0.16 ng/mL (0-0.5) 12/02/23 04:10 Urine Color Yellow (Yellow) 11/24/23 13:27 Urine Appearance Cloudy (CLEAR) A 11/24/23 13:27 Urine pH 7 (5-7) 11/24/23 13:27 Ur Specific [place] 1.010 (1.005-1.030) 11/24/23 13:27 Urine Protein Neg (Negative) 11/24/23 13:27 Urine Glucose (UA) Norm (Normal) 11/24/23 13:27 Urine Ketones Negative (Negative) 11/24/23 13:27 Urine Blood 3+ (Negative) H 11/24/23 13:27 Urine Nitrate Positive (Negative) H 11/24/23 13:27 Urine Bilirubin Neg (Negative) 11/24/23 13:27 Urine Urobilinogen Neg mg/dL (Negative) 11/24/23 13:27 Ur Leukocyte Esterase 2+ (Negative) H 11/24/23 13:27 Urine RBC >100 /hpf (0-2) H 11/24/23 13:27 Urine WBC Too numerous to cnt /hpf (0-5) H 11/24/23 13:27 Ur Squamous Epith Cells 0-4 /hpf (0-5) H 11/24/23 13:27 Ur Transition Epith Cell 0-4 /hpf 11/24/23 13:27 Amorphous Sediment Not Reportable 11/24/23 13:27 Urine Bacteria 2+ /hpf (NONE) H 11/24/23 13:27 Urine Yeast 2+ /hpf H 11/24/23 13:27 Vancomycin Trough 31.1 ug/mL (10-15) H* 11/29/23 05:32 Adenovirus (PCR) Not detected (NOT DETECT) 11/24/23 06:10 C. pneumoniae DNA (PCR) Not detected (NOT DETECT) 11/24/23 06:10 Coronavirus 229E (PCR) Not detected (NOT DETECT) 11/24/23 06:10 Human Metapneumovir PCR Not detected (NOT DETECT) 11/24/23 06:10 Influenza A (H1) PCR Not detected (NOT DETECT) 11/24/23 06:10 Influ A (H1/09) PCR Not detected (NOT DETECT) 11/24/23 06:10 Influenza A (H3) PCR Not detected (NOT DETECT) 11/24/23 06:10 Influenza Type A (PCR) Not detected (NOT DETECT) 11/24/23 06:10 Influenza Type B (PCR) Not detected (NOT DETECT) 11/24/23 06:10 M. pneumoniae (PCR) Not detected (NOT DETECT) 11/24/23 06:10 Parainfluenza 1 (PCR) Not detected (NOT DETECT) 11/24/23 06:10 Parainfluenza 2 (PCR) Not detected (NOT DETECT) 11/24/23 06:10 Parainfluenza 3 (PCR) Detected (NOT DETECT) A 11/24/23 06:10 Parainfluenza 4 (PCR) Not detected (NOT DETECT) 11/24/23 06:10 RSV Type A (PCR) Not detected (NOT DETECT) 11/24/23 06:10 RSV Type B (PCR) Not detected (NOT DETECT) 11/24/23 06:10 Entero/Rhino (PCR) Not detected (NOT DETECT) 11/24/23 06:10 SARS-CoV-2 (PCR) Not detected (NOT DETECT) 11/24/23 06:10 MRSA (PCR) Not detected (NOT DETECTED) 12/02/23 15:45 A&P Assessment and plan (1) Acute on chronic diastolic heart failure: The heart failure seems to be fairly compensated at this time. May continue on the current medications. (2) Hypertrophic obstructive cardiomyopathy: There is no worsening of the gradient across the LV outflow tract. At this point we may continue on the current management. (3) Atrial fibrillation with RVR: She is back into sinus rhythm at this point. May continue on the Cardizem and the beta-oral. (4) COPD exacerbation: Management as per the primary (5) Hyperlipidemia: Continue on the current medication Qualifiers: Hyperlipidemia type: mixed hyperlipidemia Qualified Code(s): E78.2 - Mixed hyperlipidemia (6) Hypertension: Continue on the current medication Qualifiers: Hypertension type: essential hypertension Qualified Code(s): I10 - Essential (primary) hypertension (7) Thoracic ascending aortic aneurysm: Continue on the current management. Qualifiers: Presence of rupture: without rupture Qualified Code(s): I71.21 - Aneurysm of the ascending aorta, without rupture (8) CKD (chronic kidney disease) stage 3, GFR 30-59 ml/min: Continue on the current management. Kidney function appears to be stable Qualifiers: Chronic kidney disease stage 3 subtype: stage 3a (GFR 45-59) Qualified Code(s): N18.31 - Chronic kidney disease, stage 3a (9) Hypokalemia: Currently normokalemic Plan Management of diarrhea Physical therapy for ambulation Disposition as per the primary Attestations 2 Medical Necessity Statement*: Deferred to primary Coding Level of Care Code 88665 Diagnoses Acute on chronic diastolic heart failure I50.33 Hypertrophic obstructive cardiomyopathy I42.1 Atrial fibrillation with RVR I48.91 COPD exacerbation J44.1 Mixed hyperlipidemia E78.2 Hyperlipidemia type: mixed hyperlipidemia Essential hypertension I10 Hypertension type: essential hypertension Aneurysm of ascending aorta without rupture I71.21 Presence of rupture: without rupture Stage 3a chronic kidney disease N18.31 Chronic kidney disease stage 3 subtype: stage 3a (GFR 45-59) Hypokalemia E87.6
--- NOTE | 2023-12-04 11:35 | PC.NURSE ---
Provider is notified that patient has had frequent stool this morning. Stool studied have been ordered.
[2023-12-04] MEDS: methylPREDNISolone sod succ 40 mg/mL INJ 20 MG IVP ×2 (12:39→20:20)
[2023-12-04] MEDS: acetaminophen 325 mg Tablet 650 MG PO (20:22)
[2023-12-04] MEDS: TRAMadol 50 mg Tablet PO (20:22)
--- NOTE | 2023-12-04 21:06 | P.PN_ITS ---
Subjective 2 Subjective: Has had loose stools, multiple episodes. Stools are dark. No eriberto blood. Has had an EGD in the past probably about 5 to 6 years ago which was unremarkable. Vitals/I&O/Wt Last Vital Signs Temp 98.4 F 12/04/23 20:00 Pulse 85 12/04/23 20:00 Resp 25 H 12/04/23 20:00 BP 138/73 12/04/23 20:00 Pulse Ox 99 12/04/23 20:00 O2 Del Method Nasal Cannula 12/04/23 20:00 O2 Flow Rate 3 12/04/23 19:45 FiO2 30 12/02/23 17:39 12/04/23 12/04/23 12/04/23 06:59 14:59 22:59 Intake Total 240 / 240 Output Total 800 / 1250 600 / 600 550 / 1150 Balance -800 / -370 -360 / -360 -550 / -910 Weight last 48 hrs Weight 82.735 kg Weight 85.304 kg Physical Exam 2 Narrative: Sitting up in bed. Accompanied by her daughter. Const: COMMON NORMALS: patient oriented x3 and alert GENERAL APPEARANCE: c ooperative ORIENTATION/CONSCIOUSNESS: Yes awake HENMT: COMMON NORMALS: oropharynx normal Neck/C-Spine: COMMON NORMALS: no JVD Resp: COMMON NORMALS: normal respiratory effort AUSCULTATION: diminished lung sounds bilateral OTHER: Mild wheeze. Cardio: COMMON NORMALS: no JVD, regular rhythm, S1 normal heart sound present, S2 normal heart sound present and No murmurs present (Cardio) RHYTHM: regular rhythm HEART SOUNDS: S1 normal heart sound present and S2 normal heart sound present GI: COMMON NORMALS: Normal to inspection, nondistended, normoactive bowel sounds present, Soft to palpation and non-tender PALPATION: Yes Soft to palpation Extremity: COMMON NORMALS: no joint enlargement and no pedal edema OTHER: Stable about 2+ edema of the with some wrinkling of the skin, some improvement. Neuro: COMMON NORMALS: patient oriented x3 and moves all extremities S ENSORIUM/ORIENTATION: Yes alert Skin: COMMON NORMALS: no rashes or lesions noted GENERAL SKIN EXAM: no rashes or lesions noted Urinary Catheter Management: Shafer: Cath Placed During This Visit: yes Reason for Continuing Indwelling Catheter: Acute Urinary Retention or Obstruction Urinary Catheter Date of Insertion: 11/25/23 Urinary Catheter Time of Insertion: 10:00 Data 12/04/23 03:48 12/04/23 03:48 Micro: Microbiology 12/04/23 09:19 Occult Blood (FIT) - Final Stool - Stool Aspirate A&P Assessment and plan (1) Diarrhea: Multiple diarrheal stools. C. difficile requested due to risk from being on steroids, antibiotics. Condition requested Hemoccult due to dark coloration of the stools, Hemoccult returned positive. Possibility of upper GI bleed discussed. Increase PPI to twice daily. Recheck hemoglobin. Hold Eliquis for now. At risk of gastritis/PUD with steroids. Decrease Solu-Medrol dose to 20 mg. Discussed with case specialist. (2) Depression: Has been feeling depressed, loss of motivation, indigo. She would be willing to follow-up with behavioral health care for additional treatment. In the meantime would like to start an antidepressant. Would avoid SSRI given concern for upper GI bleed at this time, Start instead with nortriptyline. Monitor on telemetry with cardiac risk. (3) Parainfluenza: Persistent acute bronchitis component, diminished air entry. Decrease Solu-Medrol dose to 20 mg. Monitor for any additional signs of bleeding due to risk with steroids. Reassess CBC. Increase DuoNebs to every 4 hours. Add PRN DuoNebs. Still with persistent bronchitis, decreased air entry, mild wheeze. Continue budesonide, albuterol, prednisone. Completed Zosyn. Patient noted to be positive for parainfluenza 3. Treat medically and/or symptomatically at this time. Droplet precautions Nebs Discussed with case specialist, to return to [place] after discharge. (4) Acute exacerbation of CHF (congestive heart failure): Started on oral Bumex. Still in negative balance. No extremity medication. Reviewed chemistry, renal function. Reviewed BUN, creatinine. Recheck renal function. Reviewed cardiology note. Monitor YAIR. At risk of electrolyte deficiency, reassess chemistry. At risk of renal dysfunction, reassess renal function. Reviewed cardiology note. Discussed with case specialist. Amiodarone discontinued secondary to high LFTs. LFTs improving Cont 1200 mill fluid restriction. Repeat BMP this afternoon if potassium reasonable give 40 mg IV push Lasix with potassium replacement, -8 L so far monitor urine output, ? Hypokalemia, requiring IV replacement of potassium 80 mEq, recheck potassium in the afternoon Cardiology consultation appreciated Echocardiogram reviewed: CONCLUSIONS Normal left ventricular size and systolic function, EF 71 %. Moderate left ventricular hypertrophy. Mildly increased left atrial size. The right-sided structures could not be visualized well. The peak gradient across LV outflow tract was 117 mmHg Features suggesting hypertrophic obstructive cardiomyopathy Mild pulmonary hypertension with an estimated pulmonary artery peak systolic pressure of 40 mmHg. Comparison with the previous study is difficult because of the difference in the technical quality. Diamox secondary to underlying lung disease, pulmonary hypertension, elevated CO2 Requested CBC, BMP follow up. (5) Atrial fibrillation with RVR: Heart rate doing better. Continue metoprolol. May have to increase the dose if tachycardia persist. Monitor blood pressure, risk of hypotension with combination of metoprolol and diltiazem. Eliquis. Monitor heart rates. Continue telemetry Continue Eliquis for anticoagulation Continue Cardizem p.o. (6) Leukocytosis: Reviewed CBC, leukocytosis with recurrence up to 14.46 suspect secondary to steroids. Decrease steroid dose. Reviewed sputum culture, noted mixed upper respiratory vince. Multifactorial most likely due to pneumonia/atelectasis. Urine ultimately grew out some yeast which is likely colonization Completed Zosyn, vancomycin Sputum culture negative Shafer catheter replaced by nursing staff yesterday. Await MRSA PCR. (7) Elevated troponin: Cardiology evaluating (8) Hypertension: Stable at this time Hold Antihypertensive medications. Qualifiers: Hypertension type: essential hypertension Qualified Code(s): I10 - Essential (primary) hypertension (9) CKD (chronic kidney disease) stage 3, GFR 30-59 ml/min: Reviewed BUN, creatinine. Stable at this time Continue diuresis due to #1. CMP in AM. Qualifiers: Chronic kidney disease stage 3 subtype: stage 3a (GFR 45-59) Qualified Code(s): N18.31 - Chronic kidney disease, stage 3a (10) Seronegative rheumatoid arthritis of both hands: For now switch to IV steroids for persistent bronchitis/reactive airway disease as above. (11) Hypokalemia: Reviewed potassium. Has been replaced. Recheck chemistry panel Plan Transaminitis. Reviewed AST, ALT, Noted with mild gradual improvement. may be secondary to hepatic congestion versus amiodarone effect. Amiodarone has been discontinued. Recheck Once stable for discharge, patient will return back to [facility] for further rehabilitation services. Discussed with case specialist. PT. CODE STATUS: Full code DVT prophylaxis: Arnaldo Bonner 2 Medical Necessity Statement*: Continue admission for assessment and management of recurrent illness with dyspnea, persistent reactive airway disease, bronchitis, Possible GI bleed, depression, optimization of control of CHF. and High MDM includes amount and/or complexity of data reviewed/ordered [ resulted lab(s)/test(s), ordered lab(s)/test(s) and other healthcare professional discussion] and described risk of complication, morbidity or mortality of management as documented Diagnoses Diarrhea R19.7 Depression F32.A Parainfluenza B34.8 Acute exacerbation of CHF (congestive heart failure) I50.9 Atrial fibrillation with RVR I48.91 Leukocytosis D72.829 Elevated troponin R79.89 Essential hypertension I10 Hypertension type: essential hypertension Stage 3a chronic kidney disease N18.31 Chronic kidney disease stage 3 subtype: stage 3a (GFR 45-59) Seronegative rheumatoid arthritis of both hands M06.041; M06.042 Hypokalemia E87.6
[2023-12-05] VITALS (17 sets, daily range): BP systolic 102–139; BP diastolic 63–81; PULSE 66–100; RESP 13–20; TEMP 36.4–36.5; O2SAT 96–100
[2023-12-05] MEDS: ipratropium-albuterol 3 mL Neb INHALATION ×6 (00:19→20:39)
[2023-12-05 04:10] LABS: Basophils % 0.2 %; Hematocrit 28.1 % (36-47); Lymphocytes # 0.8 10^3/uL (0.8-4.8); Lymphocytes % 4.6 %; Mean Corpuscular HGB Conc 30.6 g/dL (30-55); Mean Corpuscular Hemoglobin 29.5 pg (27-33); Mean Corpuscular Volume 96.2 fl (85-98); Mean Platelet Volume 10.5 fL (7.4-10.4); Monocytes # 0.4 10^3/uL (0.2-0.9); Monocytes % 2.7 %; Neutrophils # 14.92 10^3/uL (1.8-7.7); Neutrophils % 90.4 %; Nucleated Red Blood Cells % 0 %; Platelet Count 332 10^3/cmm (157-399); Red Blood Count 2.92 10^6/uL (3.85-5.65); Red Cell Distribution Width 16.2 % (12.1-15.1)
[2023-12-05 04:29] LABS: Alanine Aminotransferase 86 U/L (0-33); Albumin Level 3.1 g/dL (3.5-5.2); Alkaline Phosphatase 107 U/L (35-105); Anion Gap 12.2 (5-19); Aspartate Amino Transferase 18 U/L (0-32); Blood Urea Nitrogen 34 mg/dL (8-23); Carbon Dioxide 36 mmol/L (22-29); Chloride 95 mmol/L (98-107); Globulin 2.1 g/dL (1.3-4.6); Glucose 242 mg/dL (65-115); Osmolality Calculated 306 mOsm/kg (285-295); Potassium 3.2 mmol/L (3.5-5.1); Sodium 140 mmol/L (136-145); Total Bilirubin 0.2 mg/dL (0.15-1.2); Total Protein 5.2 g/dL (6.6-8.7)
[2023-12-05] MEDS: methylPREDNISolone sod succ 40 mg/mL INJ 20 MG IVP ×2 (05:14→13:40)
[2023-12-05] MEDS: budesonide 0.5 mg/2 mL Neb INHALATION ×2 (07:57→20:39)
[2023-12-05] MEDS: metoprolol tartrate 50 mg Tablet PO ×2 (09:21→21:24)
[2023-12-05] MEDS: dilTIAZem ER (24HR) 240 mg Capsule PO (09:21)
[2023-12-05] MEDS: bumetanide 1 mg Tablet 2 MG PO ×2 (09:21→17:00)
[2023-12-05] MEDS: folic acid 1 mg Tablet PO (09:21)
[2023-12-05] MEDS: colchicine 0.6 mg Tablet PO (09:21)
[2023-12-05] MEDS: pantoprazole DR 40 mg Tablet PO ×2 (09:21→17:00)
[2023-12-05] MEDS: nortriptyline 25 mg Capsule PO ×3 (09:21→21:24)
[2023-12-05 13:09] LABS: Clostridium Difficile PCR NOT DETECTED (NOT DETECTED)
--- NOTE | 2023-12-05 14:26 | PM.PN ---
Subjective Subjective: Patient has been having intermittent atrial fibrillation since yesterday. Blood pressure has been remaining stable. No chest pain. Baseline shortness of breath seems to be fairly stable. Patient is still having difficulty with ambulation. Medications: Medication Review Details: Current Medications Acetaminophen (Acetaminophen 325 Mg Tablet) 650 mg PO Q6H PRN PRN Reason: MILD PAIN Last Admin: 12/04/23 20:22 Dose: 650 mg Albuterol/Ipratropium (Ipratropium-Albuterol 3 Ml Neb) 3 ml INHALATION Q4H.RESPIRATORY [facility] Last Admin: 12/05/23 11:26 Dose: 3 ml Albuterol/Ipratropium (Ipratropium-Albuterol 3 Ml Neb) 3 ml INHALATION Q6H PRN PRN Reason: SHORTNESS OF BREATH Apixaban (Apixaban 5 Mg Tablet) 5 mg PO BID@0900,2100 [facility] Last Admin: 12/04/23 20:22 Dose: 5 mg Budesonide (Budesonide 0.5 Mg/2 Ml Neb) 0.5 mg INHALATION BID.RESPIRATORY [facility] Last Admin: 12/05/23 07:57 Dose: 0.5 mg Bumetanide (Bumetanide 1 Mg Tablet) 2 mg PO BID [facility] Last Admin: 12/05/23 09:21 Dose: 2 mg Colchicine (Colchicine 0.6 Mg Tablet) 0.6 mg PO DAILY [facility] Last Admin: 12/05/23 09:21 Dose: 0.6 mg Diltiazem HCl (Diltiazem Er (24hr) 240 Mg Capsule) 240 mg PO DAILY [facility] Last Admin: 12/05/23 09:21 Dose: 240 mg Docusate Sodium (Docusate Sodium 100 Mg Capsule) 100 mg PO BID [facility] Last Admin: 12/05/23 09:16 Dose: Not Given Folic Acid (Folic Acid 1 Mg Tablet) 1 mg PO DAILY [facility] Last Admin: 12/05/23 09:21 Dose: 1 mg Methylprednisolone Sodium Succinate (Methylprednisolone Sod Succ 40 Mg/Ml Inj) 20 mg IVP Q8H [facility] Last Admin: 12/05/23 13:40 Dose: 20 mg Metoprolol Tartrate (Metoprolol Tartrate 50 Mg Tablet) 50 mg PO BID@0900,2100 [facility] Last Admin: 12/05/23 09:21 Dose: 50 mg Nortriptyline HCl (Nortriptyline 25 Mg Capsule) 25 mg PO TID [facility] Last Admin: 12/05/23 09:21 Dose: 25 mg Ondansetron HCl (Ondansetron 2 Mg/Ml Sdv 2 Ml) 4 mg IVP Q6H PRN PRN Reason: NAUSEA AND VOMITING Pantoprazole Sodium (Pantoprazole Dr 40 Mg Tablet) 40 mg PO BIDWM [facility] Last Admin: 12/05/23 09:21 Dose: 40 mg Tramadol HCl (Tramadol 50 Mg Tablet) 50 mg PO Q8H PRN PRN Reason: MODERATE PAIN Last Admin: 12/04/23 20:22 Dose: 50 mg Vitals/I&O/Wt Last Vital Signs Temp 97.7 F 12/05/23 11:47 Pulse 100 12/05/23 11:47 Resp 16 12/05/23 11:29 BP 109/68 12/05/23 11:47 Pulse Ox 100 12/05/23 11:47 O2 Del Method Nasal Cannula 12/05/23 11:47 O2 Flow Rate 3 12/05/23 11:29 FiO2 30 12/02/23 17:39 12/04/23 12/05/23 12/05/23 22:59 06:59 14:59 Intake Total 400 / 640 350 / 990 Output Total 550 / 1150 800 / 1950 Balance -150 / -510 -450 / -960 Weight last 48 hrs Weight 181 lb 1.6 oz Weight 182 lb 6.4 oz Physical Exam Narrative: GENERAL: The patient is alert and oriented times three. Not in any acute distress. HEENT: No significant pallor, icterus or lymphadenopathy.Oral cavity: There are no mucous membrane lesions. NECK: Trachea appears to be central. No masses noted. No JVD or thyromegaly appreciated. RESPIRATORY: Chest is symmetrical. No intercostals muscle retraction or any accessory muscle activation. There is no chest wall tenderness. Breath sounds are heard bilaterally. Scattered expiratory wheezing is still present. Diminished intensity breath sounds bilaterally BREASTS: Deferred. HEART: The heart sounds are normal. No S3 or S4. Systolic murmur grade 3 or 6 in the base of the heart. No diastolic murmurs.. No pericardial rub ABDOMEN: No vessel pulsations or distention. No tenderness. No organomegaly appreciated. Bowel sounds are normally heard. : Deferred. RECTAL: Deferred. LYMPHATIC: No lymphadenopathy noted in the neck. EXTREMITIES: No significant edema both lower extremities. MUSCULOSKELETAL: No acute joint deformities or swelling SKIN: There are no significant rashes or ecchymosis NEUROPSYCHIATRIC: The patient is alert and oriented x3. Appears to be in a good mood. No tremors or rigidity noted. Urinary Catheter Management: Shafer: Cath Placed During This Visit: yes Reason for Continuing Indwelling Catheter: Acute Urinary Retention or Obstruction Urinary Catheter Date of Insertion: 11/25/23 Urinary Catheter Time of Insertion: 10:00 Data 12/05/23 03:38 12/05/23 03:38 Other Labs: Laboratory Last Values WBC 16.50 10^3/uL (3.29-11.43) H 12/05/23 03:38 RBC 2.92 10^6/uL (3.85-5.65) L 12/05/23 03:38 Hgb 8.60 g/dL (11.27-16.99) L 12/05/23 03:38 Hct 28.1 % (36-47) L 12/05/23 03:38 MCV 96.2 fl (85-98) 12/05/23 03:38 MCH 29.5 pg (27-33) 12/05/23 03:38 MCHC 30.6 g/dL (30-55) 12/05/23 03:38 RDW 16.2 % (12.1-15.1) H 12/05/23 03:38 Plt Count 332 10^3/cmm (157-399) 12/05/23 03:38 MPV 10.5 fL (7.4-10.4) H 12/05/23 03:38 Neut % (Auto) 90.4 % 12/05/23 03:38 Lymph % (Auto) 4.6 % 12/05/23 03:38 Richardson % (Auto) 2.7 % 12/05/23 03:38 Eos % (Auto) 0.0 % 12/05/23 03:38 Baso % (Auto) 0.2 % 12/05/23 03:38 Neut # (Auto) 14.92 10^3/uL (1.8-7.7) H 12/05/23 03:38 Lymph # (Auto) 0.8 10^3/uL (0.8-4.8) 12/05/23 03:38 Richardson # (Auto) 0.4 10^3/uL (0.2-0.9) 12/05/23 03:38 Eos # (Auto) 0.0 10^3/uL (0.0-0.8) 12/05/23 03:38 Baso # (Auto) 0.0 10^3/uL (0.0-0.1) 12/05/23 03:38 Nucleated RBC % (auto) 0 % 12/05/23 03:38 Nucleated RBCs # 0.0 /100WBC 12/05/23 03:38 Specimen Type Arterial 11/26/23 11:10 Sample Site Radial, right 11/26/23 11:10 ABG pH 7.44 (7.35-7.45) 11/26/23 11:10 ABG pCO2 54.7 mmHg (35-45) H 11/26/23 11:10 ABG pO2 78.8 mmHg (80.0-100.0) L 11/26/23 11:10 ABG PO2/FiO2 Ratio 0 11/26/23 11:10 ABG HCO3 37.5 mmol/L (22-26) H 11/26/23 11:10 ABG Base Excess 11.1 mmol/L (-2.0-2.0) H 11/26/23 11:10 Perry Test Pos 11/26/23 11:10 Hematocrit 43.0 % (37-47) 11/26/23 11:10 Hgb O2 Saturation 94.6 % (95-100) L 11/24/23 05:55 Carboxyhemoglobin 0.1 %THgb (0.4-20.1) L 11/24/23 05:55 Methemoglobin 0.7 % (0.4-1.5) 11/24/23 05:55 Total Hemoglobin 10.5 g/dL (12-16) L 11/24/23 05:55 O2 Delivery Device Bipap 11/26/23 11:10 FiO2 40.0 % 11/26/23 11:10 Environmental Engineering Professor ID glc 11/26/23 11:10 Sodium 140 mmol/L (136-145) 12/05/23 03:38 Potassium 3.2 mmol/L (3.5-5.1) L 12/05/23 03:38 Chloride 95 mmol/L (98-107) L 12/05/23 03:38 Carbon Dioxide 36 mmol/L (22-29) H 12/05/23 03:38 Anion Gap 12.2 (5-19) 12/05/23 03:38 BUN 34 mg/dL (8-23) H 12/05/23 03:38 Creatinine 1.0 mg/dL (0.5-0.9) H 12/05/23 03:38 GFR Calculation Not Reportable 12/05/23 03:38 Glucose 242 mg/dL (65-115) H 12/05/23 03:38 Calculated Osmolality 306 mOsm/kg (285-295) H 12/05/23 03:38 Lactic Acid 2.4 mmol/L (0.5-2.2) H 11/24/23 06:05 Lactic Acid (Sepsis) 1.5 mmol/L (0.5-2.2) 11/24/23 09:08 Calcium 9.0 mg/dL (8.5-10.5) 12/05/23 03:38 Phosphorus 2.5 mg/dL (2.5-4.5) 12/02/23 04:10 Magnesium 2.0 mg/dL (1.7-2.3) 12/03/23 03:46 Total Bilirubin 0.2 mg/dL (0.15-1.2) 12/05/23 03:38 AST 18 U/L (0-32) 12/05/23 03:38 ALT 86 U/L (0-33) H 12/05/23 03:38 Alkaline Phosphatase 107 U/L (35-105) H 12/05/23 03:38 Troponin T Baseline 114 ng/L (0-10) H* 11/24/23 05:52 Troponin T 120 Minute 174.6 ng/L (0-10) H 11/24/23 07:48 Delta Troponin T 60.6 ABS# (0-10) H* 11/24/23 07:48 Troponin T Hi Sens 6Hr 188.8 ng/L (0-10) H 11/24/23 12:21 Troponin T Hi Sens 6Hr Delta 74.8 ng/L (0-12) H* 11/24/23 12:21 C-Reactive Protein 9.7 mg/L (0.0-4.9) H 12/02/23 04:10 NT-Pro-B Natriuret Pep 8431 pg/mL (0-125) H 12/02/23 04:10 Total Protein 5.2 g/dL (6.6-8.7) L 12/05/23 03:38 Albumin 3.1 g/dL (3.5-5.2) L 12/05/23 03:38 Globulin 2.1 g/dL (1.3-4.6) 12/05/23 03:38 Procalcitonin 0.16 ng/mL (0-0.5) 12/02/23 04:10 Urine Color Yellow (Yellow) 11/24/23 13:27 Urine Appearance Cloudy (CLEAR) A 11/24/23 13:27 Urine pH 7 (5-7) 11/24/23 13:27 Ur Specific [place] 1.010 (1.005-1.030) 11/24/23 13:27 Urine Protein Neg (Negative) 11/24/23 13:27 Urine Glucose (UA) Norm (Normal) 11/24/23 13:27 Urine Ketones Negative (Negative) 11/24/23 13:27 Urine Blood 3+ (Negative) H 11/24/23 13:27 Urine Nitrate Positive (Negative) H 11/24/23 13:27 Urine Bilirubin Neg (Negative) 11/24/23 13:27 Urine Urobilinogen Neg mg/dL (Negative) 11/24/23 13:27 Ur Leukocyte Esterase 2+ (Negative) H 11/24/23 13:27 Urine RBC >100 /hpf (0-2) H 11/24/23 13:27 Urine WBC Too numerous to cnt /hpf (0-5) H 11/24/23 13:27 Ur Squamous Epith Cells 0-4 /hpf (0-5) H 11/24/23 13:27 Ur Transition Epith Cell 0-4 /hpf 11/24/23 13:27 Amorphous Sediment Not Reportable 11/24/23 13:27 Urine Bacteria 2+ /hpf (NONE) H 11/24/23 13:27 Urine Yeast 2+ /hpf H 11/24/23 13:27 Vancomycin Trough 31.1 ug/mL (10-15) H* 11/29/23 05:32 Adenovirus (PCR) Not detected (NOT DETECT) 11/24/23 06:10 C. pneumoniae DNA (PCR) Not detected (NOT DETECT) 11/24/23 06:10 C. difficile Tox (PCR) Not detected (NOT DETECTED) 12/04/23 09:19 Coronavirus 229E (PCR) Not detected (NOT DETECT) 11/24/23 06:10 Human Metapneumovir PCR Not detected (NOT DETECT) 11/24/23 06:10 Influenza A (H1) PCR Not detected (NOT DETECT) 11/24/23 06:10 Influ A (H1/09) PCR Not detected (NOT DETECT) 11/24/23 06:10 Influenza A (H3) PCR Not detected (NOT DETECT) 11/24/23 06:10 Influenza Type A (PCR) Not detected (NOT DETECT) 11/24/23 06:10 Influenza Type B (PCR) Not detected (NOT DETECT) 11/24/23 06:10 M. pneumoniae (PCR) Not detected (NOT DETECT) 11/24/23 06:10 Parainfluenza 1 (PCR) Not detected (NOT DETECT) 11/24/23 06:10 Parainfluenza 2 (PCR) Not detected (NOT DETECT) 11/24/23 06:10 Parainfluenza 3 (PCR) Detected (NOT DETECT) A 11/24/23 06:10 Parainfluenza 4 (PCR) Not detected (NOT DETECT) 11/24/23 06:10 RSV Type A (PCR) Not detected (NOT DETECT) 11/24/23 06:10 RSV Type B (PCR) Not detected (NOT DETECT) 11/24/23 06:10 Entero/Rhino (PCR) Not detected (NOT DETECT) 11/24/23 06:10 SARS-CoV-2 (PCR) Not detected (NOT DETECT) 11/24/23 06:10 MRSA (PCR) Not detected (NOT DETECTED) 12/02/23 15:45 Micro: Microbiology 12/04/23 09:19 Occult Blood (FIT) - Final Stool - Stool Aspirate A&P Assessment and plan (1) Acute on chronic diastolic heart failure: The heart failure seems to be fairly compensated at this time. May continue on the current medications. (2) Hypertrophic obstructive cardiomyopathy: There is no worsening of the gradient across the LV outflow tract. At this point we may continue on the current management. (3) Atrial fibrillation with RVR: Patient is having intermittent atrial fibrillation. She is anticoagulated by Eliquis. May continue on the current management for the time being. (4) COPD exacerbation: Management as per the primary (5) Hyperlipidemia: Continue on the current medication Qualifiers: Hyperlipidemia type: mixed hyperlipidemia Qualified Code(s): E78.2 - Mixed hyperlipidemia (6) Hypertension: Continue on the current medication Qualifiers: Hypertension type: essential hypertension Qualified Code(s): I10 - Essential (primary) hypertension (7) Thoracic ascending aortic aneurysm: Continue on the current management. Qualifiers: Presence of rupture: without rupture Qualified Code(s): I71.21 - Aneurysm of the ascending aorta, without rupture (8) CKD (chronic kidney disease) stage 3, GFR 30-59 ml/min: Continue on the current management. Kidney function appears to be stable Qualifiers: Chronic kidney disease stage 3 subtype: stage 3a (GFR 45-59) Qualified Code(s): N18.31 - Chronic kidney disease, stage 3a (9) Hypokalemia: Currently normokalemic Plan Management of diarrhea Physical therapy for ambulation Disposition as per the primary Attestations Medical Necessity Statement*: Deferred to the primary Coding Level of Care Code 29278 Diagnoses Acute on chronic diastolic heart failure I50.33 Hypertrophic obstructive cardiomyopathy I42.1 Atrial fibrillation with RVR I48.91 COPD exacerbation J44.1 Mixed hyperlipidemia E78.2 Hyperlipidemia type: mixed hyperlipidemia Essential hypertension I10 Hypertension type: essential hypertension Aneurysm of ascending aorta without rupture I71.21 Presence of rupture: without rupture Stage 3a chronic kidney disease N18.31 Chronic kidney disease stage 3 subtype: stage 3a (GFR 45-59) Hypokalemia E87.6
--- NOTE | 2023-12-05 19:57 | P.PN_ITS ---
Subjective 2 Subjective: She is feeling slightly better today. No hematochezia. Working with physical therapy. Vitals/I&O/Wt Last Vital Signs Temp 97.7 F 12/05/23 16:00 Pulse 70 12/05/23 16:00 Resp 18 12/05/23 15:53 BP 139/69 12/05/23 16:00 Pulse Ox 97 12/05/23 16:00 O2 Del Method Nasal Cannula 12/05/23 16:00 O2 Flow Rate 2 12/05/23 15:53 FiO2 30 12/02/23 17:39 12/05/23 12/05/23 12/05/23 06:59 14:59 22:59 Intake Total 350 / 990 Output Total 800 / 1950 650 / 650 450 / 1100 Balance -450 / -960 -650 / -650 -450 / -1100 Weight last 48 hrs Weight 82.146 kg Weight 82.735 kg Physical Exam 2 Narrative: Sitting up in bed. Accompanied by her . Const: COMMON NORMALS: patient oriented x3 and alert GENERAL APPEARANCE: c ooperative ORIENTATION/CONSCIOUSNESS: Yes awake HENMT: COMMON NORMALS: oropharynx normal Neck/C-Spine: COMMON NORMALS: no JVD Resp: COMMON NORMALS: normal respiratory effort and clear to auscultation bilaterally AUSCULTATION: clear to auscultation bilaterally and diminished lung sounds bilateral Cardio: COMMON NORMALS: no JVD, regular rhythm, S1 normal heart sound present, S2 normal heart sound present and No murmurs present (Cardio) RHYTHM: regular rhythm HEART SOUNDS: S1 normal heart sound present and S2 normal heart sound present GI: COMMON NORMALS: Normal to inspection, nondistended, normoactive bowel sounds present, Soft to palpation and non-tender PALPATION: Yes Soft to palpation Extremity: COMMON NORMALS: no joint enlargement and no pedal edema OTHER: Stable about 1+ edema of the with some wrinkling of the skin, some improvement. Neuro: COMMON NORMALS: patient oriented x3 and moves all extremities S ENSORIUM/ORIENTATION: Yes alert Skin: COMMON NORMALS: no rashes or lesions noted GENERAL SKIN EXAM: no rashes or lesions noted Urinary Catheter Management: Shafer: Cath Placed During This Visit: yes Reason for Continuing Indwelling Catheter: Acute Urinary Retention or Obstruction Urinary Catheter Date of Insertion: 11/25/23 Urinary Catheter Time of Insertion: 10:00 Data 12/05/23 03:38 12/05/23 03:38 A&P Assessment and plan (1) Diarrhea: C. difficile reviewed, negative. Suspected gastritis/PUD secondary to possibly steroids. Slow GI bleed. Acute blood loss anemia. Eliquis has been held. Noted worsening anemia this morning, reviewed vitals, CBC. Hemoglobin down slightly further to 8.6.Hemoccult positive. Continue to hold Eliquis. Cut down steroid. Continue PPI twice daily. Discussed with case finishing machine adjuster. (2) Parainfluenza: Improvement in air entry. Discussed with her we will decrease steroids further. Cut down Solu-Medrol to 10 mg. Monitor for any additional signs of bleeding due to risk with steroids. Reassess CBC.Continue to decrease dose as tolerating. Increase DuoNebs to every 4 hours. PRN DuoNebs. Still with persistent bronchitis, decreased air entry, mild wheeze. Continue budesonide, albuterol, prednisone. Completed Zosyn. Patient noted to be positive for parainfluenza 3. Treat medically and/or symptomatically at this time. Droplet precautions Nebs Discussed with case finishing machine adjuster, to return to [place] after discharge. (3) Depression: Discussed with her start of nortriptyline. Has been feeling depressed, loss of motivation, indigo. She would be willing to follow-up with behavioral health care for additional treatment. In the meantime would like to start an antidepressant. Would avoid SSRI given concern for upper GI bleed at this time, Start instead with nortriptyline. Monitor on telemetry with cardiac risk. (4) Acute exacerbation of CHF (congestive heart failure): Reviewed vitals, chemistry, noted hypokalemia, requested replacement. Recheck potassium. Continue diuretics. Continue to monitor on telemetry. Reassess kidney function, electrolytes. Reviewed cardiology note. Started on oral Bumex. Still in negative balance. No extremity medication. Reviewed chemistry, renal function. Reviewed BUN, creatinine. Recheck renal function. Reviewed cardiology note. Monitor YAIR. At risk of electrolyte deficiency, reassess chemistry. At risk of renal dysfunction, reassess renal function. Reviewed cardiology note. Discussed with case finishing machine adjuster. Amiodarone discontinued secondary to high LFTs. LFTs improving Cont 1200 mill fluid restriction. Repeat BMP this afternoon if potassium reasonable give 40 mg IV push Lasix with potassium replacement, -8 L so far monitor urine output, ? Hypokalemia, requiring IV replacement of potassium 80 mEq, recheck potassium in the afternoon Cardiology consultation appreciated Echocardiogram reviewed: CONCLUSIONS Normal left ventricular size and systolic function, EF 71 %. Moderate left ventricular hypertrophy. Mildly increased left atrial size. The right-sided structures could not be visualized well. The peak gradient across LV outflow tract was 117 mmHg Features suggesting hypertrophic obstructive cardiomyopathy Mild pulmonary hypertension with an estimated pulmonary artery peak systolic pressure of 40 mmHg. Comparison with the previous study is difficult because of the difference in the technical quality. Diamox secondary to underlying lung disease, pulmonary hypertension, elevated CO2 Requested CBC, BMP follow up. (5) Atrial fibrillation with RVR: Heart rate doing better. Continue metoprolol. May have to increase the dose if tachycardia persist. Monitor blood pressure, risk of hypotension with combination of metoprolol and diltiazem. Eliquis. Monitor heart rates. Continue telemetry Continue Eliquis for anticoagulation Continue Cardizem p.o. (6) Leukocytosis: Reviewed WBC, noted leukocytosis 16.5. Continue to decrease steroids. Reviewed sputum culture, noted mixed upper respiratory vince. Multifactorial most likely due to pneumonia/atelectasis. Urine ultimately grew out some yeast which is likely colonization Completed Zosyn, vancomycin Sputum culture negative Shafer catheter replaced by nursing staff yesterday. Await MRSA PCR. (7) Elevated troponin: Cardiology evaluating (8) Hypertension: Stable at this time Hold Antihypertensive medications. Qualifiers: Hypertension type: essential hypertension Qualified Code(s): I10 - Essential (primary) hypertension (9) CKD (chronic kidney disease) stage 3, GFR 30-59 ml/min: Reviewed BUN, creatinine. Stable at this time Continue diuresis due to #1. CMP in AM. Qualifiers: Chronic kidney disease stage 3 subtype: stage 3a (GFR 45-59) Qualified Code(s): N18.31 - Chronic kidney disease, stage 3a (10) Seronegative rheumatoid arthritis of both hands: For now switch to IV steroids for persistent bronchitis/reactive airway disease as above. (11) Hypokalemia: Reviewed potassium. Has been replaced. Recheck chemistry panel Plan Aleyda UTI: Urine culture eventually growing Aleyda albicans. As she has still been weaker, with generalized weakness, slow recovery,possible actual UTI. Will give Diflucan. Transaminitis. Reviewed AST, ALT, Noted with mild gradual improvement. may be secondary to hepatic congestion versus amiodarone effect. Amiodarone has been discontinued. Recheck Once stable for discharge, patient will return back to [facility] for further [facility] services. Discussed with case finishing machine adjuster. PT. CODE STATUS: Full code DVT prophylaxis: Arnaldo Bonner 2 Medical Necessity Statement*: Continue admission for assessment and management of recurrent illness with dyspnea, persistent reactive airway disease, bronchitis, Possible GI bleed, depression, optimization of control of CHF. Diagnoses Diarrhea R19.7 Parainfluenza B34.8 Depression F32.A Acute exacerbation of CHF (congestive heart failure) I50.9 Atrial fibrillation with RVR I48.91 Leukocytosis D72.829 Elevated troponin R79.89 Essential hypertension I10 Hypertension type: essential hypertension Stage 3a chronic kidney disease N18.31 Chronic kidney disease stage 3 subtype: stage 3a (GFR 45-59) Seronegative rheumatoid arthritis of both hands M06.041; M06.042 Hypokalemia E87.6
[2023-12-05] MEDS: methylPREDNISolone sod succ 40 mg/mL INJ 10 MG IVP (21:23)
[2023-12-05] MEDS: potassium chloride ER 20 mEq Tablet 40 MEQ PO (21:25)
[2023-12-05] MEDS: fluconazole premix 100 MG in empty flexible container 1 EACH 50 MG IV (22:09)
[2023-12-05] MEDS: TRAMadol 50 mg Tablet PO (22:18)
[2023-12-05] MEDS: acetaminophen 325 mg Tablet 650 MG PO (22:18)
[2023-12-06] VITALS (10 sets, daily range): BP systolic 123–129; BP diastolic 60–80; PULSE 66–82; RESP 12–26; TEMP 36.1–36.6; O2SAT 97–100
[2023-12-06 04:56] LABS: Basophils # 0.1 10^3/uL (0.0-0.1); Basophils % 0.3 %; Hematocrit 26.2 % (36-47); Lymphocytes # 0.7 10^3/uL (0.8-4.8); Lymphocytes % 3.8 %; Mean Corpuscular HGB Conc 30.9 g/dL (30-55); Mean Corpuscular Hemoglobin 29.5 pg (27-33); Mean Corpuscular Volume 95.3 fl (85-98); Mean Platelet Volume 10.7 fL (7.4-10.4); Monocytes # 0.5 10^3/uL (0.2-0.9); Monocytes % 2.6 %; Neutrophils # 15.69 10^3/uL (1.8-7.7); Neutrophils % 89.4 %; Nucleated Red Blood Cells % 0.2 %; Platelet Count 317 10^3/cmm (157-399); Red Blood Count 2.75 10^6/uL (3.85-5.65); Red Cell Distribution Width 16.4 % (12.1-15.1); White Blood Count 17.55 10^3/uL (3.29-11.43)
[2023-12-06 05:14] LABS: Alanine Aminotransferase 75 U/L (0-33); Albumin Level 3.2 g/dL (3.5-5.2); Alkaline Phosphatase 106 U/L (35-105); Anion Gap 10.7 (5-19); Aspartate Amino Transferase 13 U/L (0-32); Blood Urea Nitrogen 37 mg/dL (8-23); Calcium 8.9 mg/dL (8.5-10.5); Carbon Dioxide 38 mmol/L (22-29); Chloride 97 mmol/L (98-107); Globulin 2.1 g/dL (1.3-4.6); Glucose 273 mg/dL (65-115); Osmolality Calculated 312 mOsm/kg (285-295); Potassium 3.7 mmol/L (3.5-5.1); Sodium 142 mmol/L (136-145); Total Bilirubin 0.3 mg/dL (0.15-1.2); Total Protein 5.3 g/dL (6.6-8.7)
[2023-12-06] MEDS: methylPREDNISolone sod succ 40 mg/mL INJ 10 MG IVP ×3 (06:11→20:27)
[2023-12-06] MEDS: ipratropium-albuterol 3 mL Neb INHALATION ×2 (07:22→13:30)
[2023-12-06] MEDS: budesonide 0.5 mg/2 mL Neb INHALATION (07:22)
--- NOTE | 2023-12-06 08:03 | P.PN_ITS ---
Subjective 2 Subjective: Any is 73 and is in the hospital very frequently. She has extended stays for multiple serious chronic medical problems. This time she was admitted on the eighth some 12 days ago with exacerbation of heart failure, atrial fibrillation with a rapid rate mild elevation in her troponin and chronic kidney disease which is her typical reason for admission. She has a hypertrophic cardiomyopathy and gets in trouble with fast heart rate and heart failure. She lives in a local long term. She has been treated for all of these underlying medical problems. In addition to the above-mentioned issues she has COPD, dyslipidemia, chronic intermittent cellulitis, rheumatoid arthritis, dilated aortic root. She has been treated with diltiazem, beta-blockers, Eliquis and Bumex. She is anemic with hemoglobin of 8. Her creatinine runs around 1.1 with a slightly high BUN of 37. She also has glucose intolerance. Blood sugars in the mid 200s. Transaminases have been elevated. Today she is says she is very slowly getting better. She has no specific complaints. She is eating. Her heart rate has been relatively well-controlled in the 80s. Vitals/I&O/Wt Last Vital Signs Temp 97.7 F 12/06/23 07:46 Pulse 80 12/06/23 07:46 Resp 24 H 12/06/23 07:46 BP 129/68 12/06/23 07:46 Pulse Ox 97 12/06/23 07:46 O2 Del Method Nasal Cannula 12/06/23 07:46 O2 Flow Rate 2 12/06/23 07:23 FiO2 30 12/02/23 17:39 12/05/23 12/06/23 12/06/23 22:59 06:59 14:59 Intake Total 50 / 50 Output Total 450 / 1100 200 / 1300 Balance -450 / -1100 -150 / -1250 Weight last 48 hrs Weight 181 lb 1.6 oz Physical Exam 2 Narrative: GENERAL: General she looks and feels well HEENT: Exam within normal limits. NECK: Supple without jugular vein distention. The carotid upstroke is normal without bruits. BACK: Exam normal. LUNGS: Decreased breath sounds bilaterally. Occasional scattered wheezing and moist rales in the bases HEART: Irregular rate and rhythm. ABDOMEN: Benign without organomegaly or tenderness. EXTREMITIES: No edema. NEUROLOGIC: Exam normal. SKIN: Unremarkable. Urinary Catheter Management: Shafer: Cath Placed During This Visit: yes Reason for Continuing Indwelling Catheter: Acute Urinary Retention or Obstruction Urinary Catheter Date of Insertion: 11/25/23 Urinary Catheter Time of Insertion: 10:00 Data 12/06/23 04:23 12/06/23 04:23 A&P Assessment and plan (1) Hyperlipidemia: Qualifiers: Hyperlipidemia type: mixed hyperlipidemia Qualified Code(s): E78.2 - Mixed hyperlipidemia (2) Hypertension: Qualifiers: Hypertension type: essential hypertension Qualified Code(s): I10 - Essential (primary) hypertension (3) Hypertrophic obstructive cardiomyopathy: (4) Arrhythmia: (5) Elevated brain natriuretic peptide (BNP) level: (6) Atrial fibrillation with RVR: (7) Thoracic ascending aortic aneurysm: Qualifiers: Presence of rupture: without rupture Qualified Code(s): I71.21 - Aneurysm of the ascending aorta, without rupture (8) Acute exacerbation of CHF (congestive heart failure): (9) Elevated troponin: (10) Acute on chronic diastolic heart failure: (11) Pulmonary hypertension: (12) CKD (chronic kidney disease) stage 3, GFR 30-59 ml/min: Qualifiers: Chronic kidney disease stage 3 subtype: stage 3a (GFR 45-59) Qualified Code(s): N18.31 - Chronic kidney disease, stage 3a (13) Acute kidney injury: (14) Leukocytosis: (15) Seronegative rheumatoid arthritis of both hands: (16) COPD (chronic obstructive pulmonary disease): Qualifiers: COPD type: unspecified COPD Qualified Code(s): J44.9 - Chronic obstructive pulmonary disease, unspecified (17) Macrocytic anemia: (18) Transaminitis: Plan She remained stable. Unfortunately these chronic underlying problems will not get significantly better and she will be in and out of the hospital frequently with exacerbations of her underlying illness. For now she is stable. Attestations 2 Medical Necessity Statement*: Hospitalization for management of above-mentioned serious medical problems , High MDM includes number and complexity of problems actively addressed during encounter, amount and/or complexity of data reviewed/ordered and described risk of complication, morbidity or mortality of management as documented and Moderate Time for a total of 40 minutes, includes reviewing past or interval history, examining/interviewing patient, counseling patient/family/other support, updating patient/family/other support and documenting encounter Diagnoses Mixed hyperlipidemia E78.2 Hyperlipidemia type: mixed hyperlipidemia Essential hypertension I10 Hypertension type: essential hypertension Hypertrophic obstructive cardiomyopathy I42.1 Arrhythmia I49.9 Elevated brain natriuretic peptide (BNP) level R79.89 Atrial fibrillation with RVR I48.91 Aneurysm of ascending aorta without rupture I71.21 Presence of rupture: without rupture Acute exacerbation of CHF (congestive heart failure) I50.9 Elevated troponin R79.89 Acute on chronic diastolic heart failure I50.33 Pulmonary hypertension I27.20 Stage 3a chronic kidney disease N18.31 Chronic kidney disease stage 3 subtype: stage 3a (GFR 45-59) Acute kidney injury N17.9 Leukocytosis D72.829 Seronegative rheumatoid arthritis of both hands M06.041; M06.042 Chronic obstructive pulmonary disease, unspecified COPD type J44.9 COPD type: unspecified COPD Macrocytic anemia D53.9 Transaminitis R74.01
[2023-12-06] MEDS: folic acid 1 mg Tablet PO (09:11)
[2023-12-06] MEDS: colchicine 0.6 mg Tablet PO (09:11)
[2023-12-06] MEDS: bumetanide 1 mg Tablet 2 MG PO ×2 (09:11→17:23)
[2023-12-06] MEDS: dilTIAZem ER (24HR) 240 mg Capsule PO (09:11)
[2023-12-06] MEDS: pantoprazole DR 40 mg Tablet PO (09:11)
[2023-12-06] MEDS: nortriptyline 25 mg Capsule PO ×3 (09:11→20:27)
[2023-12-06] MEDS: metoprolol tartrate 50 mg Tablet PO ×2 (09:12→20:27)
[2023-12-06] MEDS: pantoprazole 40 mg SDV IVP ×2 (11:01→20:27)
[2023-12-06] MEDS: fluconazole premix 100 MG in empty flexible container 1 EACH 50 MG IV (20:20)
[2023-12-06] MEDS: TRAMadol 50 mg Tablet PO (20:36)
[2023-12-06] MEDS: acetaminophen 325 mg Tablet 650 MG PO (20:37)
--- NOTE | 2023-12-06 21:55 | P.PN_ITS ---
Subjective 2 Subjective: Subjectively she feels slightly better. So far diarrhea has subsided. No hematochezia. Vitals/I&O/Wt Last Vital Signs Temp 97.9 F 12/06/23 20:00 Pulse 81 12/06/23 20:00 Resp 16 12/06/23 20:00 BP 123/60 12/06/23 20:00 Pulse Ox 99 12/06/23 20:00 O2 Del Method Nasal Cannula 12/06/23 20:00 O2 Flow Rate 2 12/06/23 20:00 FiO2 30 12/02/23 17:39 12/06/23 12/06/23 12/06/23 06:59 14:59 22:59 Intake Total 50 / 50 170 / 170 Output Total 200 / 1300 2100 / 2100 Balance -150 / -1250 -1930 / -1930 Weight last 48 hrs Weight 82.146 kg Physical Exam 2 Narrative: Accompanied by her Daughter. Const: COMMON NORMALS: patient oriented x3 and alert GENERAL APPEARANCE: c ooperative ORIENTATION/CONSCIOUSNESS: Yes awake HENMT: COMMON NORMALS: oropharynx normal Neck/C-Spine: COMMON NORMALS: no JVD Resp: COMMON NORMALS: normal respiratory effort and clear to auscultation bilaterally AUSCULTATION: clear to auscultation bilaterally OTHER: Better air entry. Cardio: COMMON NORMALS: no JVD, regular rhythm, S1 normal heart sound present, S2 normal heart sound present and No murmurs present (Cardio) RHYTHM: regular rhythm HEART SOUNDS: S1 normal heart sound present and S2 normal heart sound present GI: COMMON NORMALS: Normal to inspection, nondistended, normoactive bowel sounds present, Soft to palpation and non-tender PALPATION: Yes Soft to palpation Extremity: COMMON NORMALS: no joint enlargement and no pedal edema OTHER: Trace edema of the with some wrinkling of the skin, some improvement. Neuro: COMMON NORMALS: patient oriented x3 and moves all extremities S ENSORIUM/ORIENTATION: Yes alert Skin: COMMON NORMALS: no rashes or lesions noted GENERAL SKIN EXAM: no rashes or lesions noted Urinary Catheter Management: Shafer: Cath Placed During This Visit: yes Reason for Continuing Indwelling Catheter: Acute Urinary Retention or Obstruction Urinary Catheter Date of Insertion: 11/25/23 Urinary Catheter Time of Insertion: 10:00 Data 12/06/23 04:23 12/06/23 04:23 A&P Assessment and plan (1) Diarrhea: Melanotic stool, suspected upper GI bleed.Reviewed vitals, CBC. Diarrhea so far has resolved. C. difficile reviewed, negative. Hemoglobin noted down to 8.1 this morning. Reassess CBC. Suspected gastritis/PUD secondary to possibly steroids. Continue to cut down steroids. Will decrease down to 5 mg daily prednisone. Changed PPI to IV. Hemoccult positive. Continue to hold Eliquis. (2) Parainfluenza: Reviewed vitals, CBC, noted worsening leukocytosis, suspect this is secondary to steroid. Clinically she has been improving. Reduce steroid down to 5 mg prednisone daily. Monitor for any additional signs of bleeding due to risk with steroids. Reassess CBC.Continue to decrease dose as tolerating. Discussed with respiratory therapist. DuoNeb schedule adjusted. Continue scheduled and as needed. Monitor for any worsening respiratory function with cutting down steroids. Still with persistent bronchitis, decreased air entry, mild wheeze. Continue budesonide, albuterol, prednisone. Completed Zosyn. Patient noted to be positive for parainfluenza 3. Treat medically and/or symptomatically at this time. Droplet precautions Nebs Discussed with porter sample case, to return to [facility] after discharge. (3) Depression: Monitoring telemetry due to atrial fibrillation, increased risk of arrhythmia with nortriptyline as discussed with her. Has been feeling depressed, loss of motivation, indigo. She would be willing to follow-up with behavioral health care for additional treatment. In the meantime would like to start an antidepressant. Would avoid SSRI given concern for upper GI bleed at this time, Start instead with nortriptyline. Monitor on telemetry with cardiac risk. (4) Acute exacerbation of CHF (congestive heart failure): Reviewed cardiology note. Continue on oral Bumex. Still in negative balance. No extremity medication. Reviewed chemistry, renal function. Reviewed BUN, creatinine. Recheck renal function. Reviewed cardiology note. Monitor YAIR. At risk of electrolyte deficiency, reassess chemistry. At risk of renal dysfunction, reassess renal function. Reviewed cardiology note. Discussed with porter sample case. Amiodarone discontinued secondary to high LFTs. LFTs improving Cont 1200 mill fluid restriction. Repeat BMP this afternoon if potassium reasonable give 40 mg IV push Lasix with potassium replacement, -8 L so far monitor urine output, ? Hypokalemia, requiring IV replacement of potassium 80 mEq, recheck potassium in the afternoon Cardiology consultation appreciated Echocardiogram reviewed: CONCLUSIONS Normal left ventricular size and systolic function, EF 71 %. Moderate left ventricular hypertrophy. Mildly increased left atrial size. The right-sided structures could not be visualized well. The peak gradient across LV outflow tract was 117 mmHg Features suggesting hypertrophic obstructive cardiomyopathy Mild pulmonary hypertension with an estimated pulmonary artery peak systolic pressure of 40 mmHg. Comparison with the previous study is difficult because of the difference in the technical quality. Diamox secondary to underlying lung disease, pulmonary hypertension, elevated CO2 Requested CBC, BMP follow up. (5) Atrial fibrillation with RVR: Heart rate doing better. Continue metoprolol. May have to increase the dose if tachycardia persist. Monitor blood pressure, risk of hypotension with combination of metoprolol and diltiazem. Eliquis. Monitor heart rates. Continue telemetry Continue Eliquis for anticoagulation Continue Cardizem p.o. (6) Leukocytosis: Reviewed WBC, noted leukocytosis 16.5. Continue to decrease steroids. Reviewed sputum culture, noted mixed upper respiratory vince. Multifactorial most likely due to pneumonia/atelectasis. Urine ultimately grew out some yeast which is likely colonization Completed Zosyn, vancomycin Sputum culture negative Shafer catheter replaced by nursing staff yesterday. Await MRSA PCR. (7) Elevated troponin: Cardiology evaluating (8) Hypertension: Stable at this time Hold Antihypertensive medications. Qualifiers: Hypertension type: essential hypertension Qualified Code(s): I10 - Essential (primary) hypertension (9) CKD (chronic kidney disease) stage 3, GFR 30-59 ml/min: Reviewed BUN, creatinine. Stable at this time Continue diuresis due to #1. CMP in AM. Qualifiers: Chronic kidney disease stage 3 subtype: stage 3a (GFR 45-59) Qualified Code(s): N18.31 - Chronic kidney disease, stage 3a (10) Seronegative rheumatoid arthritis of both hands: For now switch to IV steroids for persistent bronchitis/reactive airway disease as above. (11) Hypokalemia: Reviewed potassium. Has been replaced. Recheck chemistry panel Plan Aleyda UTI: Urine culture eventually growing Aleyda albicans. As she has still been weaker, with generalized weakness, slow recovery,possible actual UTI. Will give Diflucan. Hyperglycemia: Add Accu-Cheks. Sliding scale insulin. Prediabetes on review of A1c from last month. Transaminitis. Reviewed AST, ALT, Noted with mild gradual improvement. may be secondary to hepatic congestion versus amiodarone effect. Amiodarone has been discontinued. Recheck Once stable for discharge, patient will return back to [facility] for further rehabilitation services. Discussed with porter sample case. PT. CODE STATUS: Full code DVT prophylaxis: Arnaldo Attestations 2 Medical Necessity Statement*: Continue admission for assessment and management of recurrent illness with dyspnea, persistent reactive airway disease, bronchitis, suspecte upper GI bleed, depression, hyperglycemia, yeast UTI. and High MDM includes described risk of complication, morbidity or mortality of management as documented Diagnoses Diarrhea R19.7 Parainfluenza B34.8 Depression F32.A Acute exacerbation of CHF (congestive heart failure) I50.9 Atrial fibrillation with RVR I48.91 Leukocytosis D72.829 Elevated troponin R79.89 Essential hypertension I10 Hypertension type: essential hypertension Stage 3a chronic kidney disease N18.31 Chronic kidney disease stage 3 subtype: stage 3a (GFR 45-59) Seronegative rheumatoid arthritis of both hands M06.041; M06.042 Hypokalemia E87.6
[2023-12-07] VITALS (16 sets, daily range): BP systolic 98–126; BP diastolic 58–87; PULSE 65–112; RESP 16–24; TEMP 36.5–37.5; O2SAT 96–99
[2023-12-07 05:48] LABS: Basophils % 0.2 %; Hematocrit 26.9 % (36-47); Lymphocytes % 4.9 %; Mean Corpuscular HGB Conc 30.9 g/dL (30-55); Mean Corpuscular Hemoglobin 29.6 pg (27-33); Mean Corpuscular Volume 96.1 fl (85-98); Mean Platelet Volume 10.8 fL (7.4-10.4); Monocytes # 0.6 10^3/uL (0.2-0.9); Monocytes % 2.8 %; Neutrophils # 17.75 10^3/uL (1.8-7.7); Neutrophils % 87.9 %; Nucleated Red Blood Cells # 0.1 /100WBC; Nucleated Red Blood Cells % 0.2 %; Platelet Count 318 10^3/cmm (157-399); Red Cell Distribution Width 16.4 % (12.1-15.1); White Blood Count 20.18 10^3/uL (3.29-11.43)
[2023-12-07 06:12] LABS: Alanine Aminotransferase 66 U/L (0-33); Albumin Level 3.3 g/dL (3.5-5.2); Alkaline Phosphatase 109 U/L (35-105); Anion Gap 9.5 (5-19); Aspartate Amino Transferase 16 U/L (0-32); Blood Urea Nitrogen 32 mg/dL (8-23); Calcium 8.8 mg/dL (8.5-10.5); Chloride 93 mmol/L (98-107); Globulin 2.1 g/dL (1.3-4.6); Glucose 256 mg/dL (65-115); Osmolality Calculated 308 mOsm/kg (285-295); Potassium 3.5 mmol/L (3.5-5.1); Sodium 141 mmol/L (136-145); Total Bilirubin 0.4 mg/dL (0.15-1.2); Total Protein 5.4 g/dL (6.6-8.7)
[2023-12-07 06:20] LABS: Carbon Dioxide 42 mmol/L (22-29)
[2023-12-07 06:33] LABS: Glucose Point of Care 238 mg/dL (70-110)
--- NOTE | 2023-12-07 07:34 | P.PN_ITS ---
Subjective 2 Subjective: Ms. Chaves feels better yet again this morning. No complaints at all. Adequate appetite. Tolerating medicines. Having bowel movements and urinating well. Hemoglobin is stable 8.3. Serum bicarbonate is up 42. BUN and creatinine 32 and 0.9. Vitals/I&O/Wt Last Vital Signs Temp 97.8 F 12/07/23 07:18 Pulse 80 12/07/23 07:18 Resp 17 12/07/23 07:18 BP 126/68 12/07/23 07:18 Pulse Ox 97 12/07/23 07:18 O2 Del Method Nasal Cannula 12/07/23 07:18 O2 Flow Rate 2 12/07/23 02:00 FiO2 30 12/02/23 17:39 12/06/23 12/07/23 12/07/23 22:59 06:59 14:59 Intake Total 170 / 170 300 / 470 Output Total 2100 / 2100 1200 / 3300 Balance -1930 / -1930 -900 / -2830 Physical Exam 2 Narrative: GENERAL: In general she is comfortable at rest HEENT: Exam within normal limits. NECK: Supple without jugular vein distention. The carotid upstroke is normal without bruits. BACK: Exam normal. LUNGS: Clear. HEART: Regular rate and rhythm. ABDOMEN: Benign without organomegaly or tenderness. EXTREMITIES: No edema. NEUROLOGIC: Exam normal. SKIN: Unremarkable. Urinary Catheter Management: Shafer: Cath Placed During This Visit: yes Reason for Continuing Indwelling Catheter: Acute Urinary Retention or Obstruction Urinary Catheter Date of Insertion: 11/25/23 Urinary Catheter Time of Insertion: 10:00 Data 12/07/23 05:29 12/07/23 05:29 A&P Assessment and plan (1) Hyperlipidemia: Qualifiers: Hyperlipidemia type: mixed hyperlipidemia Qualified Code(s): E78.2 - Mixed hyperlipidemia (2) Hypertension: Qualifiers: Hypertension type: essential hypertension Qualified Code(s): I10 - Essential (primary) hypertension (3) Hypertrophic obstructive cardiomyopathy: (4) Arrhythmia: (5) Elevated brain natriuretic peptide (BNP) level: (6) Atrial fibrillation with RVR: (7) Thoracic ascending aortic aneurysm: Qualifiers: Presence of rupture: without rupture Qualified Code(s): I71.21 - Aneurysm of the ascending aorta, without rupture (8) Acute exacerbation of CHF (congestive heart failure): (9) Elevated troponin: (10) Acute on chronic diastolic heart failure: (11) Pulmonary hypertension: (12) Transaminitis: (13) CKD (chronic kidney disease) stage 3, GFR 30-59 ml/min: Qualifiers: Chronic kidney disease stage 3 subtype: stage 3a (GFR 45-59) Qualified Code(s): N18.31 - Chronic kidney disease, stage 3a (14) Macrocytic anemia: (15) Seronegative rheumatoid arthritis of both hands: Plan She remained stable and slowly improving. Attestations 2 Medical Necessity Statement*: Hospitalization for management of elevated heart rate and congestive heart failure. and Moderate Time for a total of 30 minutes, includes reviewing past or interval history, examining/interviewing patient, counseling patient/family/other support, updating patient/family/other support and documenting encounter Diagnoses Mixed hyperlipidemia E78.2 Hyperlipidemia type: mixed hyperlipidemia Essential hypertension I10 Hypertension type: essential hypertension Hypertrophic obstructive cardiomyopathy I42.1 Arrhythmia I49.9 Elevated brain natriuretic peptide (BNP) level R79.89 Atrial fibrillation with RVR I48.91 Aneurysm of ascending aorta without rupture I71.21 Presence of rupture: without rupture Acute exacerbation of CHF (congestive heart failure) I50.9 Elevated troponin R79.89 Acute on chronic diastolic heart failure I50.33 Pulmonary hypertension I27.20 Transaminitis R74.01 Stage 3a chronic kidney disease N18.31 Chronic kidney disease stage 3 subtype: stage 3a (GFR 45-59) Macrocytic anemia D53.9 Seronegative rheumatoid arthritis of both hands M06.041; M06.042
[2023-12-07] MEDS: budesonide 0.5 mg/2 mL Neb INHALATION ×2 (07:58→20:31)
[2023-12-07] MEDS: ipratropium-albuterol 3 mL Neb INHALATION ×3 (07:58→20:31)
[2023-12-07] MEDS: nortriptyline 25 mg Capsule PO ×3 (08:51→20:28)
[2023-12-07] MEDS: folic acid 1 mg Tablet PO (08:51)
[2023-12-07] MEDS: bumetanide 1 mg Tablet 2 MG PO ×2 (08:51→17:38)
[2023-12-07] MEDS: dilTIAZem ER (24HR) 240 mg Capsule PO (08:51)
[2023-12-07] MEDS: pantoprazole 40 mg SDV IVP ×2 (08:51→20:26)
[2023-12-07] MEDS: metoprolol tartrate 50 mg Tablet PO ×2 (08:51→20:28)
[2023-12-07] MEDS: colchicine 0.6 mg Tablet PO (08:52)
[2023-12-07] MEDS: insulin lispro 100 unit/1 mL SUBCUT ×3 (08:52→17:38)
[2023-12-07] MEDS: predniSONE 10 mg Tablet 5 MG PO (08:52)
[2023-12-07 12:47] LABS: Glucose Point of Care 251 mg/dL (70-110)
[2023-12-07 16:50] LABS: Glucose Point of Care 181 mg/dL (70-110)
--- NOTE | 2023-12-07 16:52 | PC.NURSE ---
Patients dex-com read 175 at 1653.
[2023-12-07] MEDS: fluconazole premix 100 MG in empty flexible container 1 EACH 50 MG IV (20:26)
[2023-12-07] MEDS: TRAMadol 50 mg Tablet PO (20:28)
[2023-12-07] MEDS: acetaminophen 325 mg Tablet 650 MG PO (20:28)
[2023-12-07 20:51] LABS: Glucose Point of Care 207 mg/dL (70-110)
--- NOTE | 2023-12-07 22:02 | P.PN_ITS ---
Subjective 2 Subjective: She reports today she feels slightly better. Breathing with improvement. No diarrhea. No chest or abdominal pain. Vitals/I&O/Wt Last Vital Signs Temp 98.0 F 12/07/23 19:48 Pulse 81 12/07/23 20:34 Resp 16 12/07/23 20:34 BP 119/58 12/07/23 19:48 Pulse Ox 96 12/07/23 20:34 O2 Del Method Nasal Cannula 12/07/23 20:34 O2 Flow Rate 2 12/07/23 20:34 FiO2 30 12/02/23 17:39 12/07/23 12/07/23 12/07/23 06:59 14:59 22:59 Intake Total 300 / 470 240 / 240 170 / 410 Output Total 1200 / 3300 900 / 900 Balance -900 / -2830 240 / 240 -730 / -490 Weight last 48 hrs Weight 82.157 kg Physical Exam 2 Narrative: Accompanied by her son. Const: COMMON NORMALS: patient oriented x3 and alert GENERAL APPEARANCE: c ooperative ORIENTATION/CONSCIOUSNESS: Yes awake HENMT: COMMON NORMALS: oropharynx normal Neck/C-Spine: COMMON NORMALS: no JVD Resp: COMMON NORMALS: normal respiratory effort AUSCULTATION: wheezes (Mild wheeze) and diminished lung sounds bilateral OTHER: Better air entry. Cardio: COMMON NORMALS: no JVD, regular rhythm, S1 normal heart sound present, S2 normal heart sound present and No murmurs present (Cardio) RHYTHM: regular rhythm HEART SOUNDS: S1 normal heart sound present and S2 normal heart sound present GI: COMMON NORMALS: Normal to inspection, nondistended, normoactive bowel sounds present, Soft to palpation and non-tender PALPATION: Yes Soft to palpation Extremity: COMMON NORMALS: no joint enlargement and no pedal edema OTHER: Trace edema Neuro: COMMON NORMALS: patient oriented x3 and moves all extremities S ENSORIUM/ORIENTATION: Yes alert Skin: COMMON NORMALS: no rashes or lesions noted GENERAL SKIN EXAM: no rashes or lesions noted Urinary Catheter Management: Shafer: Cath Placed During This Visit: yes Reason for Continuing Indwelling Catheter: Acute Urinary Retention or Obstruction Urinary Catheter Date of Insertion: 11/25/23 Urinary Catheter Time of Insertion: 10:00 Data 12/07/23 05:29 12/07/23 05:29 A&P Assessment and plan (1) Diarrhea: Suspected GI bleed, melanotic stools. So far diarrhea/melanotic stools have resolved. Reviewed CBC, hemoglobin appears to have stated, 8.3 today. Recheck CBC. WBC up to 20.18, however, C. difficile reviewed and negative. Tapering off steroids. Melanotic stool, suspected upper GI bleed.Reviewed vitals, CBC. Diarrhea so far has resolved. C. difficile reviewed, negative. Hemoglobin noted 8.3 this morning. Reassess CBC. In case of worsening anemia may require endoscopy prior to discharge. Otherwise consideration of discharge with PPI, reassessment for trial of low- dose anticoagulant or aspirin versus trial in the hospital. Suspected gastritis/PUD secondary to possibly steroids. Continue to cut down steroids. Decreased down to 5 mg daily prednisone. PPI IV. Hemoccult positive. Continue to hold Eliquis. (2) Parainfluenza: Reviewed vitals, oxygenation with improvement, down to 2 L. Subjectively she is feeling better. Reviewed CBC, leukocytosis up to 20.18, mostly neutrophilic. Do suspect steroid involvement, however, WBC has kept rising. C. difficile is negative. Will repeat chest x-ray. Obtain a UA. Loose stool resolved. No vomiting or abdominal pain or discomfort. No cellulitis. Mild wheeze today, will keep on prednisone 5 mg for now. Continue DuoNebs. Continue budesonide. Completed Zosyn. Patient noted to be positive for parainfluenza 3. Treat medically and/or symptomatically at this time. Droplet precautions Nebs Return to [facility] after discharge. (3) Depression: Monitoring telemetry due to atrial fibrillation, increased risk of arrhythmia with nortriptyline as discussed with her. Has been feeling depressed, loss of motivation, indigo. She would be willing to follow-up with behavioral health care for additional treatment. In the meantime would like to start an antidepressant. Would avoid SSRI given concern for upper GI bleed at this time, Start instead with nortriptyline. Monitor on telemetry with cardiac risk. (4) Acute exacerbation of CHF (congestive heart failure): She has been seen by cardiology again today. Reviewed note. Continue current course of action. Continue on oral Bumex. Still in negative balance. Oxygenation with improvement. Lower extremity edema with improvement. Reviewed chemistry, renal function. Reviewed BUN, creatinine. Recheck renal function. Monitor YAIR. At risk of electrolyte deficiency, reassess chemistry. At risk of renal dysfunction, reassess renal function. Amiodarone discontinued secondary to high LFTs. LFTs improving Cont 1200 mill fluid restriction. Repeat BMP this afternoon if potassium reasonable give 40 mg IV push Lasix with potassium replacement, -8 L so far monitor urine output, ? Hypokalemia, requiring IV replacement of potassium 80 mEq, recheck potassium in the afternoon Cardiology consultation appreciated Echocardiogram reviewed: CONCLUSIONS Normal left ventricular size and systolic function, EF 71 %. Moderate left ventricular hypertrophy. Mildly increased left atrial size. The right-sided structures could not be visualized well. The peak gradient across LV outflow tract was 117 mmHg Features suggesting hypertrophic obstructive cardiomyopathy Mild pulmonary hypertension with an estimated pulmonary artery peak systolic pressure of 40 mmHg. Comparison with the previous study is difficult because of the difference in the technical quality. Diamox secondary to underlying lung disease, pulmonary hypertension, elevated CO2 Requested CBC, BMP follow up. (5) Atrial fibrillation with RVR: Heart rate doing better. Continue metoprolol. May have to increase the dose if tachycardia persist. Monitor blood pressure, risk of hypotension with combination of metoprolol and diltiazem. Eliquis. Monitor heart rates. Continue telemetry Continue Eliquis for anticoagulation Continue Cardizem p.o. (6) Leukocytosis: Reviewed WBC, noted leukocytosis 16.5. Continue to decrease steroids. Reviewed sputum culture, noted mixed upper respiratory vince. Multifactorial most likely due to pneumonia/atelectasis. Urine ultimately grew out some yeast which is likely colonization Completed Zosyn, vancomycin Sputum culture negative Shafer catheter replaced by nursing staff yesterday. Await MRSA PCR. (7) Elevated troponin: Cardiology evaluating (8) Hypertension: Stable at this time Hold Antihypertensive medications. Qualifiers: Hypertension type: essential hypertension Qualified Code(s): I10 - Essential (primary) hypertension (9) CKD (chronic kidney disease) stage 3, GFR 30-59 ml/min: Reviewed BUN, creatinine. Stable at this time Continue diuresis due to #1. CMP in AM. Qualifiers: Chronic kidney disease stage 3 subtype: stage 3a (GFR 45-59) Qualified Code(s): N18.31 - Chronic kidney disease, stage 3a (10) Seronegative rheumatoid arthritis of both hands: Tapered off IV steroids for persistent bronchitis/reactive airway disease as above. (11) Hypokalemia: Has been replaced. Recheck chemistry panel Plan Aleyda UTI: Urine culture eventually growing Aleyda albicans. As she has still been weaker, with generalized weakness, slow recovery,possible actual UTI. Diflucan. Hyperglycemia: Reviewed Accu-Cheks. Continue sliding scale insulin. Change diet to consistent carbohydrate. Prediabetes on review of A1c from last month. Transaminitis. Reviewed AST, ALT, Noted with mild gradual improvement. may be secondary to hepatic congestion versus amiodarone effect. Amiodarone has been discontinued. Recheck Once stable for discharge, patient will return back to [facility] for further rehabilitation services. CODE STATUS: Full code DVT prophylaxis: SCD due to GIB Attestations 2 Medical Necessity Statement*: Hospitalization for management of UGIB, acute blood loss anemia, bronchitis, worsening leukocytosis. and High MDM includes described risk of complication, morbidity or mortality of management as documented Diagnoses Diarrhea R19.7 Parainfluenza B34.8 Depression F32.A Acute exacerbation of CHF (congestive heart failure) I50.9 Atrial fibrillation with RVR I48.91 Leukocytosis D72.829 Elevated troponin R79.89 Essential hypertension I10 Hypertension type: essential hypertension Stage 3a chronic kidney disease N18.31 Chronic kidney disease stage 3 subtype: stage 3a (GFR 45-59) Seronegative rheumatoid arthritis of both hands M06.041; M06.042 Hypokalemia E87.6
[2023-12-08] VITALS (15 sets, daily range): BP systolic 84–115; BP diastolic 58–69; PULSE 67–145; RESP 16–34; TEMP 36.4–36.8; O2SAT 93–98
[2023-12-08 04:02] LABS: Basophils % 0.2 %; Eosinophils % 0.2 %; Hematocrit 27.8 % (36-47); Lymphocytes # 2.2 10^3/uL (0.8-4.8); Mean Corpuscular HGB Conc 30.9 g/dL (30-55); Mean Corpuscular Hemoglobin 29.4 pg (27-33); Mean Corpuscular Volume 94.9 fl (85-98); Mean Platelet Volume 10.8 fL (7.4-10.4); Monocytes # 1.1 10^3/uL (0.2-0.9); Monocytes % 5.1 %; Neutrophils # 17.25 10^3/uL (1.8-7.7); Neutrophils % 79.8 %; Nucleated Red Blood Cells # 0.1 /100WBC; Nucleated Red Blood Cells % 0.3 %; Platelet Count 313 10^3/cmm (157-399); Red Blood Count 2.93 10^6/uL (3.85-5.65); Red Cell Distribution Width 16.8 % (12.1-15.1)
[2023-12-08 04:22] LABS: Alanine Aminotransferase 63 U/L (0-33); Albumin Level 3.2 g/dL (3.5-5.2); Alkaline Phosphatase 117 U/L (35-105); Anion Gap 10.1 (5-19); Aspartate Amino Transferase 23 U/L (0-32); Blood Urea Nitrogen 32 mg/dL (8-23); Chloride 93 mmol/L (98-107); Creatinine Clr Calc Pharmacy 54.4036; Globulin 2.1 g/dL (1.3-4.6); Glucose 113 mg/dL (65-115); Osmolality Calculated 300 mOsm/kg (285-295); Potassium 3.1 mmol/L (3.5-5.1); Sodium 141 mmol/L (136-145); Total Bilirubin 0.4 mg/dL (0.15-1.2); Total Protein 5.3 g/dL (6.6-8.7)
[2023-12-08 04:41] LABS: Carbon Dioxide 41 mmol/L (22-29)
--- NOTE | 2023-12-08 06:00 | XR_ITS ---
WS: [id number] PORTABLE CHEST HISTORY: Hypoxia COMPARISON: 11/30/2023 Minimal obscuration of the LEFT hemidiaphragm. No dense consolidation. No fluid overload. No pneumoth orax. Cardiac size: Normal. Mediastinum/Aorta: Moderate atherosclerosis aorta. Osteopenia. IMPRESSION: 1. Small LEFT pleural effusion. 2. No pneumonia. 3. Moderate atherosclerosis aorta.
[2023-12-08 06:27] LABS: Glucose Point of Care 121 mg/dL (70-110)
--- NOTE | 2023-12-08 07:33 | PC.SOCIAL ---
IMM Update Pg. 2 of IMM updated and reviewed with patient, who verbalized understanding. Copy provided. Copy in chart initial, dated, and timed.
[2023-12-08] MEDS: ipratropium-albuterol 3 mL Neb INHALATION (07:58)
[2023-12-08] MEDS: budesonide 0.5 mg/2 mL Neb INHALATION (08:03)
[2023-12-08] MEDS: colchicine 0.6 mg Tablet PO (08:36)
[2023-12-08] MEDS: pantoprazole 40 mg SDV IVP (08:36)
[2023-12-08] MEDS: bumetanide 1 mg Tablet 2 MG PO (08:37)
[2023-12-08] MEDS: nortriptyline 25 mg Capsule PO (08:37)
[2023-12-08] MEDS: folic acid 1 mg Tablet PO (08:37)
[2023-12-08] MEDS: predniSONE 10 mg Tablet 5 MG PO (08:38)
--- NOTE | 2023-12-08 10:31 | PC.NURSE ---
Dr Mcneil came in to round on patient right after nursing staff had rolled patient for bowel movement. He ordered digoxin 0.25mg once. Order entered.
[2023-12-08] MEDS: digoxin 250 mcg/ml INJ 2 mL IVP ×2 (10:38→11:29)
[2023-12-08 11:01] LABS: Iron 91 ug/dL (37-145); Percent Saturation 44.3 % (20-50); Total Iron Binding Capacity 205 mcg/dl; Unsaturated Iron Binding 114 ug/dL (112-347)
--- NOTE | 2023-12-08 11:18 | PC.NURSE ---
Provider was notified of her recent blood pressures being low. He said to hold morning dose of cardizem and metoprolol. when next dose is due provider is to be called. He ordered another dose of digoxin 0.25mg now and NS 500ml at 50ml/hr.
[2023-12-08] MEDS: potassium chloride ER 20 mEq Tablet 40 MEQ PO (11:30)
[2023-12-08] MEDS: ferrous gluconate 324 mg Tablet PO (11:30)
[2023-12-08] MEDS: sodium chloride 0.9% 500 ML 50 ML IV (11:30)
[2023-12-08 12:20] LABS: Glucose Point of Care 198 mg/dL (70-110)
--- NOTE | 2023-12-08 12:31 | PM.PN ---
Subjective Subjective: Patient went back into atrial fibrillation with rapid ventricular rate. Currently with a heart rate in the 150s. No chest pain. Has some feeling of generalized weakness. Blood pressure seems to be running in the low normal side. No fever, chills or cough. Medications: Medication Review Details: Current Medications Acetaminophen (Acetaminophen 325 Mg Tablet) 650 mg PO Q6H PRN PRN Reason: MILD PAIN Last Admin: 12/07/23 20:28 Dose: 650 mg Albuterol/Ipratropium (Ipratropium-Albuterol 3 Ml Neb) 3 ml INHALATION Q6H PRN PRN Reason: SHORTNESS OF BREATH Apixaban (Apixaban 5 Mg Tablet) 5 mg PO BID@0900,2100 [facility] Last Admin: 12/04/23 20:22 Dose: 5 mg Budesonide (Budesonide 0.5 Mg/2 Ml Neb) 0.5 mg INHALATION BID.RESPIRATORY [facility] Last Admin: 12/08/23 08:03 Dose: 0.5 mg Bumetanide (Bumetanide 1 Mg Tablet) 2 mg PO BID [facility] Last Admin: 12/08/23 08:37 Dose: 2 mg Colchicine (Colchicine 0.6 Mg Tablet) 0.6 mg PO DAILY [facility] Last Admin: 12/08/23 08:36 Dose: 0.6 mg Dextrose (Dextrose 50% Syringe 50 Ml) 25 ml IVP ONCE PRN; Protocol PRN Reason: hypoglycemia protocol Dextrose (Dextrose 50% Syringe 50 Ml) 50 ml IVP PRN PRN; Protocol PRN Reason: hypoglycemia protocol Diltiazem HCl (Diltiazem 60 Mg Tablet) 60 mg PO Q6H [facility] Last Admin: 12/08/23 11:22 Dose: Not Given Docusate Sodium (Docusate Sodium 100 Mg Capsule) 100 mg PO BID [facility] Last Admin: 12/08/23 10:33 Dose: Not Given Ferrous Gluconate (Ferrous Gluconate 324 Mg Tablet) 324 mg PO EVERY OTHER DAY [facility] Last Admin: 12/08/23 11:30 Dose: 324 mg Folic Acid (Folic Acid 1 Mg Tablet) 1 mg PO DAILY [facility] Last Admin: 12/08/23 08:37 Dose: 1 mg Fluconazole 100 mg/ N/A 50 mls @ 50 mls/hr IV Q24H [facility] Last Infusion: 12/07/23 21:26 Dose: Infused Dextrose (D5w) 500 mls @ 0 mls/hr IV ONCE PRN; Protocol PRN Reason: Adult Acute Hypoglycemia Prot Sodium Chloride (Sodium Chloride 0.9%) 500 mls @ 50 mls/hr IV .Q10H [facility] Last Admin: 12/08/23 11:30 Dose: 50 mls/hr Amiodarone HCl/Dextrose (Nexterone) 360 mg in 200 mls @ 0 mls/hr IV .Q0M [facility]; Protocol Insulin Human Lispro (Insulin Lispro 100 Unit/1 Ml) 0 unit SUBCUT TIDWM [facility]; Protocol Last Admin: 12/08/23 07:30 Dose: Not Given Ipratropium [place] (Ipratropium 0.5 Mg/2.5 Ml Neb) 0.5 mg INHALATION Q6H.RESP MONY Levalbuterol HCl (Levalbuterol 0.63 Mg/3 Ml Neb) 0.63 mg INHALATION Q6H.RESP MONY Metoprolol Tartrate (Metoprolol Tartrate 50 Mg Tablet) 50 mg PO BID@0900,2100 [facility] Last Admin: 12/08/23 11:22 Dose: Not Given Nortriptyline HCl (Nortriptyline 25 Mg Capsule) 25 mg PO TID [facility] Last Admin: 12/08/23 08:37 Dose: 25 mg Ondansetron HCl (Ondansetron 2 Mg/Ml Sdv 2 Ml) 4 mg IVP Q6H PRN PRN Reason: NAUSEA AND VOMITING Pantoprazole Sodium (Pantoprazole 40 Mg Sdv) 40 mg IVP Q12H [facility] Last Admin: 12/08/23 08:36 Dose: 40 mg Prednisone (Prednisone 10 Mg Tablet) 5 mg PO DAILY [facility] Last Admin: 12/08/23 08:38 Dose: 5 mg Tramadol HCl (Tramadol 50 Mg Tablet) 50 mg PO Q8H PRN PRN Reason: MODERATE PAIN Last Admin: 12/07/23 20:28 Dose: 50 mg Vitals/I&O/Wt Last Vital Signs Temp 97.6 F 12/08/23 11:50 Pulse 145 H 12/08/23 11:50 Resp 28 H 12/08/23 11:50 BP 98/68 12/08/23 11:50 Pulse Ox 96 12/08/23 11:50 O2 Del Method Nasal Cannula 12/08/23 11:50 O2 Flow Rate 4 12/08/23 11:50 FiO2 30 12/02/23 17:39 12/07/23 12/08/23 12/08/23 22:59 06:59 14:59 Intake Total 170 / 410 220 / 220 Output Total 1250 / 1250 250 / 1500 Balance -1080 / -840 -250 / -1090 220 / 220 Weight last 48 hrs Weight 178 lb 2 oz Weight 181 lb 2 oz Physical Exam Narrative: GENERAL: The patient is alert and oriented times three. Not in any acute distress. HEENT: No significant pallor, icterus or lymphadenopathy.Oral cavity: There are no mucous membrane lesions. NECK: Trachea appears to be central. No masses noted. No JVD or thyromegaly appreciated. RESPIRATORY: Chest is symmetrical. No intercostals muscle retraction or any accessory muscle activation. There is no chest wall tenderness. Breath sounds are heard bilaterally. Scattered expiratory wheezing is still present. Diminished intensity breath sounds bilaterally BREASTS: Deferred. HEART: The heart sounds are variable. No S3 or S4. Systolic murmur grade 3 or 6 in the base of the heart. No diastolic murmurs.. No pericardial rub ABDOMEN: No vessel pulsations or distention. No tenderness. No organomegaly appreciated. Bowel sounds are normally heard. : Deferred. RECTAL: Deferred. LYMPHATIC: No lymphadenopathy noted in the neck. EXTREMITIES: No significant edema both lower extremities. MUSCULOSKELETAL: No acute joint deformities or swelling SKIN: There are no significant rashes or ecchymosis NEUROPSYCHIATRIC: The patient is alert and oriented x3. Appears to be in a good mood. No tremors or rigidity noted. Urinary Catheter Management: Shafer: Cath Placed During This Visit: yes Reason for Continuing Indwelling Catheter: Acute Urinary Retention or Obstruction Urinary Catheter Date of Insertion: 11/25/23 Urinary Catheter Time of Insertion: 10:00 Data 12/08/23 03:44 12/08/23 03:44 Other Labs: Laboratory Last Values WBC 21.60 10^3/uL (3.29-11.43) H 12/08/23 03:44 RBC 2.93 10^6/uL (3.85-5.65) L 12/08/23 03:44 Hgb 8.60 g/dL (11.27-16.99) L 12/08/23 03:44 Hct 27.8 % (36-47) L 12/08/23 03:44 MCV 94.9 fl (85-98) 12/08/23 03:44 MCH 29.4 pg (27-33) 12/08/23 03:44 MCHC 30.9 g/dL (30-55) 12/08/23 03:44 RDW 16.8 % (12.1-15.1) H 12/08/23 03:44 Plt Count 313 10^3/cmm (157-399) 12/08/23 03:44 MPV 10.8 fL (7.4-10.4) H 12/08/23 03:44 Neut % (Auto) 79.8 % 12/08/23 03:44 Lymph % (Auto) 10.0 % 12/08/23 03:44 [place] % (Auto) 5.1 % 12/08/23 03:44 Eos % (Auto) 0.2 % 12/08/23 03:44 Baso % (Auto) 0.2 % 12/08/23 03:44 Neut # (Auto) 17.25 10^3/uL (1.8-7.7) H 12/08/23 03:44 Lymph # (Auto) 2.2 10^3/uL (0.8-4.8) 12/08/23 03:44 [place] # (Auto) 1.1 10^3/uL (0.2-0.9) H 12/08/23 03:44 Eos # (Auto) 0.0 10^3/uL (0.0-0.8) 12/08/23 03:44 Baso # (Auto) 0.0 10^3/uL (0.0-0.1) 12/08/23 03:44 Nucleated RBC % (auto) 0.3 % 12/08/23 03:44 Nucleated RBCs # 0.1 /100WBC 12/08/23 03:44 Specimen Type Arterial 11/26/23 11:10 Sample Site Radial, right 11/26/23 11:10 ABG pH 7.44 (7.35-7.45) 11/26/23 11:10 ABG pCO2 54.7 mmHg (35-45) H 11/26/23 11:10 ABG pO2 78.8 mmHg (80.0-100.0) L 11/26/23 11:10 ABG PO2/FiO2 Ratio 0 11/26/23 11:10 ABG HCO3 37.5 mmol/L (22-26) H 11/26/23 11:10 ABG Base Excess 11.1 mmol/L (-2.0-2.0) H 11/26/23 11:10 [place] Test Pos 11/26/23 11:10 Hematocrit 43.0 % (37-47) 11/26/23 11:10 Hgb O2 Saturation 94.6 % (95-100) L 11/24/23 05:55 Carboxyhemoglobin 0.1 %THgb (0.4-20.1) L 11/24/23 05:55 Methemoglobin 0.7 % (0.4-1.5) 11/24/23 05:55 Total Hemoglobin 10.5 g/dL (12-16) L 11/24/23 05:55 O2 Delivery Device Bipap 11/26/23 11:10 FiO2 40.0 % 11/26/23 11:10 Table Machine Operator ID glc 11/26/23 11:10 Sodium 141 mmol/L (136-145) 12/08/23 03:44 Potassium 3.1 mmol/L (3.5-5.1) L 12/08/23 03:44 Chloride 93 mmol/L (98-107) L 12/08/23 03:44 Carbon Dioxide 41 mmol/L (22-29) H 12/08/23 03:44 Anion Gap 10.1 (5-19) 12/08/23 03:44 BUN 32 mg/dL (8-23) H 12/08/23 03:44 Creatinine 1.0 mg/dL (0.5-0.9) H 12/08/23 03:44 GFR Calculation Not Reportable 12/08/23 03:44 Glucose 113 mg/dL (65-115) 12/08/23 03:44 POC Glucose 198 mg/dL (70-110) H 12/08/23 12:10 Calculated Osmolality 300 mOsm/kg (285-295) H 12/08/23 03:44 Lactic Acid 2.4 mmol/L (0.5-2.2) H 11/24/23 06:05 Lactic Acid (Sepsis) 1.5 mmol/L (0.5-2.2) 11/24/23 09:08 Calcium 9.0 mg/dL (8.5-10.5) 12/08/23 03:44 Phosphorus 2.5 mg/dL (2.5-4.5) 12/02/23 04:10 Magnesium 2.0 mg/dL (1.7-2.3) 12/03/23 03:46 Iron 91 ug/dL (37-145) 12/08/23 03:44 TIBC 205 mcg/dl 12/08/23 03:44 % Saturation 44.3 % (20-50) 12/08/23 03:44 Unsat Iron Binding 114 ug/dL (112-347) 12/08/23 03:44 Total Bilirubin 0.4 mg/dL (0.15-1.2) 12/08/23 03:44 AST 23 U/L (0-32) 12/08/23 03:44 ALT 63 U/L (0-33) H 12/08/23 03:44 Alkaline Phosphatase 117 U/L (35-105) H 12/08/23 03:44 Troponin T Baseline 114 ng/L (0-10) H* 11/24/23 05:52 Troponin T 120 Minute 174.6 ng/L (0-10) H 11/24/23 07:48 Delta Troponin T 60.6 ABS# (0-10) H* 11/24/23 07:48 Troponin T Hi Sens 6Hr 188.8 ng/L (0-10) H 11/24/23 12:21 Troponin T Hi Sens 6Hr Delta 74.8 ng/L (0-12) H* 11/24/23 12:21 C-Reactive Protein 9.7 mg/L (0.0-4.9) H 12/02/23 04:10 NT-Pro-B Natriuret Pep 8431 pg/mL (0-125) H 12/02/23 04:10 Total Protein 5.3 g/dL (6.6-8.7) L 12/08/23 03:44 Albumin 3.2 g/dL (3.5-5.2) L 12/08/23 03:44 Globulin 2.1 g/dL (1.3-4.6) 12/08/23 03:44 Procalcitonin 0.16 ng/mL (0-0.5) 12/02/23 04:10 Urine Color Yellow (Yellow) 11/24/23 13:27 Urine Appearance Cloudy (CLEAR) A 11/24/23 13:27 Urine pH 7 (5-7) 11/24/23 13:27 Ur Specific [place] 1.010 (1.005-1.030) 11/24/23 13:27 Urine Protein Neg (Negative) 11/24/23 13:27 Urine Glucose (UA) Norm (Normal) 11/24/23 13:27 Urine Ketones Negative (Negative) 11/24/23 13:27 Urine Blood 3+ (Negative) H 11/24/23 13:27 Urine Nitrate Positive (Negative) H 11/24/23 13:27 Urine Bilirubin Neg (Negative) 11/24/23 13:27 Urine Urobilinogen Neg mg/dL (Negative) 11/24/23 13:27 Ur Leukocyte Esterase 2+ (Negative) H 11/24/23 13:27 Urine RBC >100 /hpf (0-2) H 11/24/23 13:27 Urine WBC Too numerous to cnt /hpf (0-5) H 11/24/23 13:27 Ur Squamous Epith Cells 0-4 /hpf (0-5) H 11/24/23 13:27 Ur Transition Epith Cell 0-4 /hpf 11/24/23 13:27 Amorphous Sediment Not Reportable 11/24/23 13:27 Urine Bacteria 2+ /hpf (NONE) H 11/24/23 13:27 Urine Yeast 2+ /hpf H 11/24/23 13:27 Vancomycin Trough 31.1 ug/mL (10-15) H* 11/29/23 05:32 Adenovirus (PCR) Not detected (NOT DETECT) 11/24/23 06:10 C. pneumoniae DNA (PCR) Not detected (NOT DETECT) 11/24/23 06:10 C. difficile Tox (PCR) Not detected (NOT DETECTED) 12/04/23 09:19 Coronavirus 229E (PCR) Not detected (NOT DETECT) 11/24/23 06:10 Human Metapneumovir PCR Not detected (NOT DETECT) 11/24/23 06:10 Influenza A (H1) PCR Not detected (NOT DETECT) 11/24/23 06:10 Influ A (H1/09) PCR Not detected (NOT DETECT) 11/24/23 06:10 Influenza A (H3) PCR Not detected (NOT DETECT) 11/24/23 06:10 Influenza Type A (PCR) Not detected (NOT DETECT) 11/24/23 06:10 Influenza Type B (PCR) Not detected (NOT DETECT) 11/24/23 06:10 M. pneumoniae (PCR) Not detected (NOT DETECT) 11/24/23 06:10 Parainfluenza 1 (PCR) Not detected (NOT DETECT) 11/24/23 06:10 Parainfluenza 2 (PCR) Not detected (NOT DETECT) 11/24/23 06:10 Parainfluenza 3 (PCR) Detected (NOT DETECT) A 11/24/23 06:10 Parainfluenza 4 (PCR) Not detected (NOT DETECT) 11/24/23 06:10 RSV Type A (PCR) Not detected (NOT DETECT) 11/24/23 06:10 RSV Type B (PCR) Not detected (NOT DETECT) 11/24/23 06:10 Entero/Rhino (PCR) Not detected (NOT DETECT) 11/24/23 06:10 SARS-CoV-2 (PCR) Not detected (NOT DETECT) 11/24/23 06:10 MRSA (PCR) Not detected (NOT DETECTED) 12/02/23 15:45 A&P Assessment and plan (1) Atrial fibrillation with RVR: This morning the patient was found to be in atrial fibrillation with rapid ventricular rate. Heart rate in the 140s and 150s. Systolic blood pressure is in the low 100/upper 90s. We may consider restarting the amiodarone. Discussed with Dr. Espinal. The elevated liver enzymes, was thought to be, most likely from the leflunomide. So it might be appropriate to restart amiodarone since the leflunomide is discontinued (2) Acute on chronic diastolic heart failure: The heart failure seems to be fairly compensated at this time. Patient seems to be little on the dry side. We may consider as needed diuretics. (3) Hypertrophic obstructive cardiomyopathy: There is no worsening of the gradient across the LV outflow tract. At this point we may continue on the current management. (4) COPD exacerbation: Management as per the primary (5) Hyperlipidemia: Continue on the current medication Qualifiers: Hyperlipidemia type: mixed hyperlipidemia Qualified Code(s): E78.2 - Mixed hyperlipidemia (6) Thoracic ascending aortic aneurysm: The aneurysm is stable. Continue on the current management. Qualifiers: Presence of rupture: without rupture Qualified Code(s): I71.21 - Aneurysm of the ascending aorta, without rupture (7) CKD (chronic kidney disease) stage 3, GFR 30-59 ml/min: Since her kidney function seems to be stable, will continue to monitor this. Qualifiers: Chronic kidney disease stage 3 subtype: stage 3a (GFR 45-59) Qualified Code(s): N18.31 - Chronic kidney disease, stage 3a (8) Hypokalemia: The potassium level currently is in the normal range. Plan Will be closely monitoring her blood pressure and the heart rate. Based on the clinical response, further management decisions will be made. Attestations Medical Necessity Statement*: Disposition as per the primary Coding Level of Care Code 13828 Diagnoses Atrial fibrillation with RVR I48.91 Acute on chronic diastolic heart failure I50.33 Hypertrophic obstructive cardiomyopathy I42.1 COPD exacerbation J44.1 Mixed hyperlipidemia E78.2 Hyperlipidemia type: mixed hyperlipidemia Aneurysm of ascending aorta without rupture I71.21 Presence of rupture: without rupture Stage 3a chronic kidney disease N18.31 Chronic kidney disease stage 3 subtype: stage 3a (GFR 45-59) Hypokalemia E87.6
[2023-12-08] MEDS: insulin lispro 100 unit/1 mL SUBCUT (12:34)
[2023-12-08] MEDS: amiodarone 50 mg/mL SDV 3 mL 150 MG IVP (12:59)
[2023-12-08] MEDS: ipratropium 0.5 mg/2.5 mL Neb INHALATION (14:19)
[2023-12-08] MEDS: levalbuterol 0.63 mg/3 mL Neb INHALATION (14:19)
--- NOTE | 2023-12-08 14:46 | PC.NURSE ---
Patients family said to nursing staff that patient does not want to take any more medications. She told them that she is at peace. Family would like to talk about putting patient on comfort care. Provider notified.
--- NOTE | 2023-12-08 15:45 | PM.PN ---
Subjective Subjective: hospital course, labs appreciated. Today morning seen with at bedside. Patient is back in A-fib with RVR with heart rate running in 130s to 160s since earlier today morning. Patient states she is short of breath and currently on 4 to 5 L of oxygen supplementation. Overnight she has been on BiPAP. Patient is overall 14 L negative since admission. Patient is complaining of mild chest heaviness. Vitals/I&O/Wt Last Vital Signs Temp 98.2 F 12/08/23 12:51 Pulse 103 H 12/08/23 14:00 Resp 26 H 12/08/23 14:00 BP 108/62 12/08/23 12:51 Pulse Ox 93 12/08/23 14:00 O2 Del Method BiPAP 12/08/23 14:00 O2 Flow Rate 5 12/08/23 12:51 FiO2 30 12/08/23 14:00 12/08/23 12/08/23 12/08/23 06:59 14:59 22:59 Intake Total 220 / 220 Output Total 250 / 1500 Balance -250 / -1090 220 / 220 Weight last 48 hrs Weight 80.796 kg Weight 82.157 kg Physical Exam Narrative: Accompanied by her family and . Const: COMMON NORMALS: no acute distress, patient oriented x3 and alert GENERAL APPEARANCE: cooperative ORIENTATION/CONSCIOUSNESS: Yes awake HENMT: COMMON NORMALS: oropharynx normal Neck/C-Spine: COMMON NORMALS: no JVD Resp: COMMON NORMALS: normal respiratory effort, No retractions, No use of accessory muscles and clear to auscultation bilaterally AUSCULTATION: clear to auscultation bilaterally, crackles, wheezes (Mild wheeze) and diminished lung sounds bilateral OTHER: Better air entry. Cardio: COMMON NORMALS: no JVD, regular rate, regular rhythm, S1 normal heart sound present, S2 normal heart sound present and No murmurs present (Cardio) RATE: regular rate RHYTHM: regular rhythm HEART SOUNDS: S1 normal heart sound present and S2 normal heart sound present GI: COMMON NORMALS: Normal to inspection, nondistended, normoactive bowel sounds present, Soft to palpation and non-tender PALPATION: Yes Soft to palpation Extremity: COMMON NORMALS: no joint enlargement and no pedal edema NARRATIVE EXTREMITY EXAM: 1+ pitting edema OTHER: Trace edema Neuro: COMMON NORMALS: patient oriented x3 and moves all extremities SENSORIUM/ORIENTATION: Yes alert Psych: COMMON NORMALS: mental status grossly normal Skin: COMMON NORMALS: no rashes or lesions noted GENERAL SKIN EXAM: no rashes or lesions noted Urinary Catheter Management: Shafer: Cath Placed During This Visit: yes Reason for Continuing Indwelling Catheter: Acute Urinary Retention or Obstruction Urinary Catheter Date of Insertion: 11/25/23 Urinary Catheter Time of Insertion: 10:00 Data 12/08/23 03:44 12/08/23 03:44 A&P Assessment and plan (1) Diarrhea: Suspected GI bleed, melanotic stools. So far diarrhea/melanotic stools have resolved. Reviewed CBC, hemoglobin appears to have stated, 8.3 today. Recheck CBC. WBC up to 20.18, however, C. difficile reviewed and negative. Tapering off steroids. Melanotic stool, suspected upper GI bleed.Reviewed vitals, CBC. Diarrhea so far has resolved. C. difficile reviewed, negative. Hemoglobin noted 8.3 this morning. Reassess CBC. In case of worsening anemia may require endoscopy prior to discharge. Otherwise consideration of discharge with PPI, reassessment for trial of low-dose anticoagulant or aspirin versus trial in the hospital. Suspected gastritis/PUD secondary to possibly steroids. Continue to cut down steroids. Decreased down to 5 mg daily prednisone. PPI IV. Hemoccult positive. Continue to hold Eliquis. (2) Parainfluenza: Reviewed vitals, oxygenation with improvement, down to 2 L. Subjectively she is feeling better. Reviewed CBC, leukocytosis up to 20.18, mostly neutrophilic. Do suspect steroid involvement, however, WBC has kept rising. C. difficile is negative. Will repeat chest x-ray. Obtain a UA. Loose stool resolved. No vomiting or abdominal pain or discomfort. No cellulitis. Mild wheeze today, will keep on prednisone 5 mg for now. Continue DuoNebs. Continue budesonide. Completed Zosyn. Patient noted to be positive for parainfluenza 3. Treat medically and/or symptomatically at this time. Droplet precautions Nebs Return to [place] after discharge. (3) Depression: Monitoring telemetry due to atrial fibrillation, increased risk of arrhythmia with nortriptyline as discussed with her. Has been feeling depressed, loss of motivation, indigo. She would be willing to follow-up with behavioral health care for additional treatment. In the meantime would like to start an antidepressant. Would avoid SSRI given concern for upper GI bleed at this time, Start instead with nortriptyline. Monitor on telemetry with cardiac risk. (4) Acute exacerbation of CHF (congestive heart failure): She has been seen by cardiology again today. Reviewed note. Continue current course of action. Continue on oral Bumex. Still in negative balance. Oxygenation with improvement. Lower extremity edema with improvement. Reviewed chemistry, renal function. Reviewed BUN, creatinine. Recheck renal function. Monitor YAIR. At risk of electrolyte deficiency, reassess chemistry. At risk of renal dysfunction, reassess renal function. Amiodarone discontinued secondary to high LFTs. LFTs improving Cont 1200 mill fluid restriction. Repeat BMP this afternoon if potassium reasonable give 40 mg IV push Lasix with potassium replacement, -8 L so far monitor urine output, ? Hypokalemia, requiring IV replacement of potassium 80 mEq, recheck potassium in the afternoon Cardiology consultation appreciated Echocardiogram reviewed: CONCLUSIONS Normal left ventricular size and systolic function, EF 71 %. Moderate left ventricular hypertrophy. Mildly increased left atrial size. The right-sided structures could not be visualized well. The peak gradient across LV outflow tract was 117 mmHg Features suggesting hypertrophic obstructive cardiomyopathy Mild pulmonary hypertension with an estimated pulmonary artery peak systolic pressure of 40 mmHg. Comparison with the previous study is difficult because of the difference in the technical quality. Diamox secondary to underlying lung disease, pulmonary hypertension, elevated CO2 Requested CBC, BMP follow up. (5) Atrial fibrillation with RVR: Heart rate doing better. Continue metoprolol. May have to increase the dose if tachycardia persist. Monitor blood pressure, risk of hypotension with combination of metoprolol and diltiazem. Eliquis. Monitor heart rates. Continue telemetry Continue Eliquis for anticoagulation Continue Cardizem p.o. (6) Leukocytosis: Reviewed WBC, noted leukocytosis 16.5. Continue to decrease steroids. Reviewed sputum culture, noted mixed upper respiratory vince. Multifactorial most likely due to pneumonia/atelectasis. Urine ultimately grew out some yeast which is likely colonization Completed Zosyn, vancomycin Sputum culture negative Shafer catheter replaced by nursing staff yesterday. Await MRSA PCR. (7) Elevated troponin: Cardiology evaluating (8) Hypertension: Stable at this time Hold Antihypertensive medications. Qualifiers: Hypertension type: essential hypertension Qualified Code(s): I10 - Essential (primary) hypertension (9) CKD (chronic kidney disease) stage 3, GFR 30-59 ml/min: Reviewed BUN, creatinine. Stable at this time Continue diuresis due to #1. CMP in AM. Qualifiers: Chronic kidney disease stage 3 subtype: stage 3a (GFR 45-59) Qualified Code(s): N18.31 - Chronic kidney disease, stage 3a (10) Seronegative rheumatoid arthritis of both hands: Tapered off IV steroids for persistent bronchitis/reactive airway disease as above. (11) Hypokalemia: Has been replaced. Recheck chemistry panel (12) Goals of care, counseling/discussion: Plan Aleyda UTI: Urine culture eventually growing Aleyda albicans. As she has still been weaker, with generalized weakness, slow recovery,possible actual UTI. Diflucan. Hyperglycemia: Reviewed Accu-Cheks. Continue sliding scale insulin. Change diet to consistent carbohydrate. Prediabetes on review of A1c from last month. Transaminitis. Reviewed AST, ALT, Noted with mild gradual improvement. may be secondary to hepatic congestion versus amiodarone effect. Amiodarone has been discontinued. Recheck Once stable for discharge, patient will return back to [facility] for further rehabilitation services. CODE STATUS: Full code DVT prophylaxis: SCD due to GIB Plan for the day: Hold off on metoprolol and Cardizem for now. Switch Cardizem to 60 mg every 6 hourly. Patient already received 250 mcg of digoxin. Will repeat 250 mcg IV again. If not improving will start on amiodarone bolus and drip. Transaminitis seems to be improving. Was up to 450 3 months ago. It could be in setting of home dose of leflunomide. Clinically patient looks dehydrated. Start on gentle IV hydration with normal saline at 50 cc/h. Hold off on dialysis for now. Care discussed in detail with cardiology. Continue with Diflucan and oral steroids. Patient persistently have diarrhea. Hemoglobin has remained stable. C. difficile was checked earlier in the admission was all negative around a week ago. Will recheck stool studies including C. difficile for now. Goals of care discussion done in detail. Patient would like to discuss further with her before making a decision. For now would want to remain full code. will be the DPOA. Addendum: Around 3 PM got a text from RN taking care of the patient that she would want to transition over to comfort care. Revisited with the patient with and multiple family members including son at bedside. We discussed comfort measures would mean that we would hold off on any active treatment and the goals will switch from improving quantity of life with active treatment to keeping her comfortable. Also discussed we will not do any further blood work. We discussed if her heart stops the concentration would be to keep her comfortable and it could eventually mean her dying. Patient verbalizes understanding and wants to go ahead with comfort care. Stop IV fluids, amiodarone drip. Comfort measures order placed. Hold off on any further IV medications. Continue with nebulization treatments. Attestations Medical Necessity Statement*: Requires further hospitalization while comfort care measures are set up for a patient admitted for COPD exacerbation, CHF in setting of A-fib with RVR, Aleyda UTI Diagnoses Diarrhea R19.7 Parainfluenza B34.8 Depression F32.A Acute exacerbation of CHF (congestive heart failure) I50.9 Atrial fibrillation with RVR I48.91 Leukocytosis D72.829 Elevated troponin R79.89 Essential hypertension I10 Hypertension type: essential hypertension Stage 3a chronic kidney disease N18.31 Chronic kidney disease stage 3 subtype: stage 3a (GFR 45-59) Seronegative rheumatoid arthritis of both hands M06.041; M06.042 Hypokalemia E87.6 Goals of care, counseling/discussion Z71.89
[2023-12-08] MEDS: morphine 4 mg/mL SDV 1 mL IVP ×2 (15:51→22:20)
[2023-12-08] MEDS: LORazepam 2 mg/mL INJ 1 mL IVP (20:40)
[2023-12-09] MEDS: LORazepam 2 mg/mL INJ 1 mL IVP ×3 (00:57→14:41)
[2023-12-09] MEDS: glycopyrrolate 0.2 mg/mL SDV 2 mL IV (01:01)
[2023-12-09 08:18] VITALS: RESP 29
[2023-12-09] MEDS: morphine 4 mg/mL SDV 1 mL IVP ×2 (08:18→14:40)
--- NOTE | 2023-12-09 13:17 | PM.PN ---
Subjective Subjective: The patient and the family has decided for comfort care. Currently she is sedated and is not responding to verbal commands. Medications: Medication Review Details: Current Medications Acetaminophen (Acetaminophen 650 Mg Supp) 650 mg DC Q4H PRN PRN Reason: Temperature greater than 100.5 Albuterol Sulfate (Albuterol 2.5 Mg/3 Ml Neb) 2.5 mg INHALATION Q4H.RESPIRATORY PRN PRN Reason: SHORTNESS OF BREATH Apixaban (Apixaban 5 Mg Tablet) 5 mg PO BID@0900,2100 [facility] Last Admin: 12/04/23 20:22 Dose: 5 mg Artificial Tears (Artificial Tears Op Soln 15 Ml Btl) 2 drop EYE-BOTH Q2H PRN PRN Reason: DRY EYE(S) Atropine Sulfate (Atropine 1% Op Soln 2 Ml Btl) 3 drop SUBLINGUAL Q4H PRN PRN Reason: Excessive Secretions, Rattling Bumetanide (Bumetanide 1 Mg Tablet) 2 mg PO BID [facility] Last Admin: 12/08/23 08:37 Dose: 2 mg Camphor/Menthol/Phenol (Blistex Lip Oint 7 Gm Tube) 1 applic TOPICAL Q2H PRN PRN Reason: DRY LIPS Dextrose (Dextrose 50% Syringe 50 Ml) 25 ml IVP ONCE PRN; Protocol PRN Reason: hypoglycemia protocol Dextrose (Dextrose 50% Syringe 50 Ml) 50 ml IVP PRN PRN; Protocol PRN Reason: hypoglycemia protocol Diphenhydramine HCl (Diphenhydramine 25 Mg Capsule) 25 mg PO Q4H PRN PRN Reason: ITCHING Epinephrine (Racepinephrine 0.5 Ml Neb) 0.5 ml INHALATION Q4H.RESPIRATORY PRN PRN Reason: Stridor Glycerin (Glycerin Adult Supp) 1 each DC DAILY PRN PRN Reason: Fecal Impaction Glycopyrrolate (Glycopyrrolate 0.2 Mg/Ml Sdv 2 Ml) 0.2 mg IV Q4H PRN PRN Reason: Excessive Secretions, Rattling Last Admin: 12/09/23 01:01 Dose: 0.2 mg Dextrose (D5w) 500 mls @ 0 mls/hr IV ONCE PRN; Protocol PRN Reason: Adult Acute Hypoglycemia Prot Lorazepam (Lorazepam 2 Mg/Ml Inj 1 Ml) 1 - 2 mg IVP Q8H PRN PRN Reason: Anxiety, Agitation or Restless Last Admin: 12/09/23 08:19 Dose: 1 mg Lorazepam (Lorazepam 2 Mg/Ml Inj 1 Ml) 2 mg IVP Q30M PRN PRN Reason: SEIZURES Last Admin: 12/09/23 00:57 Dose: 2 mg Morphine Sulfate (Morphine 4 Mg/Ml Sdv 1 Ml) 2 - 10 mg IVP Q15M PRN PRN Reason: Moderate To Severe Pain or SOB Last Admin: 12/09/23 08:18 Dose: 4 mg Morphine Sulfate (Morphine 10 Mg/0.5 Ml Oral Liq Ud) 2 - 10 mg SUBLINGUAL Q2H PRN PRN Reason: Moderate To Severe Pain or SOB Ondansetron HCl (Ondansetron 2 Mg/Ml Sdv 2 Ml) 4 mg IVP Q6H PRN PRN Reason: NAUSEA AND VOMITING Saliva Substitute (Saliva Stimulant [place] 30 Ml Btl) 1 spray MUCOUS MEM Q2H PRN PRN Reason: DRY MOUTH Vitals/I&O/Wt Last Vital Signs Temp 98.2 F 12/08/23 12:51 Pulse 136 H 12/08/23 21:52 Resp 29 H 12/09/23 08:18 BP 108/62 12/08/23 12:51 Pulse Ox 96 12/08/23 16:00 O2 Del Method Nasal Cannula 12/08/23 16:00 O2 Flow Rate 5 12/08/23 16:00 FiO2 30 12/08/23 14:00 12/08/23 12/09/23 12/09/23 22:59 06:59 14:59 Intake Total 728.333 / 948.333 0 / 948.333 Output Total 150 / 150 Balance 728.333 / 948.333 -150 / 798.333 Weight last 48 hrs Weight 178 lb 2 oz Physical Exam Narrative: GENERAL: The patient is sedated HEENT: No significant pallor, icterus or lymphadenopathy.Oral cavity: There are no mucous membrane lesions. NECK: Trachea appears to be central. No masses noted. No JVD or thyromegaly appreciated. RESPIRATORY: Chest is symmetrical. No intercostals muscle retraction or any accessory muscle activation. There is no chest wall tenderness. Breath sounds are heard bilaterally. Scattered expiratory wheezing is still present. Diminished intensity breath sounds bilaterally BREASTS: Deferred. HEART: The heart sounds are variable. No S3 or S4. Systolic murmur grade 3 or 6 in the base of the heart. No diastolic murmurs.. No pericardial rub ABDOMEN: No vessel pulsations or distention. No tenderness. No organomegaly appreciated. Bowel sounds are normally heard. : Deferred. RECTAL: Deferred. LYMPHATIC: No lymphadenopathy noted in the neck. EXTREMITIES: No significant edema both lower extremities. MUSCULOSKELETAL: No acute joint deformities or swelling SKIN: There are no significant rashes or ecchymosis NEUROPSYCHIATRIC: Sedated and is not responding to verbal commands Urinary Catheter Management: Shafer: Cath Placed During This Visit: yes Reason for Continuing Indwelling Catheter: Acute Urinary Retention or Obstruction Urinary Catheter Date of Insertion: 11/25/23 Urinary Catheter Time of Insertion: 10:00 Data 12/08/23 03:44 12/08/23 03:44 A&P Assessment and plan (1) Atrial fibrillation with RVR: The heart rate seems to be getting under control. (2) Acute on chronic diastolic heart failure: The heart failure seems to be fairly compensated at this time. (3) Hypertrophic obstructive cardiomyopathy: No chest pain or syncopal episodes. Gradient across the LV outflow tract remains the same . (4) COPD exacerbation: Waxing and waning. (5) Hyperlipidemia: Continue on the current medication Qualifiers: Hyperlipidemia type: mixed hyperlipidemia Qualified Code(s): E78.2 - Mixed hyperlipidemia (6) Thoracic ascending aortic aneurysm: The aneurysm is stable. Continue on the current management. Qualifiers: Presence of rupture: without rupture Qualified Code(s): I71.21 - Aneurysm of the ascending aorta, without rupture (7) CKD (chronic kidney disease) stage 3, GFR 30-59 ml/min: Since her kidney function seems to be stable. Qualifiers: Chronic kidney disease stage 3 subtype: stage 3a (GFR 45-59) Qualified Code(s): N18.31 - Chronic kidney disease, stage 3a (8) Hypokalemia: The potassium level currently is in the normal range. Plan Since the patient and the family have decided to go with hospice care, I may sign off at this point. Please feel free to contact me , if I can be of any further help. Attestations Medical Necessity Statement*: Disposition as per the primary Coding Level of Care Code 24192 Diagnoses Atrial fibrillation with RVR I48.91 Acute on chronic diastolic heart failure I50.33 Hypertrophic obstructive cardiomyopathy I42.1 COPD exacerbation J44.1 Mixed hyperlipidemia E78.2 Hyperlipidemia type: mixed hyperlipidemia Aneurysm of ascending aorta without rupture I71.21 Presence of rupture: without rupture Stage 3a chronic kidney disease N18.31 Chronic kidney disease stage 3 subtype: stage 3a (GFR 45-59) Hypokalemia E87.6
--- NOTE | 2023-12-09 13:31 | P.DS_ITS ---
Discharge Providers Date of Admission: 11/24/23 09:29 Date of Discharge: December 09, 2023 Attending Provider at Admission: Jeff Garner MD Attending Provider at Discharge: Fredis Corbin MD Consults: Cardiology: Primary Care Provider: Carlos Manuel Swift MD Diagnoses at Discharge Discharge Diagnosis (1) Diarrhea: Status: Acute (2) Parainfluenza: Status: Acute (3) Depression: Status: Acute (4) Acute exacerbation of CHF (congestive heart failure): Status: Acute (5) Atrial fibrillation with RVR: Status: Acute (6) Leukocytosis: Status: Acute (7) Elevated troponin: Status: Acute (8) Hypertension: Status: Acute Qualifiers: Hypertension type: essential hypertension Qualified Code(s): I10 - Essential (primary) hypertension (9) CKD (chronic kidney disease) stage 3, GFR 30-59 ml/min: Status: Acute Qualifiers: Chronic kidney disease stage 3 subtype: stage 3a (GFR 45-59) Qualified Code(s): N18.31 - Chronic kidney disease, stage 3a (10) Seronegative rheumatoid arthritis of both hands: Status: Acute (11) Hypokalemia: Status: Acute (12) Goals of care, counseling/discussion: Status: Acute Reason for Visit Reason for Visit: RESP. DISTRESS Brief History: History as per HPI: Patient is a 72-year-old female with a past medical history of hypertension, CKD, COPD, hyperlipidemia, cellulitis, CHF, and rheumatoid arthritis who presents the emergency room with a chief complaint of increased shortness of breath, tachycardia, weakness, and increased swelling. Patient currently resides at a SNF, [facility]. Recent hospitalization with a discharge date of 11/11/2023. Family reports that they started to notice an increase swelling in lower extremity on patient approximately 3 days ago and increasingly worsening since. Family and patient states she has been working well with PT/OT without complications or a noticable increase work of breathing during therapy treatment. Patient reports yesterday morning, that she felt somewhat short of breath while sitting in the chair, more than normal and increasingly worsened throughout the day. Reports that she asked nursing staff at SNF for a breathing treatment that afternoon and reported that it helped some but still in slight respiratory distress. States she felt like water was in her lungs and she was unable to lye flat. Vital signs were obtained by nursing staff and noted heart rate of >140s. EMS was notdified and transferred patient to ER for further evaluation. EMS noted HR to be 160 and administered 6 of adenosine, which failed to decrease HR. 12mg Adenosine was administered and slightly decreased HR. Patient presented to the ED in Af[place] with RVR with a rate of 140. Denies any Recent medication changes and has remained on current medication regimen. While in the ER, Laboratory studies and radiology imaging were performed and discussed below. Patient received 20 mg Cardizem IV push x 1, 80 mg Lasix IV, DuoNeb, vancomycin, Zosyn, 1 L NS, continuous Cardizem drip. Patient will be admitted to the hospital for further medical management of acute CHF exacerbation, elevated troponin, leukocytosis, A-fib with RVR, and parainfl uenza. Hospital Course Hospital Course Patient was admitted to the hospital for further evaluation and management of acute hypoxic respiratory failure in setting of CHF exacerbation with possibility of superimposed bacterial infection, parainfluenza infection, A-fib with RVR. She was also found to have elevated troponins on admission. She was started on aggressive IV diuresis, nebulization treatment, broad-spectrum IV antibiotics. For A-fib with RVR she received IV Cardizem and was transitioned over to Cardizem drip. Given elevated troponins cardiology was consulted and echocardiogram was done which showed EF of 71% with moderate LVH, mild LA size increase, features suggestive of HOCM with LV outflow gradient 1 1 7 mmHg and PASP of 40 mmHg. Patient gradually improved. Patient had a prolonged hospitalization with very gradual improvement in her breathing status. Because of IV aggressive diuresis she developed KIRSTEN on her baseline CKD along with mild contraction alkalosis. Her hospitalization was also complicated by her developing anemia because of melena. C. difficile was ruled out. Anticoagu lation was withheld and she was treated with PPIs twice daily. Hemoglobin remained stable. Patient again developed A-fib with RVR with worsening difficulty in breathing and contraction alkalosis. She was being started on gentle IV hydration along with initiation of amiodarone drip for A-fib with RVR but patient after having further goals of care discussion with the medical team and family decided to go hospice. She has been discharged to senior living with hospice for further management as per goals of care. Physical Exam Narrative: Accompanied by her family and . Const: COMMON NORMALS: no acute distress, patient oriented x3 and alert GENERAL APPEARANCE: cooperative ORIENTATION/CONSCIOUSNESS: Yes awake HENMT: COMMON NORMALS: oropharynx normal Neck/C-Spine: COMMON NORMALS: no JVD Resp: COMMON NORMALS: normal respiratory effort, No retractions, No use of accessory muscles and clear to auscultation bilaterally AUSCULTATION: clear to auscultation bilaterally, crackles, wheezes (Mild wheeze) and diminished lung sounds bilateral OTHER: Better air entry. Cardio: COMMON NORMALS: no JVD, regular rate, regular rhythm, S1 normal heart sound present, S2 normal heart sound present and No murmurs present (Cardio) RATE: regular rate RHYTHM: regular rhythm HEART SOUNDS: S1 normal heart sound present and S2 normal heart sound present GI: COMMON NORMALS: Normal to inspection, nondistended, normoactive bowel sounds present, Soft to palpation and non-tender PALPATION: Yes Soft to palpation Extremity: COMMON NORMALS: no joint enlargement and no pedal edema NARRATIVE EXTREMITY EXAM: 1+ pitting edema OTHER: Trace edema Neuro: COMMON NORMALS: patient oriented x3 and moves all extremities SENSORIUM/ORIENTATION: Yes alert Psych: COMMON NORMALS: mental status grossly normal Skin: COMMON NORMALS: no rashes or lesions noted GENERAL SKIN EXAM: no rashes or lesions noted Urinary Catheter Management: Shafer: Cath Placed During This Visit: yes Reason for Continuing Indwelling Catheter: Acute Urinary Retention or Obstruction Urinary Catheter Date of Insertion: 11/25/23 Urinary Catheter Time of Insertion: 10:00 Discharge Data Studies Completed and Pending Completed Studies During Hospitalization Category Date Time Status XR chest 1V portable [id number] Routine Exams 11/26/23 10:55 Completed XR chest 1V portable [id number] Routine Exams 11/28/23 07:00 Completed XR chest 1V portable [id number] Routine Exams 11/30/23 07:00 Completed XR chest 1V portable [id number] Routine Exams 12/08/23 06:00 Completed XR chest 1V portable [id number] Stat Exams 11/24/23 05:49 Completed Blood Cultures ([facility]) Routine Lab 11/24/23 06:05 Completed Blood Cultures ([facility]) Routine Lab 11/24/23 06:16 Completed CV. echo lmt w color [id number] Routine Ultrasound 11/27/23 13:58 Completed Pending at discharge Category Date Time Status CA echo doppler complete Routine Exams 11/25/23 19:26 Ordered Laboratory Results WBC 21.60 10^3/uL (3.29-11.43) H 12/08/23 03:44 RBC 2.93 10^6/uL (3.85-5.65) L 12/08/23 03:44 Hgb 8.60 g/dL (11.27-16.99) L 12/08/23 03:44 Hct 27.8 % (36-47) L 12/08/23 03:44 MCV 94.9 fl (85-98) 12/08/23 03:44 MCH 29.4 pg (27-33) 12/08/23 03:44 MCHC 30.9 g/dL (30-55) 12/08/23 03:44 RDW 16.8 % (12.1-15.1) H 12/08/23 03:44 Plt Count 313 10^3/cmm (157-399) 12/08/23 03:44 MPV 10.8 fL (7.4-10.4) H 12/08/23 03:44 Neut % (Auto) 79.8 % 12/08/23 03:44 Lymph % (Auto) 10.0 % 12/08/23 03:44 [place] % (Auto) 5.1 % 12/08/23 03:44 Eos % (Auto) 0.2 % 12/08/23 03:44 Baso % (Auto) 0.2 % 12/08/23 03:44 Neut # (Auto) 17.25 10^3/uL (1.8-7.7) H 12/08/23 03:44 Lymph # (Auto) 2.2 10^3/uL (0.8-4.8) 12/08/23 03:44 [place] # (Auto) 1.1 10^3/uL (0.2-0.9) H 12/08/23 03:44 Eos # (Auto) 0.0 10^3/uL (0.0-0.8) 12/08/23 03:44 Baso # (Auto) 0.0 10^3/uL (0.0-0.1) 12/08/23 03:44 Nucleated RBC % (auto) 0.3 % 12/08/23 03:44 Nucleated RBCs # 0.1 /100WBC 12/08/23 03:44 Specimen Type Arterial 11/26/23 11:10 Sample Site Radial, right 11/26/23 11:10 ABG pH 7.44 (7.35-7.45) 11/26/23 11:10 ABG pCO2 54.7 mmHg (35-45) H 11/26/23 11:10 ABG pO2 78.8 mmHg (80.0-100.0) L 11/26/23 11:10 ABG PO2/FiO2 Ratio 0 11/26/23 11:10 ABG HCO3 37.5 mmol/L (22-26) H 11/26/23 11:10 ABG Base Excess 11.1 mmol/L (-2.0-2.0) H 11/26/23 11:10 Perry Test Pos 11/26/23 11:10 Hematocrit 43.0 % (37-47) 11/26/23 11:10 Hgb O2 Saturation 94.6 % (95-100) L 11/24/23 05:55 Carboxyhemoglobin 0.1 %THgb (0.4-20.1) L 11/24/23 05:55 Methemoglobin 0.7 % (0.4-1.5) 11/24/23 05:55 Total Hemoglobin 10.5 g/dL (12-16) L 11/24/23 05:55 O2 Delivery Device Bipap 11/26/23 11:10 FiO2 40.0 % 11/26/23 11:10 District Plant Engineer ID [id number] 11/26/23 11:10 Sodium 141 mmol/L (136-145) 12/08/23 03:44 Potassium 3.1 mmol/L (3.5-5.1) L 12/08/23 03:44 Chloride 93 mmol/L (98-107) L 12/08/23 03:44 Carbon Dioxide 41 mmol/L (22-29) H 12/08/23 03:44 Anion Gap 10.1 (5-19) 12/08/23 03:44 BUN 32 mg/dL (8-23) H 12/08/23 03:44 Creatinine 1.0 mg/dL (0.5-0.9) H 12/08/23 03:44 GFR Calculation Not Reportable 12/08/23 03:44 Glucose 113 mg/dL (65-115) 12/08/23 03:44 POC Glucose 198 mg/dL (70-110) H 12/08/23 12:10 Calculated Osmolality 300 mOsm/kg (285-295) H 12/08/23 03:44 Lactic Acid 2.4 mmol/L (0.5-2.2) H 11/24/23 06:05 Lactic Acid (Sepsis) 1.5 mmol/L (0.5-2.2) 11/24/23 09:08 Calcium 9.0 mg/dL (8.5-10.5) 12/08/23 03:44 Phosphorus 2.5 mg/dL (2.5-4.5) 12/02/23 04:10 Magnesium 2.0 mg/dL (1.7-2.3) 12/03/23 03:46 Iron 91 ug/dL (37-145) 12/08/23 03:44 TIBC 205 mcg/dl 12/08/23 03:44 % Saturation 44.3 % (20-50) 12/08/23 03:44 Unsat Iron Binding 114 ug/dL (112-347) 12/08/23 03:44 Total Bilirubin 0.4 mg/dL (0.15-1.2) 12/08/23 03:44 AST 23 U/L (0-32) 12/08/23 03:44 ALT 63 U/L (0-33) H 12/08/23 03:44 Alkaline Phosphatase 117 U/L (35-105) H 12/08/23 03:44 Troponin T Baseline 114 ng/L (0-10) H* 11/24/23 05:52 Troponin T 120 Minute 174.6 ng/L (0-10) H 11/24/23 07:48 Delta Troponin T 60.6 ABS# (0-10) H* 11/24/23 07:48 Troponin T Hi Sens 6Hr 188.8 ng/L (0-10) H 11/24/23 12:21 Troponin T Hi Sens 6Hr Delta 74.8 ng/L (0-12) H* 11/24/23 12:21 C-Reactive Protein 9.7 mg/L (0.0-4.9) H 12/02/23 04:10 NT-Pro-B Natriuret Pep 8431 pg/mL (0-125) H 12/02/23 04:10 Total Protein 5.3 g/dL (6.6-8.7) L 12/08/23 03:44 Albumin 3.2 g/dL (3.5-5.2) L 12/08/23 03:44 Globulin 2.1 g/dL (1.3-4.6) 12/08/23 03:44 Procalcitonin 0.16 ng/mL (0-0.5) 12/02/23 04:10 Urine Color Yellow (Yellow) 11/24/23 13:27 Urine Appearance Cloudy (CLEAR) A 11/24/23 13:27 Urine pH 7 (5-7) 11/24/23 13:27 Ur Specific [place] 1.010 (1.005-1.030) 11/24/23 13:27 Urine Protein Neg (Negative) 11/24/23 13:27 Urine Glucose (UA) Norm (Normal) 11/24/23 13:27 Urine Ketones Negative (Negative) 11/24/23 13:27 Urine Blood 3+ (Negative) H 11/24/23 13:27 Urine Nitrate Positive (Negative) H 11/24/23 13:27 Urine Bilirubin Neg (Negative) 11/24/23 13:27 Urine Urobilinogen Neg mg/dL (Negative) 11/24/23 13:27 Ur Leukocyte Esterase 2+ (Negative) H 11/24/23 13:27 Urine RBC >100 /hpf (0-2) H 11/24/23 13:27 Urine WBC Too numerous to cnt /hpf (0-5) H 11/24/23 13:27 Ur Squamous Epith Cells 0-4 /hpf (0-5) H 11/24/23 13:27 Ur Transition Epith Cell 0-4 /hpf 11/24/23 13:27 Amorphous Sediment Not Reportable 11/24/23 13:27 Urine Bacteria 2+ /hpf (NONE) H 11/24/23 13:27 Urine Yeast 2+ /hpf H 11/24/23 13:27 Vancomycin Trough 31.1 ug/mL (10-15) H* 11/29/23 05:32 Adenovirus (PCR) Not detected (NOT DETECT) 11/24/23 06:10 C. pneumoniae DNA (PCR) Not detected (NOT DETECT) 11/24/23 06:10 C. difficile Tox (PCR) Not detected (NOT DETECTED) 12/04/23 09:19 Coronavirus 229E (PCR) Not detected (NOT DETECT) 11/24/23 06:10 Human Metapneumovir PCR Not detected (NOT DETECT) 11/24/23 06:10 Influenza A (H1) PCR Not detected (NOT DETECT) 11/24/23 06:10 Influ A (H1/09) PCR Not detected (NOT DETECT) 11/24/23 06:10 Influenza A (H3) PCR Not detected (NOT DETECT) 11/24/23 06:10 Influenza Type A (PCR) Not detected (NOT DETECT) 11/24/23 06:10 Influenza Type B (PCR) Not detected (NOT DETECT) 11/24/23 06:10 M. pneumoniae (PCR) Not detected (NOT DETECT) 11/24/23 06:10 Parainfluenza 1 (PCR) Not detected (NOT DETECT) 11/24/23 06:10 Parainfluenza 2 (PCR) Not detected (NOT DETECT) 11/24/23 06:10 Parainfluenza 3 (PCR) Detected (NOT DETECT) A 11/24/23 06:10 Parainfluenza 4 (PCR) Not detected (NOT DETECT) 11/24/23 06:10 RSV Type A (PCR) Not detected (NOT DETECT) 11/24/23 06:10 RSV Type B (PCR) Not detected (NOT DETECT) 11/24/23 06:10 Entero/Rhino (PCR) Not detected (NOT DETECT) 11/24/23 06:10 SARS-CoV-2 (PCR) Not detected (NOT DETECT) 11/24/23 06:10 MRSA (PCR) Not detected (NOT DETECTED) 12/02/23 15:45 Imaging Echo: Radiologist's impression: CONCLUSIONS Normal left ventricular size and systolic function, EF 71 %. Moderate left ventricular hypertrophy. Mildly increased left atrial size. The right-sided structures could not be visualized well. The peak gradient across LV outflow tract was 117 mmHg Features suggesting hypertrophic obstructive cardiomyopathy Mild pulmonary hypertension with an estimated pulmonary artery peak systolic pressure of 40 mmHg. Comparison with the previous study is difficult because of the difference in the technical quality. Vitals Last Vital Signs Temp 98.2 F 12/08/23 12:51 Pulse 136 H 12/08/23 21:52 Resp 29 H 12/09/23 08:18 BP 108/62 12/08/23 12:51 Pulse Ox 96 12/08/23 16:00 O2 Del Method Nasal Cannula 12/08/23 16:00 O2 Flow Rate 5 12/08/23 16:00 FiO2 30 12/08/23 14:00 Discharge Plan Discharge Patient Disposition: Hospice - Medical Facility Condition: Serious Prescriptions: No Action cholecalciferol (vitamin D3) 1,250 mcg (50,000 unit) capsule 1,000 mcg PO DAILY@0800 fluticasone propion-salmeterol [Advair Diskus] 500-50 mcg/dose blister with device 1 inh INHALATION BID@0800,1800 coenzyme Q10 [Co Q-10] 200 mg capsule 200 mg PO DAILY tramadol 50 mg tablet 50 mg PO Q8H PRN (Reason: Pain) leflunomide 10 mg tablet 10 mg PO DAILY Qty: 30 3RF Hold Instructions: Resume on 11/22/23. albuterol sulfate [Ventolin HFA] 90 mcg/actuation Hfa Aerosol Inhaler 2 puff INHALATION Q6H PRN (Reason: Wheezing) diphenhydramine HCl [Benadryl] 25 mg Capsule 25 mg PO BEDTIME PRN (Reason: Allergic Symptoms) folic acid 1 mg tablet 1 mg PO DAILY hydrocortisone 2.5 % cream 1 applic TOPICAL DAILY PRN (Reason: Rash) [place]-3 Fish Oil 300-1,000 mg Capsule 1 cap PO QAM omeprazole 20 mg tablet,delayed release (DR/EC) 20 mg PO DAILY 84 Days Qty: 30 0RF metoprolol tartrate 50 mg tablet 50 mg PO BID docusate sodium 100 mg Capsule 100 mg PO BID Qty: 10 0RF diltiazem HCl 120 mg Capsule,Extended Release 24hr 240 mg PO DAILY 30 Days Qty: 60 0RF colchicine 0.6 mg Tablet 0.6 mg PO DAILY Qty: 30 0RF acetaminophen 325 mg Tablet 650 mg PO QID PRN (Reason: Pain) albuterol sulfate 2.5 mg /3 mL (0.083 %) Solution For Nebulization 2.5 mg INHALATION Q4H PRN (Reason: Shortness Of Breath Or Wheezing) Zofran 4 mg Tablet 4 mg PO Q6H PRN (Reason: Nausea And Vomiting) Milk of Magnesia 400 mg/5 mL Suspension 30 ml PO DAILY PRN (Reason: Constipation) Dulcolax (bisacodyl) 10 mg Suppository 10 mg MA DAILY PRN (Reason: Constipation) Fleet Enema 19-7 gram/118 mL Enema 118 ml MA DAILY PRN (Reason: Constipation) PNV cmb#95-ferrous fumarate-FA 28 mg iron- 800 mcg Tablet 1 tab PO DAILY Eliquis 5 mg Tablet 5 mg PO BID bumetanide 2 mg tablet 2 mg PO BID prednisone 20 mg tablet 40 mg PO DAILY Discharge Orders: Discharge Order (Routine); Ordered 12/09/23 Ordered By: Fredis Corbin Referrals: [facility] ([facility]) [Outside] [facility] [Outside] Carlos Manuel Swift MD [Primary Care Provider] - Discharge Diet: Advance as tolerated Discharge Activity: Bedrest Patient Instructions: Heart Failure (DC), CHF Stoplight, Opioid Safety Activity Restrictions/Additional Instructions: Hospice care Discharge Attestations Time Spent in Discharge Care*: greater than 30 min Specific Discharge Activities: educating and/or supporting family/caregiver, discussing with pcp/other providers, discussing with mental health case manager/social workers/dc planners, documenting/other paperwork and evaluating patient/reviewing data Status at Discharge: Cognitive status at discharge: moderately impaired cognition , Behavioral status at discharge: cooperative , Functional status at discharge: bed bound , Overall status at discharge: patient has a new baseline Quality Metrics Clinical Quality Measures [ No reported AMI, CVA or VTE this stay] Coding Level of Care Code 05623 Total time (in minutes) for Discharge: 60 Diagnoses Diarrhea R19.7 Parainfluenza B34.8 Depression F32.A Acute exacerbation of CHF (congestive heart failure) I50.9 Atrial fibrillation with RVR I48.91 Leukocytosis D72.829 Elevated troponin R79.89 Essential hypertension I10 Hypertension type: essential hypertension Stage 3a chronic kidney disease N18.31 Chronic kidney disease stage 3 subtype: stage 3a (GFR 45-59) Seronegative rheumatoid arthritis of both hands M06.041; M06.042 Hypokalemia E87.6 Goals of care, counseling/discussion Z71.89
[2023-12-09 14:40] VITALS: RESP 24
--- NOTE | 2023-12-09 18:47 | PC.NURSE ---
Patients family had [employer] pick-up the body.
== END 2023-12-09 17:30 | disposition expired | DRG 291 ==
LOC: ER 06:19 → ICU 09:58 → CSU 11-25 15:56
PROVIDERS: Family Medicine; Internal Medicine; Internal Medicine Cardiovascular Disease; Admitting Provider Internal Medicine; Emergency Provider Emergency Medicine; PCP Family Medicine; Visit Provider Student in an Organized Health Care Education/Training Program
DX: I13.0 Hypertensive heart and chronic kidney disease with heart failure and stage 1 through stage 4 chronic kidney disease, or unspecified chronic kidney disease (principal); I50.33 Acute on chronic diastolic (congestive) heart failure; J96.21 Acute and chronic respiratory failure with hypoxia; K29.71 Gastritis, unspecified, with bleeding; K25.4 Chronic or unspecified gastric ulcer with hemorrhage; J44.0 Chronic obstructive pulmonary disease with (acute) lower respiratory infection; J44.1 Chronic obstructive pulmonary disease with (acute) exacerbation; I48.20 Chronic atrial fibrillation, unspecified; B37.49 Other urogenital candidiasis; D62 Acute posthemorrhagic anemia; N17.9 Acute kidney failure, unspecified; N18.31 Chronic kidney disease, stage 3a; I42.1 Obstructive hypertrophic cardiomyopathy; M06.042 Rheumatoid arthritis without rheumatoid factor, left hand; M06.041 Rheumatoid arthritis without rheumatoid factor, right hand; Z87.01 Personal history of pneumonia (recurrent); J20.4 Acute bronchitis due to parainfluenza virus; E78.2 Mixed hyperlipidemia; Z87.891 Personal history of nicotine dependence; Z79.01 Long term (current) use of anticoagulants; I71.21 Aneurysm of the ascending aorta, without rupture; E87.6 Hypokalemia; Z51.5 Encounter for palliative care; I27.20 Pulmonary hypertension, unspecified; Z74.01 Bed confinement status; F32.A Depression, unspecified; R19.7 Diarrhea, unspecified; R73.03 Prediabetes; R74.01 Elevation of levels of liver transaminase levels; T38.0X5A Adverse effect of glucocorticoids and synthetic analogues, initial encounter
CPT/HCPCS: 36415; 36416; 36600; 51702; 71045; 80048; 80053; 80202; 81001; 82274; 82803; 82805; 82962; 83540; 83550; 83605; 83735; 83880; 84100; 84132; 84145; 84484; 85025; 86140; 87040; 87070; 87086; 87106; 87205; 87486; 87493; 87581; 87633; 87641; 93005; 93308; 93325; 94640; 94660; 96365; 96372; 96375; 96376; 97110; 97161; 99291; C9113; J0282; J0283; J1160; J1450; J1815; J1940; J2060; J2270; J2543; J2920; J3370; J3480; J3490; J7030; J7040; J7512; J7614; J7626; J7644